=== PATIENT | female | born 1950 | race Caucasian/White ===

== ENCOUNTER 2016-11-20 06:47 | Day surgery (SDC) | payer MEDICARE ==
[~2016-11-20] VITALS: Ht 160 cm; Wt 60.3 kg
[2016-11-20] VITALS (8 sets, daily range): BP systolic 96–121; BP diastolic 57–76; PULSE 59–69; RESP 13–26; O2SAT 94–98
[~2016-11-20 06:47] MED LIST: ESTR0.5T; IBUP200C PO; Lactated Ringer's 1,000 ML IV ONE; MEDR2.5T7 PO; MELO-259 PO; ONDA-54 PO; TAMS0.4C98 PO; TRAM50TA2 PO
[2016-11-20] MEDS ORDERED: Dexamethasone 4 mg/mL Inj ONE (06:48)
[2016-11-20] MEDS ORDERED: fentaNYL-PF 50 mCg/mL 2 mL Inj ONE (06:48)
[2016-11-20] MEDS ORDERED: EPHEDrine/NS 5 mg/mL 5 mL Syringe ONE (06:48)
[2016-11-20] MEDS ORDERED: Ondansetron 2 mg/mL 2 mL Inj ONE (06:48)
[2016-11-20] MEDS ORDERED: Propofol 10,000 mCg/mL 20 mL Inj ONE (06:48)
[2016-11-20] MEDS ORDERED: CeFAZolin 2 Gm/50 mL D5W Duplex Bag IV ONE (06:58)
[2016-11-20] MEDS ORDERED: CeFAZolin Inj 2 GM in IV Premix 1 EACH IV ONE (08:00)
[2016-11-20] MEDS ORDERED: Lactated Ringer's 1,000 ML IV ONE (08:10)
--- NOTE | 2016-11-20 08:41 | PCM.HPANE ---
Patient Data Surgeon Admitting Provider: Attending Provider:Rosie Riley MD Primary Care Physician:Dalia Swain V. (Vivien) Other Provider:Norma Travis Anesthesia Reason for Visit Right Ureteral Stone Ht/WT & BMI Height (Feet): 5 Height (Inches): 3 Weight (Kilograms): 60.3 Body Mass Index 23.00 Allergies Coded Allergies: No Known Allergies (Unverified , 11/16/16) Past Anesthesia History Anesthesia History: Denies:: Anesthesia Reactions Diabetes History Hx Diabetes?: No Medications Reported Medications Tramadol 50 Mg [id number] Mg PO Q4H PRN For Pain Ref 0 11/16/16 Tamsulosin (Flomax)0.4 Mg Capsule0.4 Mg PO DAILY Ref 0 11/16/16 Ondansetron 8 Mg Tablet8 Mg PO Q12H PRN For Nausea 11/16/16 Meloxicam 7.5 Mg Tablet7.5 Mg PO DAILY 30 Days Ref 0 11/16/16 Medroxyprogesterone 2.5 Mg Tablet5 Mg PO DAILY 11/16/16 Ibuprofen 200 Mg [id number] Mg PO QID PRN For Pain Ref 0 11/16/16 Estradiol 0.5 Mg Tablet1 Tab-Cap DAILY days 1-21 11/16/16 History History of ENT Problems?: No HEENT History: Denies:: Abnormal Airway Cataracts Difficult Intubation Dysphagia Glaucoma Hearing Problem Sinus Problem TMJ Denture Type: None Teeth Condition: Broken Teeth (upper front) Hx of Heart Problems?: No Cardiovascular History: Denies:: AICD Abdominal Aortic Aneurism Atrial Fibrillation Cardiac Surgery Chest Pain Congestive Heart Failure Coronary Artery Disease Edema Heart Murmur Hypertension Irregular Heartbeat Pacemaker Peripheral Vascular Rheumatic Fever Thrombophlebitis Valvular Heart Disease Hx of Respiratory Problem?: No Respiratory History: Denies:: Oxygen Administration Use of C-PAP Machine Hx Neurologic Problems?: Yes Neurological History: Positive for:: Dementia Hx of GI Problems?: No Hx of Problems?: Yes Genitourinary History: Positive for:: Kidney Stones (right ureteral stone current admission problem) Hx Musculoskeletal Problems?: Yes Musculoskeletal History: Positive for:: Fibromyalgia Hx Surgeries?: Yes Hx Any Other Health Problems?: Yes Other History: Denies:: Cancer Hx Diabetes: No Stop/Bang P-Blood Pressure: treated: No B- Body Mass Index > 35 kg/m2: No A- Age over 50: Yes N- Neck Large Circumference: No G- Gender Male: No Risk Assessment Category Category 1A: Patient has history of documented sleep apnea, and HAS NOT received any narcotic, sedative or anesthesia administration during this stay. Category 1B: Patient has history of documented sleep apnea, and HAS received any narcotic , sedative or anesthesia administration during this stay Category 2: Patient has SUSPECTED Obstructive Sleep Apnea, and HAS received any narcotic , sedative or anesthesia administration during this stay. Category 3: Patient has SUSPECTED Obstructive Sleep Apnea and HAS NOT received narcotic, sedative or anesthesia administration during this stay. Category 4: Outpatient in Procedural Areas with known sleep apnea or who screen positive for High Risk via the STOP/BANG questionnaire. Exam Exam General Appearance: Alert, Cooperative, No Acute Distress HEENT/AIRWAY: MP 2 Lungs: Clear to Auscultation Heart: Exam Unremarkable Plan Impression Patient chart reviewed, patient interviewed and anesthestic plan with risks, benefits, and alternatives discussed, and informed consent obtained. ASA Physical Status: ASA3 Severe Disease Anesthetic Plan: GA Bene/Risks/Altern/Consents: Yes HP Complete Prior to Induction: Yes Gigi Hall MD Nov 20, 2016 07:47
[2016-11-20] MEDS ORDERED: EPHEDrine Sulfate 50 mg/mL Inj IVPUSH PRN (08:45)
[2016-11-20] MEDS ORDERED: MetoCLOpramide 5 mg/mL 2 mL Inj IVPUSH PRN (08:45)
[2016-11-20] MEDS ORDERED: Ondansetron 2 mg/mL 2 mL Inj IVPUSH PRN (08:45)
[2016-11-20] MEDS ORDERED: Phenylephrine 10,000 mCg/mL Inj IVPUSH PRN (08:45)
[2016-11-20] MEDS ORDERED: Lactated Ringer's 1,000 ML IV SCH (08:45)
[2016-11-20] MEDS ORDERED: fentaNYL-PF 50 mCg/mL 2 mL Inj IVPUSH PRN (08:45)
[2016-11-20] MEDS ORDERED: Dexamethasone 4 mg/mL Inj IVPUSH PRN (08:45)
[2016-11-20] MEDS ORDERED: Lactated Ringer's 500 ML IV PRN (08:45)
[2016-11-20] MEDS ORDERED: Iopamidol-300 50 mL Inj IV ONE (08:46)
[2016-11-20] MEDS ORDERED: HYDROcodone-APAP 5-325 mg Tablet PO PRN (09:25)
--- NOTE | 2016-11-20 09:38 | PCM.ANEP1 ---
Post Anesthesia PACU Phase 1 Assessment Vital Signs Vital Signs Date Time Temp Pulse Resp B/P Pulse Ox O2 Delivery O2 Flow Rate FiO2 11/20/16 09:36 69 26 114/62 94 Room Air 11/20/16 09:30 66 21 119/76 94 Room Air 11/20/16 09:25 36.4 68 16 121/69 97 Room Air Anesthetic Administered: GA Level of Alertness: Awake, talking FITZGERALD's with Equal Strength: Yes Pain: No Nausea or Vomiting: No CV Function & Hydration Stable: Yes Airway Device: Oxygen Delivery: Room Air Lungs: Clear to Auscultation Dermatome Level: Full Sensation PACU Phase 2 Assessment Complications: No Patient Instructions Provided: N/A Gigi Hall MD Nov 20, 2016 09:38
--- NOTE | 2016-11-20 21:07 | OP ---
[address] [address] OPERATIVE REPORT PATIENT: OLGA KRAFT : 1950 MR#: [id number] ADMIT: 11/20/2016 JOB ID: [id number] DATE OF SURGERY: 11/20/2016 PREOPERATIVE DIAGNOSIS(ES): Right urolithiasis. POSTOPERATIVE DIAGNOSIS(ES): Right urolithiasis. PROCEDURE PERFORMED: 1. Cystoscopy with right retrograde pyelogram. 2. Right ureteroscopy. 3. Right ureteral stent placement. SURGEON: Rosie Riley MD. ASSISTANT CHIEF NURSING OFFICER: None. FINDINGS: No distal ureteral stone. ANESTHESIA: General. ESTIMATED BLOOD LOSS: None. DRAINS: A 6 x 22 right double-J ureteral stent. SPECIMENS: None. COMPLICATIONS: None. CONDITION: Stable. INDICATION FOR PROCEDURE: The patient is a 66-year-old significantly demented woman. She had neglected to stop ibuprofen and meloxicam. It was discussed with her family member proceeding with a ureteroscopy to treat just the distal stone only today and place a stent. She has a larger stone almost 2 cm in the right kidney that would need to be addressed on another day having had a suitable interval of time off of blood thinning medications. DESCRIPTION OF PROCEDURE: After informed consent was obtained, the patient was taken to the operating room. A time-out was performed identifying correct patient, surgical site, and procedure. General anesthesia was smoothly induced. She was given intravenous antibiotics just prior to the start of the procedure. She was placed in the lithotomy position and all pressure points were identified and appropriately padded. Genitals were then prepped and draped in a sterile fashion. A 22-Pashto rigid cystoscope was applied to the patient's urethra and advanced into the bladder. The bladder was drained. The right ureteral orifice was seen in orthotopic position. It was cannulated with a 5-Pashto open-ended Pollack catheter. Retrograde pyelogram was performed. It appeared normal. Two Sensor tip wires were then placed in succession into the renal pelvis as seen under fluoroscopy. Semi-rigid ureteroscopy then commenced. The patient is fairly petite in stature. Semi-rigid ureteroscope could be navigated to the ureteropelvic junction. The ureter appeared mildly dilated. There was no evidence of stone. It appeared from the ureteroscopy that she had passed the ureteral stone. The ureteroscope was then brought down under direct vision. The remaining Sensor tip wire was then backloaded into the cystoscope and a 6 x 22 double-J ureteral stent was loaded over it and guided into the renal pelvis as seen under fluoroscopy. The wire was then removed leaving a nice coil in the patient's bladder as seen under direct vision. The bladder was then drained. The patient was then reversed from general anesthesia and taken to PACU in good and stable condition. EMERALD
== END 2016-11-20 23:59 | disposition home or self-care (01) ==
LOC: SAS 06:47
PROVIDERS: ATTEND Urology
DX: N20.2 Calculus of kidney with calculus of ureter (principal); F41.8 Other specified anxiety disorders; K58.9 Irritable bowel syndrome, unspecified; M47.896 Other spondylosis, lumbar region; M79.7 Fibromyalgia; F03.90 Unspecified dementia, unspecified severity, without behavioral disturbance, psychotic disturbance, mood disturbance, and anxiety; Z79.82 Long term (current) use of aspirin; Z79.890 Hormone replacement therapy
CPT/HCPCS: 52332; 74420; C2617; J0690; J1100; J2405; J3010; J7120; Q9967

== ENCOUNTER 2016-12-04 13:11 | Inpatient (IN) | payer MEDICARE ==
[~2016-12-04] VITALS: Ht 154.9 cm; Wt 50.6 kg
[2016-12-04 13:11] VITALS: BP 130/70; PULSE 77; RESP 20; O2SAT 98
[~2016-12-04 13:11] MED LIST changes: -Lactated Ringer's 1,000 ML IV ONE
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
[2016-12-04 14:08] LABS: BASOPHILS % (AUTO) 0.1 % (0-3); EOSINOPHILS % (AUTO) 0 % (0-5); MONOCYTES % (AUTO) 5.6 % (4-12); Mean Corpuscular Volume 95.3 fL (81-100); NEUTROPHILS % (AUTO) 87.2 % (40-74); Platelet Count 211 bil/L (150-400)
[2016-12-04 16:31] LABS: APPEARANCE,URINE TURBID (CLEAR,HAZY); COLOR,URINE DARK YELLOW (YELLOW)
[2016-12-04 16:32] LABS: OCCULT BLOOD,URINE LARGE (NEGATIVE)
[2016-12-04] MEDS ORDERED: 0.9% Sodium Chloride 1,000 ML IV SCH (16:45)
[2016-12-04 17:15] VITALS: BP 140/79; PULSE 72; O2SAT 99
[2016-12-04 17:32] LABS: YEAST,URINE MANY (NONE SEEN)
[2016-12-04] MEDS ORDERED: TRAM50TA2 PO (18:03)
[2016-12-04] MEDS ORDERED: DOXY25TA46 PO (18:03)
[2016-12-04] MEDS ORDERED: ONDA4TAB6 PO (18:03)
[2016-12-04] MEDS ORDERED: ESTR0.5T PO (18:03)
[2016-12-04] MEDS ORDERED: NAM10 PO (18:03)
[2016-12-04] MEDS ORDERED: Alum-Mag Hydrox-Simeth 30 mL Suspension PO PRN ×2 (18:15→18:45)
[2016-12-04] MEDS ORDERED: Ondansetron 2 mg/mL 2 mL Inj IVPUSH PRN ×2 (18:15→18:45)
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
[2016-12-04 18:42] VITALS: BP 153/102; PULSE 74; RESP 18; O2SAT 98
[2016-12-04] MEDS ORDERED: Polyethylene Glycol (PEG) 17 Gm Powder PO PRN (18:45)
[2016-12-04] MEDS ORDERED: Haloperidol 5 mg/mL Inj IVPUSH ONE (18:45)
[2016-12-04] MEDS ORDERED: Haloperidol 5 mg/mL Inj IVPUSH PRN (19:00)
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
--- NOTE | 2016-12-04 21:55 | DRSVH ---
PROCEDURE: US RENAL SONOGRAM INDICATIONS: 66 year-old female with kidney stones and right ureteral stent placement. TECHNIQUE: Real-time scanning was performed of the kidneys and bladder, with image documentation. COMPARISON: [facility], CR, XR RETROGRADE UROGRAPHY, 11/20/2016, 9:04. Outside Film, CT, CT ABD PELVIS W CON, 11/12/2016, 13:13. FINDINGS: Kidneys: Kidneys are normal in size. Right kidney measures 11.6 cm long; left kidney measures 10.6 cm long. Right renal cortical thickness is 1.3 cm; left renal cortical thickness is 1.2 cm. Renal c ortical echotexture is normal. No hydronephrosis. 1.7 cm shadowing nonobstructing right renal stone i s present. No suspicious solid mass lesions. Bladder: Near empty at the time of scan, and therefore not well evaluated. Miscellaneous: No free pelvic fluid. IMPRESSION: Interval resolution of right hydronephrosis status post ureteral stent placement. 1.7 cm nonobstructing right renal stone. Dictated by: Tyron Awan M.D. on 12/04/2016 at 21:48 Approved by: Tyron Awan M.D. on 12/04/2016 at 21:54
[2016-12-04] MEDS: cefTRIAXone Inj 2,000 MG in Dextrose 5% Minibag Plus 50 ML IV SCH (23:30)
[2016-12-05] MEDS ORDERED: Haloperidol 5 mg/mL Inj IVPUSH PRN ×2 (00:16→20:16)
[2016-12-05] MEDS: Heparin 5,000 Unit/mL Inj SUBQ SCH ×3 (00:35→17:06)
--- NOTE | 2016-12-05 01:03 | NUR ---
Agitation Pt had an episode of agitation, and would like to get her IV line off. IV 5mg haldol administered. Pt now resting comfortably. 1:1 sitter provided for safety. Addendum: 12/05/16 at 0202 by MISHA ADAME RN Pt now asleep. Still on 1:1 sitter for safety Addendum: 12/05/16 at 0547 by MISHA ADAME RN Sore throat. Pt reports of having difficulty swallowing, states "it hurts when i swallow". Will pass on to the next shift of Speach Evaluation.
[2016-12-05] MEDS ORDERED: 0.9% Sodium Chloride 1,000 ML IV ONE (01:27)
[2016-12-05 05:45] VITALS: BP 133/75; PULSE 56; RESP 16; O2SAT 97
[2016-12-05 07:18] LABS: Mean Corpuscular Volume 96.5 fL (81-100)
[2016-12-05 07:19] LABS: BASOPHILS % (AUTO) 0.1 % (0-3); EOSINOPHILS % (AUTO) 0.1 % (0-5); MONOCYTES % (AUTO) 5.2 % (4-12); Mean Corpuscular Hemoglobin 32.4 pg (27.0-35.0); NEUTROPHILS % (AUTO) 80.6 % (40-74); Platelet Count 181 bil/L (150-400)
[2016-12-05 08:04] LABS: Bilirubin, Direct 0.4 mg/dL (0.0-0.3)
[2016-12-05] MEDS: D5 0.45% NaCl + KCl 20 mEq/L 1,000 ML IV SCH ×2 (10:43→22:28)
--- NOTE | 2016-12-05 11:49 | NUR ---
Case Management: [facility] delivered and charted. Signed original placed in chart. Copy left at bedside. Rosaura Syed RN
--- NOTE | 2016-12-05 16:36 | DRSVH ---
PROCEDURE: MRI STROKE PROTOCOL ([id number]) Pre- and post-contrast brain MRI, non-contrast brain MR angiogram, pre- and postcontrast neck MR ivet ogram INDICATIONS: psychosis dementia TECHNIQUE: Brain: Noncontrast axial T1 spin echo, axial T2 fast spin echo, sagittal and axial FLAIR, coronal T2 fast spin echo, axial gradient echo, axial diffusion and ADC through the brain. After the administr ation of contrast, axial 3D VIBE of the cranial vasculature and brain. Brain MRA: Non-contrast 3-D time of flight MR angiogram, with multiple vigxlkw-gysbtzczw-fjjxqrwcbk (MIP) reformats performed. Neck MRA: Axial and sagittal TruFISP through the neck. Coronal dynamic MR angiogram during administ ration of contrast in the arterial and venous phases, with 3-dimenstional ytnuumi-uhipyqyya-xxkvgidnp n (MIP) reformats constructed from subtraction images. COMPARISON: None. FINDINGS: Image quality: Excellent. BRAIN: CSF spaces: There is ex vacuo dilatation of the lateral ventricles, greatest in degree involving the temporal horns. Basal cisterns are patent. No extra-axial fluid collections. Brain: No intracranial bleeds or mass effects. Mild degree of patchy high FLAIR signal intensity wit hin the periventricular and subcortical white matter. There is moderate diffuse cerebral volume loss, greatest in degree involving the frontal and anterior temporal lobes. Jasmine-white matter interface is normal. Diffusion weighted images show no acute ischemic insults. Brainstem appears normal. Brenda l intravascular flow voids are present. No abnormal intracranial enhancement. Skull and face: Calvarial marrow signal is normal. Orbits appear normal. Sinuses: Sinuses and mastoids are clear. BRAIN MR ANGIOGRAM: Anterior circulation: Intracranial internal carotid arteries are normal in size and enhancement. Th e flow within the paired anterior cerebral arteries is normal and symmetric. The flow within the mid dle cerebral arteries is normal and symmetric. The anterior communicating artery is seen. No stenos es, occlusions, or aneurysms. Posterior circulation: The visualized portions of the vertebral arteries demonstrate normal caliber, and join to form a normal appearing basilar artery. The flow within the posterior cerebral arteries is normal and symmetric. No stenoses, occlusions, or aneurysms. NECK MR ANGIOGRAM: Carotids: Great vessels demonstrate a conventional anatomy as they arise from the aortic arch. The origins of the common carotid arteries appear patent. The calibers and courses of both common caroti d arteries are normal. The bifurcation regions appear normal bilaterally. The internal carotid tanner henrik demonstrate normal course and caliber. Posterior circulation: The origins of the vertebral arteries appear patent. More superior portions of both vertebral arteries demonstrate normal course and caliber, and join to form a normal appearing basilar artery. Miscellaneous: Subclavian arteries appear patent. Pre-contrast images through the neck show no soft tissue abnormalities. IMPRESSION: BRAIN MRI: 1. No acute process. No recent infarct. 2. Small vessel ischemic disease. 3. Cerebral volume loss, greatest in degree within the frontal and temporal lobes bilaterally. BRAIN MR ANGIOGRAM: Negative cervical MR angiography. NECK MR ANGIOGRAM: 1. No internal coronary stenosis bilaterally. 2. Patent bilateral vertebral arteries. The estimate of stenosis included in the report of the imaging study was calculated using the NASCET method Dictated by: Jing Kate M.D. on 12/05/2016 at 16:29 Transcribed by: RAULITO on 12/05/2016 at 16:34 Approved by: Jing Kate M.D. on 12/05/2016 at 16:40
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
[2016-12-05 17:21] VITALS: BP 160/74; PULSE 57; RESP 16; O2SAT 97
[2016-12-05 21:16] VITALS: BP 158/77; PULSE 56; RESP 16; O2SAT 98
[2016-12-05] MEDS: cefTRIAXone Inj 2,000 MG in Dextrose 5% Minibag Plus 50 ML IV SCH (22:35)
--- NOTE | 2016-12-05 23:57 | NUR ---
Activity Pt remained in bed for the shift, extremely [facility] will answer some yes/no questions, alert and oriented to self. Pt remained calm and pleasant during assessment and took medications crushed with pudding. No noted suicide actions, daughter in room, sitter in room. Will continue to monitor.
[2016-12-06] MEDS: Heparin 5,000 Unit/mL Inj SUBQ SCH ×3 (00:09→17:37)
[2016-12-06 03:10] LABS: Vitamin B12 1196 pg/mL (211-946)
[2016-12-06 04:13] LABS: Hepatitis A Antibody IgM Negative (Negative); Hepatitis B Core Antibody IgM Negative (Negative)
[2016-12-06 05:31] VITALS: BP 138/76; PULSE 50; RESP 16; O2SAT 97
[2016-12-06] MEDS: D5 0.45% NaCl + KCl 20 mEq/L 1,000 ML IV SCH ×2 (08:20→17:36)
--- NOTE | 2016-12-06 08:35 | NUR ---
BHUPENDRA received a call from [facility] Olga Falcon [phone], SW provided her with update and she will come see pt in the hospital. STEWART Contreras
--- NOTE | 2016-12-06 11:18 | NUR ---
Social Work-multidisciplinary rounds: Per MD, pt will likely be in the hospital for several more days. to order Psychiatry consult. BHUPENDRA to complete initial assessment today. STEWART Contreras
[2016-12-06 13:03] VITALS: BP 132/76; PULSE 63; RESP 16; O2SAT 97
[2016-12-06 13:18] LABS: BASOPHILS % (AUTO) 0.1 % (0-3); EOSINOPHILS % (AUTO) 1.4 % (0-5); MONOCYTES % (AUTO) 5.9 % (4-12); Mean Corpuscular Hemoglobin 32.6 pg (27.0-35.0); Mean Corpuscular Volume 96.9 fL (81-100); Platelet Count 170 bil/L (150-400)
--- NOTE | 2016-12-06 14:27 | NUR ---
APS - faxed H&P to Olga Falcon. She will be visiting pt tomorrow 12/07. Advised SUPERINTENDENT OF GENERATION>
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
--- NOTE | 2016-12-06 20:01 | PCM.PNMED ---
Subjective Date of Service Dec 06, 2016 Subjective Patient is nonverbal, not answer any of my questions. She also is able to do crossword puzzles to the best of my knowledge looks to be appropriate. Exam Vital Signs Vital Sign - Last Date Time Temp Pulse Resp B/P Pulse Ox O2 Delivery O2 Flow Rate FiO2 12/06/16 13:03 36.3 63 16 132/76 97 Room Air Intake and Output 12/05/16 12/05/16 12/06/16 Cumulative From/Thru 15:00 23:00 07:00 12/04/16 13:11 - 12/06/16 05:31 Intake Total 1134 ml 200 ml 3718 ml Output Total 400 ml Balance 1134 ml 200 ml 3318 ml Intake Oral 168 ml 200 ml 468 ml IV Total 966 ml 3250 ml Output Urine Total 400 ml # Voids 2 2 5 # Bowel Movements 1 Exam Constitutional: Middle-aged female in no acute distress Chest: Clear to auscultation Cor: Regular rate and rhythm S1-S2 Abdomen: Soft nontender bowel sounds present Extremities: No pedal edema Psych: Patient is expressionless will not look up from her crossword puzzle book will not cooperate with certain commands Neuro: She is alert difficult to assess orientation, motor strength is intact bilaterally Lab and Diagnostics Laboratory Tests 72 Hours Test 12/04/16 14:00 12/04/16 14:19 12/04/16 15:58 12/05/16 06:00 White Blood Count 11.9th/mm3 (3.8-10.1) 8.8th/mm3 (3.8-10.1) Red Blood Count 4.43mil/mm3 (3.90-5.20) 3.95mil/mm3 (3.90-5.20) Hemoglobin 14.6g/dL (12.0-15.6) 12.8g/dL (12.0-15.6) Hematocrit 42.2% (35.0-46.0) 38.1% (35.0-46.0) Mean Corpuscular Volume 95.3fL (81-100) 96.5fL (81-100) Mean Corpuscular Hemoglobin 33.0pg (27.0-35.0) 32.4pg (27.0-35.0) Mean Corpuscular Hemoglobin Concent 34.6% (32.0-37.0) 33.6% (32.0-37.0) Red Cell Distribution Width 12.5% (12.3-15.4) 12.4% (12.3-15.4) Platelet Count 211bil/L (150-400) 181bil/L (150-400) Neutrophils (%) (Auto) 87.2% (40-74) 80.6% (40-74) Lymphocytes (%) (Auto) 6.8% (14-46) 13.8% (14-46) Monocytes (%) (Auto) 5.6% (4-12) 5.2% (4-12) Eosinophils (%) (Auto) 0% (0-5) 0.1% (0-5) Basophils (%) (Auto) 0.1% (0-3) 0.1% (0-3) Sodium Level 142mEq/L (134-144) 147mEq/L (134-144) Potassium Level 3.3mEq/L (3.5-5.2) 3.3mEq/L (3.5-5.2) Chloride Level 96mEq/L (97-108) 107mEq/L (97-108) Carbon Dioxide Level 24mmol/L (18-29) 23mmol/L (18-29) Blood Urea Nitrogen 38mg/dL (8-27) 35mg/dL (8-27) Creatinine 1.54mg/dL (0.57-1.00) 1.37mg/dL (0.57-1.00) Estimat Glomerular Filtration Rate 48mL/min (>59) 55mL/min (>59) Glucose Level 104mg/dL (60-99) 105mg/dL (60-99) Calcium Level 10.8mg/dL (8.5-10.1) 9.3mg/dL (8.5-10.1) Total Bilirubin 1.5mg/dL (0.0-1.2) 0.9mg/dL (0.0-1.2) Aspartate Amino Transf (AST/SGOT) 50U/L (0-50) 30U/L (0-50) Alanine Aminotransferase (ALT/SGPT) 218U/L (0-32) 146U/L (0-32) Alkaline Phosphatase 95U/L (25-165) 73U/L (25-165) Total Protein 7.3g/dL (6.4-8.4) 5.7g/dL (6.4-8.4) Albumin 4.2g/dL (3.4-5.0) 3.5g/dL (3.4-5.0) Thyroid Stimulating Hormone (TSH) 0.773uIU/mL (0.450-4.500) 1.690uIU/mL (0.450-4.500) Alcohols < 10mg/dL (0-10) Hold Urine Received (Received) Urine Color Dark yellow (YELLOW) Urine Appearance Turbid (CLEAR,HAZY) Urine pH 6.0 (5.0-8.0) Urine Specific [place] 1.025 (1.003-1.035) Urine Protein mg/dL (NEG,TRACE) Urine Glucose (UA) Negativemg/dL (NEGATIVE) Urine Ketones mg/dL (NEGATIVE) Urine Occult Blood Large (NEGATIVE) Urine Nitrite Positive (NEGATIVE) Urine Bilirubin Negative (NEGATIVE) Urine Urobilinogen mg/dL (NORMAL) Urine Leukocyte Esterase Trace (NEGATIVE) Urine RBC >50/hpf (0-2) Urine WBC 0-5/hpf (0-5) Urine Epithelial Cells Few/hpf (NONE-MOD) Urine Crystals None seen (NONE SEEN) Urine Bacteria Few/hpf (NONE-FEW) Urine Hyaline Casts None/lpf (NONE) Urine Granular Casts None seen (NONE SEEN) Urine Waxy Casts None seen (NONE SEEN) Urine Red Blood Cell Casts None seen (NONE SEEN) Urine White Blood Cell Casts None seen (NONE SEEN) Urine Mucus Present (None Seen) Urine Trichomonas None seen (NONE SEEN) Urine Yeast Many (NONE SEEN) Urinalysis Comment Color interference Urine Culture Reflexed Indicated Direct Bilirubin 0.4mg/dL (0.0-0.3) Procalcitonin 0.26ng/mL (0.00-0.08) Free Thyroxine 1.03ng/dL (0.82-1.77) Test 12/05/16 10:45 12/06/16 13:10 Vitamin B12 Level 1196pg/mL (211-946) Rapid Plasma Reagin Non reactive (Non Reactive) Hepatitis A IgM Antibody Negative (Negative) Hepatitis B Surface Antigen Negative (Negative) Hepatitis B Core IgM Antibody Negative (Negative) Hepatitis C Antibody <0.1s/co ratio (0.0-0.9) Hepatitis C Comment Comment (.) White Blood Count 6.9th/mm3 (3.8-10.1) Red Blood Count 3.87mil/mm3 (3.90-5.20) Hemoglobin 12.6g/dL (12.0-15.6) Hematocrit 37.5% (35.0-46.0) Mean Corpuscular Volume 96.9fL (81-100) Mean Corpuscular Hemoglobin 32.6pg (27.0-35.0) Mean Corpuscular Hemoglobin Concent 33.6% (32.0-37.0) Red Cell Distribution Width 12.2% (12.3-15.4) Platelet Count 170bil/L (150-400) Neutrophils (%) (Auto) 67.0% (40-74) Lymphocytes (%) (Auto) 25.3% (14-46) Monocytes (%) (Auto) 5.9% (4-12) Eosinophils (%) (Auto) 1.4% (0-5) Basophils (%) (Auto) 0.1% (0-3) Sodium Level 139mEq/L (134-144) Potassium Level 3.8mEq/L (3.5-5.2) Chloride Level 104mEq/L (97-108) Carbon Dioxide Level 24mmol/L (18-29) Blood Urea Nitrogen 16mg/dL (8-27) Creatinine 0.83mg/dL (0.57-1.00) Estimat Glomerular Filtration Rate 98mL/min (>59) Glucose Level 134mg/dL (60-99) Calcium Level 9.1mg/dL (8.5-10.1) Total Bilirubin 0.6mg/dL (0.0-1.2) Aspartate Amino Transf (AST/SGOT) 21U/L (0-50) Alanine Aminotransferase (ALT/SGPT) 96U/L (0-32) Alkaline Phosphatase 63U/L (25-165) Total Creatine Kinase 31U/L (21-215) Total Protein 5.3g/dL (6.4-8.4) Albumin 3.2g/dL (3.4-5.0) Result Diagram: 12/06/16 1310 12/06/16 1310 Assessment & Plan 66-year-old female with severe early onset dementia with attempted suicide attempt today was found to have YESENIA and possible UTI acute, active, Irregular behaviors, agitation, likely due to advance dementia with possible psychosis features. presumably due to Alzheimer's dementia, but could be Lewi- body dementia, dxed dementia already 7yrs ago per brother. no previous dx of psychiatric dz -will exclude any reversible etiologies, organic disease, get vitB12, TSH, RPR, UCX -awaits MRI brain MRA neck and brain -if all workups negative, pt likely needs psychiatry consult prior to placement -haldol seemed working well, continue haldol 5mg q4h prn -Continue amantadine YESENIA, POA, likely prerenal due to decreased Po intake, Patient received 2 L normal saline in the ED, started on 100cc/hr NS, -stop IVF today, improving with IVF, will encourage liberal food intake -Avoid all NSAIDs, including meloxicam, and other nephrotoxins -daily CMP Hx of nephrolithiasis, recent stent placement, POA, Abd US on 12/04 showed Interval resolution of right hydronephrosis status post ureteral stent placement. 1.7 cm nonobstructing right renal stone probable UTI, POA, positive for leukocyte esterase, nitrites, few bacteria; pending culture -empirically start Rocephin today, monitor response, awaits final culture, consider to stop if suspicion remains low Elevated ALT, calcium, and bilirubin; present on admission; ongoing, LFT shows mild hepatic dysfunction with mild elevations of bilirubin and large elevation of ALT; question this due to medication -ALT trending down, awaits viral hep panel, chronic, stable, resolved Reported dysphagia, POA, initially concerning given dementia, however, pt appeared euvolemic,relatively well nourished, passed swallowing test, continue general diet, Disposition: pending, appreciate SW input DNR/DNI VTE Prophylaxis: Sub-Q Heparin (Unfractionated) Resuscitation Status: DNR/DNI:Do Not Resuscitate/Intubate Time spent 30 minutes Marylu See MD Dec 06, 2016 20:01
[2016-12-06 20:35] VITALS: BP 130/70; PULSE 60; RESP 20; O2SAT 98
[2016-12-06] MEDS: cefTRIAXone Inj 2,000 MG in Dextrose 5% Minibag Plus 50 ML IV SCH (23:37)
[2016-12-07] MEDS: Heparin 5,000 Unit/mL Inj SUBQ SCH ×3 (00:30→16:30)
--- NOTE | 2016-12-07 03:05 | NUR ---
activity Pt restless and uncooperative this evening, asked to be left alone. Pulled out IV, IV was patent, no bleeding or injury. Will monitor progress.
--- NOTE | 2016-12-07 05:25 | NUR ---
IV New IV started on Pt, uncooperative, glove over arm to help keep IV in place. Sitter with pt, will continue monitor.
--- NOTE | 2016-12-07 08:12 | NUR ---
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 PRN 5mg IV haldol given by off going coin machine servicer repairer RN at shift change with little observable effect. 0800 patient pulls out IV and wants "to be left alone". Multiple attempts to calm and redirect patient partially effective. Currently resting in bed with sitter and daughter at bedside for safety. Bed low and locked, call light in reach, bed alarm on, care and frequent rounding in place. Addendum: 12/07/16 at 0942 by JOSE ANTONIO BREEN RN 09 patient continues to refuse food, water, PO medications. States "I told you I don't want anything!" Patient able to be calmed by RN. Sitter at bedside for safety, bed low and locked, call light in reach, care and frequent rounding ongoing.
[2016-12-07] MEDS: D5 0.45% NaCl + KCl 20 mEq/L 1,000 ML IV SCH ×3 (08:20→22:15)
[2016-12-07] MEDS ORDERED: Haloperidol 5 mg/mL Inj IM PRN (12:16)
[2016-12-07 16:56] VITALS: BP 133/65; PULSE 61; RESP 18; O2SAT 95
--- NOTE | 2016-12-07 18:29 | PCM.PNMED ---
Subjective Date of Service Dec 07, 2016 Subjective Patient does not respond to commands but is alert. She had a night of being quite agitated and required IV Haldol with some benefit. Exam Vital Signs Vital Sign - Last Date Time Temp Pulse Resp B/P Pulse Ox O2 Delivery O2 Flow Rate FiO2 12/07/16 16:56 36.9 61 18 133/65 95 Room Air Intake and Output 12/06/16 12/06/16 12/07/16 Cumulative From/Thru 15:00 23:00 07:00 12/04/16 13:11 - 12/07/16 06:28 Intake Total 200 ml 320 ml 4238 ml Output Total 400 ml Balance 200 ml 320 ml 3838 ml Intake Oral 200 ml 320 ml 988 ml IV Total 3250 ml Output Urine Total 400 ml # Voids 6 6 17 # Bowel Movements 3 3 7 Exam Constitutional: Elderly female who is somewhat irritated and not answer questions Head: Normocephalic atraumatic Chest: Clear to auscultation Cor: Regular rate and rhythm S1-S2 Abdomen: Soft nontender bowel sounds present Extremities: No pedal edema neuro she is alert difficult to assess orientation moves all extremities equally Lab and Diagnostics Laboratory Tests 72 Hours Test 12/05/16 06:00 12/05/16 10:45 12/06/16 13:10 White Blood Count 8.8th/mm3 (3.8-10.1) 6.9th/mm3 (3.8-10.1) Red Blood Count 3.95mil/mm3 (3.90-5.20) 3.87mil/mm3 (3.90-5.20) Hemoglobin 12.8g/dL (12.0-15.6) 12.6g/dL (12.0-15.6) Hematocrit 38.1% (35.0-46.0) 37.5% (35.0-46.0) Mean Corpuscular Volume 96.5fL (81-100) 96.9fL (81-100) Mean Corpuscular Hemoglobin 32.4pg (27.0-35.0) 32.6pg (27.0-35.0) Mean Corpuscular Hemoglobin Concent 33.6% (32.0-37.0) 33.6% (32.0-37.0) Red Cell Distribution Width 12.4% (12.3-15.4) 12.2% (12.3-15.4) Platelet Count 181bil/L (150-400) 170bil/L (150-400) Neutrophils (%) (Auto) 80.6% (40-74) 67.0% (40-74) Lymphocytes (%) (Auto) 13.8% (14-46) 25.3% (14-46) Monocytes (%) (Auto) 5.2% (4-12) 5.9% (4-12) Eosinophils (%) (Auto) 0.1% (0-5) 1.4% (0-5) Basophils (%) (Auto) 0.1% (0-3) 0.1% (0-3) Sodium Level 147mEq/L (134-144) 139mEq/L (134-144) Potassium Level 3.3mEq/L (3.5-5.2) 3.8mEq/L (3.5-5.2) Chloride Level 107mEq/L (97-108) 104mEq/L (97-108) Carbon Dioxide Level 23mmol/L (18-29) 24mmol/L (18-29) Blood Urea Nitrogen 35mg/dL (8-27) 16mg/dL (8-27) Creatinine 1.37mg/dL (0.57-1.00) 0.83mg/dL (0.57-1.00) Estimat Glomerular Filtration Rate 55mL/min (>59) 98mL/min (>59) Glucose Level 105mg/dL (60-99) 134mg/dL (60-99) Calcium Level 9.3mg/dL (8.5-10.1) 9.1mg/dL (8.5-10.1) Total Bilirubin 0.9mg/dL (0.0-1.2) 0.6mg/dL (0.0-1.2) Direct Bilirubin 0.4mg/dL (0.0-0.3) Aspartate Amino Transf (AST/SGOT) 30U/L (0-50) 21U/L (0-50) Alanine Aminotransferase (ALT/SGPT) 146U/L (0-32) 96U/L (0-32) Alkaline Phosphatase 73U/L (25-165) 63U/L (25-165) Total Protein 5.7g/dL (6.4-8.4) 5.3g/dL (6.4-8.4) Albumin 3.5g/dL (3.4-5.0) 3.2g/dL (3.4-5.0) Procalcitonin 0.26ng/mL (0.00-0.08) Thyroid Stimulating Hormone (TSH) 1.690uIU/mL (0.450-4.500) Free Thyroxine 1.03ng/dL (0.82-1.77) Vitamin B12 Level 1196pg/mL (211-946) Rapid Plasma Reagin Non reactive (Non Reactive) Hepatitis A IgM Antibody Negative (Negative) Hepatitis B Surface Antigen Negative (Negative) Hepatitis B Core IgM Antibody Negative (Negative) Hepatitis C Antibody <0.1s/co ratio (0.0-0.9) Hepatitis C Comment Comment (.) Total Creatine Kinase 31U/L (21-215) Result Diagram: 12/06/16 1310 12/06/16 1310 X-Rays, CTs and MRIs Date of Service: 12/05/16 1013 PROCEDURE: MRI STROKE PROTOCOL ([id number]) Pre- and post-contrast brain MRI, non-contrast brain MR angiogram, pre- and postcontrast neck MR angiogram INDICATIONS: psychosis dementia TECHNIQUE: Brain: Noncontrast axial T1 spin echo, axial T2 fast spin echo, sagittal and axial FLAIR, coronal T2 fast spin echo, axial gradient echo, axial diffusion and ADC through the brain. After the administration of contrast, axial 3D VIBE of the cranial vasculature and brain. Brain MRA: Non-contrast 3-D time of flight MR angiogram, with multiple maximum- intensity-projection (MIP) reformats performed. Neck MRA: Axial and sagittal TruFISP through the neck. Coronal dynamic MR angiogram during administration of contrast in the arterial and venous phases, with 3-dimenstional vwuswpl-lwyzvstge-terbsitmqf (MIP) reformats constructed from subtraction images. COMPARISON: None. FINDINGS: Image quality: Excellent. BRAIN: CSF spaces: There is ex vacuo dilatation of the lateral ventricles, greatest in degree involving the temporal horns. Basal cisterns are patent. No extra- axial fluid collections. Brain: No intracranial bleeds or mass effects. Mild degree of patchy high FLAIR signal intensity within the periventricular and subcortical white matter. There is moderate diffuse cerebral volume loss, greatest in degree involving the frontal and anterior temporal lobes. Jasmine-white matter interface is normal. Diffusion weighted images show no acute ischemic insults. Brainstem appears normal. Normal intravascular flow voids are present. No abnormal intracranial enhancement. Skull and face: Calvarial marrow signal is normal. Orbits appear normal. Sinuses: Sinuses and mastoids are clear. BRAIN MR ANGIOGRAM: Anterior circulation: Intracranial internal carotid arteries are normal in size and enhancement. The flow within the paired anterior cerebral arteries is normal and symmetric. The flow within the middle cerebral arteries is normal and symmetric. The anterior communicating artery is seen. No stenoses, occlusions, or aneurysms. Posterior circulation: The visualized portions of the vertebral arteries demonstrate normal caliber, and join to form a normal appearing basilar artery. The flow within the posterior cerebral arteries is normal and symmetric. No stenoses, occlusions, or aneurysms. NECK MR ANGIOGRAM: Carotids: Great vessels demonstrate a conventional anatomy as they arise from the aortic arch. The origins of the common carotid arteries appear patent. The calibers and courses of both common carotid arteries are normal. The bifurcation regions appear normal bilaterally. The internal carotid arteries demonstrate normal course and caliber. Posterior circulation: The origins of the vertebral arteries appear patent. More superior portions of both vertebral arteries demonstrate normal course and caliber, and join to form a normal appearing basilar artery. Miscellaneous: Subclavian arteries appear patent. Pre-contrast images through the neck show no soft tissue abnormalities. IMPRESSION: BRAIN MRI: 1. No acute process. No recent infarct. 2. Small vessel ischemic disease. 3. Cerebral volume loss, greatest in degree within the frontal and temporal lobes bilaterally. BRAIN MR ANGIOGRAM: Negative cervical MR angiography. NECK MR ANGIOGRAM: 1. No internal coronary stenosis bilaterally. 2. Patent bilateral vertebral arteries. The estimate of stenosis included in the report of the imaging study was calculated using the NASCET method Dictated by: Jing Kate M.D. on 12/05/2016 at 16:29 Transcribed by: RAULITO on 12/05/2016 at 16:34 Approved by: Jing Kate M.D. on 12/05/2016 at 16:40 Assessment & Plan 66-year-old female with severe early onset dementia with attempted suicide attempt today was found to have YESENIA and possible UTI acute, active, Irregular behaviors, agitation, likely due to advance dementia with possible psychosis features. presumably due to Alzheimer's dementia, but could be Lewi- body dementia, dxed dementia already 7yrs ago per brother. no previous dx of psychiatric dz -will exclude any reversible etiologies, organic disease, get vitB12, TSH, RPR, UCX -awaits MRI brain MRA neck and brain -if all workups negative, pt likely needs psychiatry consult prior to placement -haldol seemed working well, continue haldol 5mg q4h prn -Continue amantadine -I contacted psychiatry yesterday and missed phone call back late in the day and contacted psychiatry again today and am still awaiting consultation YESENIA, POA, likely prerenal due to decreased Po intake, Patient received 2 L normal saline in the ED, started on 100cc/hr NS, -stop IVF today, improving with IVF, will encourage liberal food intake -Avoid all NSAIDs, including meloxicam, and other nephrotoxins -daily CMP Hx of nephrolithiasis, recent stent placement, POA, Abd US on 12/04 showed Interval resolution of right hydronephrosis status post ureteral stent placement. 1.7 cm nonobstructing right renal stone probable UTI, POA, positive for leukocyte esterase, nitrites, few bacteria; pending culture -empirically start Rocephin today, monitor response, awaits final culture, consider to stop if suspicion remains low Elevated ALT, calcium, and bilirubin; present on admission; ongoing, LFT shows mild hepatic dysfunction with mild elevations of bilirubin and large elevation of ALT; question this due to medication -ALT trending down, awaits viral hep panel, chronic, stable, resolved Reported dysphagia, POA, initially concerning given dementia, however, pt appeared euvolemic,relatively well nourished, passed swallowing test, continue general diet, Disposition: pending, appreciate SW input DNR/DNI VTE Prophylaxis: Sub-Q Heparin (Unfractionated) Resuscitation Status: DNR/DNI:Do Not Resuscitate/Intubate Time spent 30 minutes Marylu See MD Dec 07, 2016 18:29
--- NOTE | 2016-12-07 18:54 | NUR ---
No IV Patient has removed several IVs; peripheral IVs appear to cause her irritation and anxiety. Primary MD (Dr See) states it is fine for patient to go without IV for now.
[2016-12-07 22:31] VITALS: BP 112/71; PULSE 64; RESP 18; O2SAT 96
[2016-12-07] MEDS: cefTRIAXone Inj 2,000 MG in Dextrose 5% Minibag Plus 50 ML IV SCH (23:00)
[2016-12-08] MEDS: Heparin 5,000 Unit/mL Inj SUBQ SCH ×5 (02:49→23:56)
[2016-12-08 05:16] VITALS: BP 132/71; PULSE 58; RESP 18; O2SAT 95
[2016-12-08] MEDS: D5 0.45% NaCl + KCl 20 mEq/L 1,000 ML IV SCH ×2 (08:15→15:26)
[2016-12-08 14:46] VITALS: BP 121/71; PULSE 67; RESP 18; O2SAT 96
--- NOTE | 2016-12-08 16:26 | PCM.PNMED ---
Subjective Date of Service Dec 08, 2016 Subjective pt was agitated and combative pulled out iv overnight, pt was not coherent, answered questions but didn't give right answers, oriented to herself calm on the bed, sitter at the bed side Exam Vital Signs Vital Sign - Last Date Time Temp Pulse Resp B/P Pulse Ox O2 Delivery O2 Flow Rate FiO2 12/08/16 05:16 36.7 58 18 132/71 95 Room Air Intake and Output 12/07/16 12/07/16 12/08/16 Cumulative From/Thru 15:00 23:00 07:00 12/04/16 13:11 - 12/07/16 18:35 Intake Total 300 ml 4538 ml Output Total 400 ml Balance 300 ml 4138 ml Intake Oral 300 ml 1288 ml IV Total 3250 ml Output Urine Total 400 ml # Voids 9 26 # Bowel Movements 2 9 Exam cachectic, awake, calm, NAD, comfortably laying down on the bed no JVD, MMM, no LAD RRR, nl s1, s2 no mrg CTAB, no w,c S,ND,NT,normoactive BS+ warm, no edema, pulses 2/2 IVs and Medications Medications Reviewed: Medications were reviewed in detail Lab and Diagnostics Result Diagram: 12/06/16 1310 12/06/16 1310 X-Rays, CTs and MRIs Date of Service: 12/05/16 1013 PROCEDURE: MRI STROKE PROTOCOL ([id number]) Pre- and post-contrast brain MRI, non-contrast brain MR angiogram, pre- and postcontrast neck MR angiogram INDICATIONS: psychosis dementia TECHNIQUE: Brain: Noncontrast axial T1 spin echo, axial T2 fast spin echo, sagittal and axial FLAIR, coronal T2 fast spin echo, axial gradient echo, axial diffusion and ADC through the brain. After the administration of contrast, axial 3D VIBE of the cranial vasculature and brain. Brain MRA: Non-contrast 3-D time of flight MR angiogram, with multiple maximum- intensity-projection (MIP) reformats performed. Neck MRA: Axial and sagittal TruFISP through the neck. Coronal dynamic MR angiogram during administration of contrast in the arterial and venous phases, with 3-dimenstional mxqrlvs-jxeakutku-jbgutfflcb (MIP) reformats constructed from subtraction images. COMPARISON: None. FINDINGS: Image quality: Excellent. BRAIN: CSF spaces: There is ex vacuo dilatation of the lateral ventricles, greatest in degree involving the temporal horns. Basal cisterns are patent. No extra- axial fluid collections. Brain: No intracranial bleeds or mass effects. Mild degree of patchy high FLAIR signal intensity within the periventricular and subcortical white matter. There is moderate diffuse cerebral volume loss, greatest in degree involving the frontal and anterior temporal lobes. Jasmine-white matter interface is normal. Diffusion weighted images show no acute ischemic insults. Brainstem appears normal. Normal intravascular flow voids are present. No abnormal intracranial enhancement. Skull and face: Calvarial marrow signal is normal. Orbits appear normal. Sinuses: Sinuses and mastoids are clear. BRAIN MR ANGIOGRAM: Anterior circulation: Intracranial internal carotid arteries are normal in size and enhancement. The flow within the paired anterior cerebral arteries is normal and symmetric. The flow within the middle cerebral arteries is normal and symmetric. The anterior communicating artery is seen. No stenoses, occlusions, or aneurysms. Posterior circulation: The visualized portions of the vertebral arteries demonstrate normal caliber, and join to form a normal appearing basilar artery. The flow within the posterior cerebral arteries is normal and symmetric. No stenoses, occlusions, or aneurysms. NECK MR ANGIOGRAM: Carotids: Great vessels demonstrate a conventional anatomy as they arise from the aortic arch. The origins of the common carotid arteries appear patent. The calibers and courses of both common carotid arteries are normal. The bifurcation regions appear normal bilaterally. The internal carotid arteries demonstrate normal course and caliber. Posterior circulation: The origins of the vertebral arteries appear patent. More superior portions of both vertebral arteries demonstrate normal course and caliber, and join to form a normal appearing basilar artery. Miscellaneous: Subclavian arteries appear patent. Pre-contrast images through the neck show no soft tissue abnormalities. IMPRESSION: BRAIN MRI: 1. No acute process. No recent infarct. 2. Small vessel ischemic disease. 3. Cerebral volume loss, greatest in degree within the frontal and temporal lobes bilaterally. BRAIN MR ANGIOGRAM: Negative cervical MR angiography. NECK MR ANGIOGRAM: 1. No internal coronary stenosis bilaterally. 2. Patent bilateral vertebral arteries. The estimate of stenosis included in the report of the imaging study was calculated using the NASCET method Dictated by: Jing Kate M.D. on 12/05/2016 at 16:29 Transcribed by: RAULITO on 12/05/2016 at 16:34 Approved by: Jing Kate M.D. on 12/05/2016 at 16:40 Assessment & Plan 66-year-old female with severe early onset dementia with attempted suicide attempt today was found to have YESENIA and possible UTI acute, active, Irregular behaviors, agitation, likely due to advanced dementia with possible psychosis features or underlying psychiatric dz, dementia was presumably due to Alzheimer's dementia, pt was diagnosed dxed dementia already 7yrs ago per brother. no previous dx of psychiatric dz. Medical w/u including MRA, MRI of brain, vitB12, TSH, RPR, UCX, all negative. -haldol seemed working well, continue haldol 5mg q4h prn -Continue amantadine -awaits consult, consulted and was reached by SW service Elevated ALT, calcium, and bilirubin; present on admission; ongoing, LFT shows mild hepatic dysfunction with mild elevations of bilirubin and large elevation of ALT; question this due to medication. -ALT trending down, monitor for now chronic, stable, resolved Reported dysphagia, POA, initially concerning given dementia, however, pt appeared euvolemic,relatively well nourished, passed swallowing test, continue general diet, YESENIA, POA, likely prerenal due to decreased Po intake, Patient received 2 L normal saline in the ED, started on 100cc/hr NS, resolved with IVF> Hx of nephrolithiasis, recent stent placement, POA, Abd US on 12/04 showed Interval resolution of right hydronephrosis status post ureteral stent placement. 1.7 cm nonobstructing right renal stone, stable Probable UTI, POA, positive for leukocyte esterase, nitrites, few bacteria. pt was empirically start Rocephin but final UCX negative. stopped abx today Disposition: pending, appreciate SW input DNR/DNI VTE Prophylaxis: Sub-Q Heparin (Unfractionated) VTE Mechanical Devices: Venous Foot Pump Resuscitation Status: DNR/DNI:Do Not Resuscitate/Intubate Time spent 35min Mariana Dunn MD Dec 08, 2016 12:33
--- NOTE | 2016-12-08 16:48 | NUR ---
NUTRITION ASSESSMENT: ASSESS: 66YO F admit with Altered mental status, ? Delirium with alzheimers dementia, psychiatry consulted. Pt. diet remains stimulation with pt refusing or taking in bites of po diet. Minimal nutrition x 4 days. PMHX: Alzheimer's Dementia, DIET: Stimulation (+supplements). PO bites. ST notes indicate pt dysphagia: WFL; recommend Stim/Puree. LABS: Alb 3.2, Glu 134 MEDS: Reviewed GI: 2 BM 12/08 WEIGHT:69.3kg BMI: 28.9 EST.NEEDS: 9220-3722 kcal (25-30kcal/kg) 70-80g pro (1.0-1.2g/kg pro) NUTRITION DIAGNOSIS: (1) Inadequate oral intake related to AMS as evidenced by po intake of bites on stimulation diet x 4 days. INTERVENTION: (1) Currently unable to obtain pt preferences, pt is oriented to self only. Continue with supplements as ordered, recommend diet advancement per ST vs. potential for nutrition support if unable to increase po intake/advance diet next 2-3 days, depending on pt overall POC. MONITOR/EVALUATE: PO intake, diet advance per ST, lab values, POC. F/U per high risk.
--- NOTE | 2016-12-08 17:30 | NUR ---
agitation pt became agitated to the point of the daughter feeling like the pt was going to hit her. Haldol given and pt reminded that she is here because we are keeping her safe until the doctor determines that she can go. Family is at bedside and appear to be one of the causes of the pt's agitation.
[2016-12-08] MEDS: RISPERIDONE 1 MG/ML PO SCH (20:12)
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
[2016-12-08 23:57] VITALS: BP 122/77; PULSE 73; RESP 20; O2SAT 96
[2016-12-09] MEDS: D5 0.45% NaCl + KCl 20 mEq/L 1,000 ML IV SCH ×2 (04:15→12:32)
[2016-12-09 08:38] VITALS: BP 146/76; PULSE 70; RESP 18; O2SAT 98
[2016-12-09] MEDS: Heparin 5,000 Unit/mL Inj SUBQ SCH ×2 (08:54→16:18)
[2016-12-09] MEDS: RISPERIDONE 1 MG/ML PO SCH ×2 (08:55→19:10)
--- NOTE | 2016-12-09 13:35 | PCM.PNMED ---
Subjective Date of Service Dec 09, 2016 Subjective pt remained calm on 1:1 at the bedside denied complaints, not following commands, new medications started per psychiatry service Exam Vital Signs Vital Sign - Last Date Time Temp Pulse Resp B/P Pulse Ox O2 Delivery O2 Flow Rate FiO2 12/08/16 23:57 37.1 73 20 122/77 96 Room Air Intake and Output 12/08/16 12/08/16 12/09/16 Cumulative From/Thru 15:00 23:00 07:00 12/04/16 13:11 - 12/09/16 06:21 Intake Total 260 ml 460 ml 200 ml 5458 ml Output Total 400 ml Balance 260 ml 460 ml 200 ml 5058 ml Intake Oral 260 ml 460 ml 200 ml 2208 ml IV Total 3250 ml Output Urine Total 400 ml # Voids 5 12 7 50 # Bowel Movements 2 3 2 16 Exam cachectic, awake, calm, NAD, comfortably laying down on the bed no JVD, MMM, no LAD RRR, nl s1, s2 no mrg CTAB, no w,c S,ND,NT,normoactive BS+ warm, no edema, pulses 2/2 IVs and Medications Medications Reviewed: Medications were reviewed in detail Lab and Diagnostics Result Diagram: 12/06/16 1310 12/06/16 1310 X-Rays, CTs and MRIs Date of Service: 12/05/16 1013 PROCEDURE: MRI STROKE PROTOCOL ([id number]) Pre- and post-contrast brain MRI, non-contrast brain MR angiogram, pre- and postcontrast neck MR angiogram INDICATIONS: psychosis dementia TECHNIQUE: Brain: Noncontrast axial T1 spin echo, axial T2 fast spin echo, sagittal and axial FLAIR, coronal T2 fast spin echo, axial gradient echo, axial diffusion and ADC through the brain. After the administration of contrast, axial 3D VIBE of the cranial vasculature and brain. Brain MRA: Non-contrast 3-D time of flight MR angiogram, with multiple maximum- intensity-projection (MIP) reformats performed. Neck MRA: Axial and sagittal TruFISP through the neck. Coronal dynamic MR angiogram during administration of contrast in the arterial and venous phases, with 3-dimenstional gmknfco-yevstlnbk-kbtfyneyqv (MIP) reformats constructed from subtraction images. COMPARISON: None. FINDINGS: Image quality: Excellent. BRAIN: CSF spaces: There is ex vacuo dilatation of the lateral ventricles, greatest in degree involving the temporal horns. Basal cisterns are patent. No extra- axial fluid collections. Brain: No intracranial bleeds or mass effects. Mild degree of patchy high FLAIR signal intensity within the periventricular and subcortical white matter. There is moderate diffuse cerebral volume loss, greatest in degree involving the frontal and anterior temporal lobes. Jasmine-white matter interface is normal. Diffusion weighted images show no acute ischemic insults. Brainstem appears normal. Normal intravascular flow voids are present. No abnormal intracranial enhancement. Skull and face: Calvarial marrow signal is normal. Orbits appear normal. Sinuses: Sinuses and mastoids are clear. BRAIN MR ANGIOGRAM: Anterior circulation: Intracranial internal carotid arteries are normal in size and enhancement. The flow within the paired anterior cerebral arteries is normal and symmetric. The flow within the middle cerebral arteries is normal and symmetric. The anterior communicating artery is seen. No stenoses, occlusions, or aneurysms. Posterior circulation: The visualized portions of the vertebral arteries demonstrate normal caliber, and join to form a normal appearing basilar artery. The flow within the posterior cerebral arteries is normal and symmetric. No stenoses, occlusions, or aneurysms. NECK MR ANGIOGRAM: Carotids: Great vessels demonstrate a conventional anatomy as they arise from the aortic arch. The origins of the common carotid arteries appear patent. The calibers and courses of both common carotid arteries are normal. The bifurcation regions appear normal bilaterally. The internal carotid arteries demonstrate normal course and caliber. Posterior circulation: The origins of the vertebral arteries appear patent. More superior portions of both vertebral arteries demonstrate normal course and caliber, and join to form a normal appearing basilar artery. Miscellaneous: Subclavian arteries appear patent. Pre-contrast images through the neck show no soft tissue abnormalities. IMPRESSION: BRAIN MRI: 1. No acute process. No recent infarct. 2. Small vessel ischemic disease. 3. Cerebral volume loss, greatest in degree within the frontal and temporal lobes bilaterally. BRAIN MR ANGIOGRAM: Negative cervical MR angiography. NECK MR ANGIOGRAM: 1. No internal coronary stenosis bilaterally. 2. Patent bilateral vertebral arteries. The estimate of stenosis included in the report of the imaging study was calculated using the NASCET method Dictated by: Jing Kate M.D. on 12/05/2016 at 16:29 Transcribed by: RAULITO on 12/05/2016 at 16:34 Approved by: Jing Kate M.D. on 12/05/2016 at 16:40 Assessment & Plan 66-year-old female with severe early onset dementia with attempted suicide attempt today was found to have YESENIA and possible UTI acute, active, Irregular behaviors, agitation, likely due to advanced dementia with possible psychosis features or underlying psychiatric dz, dementia was presumably due to Alzheimer's dementia, pt was diagnosed dxed dementia already 7yrs ago per brother. no previous dx of psychiatric dz. Medical w/u including MRA, MRI of brain, vitB12, TSH, RPR, UCX, all negative. -Continue amantadine -as per recommendation below 2. Risperidone 0.25mg po bid and 0.25mg po q6hr prn agitiation 3. Continue memantine 5mg po bid for 1 week then 5mg daily and 10mg nightly for 1 weeks then 10mg po bid. 4. Consider adding SSRI e.g. escitalopram 5mg po daily for depression 5. Consider prazosin for possible PTSD 6. Patient would benefit from hearing aid to improve environmental cues 7. Patient would benefit from picture board to identify items as has difficulty with naming object. Elevated ALT, calcium, and bilirubin; present on admission; ongoing, LFT shows mild hepatic dysfunction with mild elevations of bilirubin and large elevation of ALT; question this due to medication. -clinically stable, ALT trending down, monitor for now chronic, stable, resolved Reported dysphagia, POA, initially concerning given dementia, however, pt appeared euvolemic,relatively well nourished, passed swallowing test, continue general diet, YESENIA, POA, likely prerenal due to decreased Po intake, Patient received 2 L normal saline in the ED, started on 100cc/hr NS, resolved with IVF> Hx of nephrolithiasis, recent stent placement, POA, Abd US on 12/04 showed Interval resolution of right hydronephrosis status post ureteral stent placement. 1.7 cm nonobstructing right renal stone, stable Probable UTI, POA, positive for leukocyte esterase, nitrites, few bacteria. pt was empirically start Rocephin but final UCX negative. stopped abx today Disposition: pending, appreciate SW input DNR/DNI VTE Prophylaxis: Sub-Q Heparin (Unfractionated) VTE Mechanical Devices: Venous Foot Pump Resuscitation Status: DNR/DNI:Do Not Resuscitate/Intubate Time spent 35min Mariana Dunn MD Dec 09, 2016 07:40
[2016-12-09 16:27] VITALS: BP 128/78; PULSE 74; RESP 18; O2SAT 97
--- NOTE | 2016-12-09 17:50 | NUR ---
Daily update Patient is alert to self. Patient not able to hold a conversation for more than 2 minutes. Patient did ambulate in hallways with sitter and is difficult to redirect back to room. Patient responds better to direct communication "This is your room. Lets go in your room and wait for your daughter". Patient has frequency with voiding per sitter. Sitter in room for safety.
[2016-12-09 21:07] VITALS: BP 122/82; PULSE 68; RESP 18; O2SAT 95
[2016-12-10] MEDS: D5 0.45% NaCl + KCl 20 mEq/L 1,000 ML IV SCH ×2 (00:15→08:30)
[2016-12-10] MEDS: Heparin 5,000 Unit/mL Inj SUBQ SCH ×3 (00:30→16:30)
[2016-12-10 08:14] VITALS: BP 115/77; PULSE 72; RESP 18; O2SAT 95
[2016-12-10] MEDS: RISPERIDONE 1 MG/ML PO SCH ×2 (08:30→20:52)
--- NOTE | 2016-12-10 10:55 | PCM.PNMED ---
Subjective Date of Service Dec 10, 2016 Subjective pt remained calm, on sitter at the bedside updated daughter Exam Vital Signs Vital Sign - Last Date Time Temp Pulse Resp B/P Pulse Ox O2 Delivery O2 Flow Rate FiO2 12/10/16 08:14 36.8 72 18 115/77 95 Room Air Intake and Output 12/09/16 12/09/16 12/10/16 Cumulative From/Thru 15:00 23:00 07:00 12/04/16 13:11 - 12/10/16 05:47 Intake Total 762 ml 0 ml 6220 ml Output Total 400 ml Balance 762 ml 0 ml 5820 ml Intake Oral 762 ml 0 ml 2970 ml IV Total 3250 ml Output Urine Total 400 ml # Voids 11 4 65 # Bowel Movements 0 16 Exam cachectic, awake, calm, NAD, comfortably laying down on the bed no JVD, MMM, no LAD RRR, nl s1, s2 no mrg CTAB, no w,c S,ND,NT,normoactive BS+ warm, no edema, pulses 2/2 IVs and Medications Medications Reviewed: Medications were reviewed in detail Lab and Diagnostics Result Diagram: 12/06/16 1310 12/06/16 1310 X-Rays, CTs and MRIs Date of Service: 12/05/16 1013 PROCEDURE: MRI STROKE PROTOCOL ([id number]) Pre- and post-contrast brain MRI, non-contrast brain MR angiogram, pre- and postcontrast neck MR angiogram INDICATIONS: psychosis dementia TECHNIQUE: Brain: Noncontrast axial T1 spin echo, axial T2 fast spin echo, sagittal and axial FLAIR, coronal T2 fast spin echo, axial gradient echo, axial diffusion and ADC through the brain. After the administration of contrast, axial 3D VIBE of the cranial vasculature and brain. Brain MRA: Non-contrast 3-D time of flight MR angiogram, with multiple maximum- intensity-projection (MIP) reformats performed. Neck MRA: Axial and sagittal TruFISP through the neck. Coronal dynamic MR angiogram during administration of contrast in the arterial and venous phases, with 3-dimenstional vdedvvt-tpjiqrdrx-utripjxsbx (MIP) reformats constructed from subtraction images. COMPARISON: None. FINDINGS: Image quality: Excellent. BRAIN: CSF spaces: There is ex vacuo dilatation of the lateral ventricles, greatest in degree involving the temporal horns. Basal cisterns are patent. No extra- axial fluid collections. Brain: No intracranial bleeds or mass effects. Mild degree of patchy high FLAIR signal intensity within the periventricular and subcortical white matter. There is moderate diffuse cerebral volume loss, greatest in degree involving the frontal and anterior temporal lobes. Jasmine-white matter interface is normal. Diffusion weighted images show no acute ischemic insults. Brainstem appears normal. Normal intravascular flow voids are present. No abnormal intracranial enhancement. Skull and face: Calvarial marrow signal is normal. Orbits appear normal. Sinuses: Sinuses and mastoids are clear. BRAIN MR ANGIOGRAM: Anterior circulation: Intracranial internal carotid arteries are normal in size and enhancement. The flow within the paired anterior cerebral arteries is normal and symmetric. The flow within the middle cerebral arteries is normal and symmetric. The anterior communicating artery is seen. No stenoses, occlusions, or aneurysms. Posterior circulation: The visualized portions of the vertebral arteries demonstrate normal caliber, and join to form a normal appearing basilar artery. The flow within the posterior cerebral arteries is normal and symmetric. No stenoses, occlusions, or aneurysms. NECK MR ANGIOGRAM: Carotids: Great vessels demonstrate a conventional anatomy as they arise from the aortic arch. The origins of the common carotid arteries appear patent. The calibers and courses of both common carotid arteries are normal. The bifurcation regions appear normal bilaterally. The internal carotid arteries demonstrate normal course and caliber. Posterior circulation: The origins of the vertebral arteries appear patent. More superior portions of both vertebral arteries demonstrate normal course and caliber, and join to form a normal appearing basilar artery. Miscellaneous: Subclavian arteries appear patent. Pre-contrast images through the neck show no soft tissue abnormalities. IMPRESSION: BRAIN MRI: 1. No acute process. No recent infarct. 2. Small vessel ischemic disease. 3. Cerebral volume loss, greatest in degree within the frontal and temporal lobes bilaterally. BRAIN MR ANGIOGRAM: Negative cervical MR angiography. NECK MR ANGIOGRAM: 1. No internal coronary stenosis bilaterally. 2. Patent bilateral vertebral arteries. The estimate of stenosis included in the report of the imaging study was calculated using the NASCET method Dictated by: Jing Kate M.D. on 12/05/2016 at 16:29 Transcribed by: RAULITO on 12/05/2016 at 16:34 Approved by: Jing Kate M.D. on 12/05/2016 at 16:40 Assessment & Plan 66-year-old female with severe early onset dementia with attempted suicide attempt today was found to have YESENIA and possible UTI acute, active, Irregular behaviors, agitation, likely due to advanced dementia with possible psychosis features or underlying psychiatric dz, dementia was presumably due to Alzheimer's dementia, pt was diagnosed dxed dementia already 7yrs ago per brother. no previous dx of psychiatric dz. Medical w/u including MRA, MRI of brain, vitB12, TSH, RPR, UCX, all negative. New regimen started on 12/09. -Continue amantadine -as per recommendation below 2. Risperidone 0.25mg po bid and 0.25mg po q6hr prn agitiation 3. Continue memantine 5mg po bid for 1 week then 5mg daily and 10mg nightly for 1 weeks then 10mg po bid. 4. Consider adding SSRI e.g. escitalopram 5mg po daily for depression 5. Consider prazosin for possible PTSD 6. Patient would benefit from hearing aid to improve environmental cues 7. Patient would benefit from picture board to identify items as has difficulty with naming object. Elevated ALT, calcium, and bilirubin; present on admission; ongoing, LFT shows mild hepatic dysfunction with mild elevations of bilirubin and large elevation of ALT; question this due to medication. -clinically stable, ALT trending down, monitor for now chronic, stable, resolved Reported dysphagia, POA, initially concerning given dementia, however, pt appeared euvolemic,relatively well nourished, passed swallowing test, continue general diet, YESENIA, POA, likely prerenal due to decreased Po intake, Patient received 2 L normal saline in the ED, started on 100cc/hr NS, resolved with IVF> Hx of nephrolithiasis, recent stent placement, POA, Abd US on 12/04 showed Interval resolution of right hydronephrosis status post ureteral stent placement. 1.7 cm nonobstructing right renal stone, stable Probable UTI, POA, positive for leukocyte esterase, nitrites, few bacteria. pt was empirically start Rocephin but final UCX negative. stopped abx today Disposition: pending, appreciate SW input DNR/DNI VTE Prophylaxis: Sub-Q Heparin (Unfractionated) VTE Mechanical Devices: Venous Foot Pump Resuscitation Status: DNR/DNI:Do Not Resuscitate/Intubate Time spent 35min Mariana Dunn MD Dec 10, 2016 10:55
--- NOTE | 2016-12-10 15:07 | NUR ---
Daily update Patient alert to self. Patient remains confused. Patient daughter was in room for the morning and brother came in to visit this morning as well. Patient tried to talk brother into taking her. Patient did walk around the unit hallway X2 this morning. Patient remains hard to redirect and continues to try to leave. Patient has been taking all medications crushed in pudding. Will continue to monitor.
--- NOTE | 2016-12-10 16:33 | NUR ---
Social Work-continued d/c planning: Data:EMR Reviewd. Pt is on day 6 of hospitalization for delerium per H&P. SW attempted to reach daughter today to further discuss discharge planning, no answer. Psychiatry recommending Memory care. SW will continue to follow. Assessment:pt to benefit from memory care. Plan:SW to follow up with daughter again tomorrow to further discuss discharge planning. SW will continue to follow. STEWART Contreras
[2016-12-10 17:04] VITALS: BP 147/85; PULSE 71; RESP 18; O2SAT 96
[2016-12-10 21:30] VITALS: BP 139/84; PULSE 88; RESP 20; O2SAT 96
[2016-12-11] MEDS: Heparin 5,000 Unit/mL Inj SUBQ SCH (00:13)
[2016-12-11 03:10] VITALS: BP 156/91; PULSE 103; RESP 24; O2SAT 96
--- NOTE | 2016-12-11 04:28 | NUR ---
activity Pt alert and oriented to self, uncooperative with cares, sitter outside of room. Pt up x3 for bathroom, SBA, pt steady on feet. Pt had nausea and vomiting x3. Oral disintegrating Zofran give with some success. Pt resists eating or taking oral medications. Pt BS at 129 at 0310. Will continue to monitor.
--- NOTE | 2016-12-11 05:46 | NUR ---
vomiting Pt vomited x 3 this shift with no fluid intake. No noted blood in vomit, green, clear viscous fluid, pt spit out 4mg Zofran ODL. Send Cook page with info to night hospitalist. Will continue to monitor.
[2016-12-11] MEDS: RISPERIDONE 1 MG/ML PO SCH ×2 (08:41→20:02)
[2016-12-11] MEDS: Polyethylene Glycol (PEG) 17 Gm Powder PO SCH ×2 (08:42→20:30)
[2016-12-11] MEDS: 0.9% Sodium Chloride 1,000 ML IV SCH ×2 (08:42→15:50)
--- NOTE | 2016-12-11 09:01 | PCM.PNMED ---
Subjective Date of Service Dec 11, 2016 Subjective pt had multiple n/v episodes, required zofran, pt was able to express any complaints, grimaced on palpating abdomen, reported BM 1yesterday awaits KUB to rule out ileus Exam Vital Signs Vital Sign - Last Date Time Temp Pulse Resp B/P Pulse Ox O2 Delivery O2 Flow Rate FiO2 12/11/16 03:10 36.9 103 24 156/91 96 Room Air Intake and Output 12/10/16 12/10/16 12/11/16 Cumulative From/Thru 15:00 23:00 07:00 12/04/16 13:11 - 12/11/16 06:35 Intake Total 386 ml 0 ml 6606 ml Output Total 400 ml Balance 386 ml 0 ml 6206 ml Intake Oral 386 ml 0 ml 3356 ml IV Total 3250 ml Output Urine Total 400 ml # Voids 9 3 77 # Bowel Movements 1 17 Exam cachectic, awake, calm, NAD, comfortably laying down on the bed no JVD, MMM, no LAD RRR, nl s1, s2 no mrg CTAB, no w,c S,ND,mildly tender, hypoactive BS+ warm, no edema, pulses 2/2 IVs and Medications Medications Reviewed: Medications were reviewed in detail Lab and Diagnostics Result Diagram: 12/06/16 1310 12/06/16 1310 X-Rays, CTs and MRIs Date of Service: 12/05/16 1013 PROCEDURE: MRI STROKE PROTOCOL ([id number]) Pre- and post-contrast brain MRI, non-contrast brain MR angiogram, pre- and postcontrast neck MR angiogram INDICATIONS: psychosis dementia TECHNIQUE: Brain: Noncontrast axial T1 spin echo, axial T2 fast spin echo, sagittal and axial FLAIR, coronal T2 fast spin echo, axial gradient echo, axial diffusion and ADC through the brain. After the administration of contrast, axial 3D VIBE of the cranial vasculature and brain. Brain MRA: Non-contrast 3-D time of flight MR angiogram, with multiple maximum- intensity-projection (MIP) reformats performed. Neck MRA: Axial and sagittal TruFISP through the neck. Coronal dynamic MR angiogram during administration of contrast in the arterial and venous phases, with 3-dimenstional lbykrwt-mhsqjfhop-kajlfojiua (MIP) reformats constructed from subtraction images. COMPARISON: None. FINDINGS: Image quality: Excellent. BRAIN: CSF spaces: There is ex vacuo dilatation of the lateral ventricles, greatest in degree involving the temporal horns. Basal cisterns are patent. No extra- axial fluid collections. Brain: No intracranial bleeds or mass effects. Mild degree of patchy high FLAIR signal intensity within the periventricular and subcortical white matter. There is moderate diffuse cerebral volume loss, greatest in degree involving the frontal and anterior temporal lobes. Jasmine-white matter interface is normal. Diffusion weighted images show no acute ischemic insults. Brainstem appears normal. Normal intravascular flow voids are present. No abnormal intracranial enhancement. Skull and face: Calvarial marrow signal is normal. Orbits appear normal. Sinuses: Sinuses and mastoids are clear. BRAIN MR ANGIOGRAM: Anterior circulation: Intracranial internal carotid arteries are normal in size and enhancement. The flow within the paired anterior cerebral arteries is normal and symmetric. The flow within the middle cerebral arteries is normal and symmetric. The anterior communicating artery is seen. No stenoses, occlusions, or aneurysms. Posterior circulation: The visualized portions of the vertebral arteries demonstrate normal caliber, and join to form a normal appearing basilar artery. The flow within the posterior cerebral arteries is normal and symmetric. No stenoses, occlusions, or aneurysms. NECK MR ANGIOGRAM: Carotids: Great vessels demonstrate a conventional anatomy as they arise from the aortic arch. The origins of the common carotid arteries appear patent. The calibers and courses of both common carotid arteries are normal. The bifurcation regions appear normal bilaterally. The internal carotid arteries demonstrate normal course and caliber. Posterior circulation: The origins of the vertebral arteries appear patent. More superior portions of both vertebral arteries demonstrate normal course and caliber, and join to form a normal appearing basilar artery. Miscellaneous: Subclavian arteries appear patent. Pre-contrast images through the neck show no soft tissue abnormalities. IMPRESSION: BRAIN MRI: 1. No acute process. No recent infarct. 2. Small vessel ischemic disease. 3. Cerebral volume loss, greatest in degree within the frontal and temporal lobes bilaterally. BRAIN MR ANGIOGRAM: Negative cervical MR angiography. NECK MR ANGIOGRAM: 1. No internal coronary stenosis bilaterally. 2. Patent bilateral vertebral arteries. The estimate of stenosis included in the report of the imaging study was calculated using the NASCET method Dictated by: Jing Kate M.D. on 12/05/2016 at 16:29 Transcribed by: RAULITO on 12/05/2016 at 16:34 Approved by: Jing Kate M.D. on 12/05/2016 at 16:40 Assessment & Plan 66-year-old female with severe early onset dementia with attempted suicide attempt today was found to have YESENIA and possible UTI acute, active, Irregular behaviors, agitation, likely due to advanced dementia with possible psychosis features or underlying psychiatric dz, dementia was presumably due to Alzheimer's dementia, pt was diagnosed dxed dementia already 7yrs ago per brother. no previous dx of psychiatric dz. Medical w/u including MRA, MRI of brain, vitB12, TSH, RPR, UCX, all negative. New regimen started on 12/09. -Continue amantadine -as per recommendation below 2. Risperidone 0.25mg po bid and 0.25mg po q6hr prn agitiation 3. Continue memantine 5mg po bid for 1 week then 5mg daily and 10mg nightly for 1 weeks then 10mg po bid. 4. Consider adding SSRI e.g. escitalopram 5mg po daily for depression 5. Consider prazosin for possible PTSD 6. Patient would benefit from hearing aid to improve environmental cues 7. Patient would benefit from picture board to identify items as has difficulty with naming object. Elevated ALT, calcium, and bilirubin; present on admission; ongoing, LFT shows mild hepatic dysfunction with mild elevations of bilirubin and large elevation of ALT; question this due to medication. -clinically stable, ALT trending down, monitor for now Episode of n/v, developed 12/10-, likely related to ileus or medication induced , -waits KUB -start bowel regimen, chronic, stable, resolved Reported dysphagia, POA, initially concerning given dementia, however, pt appeared euvolemic,relatively well nourished, passed swallowing test, continue general diet, YESENIA, POA, likely prerenal due to decreased Po intake, Patient received 2 L normal saline in the ED, started on 100cc/hr NS, resolved with IVF> Hx of nephrolithiasis, recent stent placement, POA, Abd US on 12/04 showed Interval resolution of right hydronephrosis status post ureteral stent placement. 1.7 cm nonobstructing right renal stone, stable Probable UTI, POA, positive for leukocyte esterase, nitrites, few bacteria. pt was empirically start Rocephin but final UCX negative. stopped abx today Disposition: pending, appreciate SW input DNR/DNI VTE Prophylaxis: Sub-Q Heparin (Unfractionated) VTE Mechanical Devices: Venous Foot Pump Resuscitation Status: DNR/DNI:Do Not Resuscitate/Intubate Time spent 35min Mariana Dunn MD Dec 11, 2016 09:01
[2016-12-11 09:32] LABS: BASOPHILS % (AUTO) 0.1 % (0-3); EOSINOPHILS % (AUTO) 0 % (0-5); MONOCYTES % (AUTO) 6.6 % (4-12); Mean Corpuscular Hemoglobin 32.6 pg (27.0-35.0); Mean Corpuscular Volume 94.8 fL (81-100); NEUTROPHILS % (AUTO) 82.7 % (40-74); Platelet Count 194 bil/L (150-400)
--- NOTE | 2016-12-11 09:44 | DRSVH ---
PROCEDURE: X-RAY ABDOMEN, ONE VIEW ([id number]) INDICATIONS: n/v r/o ileus obstruction TECHNIQUE: One view of the abdomen acquired. COMPARISON: Outside Film, CT, CT ABD PELVIS W CON, 11/12/2016, 13:13. [facility], US, US RENAL, 12/04/2016, 20:41. Outside Film, CR, XR ABD ACUTE SERIES 3VW, 10/05/2016, 12:44. FINDINGS: Surgical changes and devices: There is a right ureteral stent demonstrated at the proximal coil proje cting over the right renal pelvis and the distal coil projecting over the urinary bladder. Bowel: Bowel gas pattern is normal. Soft tissues: There is a calcification lateral to the stent measuring up to 8 mm compatible with an interpolar renal stone. There is also a calcification projecting over the voxel Melo stent consis tent with another stone. No radiopaque left renal stones identified. Bones: No suspicious bony lesions. IMPRESSION: 1. No evidence of bowel obstruction or ileus. 2. Right ureteral stent with 2 right renal stones demonstrated. Dictated by: Percy Jones M.D. on 12/11/2016 at 9:37 Approved by: Percy Jones M.D. on 12/11/2016 at 9:41
[2016-12-11 10:05] LABS: Magnesium 1.9 mg/dL (1.6-2.6); Phosphorus 3.1 mg/dL (2.5-4.9)
--- NOTE | 2016-12-11 10:26 | NUR ---
ADIEL signed with daughter. STEWART Contreras
--- NOTE | 2016-12-11 11:39 | NUR ---
Social Work-continued d/c planning: Data& assessment:EMR reviewed. P tis on day 7 of hospitalization for delirium per H&P. Pt is not medically stable for discharge. Psychiatry recommending memory care placement. BHUPENDRA spoke with pt's daughter Heather. Heather states that she would like to be pt's DPOA. SW explained that due to the fact that pt has dementia she is not able to sign this over to family and they cannot complete DPOA paperwork. SW explained that daughter would be surrogate decision maker by default due to decision making hierarchy. Daughter wants something legal. SW explained that daughter could seek guardianship and would need to work with an energy attorney to do this, daughter agreeable. SW explained recommendation of memory care. Daughter is agreeable and would like pt to go to [facility]. Daughter confirms that pt only makes about $1200 a month and she is not sure about savings. BHUPENDRA placed a call to brother Kush who confirms he is pt's payee, but does not have financial power of energy attorney. Brother states he receives pt's social security monthly and cashes the check and then provides this to pt. Brother states she gets about $1200 a month and he does not believe that she has any savings. BHUPENDRA placed a call to Yolanda at [facility]. Yolanda states that she is unsure cost for the month, but would have Paula call SW back tomorrow. Yolanda states that respite stay cost $150.00 a day plus cost of care and they require at least 7 days. Pt will likely need Medicaid application completed. Plan:BHUPENDRA to continue to work on placement for pt. Unclear cost of care at [facility], Paula to call SW back tomorrow. Pt will likely need Medicaid application completed. SW will continue to follow. STEWART Contreras
--- NOTE | 2016-12-11 12:25 | NUR ---
Morning medications Patient was administered morning medications along with SL Zofran. Patient took medication into mouth and then spit them out. Patient has been vomiting green bile emesis this morning. IV was placed by IV therapy and IV fluids started. Will administer IV Zofran if needed.
[2016-12-11 13:21] VITALS: BP 157/83; PULSE 99; RESP 22; O2SAT 95
[2016-12-11] MEDS: RISPERIDONE 1 MG/ML PO PRN (14:45)
[2016-12-11 15:09] LABS: APPEARANCE,URINE CLOUDY (CLEAR,HAZY); COLOR,URINE DARK YELLOW (YELLOW); OCCULT BLOOD,URINE LARGE (NEGATIVE); PH,URINE 6.5 (5.0-8.0); UROBILINOGEN,URINE NORMAL (NORMAL)
[2016-12-11 15:10] LABS: YEAST,URINE MODERATE (NONE SEEN)
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
--- NOTE | 2016-12-11 16:25 | NUR ---
NUTRITION ASSESSMENT: ASSESS: 66 YO Female admitted with Altered mental status, possible Delirium with alzheimers dementia, psychiatry consulted. Pt. diet remains stimulation with pt refusing or taking in bites of po diet. Minimal nutrition x 7 days, MD aware. Per RN, pt with some nausea and vomiting, possible ileus, but RN also reports that pt is making herself vomit sometimes. PMHX: Alzheimer's Dementia DIET: Stimulation (+supplements). PO refusal - bites x 7 days. LABS: Reviewed. glu 126, Ca 10.4, Alb 4.2. MEDS: Reviewed GI: BM x 1 (12/10) WEIGHT: 69.3 kg BMI: 28.9 (No new wt currently available) EST.NEEDS: 3751-7194 kcal (25-30 kcal/kg BW) 70-80 g pro (1.0-1.2 g/kg pro BW) NUTRITION DIAGNOSIS: (1) Inadequate oral intake related to AMS as evidenced by po intake of bites on stimulation diet x 7 days-PERSISTS. (2) Chewing / swallowing difficulties related to mentation as evidenced by current need for stimulation diet only. INTERVENTION: (1) Currently unable to obtain pt preferences, pt is oriented to self only. Continue with supplements as ordered. (2) Recommend diet advancement per ST vs. nutrition support depending on pt overall POC. MONITOR/EVALUATE: PO intake, diet advance per ST, lab values, POC. F/U per high nutritional risk guidelines.
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
[2016-12-12] MEDS: 0.9% Sodium Chloride 1,000 ML IV SCH ×3 (01:50→21:50)
[2016-12-12 05:24] VITALS: BP 145/91; PULSE 86; RESP 18; O2SAT 95
--- NOTE | 2016-12-12 05:54 | NUR ---
Behavior Pt continued to be agitated and combative intermittently during the night. Pulled IV out. Refusing new access. Pt did take most HS PO medications with ice cream. Sitter at the bedside. Call light within reach. Care continues.
[2016-12-12 07:35] LABS: BASOPHILS % (AUTO) 0.2 % (0-3); EOSINOPHILS % (AUTO) 0.4 % (0-5); MONOCYTES % (AUTO) 10.2 % (4-12); Mean Corpuscular Hemoglobin 32.2 pg (27.0-35.0); NEUTROPHILS % (AUTO) 73.9 % (40-74); Platelet Count 201 bil/L (150-400)
[2016-12-12 08:06] LABS: Magnesium 1.9 mg/dL (1.6-2.6)
[2016-12-12] MEDS: Polyethylene Glycol (PEG) 17 Gm Powder PO SCH ×2 (08:30→20:30)
[2016-12-12] MEDS: RISPERIDONE 1 MG/ML PO SCH ×2 (09:13→21:18)
--- NOTE | 2016-12-12 10:27 | PCM.PNMED ---
Subjective Date of Service Dec 12, 2016 Subjective pt required restraints since yesterday MS seemed unchanged, AAOx1, denied any complaints pt doesn't want to eat, noted increased creatinine on labs today UCX showed mixed doron Exam Vital Signs Vital Sign - Last Date Time Temp Pulse Resp B/P Pulse Ox O2 Delivery O2 Flow Rate FiO2 12/12/16 05:24 36.8 86 18 145/91 95 Room Air Intake and Output 12/11/16 12/11/16 12/12/16 Cumulative From/Thru 15:00 23:00 07:00 12/04/16 13:11 - 12/12/16 06:07 Intake Total 1059 ml 100 ml 7765 ml Output Total 200 ml 600 ml Balance 859 ml 100 ml 7165 ml Intake Oral 100 ml 100 ml 3556 ml IV Total 959 ml 4209 ml Output Urine Total 200 ml 600 ml # Voids 4 3 84 # Bowel Movements 0 17 Exam cachectic, awake, calm, NAD, comfortably laying down on the bed no JVD, MMM, no LAD RRR, nl s1, s2 no mrg CTAB, no w,c S,ND,mildly tender, hypoactive BS+ warm, no edema, pulses 2/2 IVs and Medications Medications Reviewed: Medications were reviewed in detail Lab and Diagnostics Result Diagram: 12/12/1671412/12/16714 X-Rays, CTs and MRIs Date of Service: 12/05/16 1013 PROCEDURE: MRI STROKE PROTOCOL ([id number]) Pre- and post-contrast brain MRI, non-contrast brain MR angiogram, pre- and postcontrast neck MR angiogram INDICATIONS: psychosis dementia TECHNIQUE: Brain: Noncontrast axial T1 spin echo, axial T2 fast spin echo, sagittal and axial FLAIR, coronal T2 fast spin echo, axial gradient echo, axial diffusion and ADC through the brain. After the administration of contrast, axial 3D VIBE of the cranial vasculature and brain. Brain MRA: Non-contrast 3-D time of flight MR angiogram, with multiple maximum- intensity-projection (MIP) reformats performed. Neck MRA: Axial and sagittal TruFISP through the neck. Coronal dynamic MR angiogram during administration of contrast in the arterial and venous phases, with 3-dimenstional xhqsouh-jujnlmdrv-dryekawzoa (MIP) reformats constructed from subtraction images. COMPARISON: None. FINDINGS: Image quality: Excellent. BRAIN: CSF spaces: There is ex vacuo dilatation of the lateral ventricles, greatest in degree involving the temporal horns. Basal cisterns are patent. No extra- axial fluid collections. Brain: No intracranial bleeds or mass effects. Mild degree of patchy high FLAIR signal intensity within the periventricular and subcortical white matter. There is moderate diffuse cerebral volume loss, greatest in degree involving the frontal and anterior temporal lobes. Jasmine-white matter interface is normal. Diffusion weighted images show no acute ischemic insults. Brainstem appears normal. Normal intravascular flow voids are present. No abnormal intracranial enhancement. Skull and face: Calvarial marrow signal is normal. Orbits appear normal. Sinuses: Sinuses and mastoids are clear. BRAIN MR ANGIOGRAM: Anterior circulation: Intracranial internal carotid arteries are normal in size and enhancement. The flow within the paired anterior cerebral arteries is normal and symmetric. The flow within the middle cerebral arteries is normal and symmetric. The anterior communicating artery is seen. No stenoses, occlusions, or aneurysms. Posterior circulation: The visualized portions of the vertebral arteries demonstrate normal caliber, and join to form a normal appearing basilar artery. The flow within the posterior cerebral arteries is normal and symmetric. No stenoses, occlusions, or aneurysms. NECK MR ANGIOGRAM: Carotids: Great vessels demonstrate a conventional anatomy as they arise from the aortic arch. The origins of the common carotid arteries appear patent. The calibers and courses of both common carotid arteries are normal. The bifurcation regions appear normal bilaterally. The internal carotid arteries demonstrate normal course and caliber. Posterior circulation: The origins of the vertebral arteries appear patent. More superior portions of both vertebral arteries demonstrate normal course and caliber, and join to form a normal appearing basilar artery. Miscellaneous: Subclavian arteries appear patent. Pre-contrast images through the neck show no soft tissue abnormalities. IMPRESSION: BRAIN MRI: 1. No acute process. No recent infarct. 2. Small vessel ischemic disease. 3. Cerebral volume loss, greatest in degree within the frontal and temporal lobes bilaterally. BRAIN MR ANGIOGRAM: Negative cervical MR angiography. NECK MR ANGIOGRAM: 1. No internal coronary stenosis bilaterally. 2. Patent bilateral vertebral arteries. The estimate of stenosis included in the report of the imaging study was calculated using the NASCET method Dictated by: Jing Kate M.D. on 12/05/2016 at 16:29 Transcribed by: RAULITO on 12/05/2016 at 16:34 Approved by: Jing Kate M.D. on 12/05/2016 at 16:40 Assessment & Plan 66-year-old female with severe early onset dementia with attempted suicide attempt today was found to have YESENIA and possible UTI acute, active, Irregular behaviors, agitation, likely due to advanced dementia with possible psychosis features or underlying psychiatric dz, dementia was presumably due to Alzheimer's dementia, pt was diagnosed dxed dementia already 7yrs ago per brother. no previous dx of psychiatric dz. Medical w/u including MRA, MRI of brain, vitB12, TSH, RPR, UCX, all negative. New regimen started on 12/09. -as per / recommendation below 2. Risperidone 0.25mg po bid and 0.25mg po q6hr prn agitiation ->increase to 0.5m bid 3. Continue memantine 5mg po bid for 1 week then 5mg daily and 10mg nightly for 1 weeks then 10mg po bid. 4. Consider adding SSRI e.g. escitalopram 5mg po daily for depression -> increase to 10mg dialy 5. Consider prazosin for possible PTSD 6. Patient would benefit from hearing aid to improve environmental cues 7. Patient would benefit from picture board to identify items as has difficulty with naming object. Elevated ALT, calcium, and bilirubin; present on admission; ongoing, LFT shows mild hepatic dysfunction with mild elevations of bilirubin and large elevation of ALT; question this due to medication. -clinically stable, ALT trending down, monitor for now Episode of n/v, developed 12/10-, likely medication induced, resolved, KUB showed moderate stools, no SOB. continue bowel regimen, YESENIA, POA, likely prerenal due to decreased Po intake, Patient received 2 L normal saline in the ED, started on 100cc/hr NS, worsening chronic, stable, resolved Reported dysphagia, POA, initially concerning given dementia, however, pt appeared euvolemic,relatively well nourished, passed swallowing test, continue general diet, Hx of nephrolithiasis, recent stent placement, POA, Abd US on 12/04 showed Interval resolution of right hydronephrosis status post ureteral stent placement. 1.7 cm nonobstructing right renal stone, pt was scheduled for elective Rt renal Laser lithotripsy 8/1, informed that pt is in the hospital. rescheduled for 12/20. Probable UTI, POA, positive for leukocyte esterase, nitrites, few bacteria. pt was empirically start Rocephin but final UCX negative. Repeat UCX also contaminated, stopped abx 12/11. Disposition: pending, appreciate SW input diet: pt can tolerate diet but not eating, DNR/DNI VTE Prophylaxis: Sub-Q Heparin (Unfractionated) VTE Mechanical Devices: Venous Foot Pump Resuscitation Status: DNR/DNI:Do Not Resuscitate/Intubate Time spent 35min Mariana Dunn MD Dec 12, 2016 10:27
[2016-12-12 13:46] VITALS: BP 148/76; PULSE 89; RESP 18; O2SAT 97
--- NOTE | 2016-12-12 19:34 | NUR ---
Behavior Pt has been cooperative with care most of the day, however, when removed from [facility] bed to void, pt gets agitated and wants to leave and not return to [facility] bed it takes 2-3 personnel to return pt to bed.
[2016-12-13 06:10] VITALS: BP 156/90; PULSE 86; RESP 20; O2SAT 95
--- NOTE | 2016-12-13 06:20 | NUR ---
behavior Pt refused her pills except for liquid risperidol. Pt didn't sleep at all this shift. walked to the BR q2hrs to void. drank 250mL of water. Pt wanting to leave when out of the [facility] bed; unable to reorient. took 2-3 people to get her back to [facility] bed.
[2016-12-13] MEDS: 0.9% Sodium Chloride 1,000 ML IV SCH ×2 (09:30→17:21)
[2016-12-13] MEDS: Polyethylene Glycol (PEG) 17 Gm Powder PO SCH ×2 (10:22→20:30)
[2016-12-13] MEDS: RISPERIDONE 1 MG/ML PO PRN (10:22)
[2016-12-13] MEDS: RISPERIDONE 1 MG/ML PO SCH ×2 (10:24→20:56)
--- NOTE | 2016-12-13 11:20 | NUR ---
Sitter DC'd Patient continues to be safe in [facility]. No attempts of self harm while in [facility]. Sitter dc'd at this time.
--- NOTE | 2016-12-13 12:54 | NUR ---
Dtr visit Pt's dtr visited this morning. Pt req to use BR, after voiding, pt grabbed dtr's purse and a cigarette which she then put in her mouth and asked for a home visits nurse. Pt refusing to go back to [facility] bed, attempting to leave, pushing staff while dtr taking pictures and 'selfies' with pt. Pt back in [facility] bed with 3 person assist, cigarette given back to dtr. Pt currently laying in [facility] bed quietly, appears comfortable.
[2016-12-13 15:41] VITALS: BP 130/86; PULSE 87; RESP 22; O2SAT 98
--- NOTE | 2016-12-13 15:51 | NUR ---
Social Work-continued d/c planning: Data:EMR Reviewed. Pt is on day 9 of hospitalization for delirium per H&P. SW placed a call to [facility] because SW did not receive a call back from them yesterday. Paula at [facility] states that monthly cost of their facilty would be $3995.00 plus cost of care. They do have respite also which is about $150 a day plus cost of care. SW placed a call to daughter Heather and left message with above information. Pt will likely need to get on Medicaid and SW to work on placement. SW will continue to follow. Assessment:Pt who will need placement. Plan:SW to continue to follow and assist with discharge planning. Pt will likely need to get on Medicaid and SW to work on placement. SW will continue to follow. STEWART Contreras Addendum: 12/18/16 at 0819 by MORRIS VEGA BHUPENDRA had spoke with Coral at [facility] and informed they are no longer doing supplemental insurance applications for pt for Medicaid. SW to discuss with writing manager and follow up with [facility]. STEWART Contreras
--- NOTE | 2016-12-13 17:23 | PCM.PNMED ---
Subjective Date of Service Dec 13, 2016 Subjective Patient is a bit more cooperative than my previous visits initially with her. Exam Vital Signs Vital Sign - Last Date Time Temp Pulse Resp B/P Pulse Ox O2 Delivery O2 Flow Rate FiO2 12/13/16 15:41 36.7 87 22 130/86 98 Room Air Intake and Output 12/12/16 12/12/16 12/13/16 Cumulative From/Thru 15:00 23:00 07:00 12/04/16 13:11 - 12/13/16 06:22 Intake Total 325 ml 250 ml 8340 ml Output Total 600 ml Balance 325 ml 250 ml 7740 ml Intake Oral 325 ml 250 ml 4131 ml IV Total 4209 ml Output Urine Total 600 ml # Voids 4 6 94 # Bowel Movements 0 0 17 Exam Constitutional: Middle-aged female who appears older than his stated age head: Cephalic atraumatic Chest: Clear to auscultation Cor: Regular rate and rhythm S1-S2 without murmur Abdomen: Soft nontender bowel sounds present Extremities: No pedal edema Psych: Affect is a little bit more interactive than when I saw her approximately a week ago Neuro: Alert difficult to assess orientation, moves all extremities equally Lab and Diagnostics Laboratory Tests 72 Hours Test 12/11/16 09:25 12/11/16 14:20 12/12/16 07:15 12/13/16 07:40 White Blood Count 12.3th/mm3 (3.8-10.1) 11.3th/mm3 (3.8-10.1) Red Blood Count 4.42mil/mm3 (3.90-5.20) 3.94mil/mm3 (3.90-5.20) Hemoglobin 14.4g/dL (12.0-15.6) 12.7g/dL (12.0-15.6) Hematocrit 41.9% (35.0-46.0) 38.2% (35.0-46.0) Mean Corpuscular Volume 94.8fL (81-100) 97.0fL (81-100) Mean Corpuscular Hemoglobin 32.6pg (27.0-35.0) 32.2pg (27.0-35.0) Mean Corpuscular Hemoglobin Concent 34.4% (32.0-37.0) 33.2% (32.0-37.0) Red Cell Distribution Width 12.8% (12.3-15.4) 12.8% (12.3-15.4) Platelet Count 194bil/L (150-400) 201bil/L (150-400) Neutrophils (%) (Auto) 82.7% (40-74) 73.9% (40-74) Lymphocytes (%) (Auto) 10.3% (14-46) 15.0% (14-46) Monocytes (%) (Auto) 6.6% (4-12) 10.2% (4-12) Eosinophils (%) (Auto) 0% (0-5) 0.4% (0-5) Basophils (%) (Auto) 0.1% (0-3) 0.2% (0-3) Sodium Level 143mEq/L (134-144) 144mEq/L (134-144) 142mEq/L (134-144) Potassium Level 3.9mEq/L (3.5-5.2) 3.8mEq/L (3.5-5.2) 3.8mEq/L (3.5-5.2) Chloride Level 99mEq/L (97-108) 104mEq/L (97-108) 103mEq/L (97-108) Carbon Dioxide Level 28mmol/L (18-29) 26mmol/L (18-29) 26mmol/L (18-29) Blood Urea Nitrogen 19mg/dL (8-27) 24mg/dL (8-27) 25mg/dL (8-27) Creatinine 0.99mg/dL (0.57-1.00) 1.12mg/dL (0.57-1.00) 0.99mg/dL (0.57-1.00) Estimat Glomerular Filtration Rate 80mL/min (>59) 70mL/min (>59) 80mL/min (>59) Glucose Level 126mg/dL (60-99) 115mg/dL (60-99) 97mg/dL (60-99) Calcium Level 10.4mg/dL (8.5-10.1) 10.1mg/dL (8.5-10.1) 9.8mg/dL (8.5-10.1) Phosphorus Level 3.1mg/dL (2.5-4.9) Magnesium Level 1.9mg/dL (1.6-2.6) 1.9mg/dL (1.6-2.6) Total Bilirubin 0.6mg/dL (0.0-1.2) 0.7mg/dL (0.0-1.2) 0.8mg/dL (0.0-1.2) Aspartate Amino Transf (AST/SGOT) 40U/L (0-50) 34U/L (0-50) 36U/L (0-50) Alanine Aminotransferase (ALT/SGPT) 104U/L (0-32) 92U/L (0-32) 83U/L (0-32) Alkaline Phosphatase 81U/L (25-165) 73U/L (25-165) 70U/L (25-165) Total Protein 6.9g/dL (6.4-8.4) 6.2g/dL (6.4-8.4) 6.0g/dL (6.4-8.4) Albumin 4.2g/dL (3.4-5.0) 4.0g/dL (3.4-5.0) 3.8g/dL (3.4-5.0) Urine Color Dark yellow (YELLOW) Urine Appearance Cloudy (CLEAR,HAZY) Urine pH 6.5 (5.0-8.0) Urine Specific [place] 1.020 (1.003-1.035) Urine Protein 100mg/dL (NEG,TRACE) Urine Glucose (UA) Negativemg/dL (NEGATIVE) Urine Ketones Negativemg/dL (NEGATIVE) Urine Occult Blood Large (NEGATIVE) Urine Nitrite Negative (NEGATIVE) Urine Bilirubin Negative (NEGATIVE) Urine Urobilinogen Normalmg/dL (NORMAL) Urine Leukocyte Esterase Trace (NEGATIVE) Urine RBC >50/hpf (0-2) Urine WBC 0-5/hpf (0-5) Urine Epithelial Cells Moderate/hpf (NONE-MOD) Urine Crystals None seen (NONE SEEN) Urine Bacteria Few/hpf (NONE-FEW) Urine Hyaline Casts None/lpf (NONE) Urine Granular Casts None seen (NONE SEEN) Urine Waxy Casts None seen (NONE SEEN) Urine Red Blood Cell Casts None seen (NONE SEEN) Urine White Blood Cell Casts None seen (NONE SEEN) Urine Mucus None seen (None Seen) Urine Trichomonas None seen (NONE SEEN) Urine Yeast Moderate (NONE SEEN) Urinalysis Comment None Urine Culture Reflexed Indicated Result Diagram: 12/12/16 0715 12/13/16 0740 X-Rays, CTs and MRIs Date of Service: 12/05/16 1013 PROCEDURE: MRI STROKE PROTOCOL ([id number]) Pre- and post-contrast brain MRI, non-contrast brain MR angiogram, pre- and postcontrast neck MR angiogram INDICATIONS: psychosis dementia TECHNIQUE: Brain: Noncontrast axial T1 spin echo, axial T2 fast spin echo, sagittal and axial FLAIR, coronal T2 fast spin echo, axial gradient echo, axial diffusion and ADC through the brain. After the administration of contrast, axial 3D VIBE of the cranial vasculature and brain. Brain MRA: Non-contrast 3-D time of flight MR angiogram, with multiple maximum- intensity-projection (MIP) reformats performed. Neck MRA: Axial and sagittal TruFISP through the neck. Coronal dynamic MR angiogram during administration of contrast in the arterial and venous phases, with 3-dimenstional nflzmsh-vnpaztepe-bjzlsombzt (MIP) reformats constructed from subtraction images. COMPARISON: None. FINDINGS: Image quality: Excellent. BRAIN: CSF spaces: There is ex vacuo dilatation of the lateral ventricles, greatest in degree involving the temporal horns. Basal cisterns are patent. No extra- axial fluid collections. Brain: No intracranial bleeds or mass effects. Mild degree of patchy high FLAIR signal intensity within the periventricular and subcortical white matter. There is moderate diffuse cerebral volume loss, greatest in degree involving the frontal and anterior temporal lobes. Jasmine-white matter interface is normal. Diffusion weighted images show no acute ischemic insults. Brainstem appears normal. Normal intravascular flow voids are present. No abnormal intracranial enhancement. Skull and face: Calvarial marrow signal is normal. Orbits appear normal. Sinuses: Sinuses and mastoids are clear. BRAIN MR ANGIOGRAM: Anterior circulation: Intracranial internal carotid arteries are normal in size and enhancement. The flow within the paired anterior cerebral arteries is normal and symmetric. The flow within the middle cerebral arteries is normal and symmetric. The anterior communicating artery is seen. No stenoses, occlusions, or aneurysms. Posterior circulation: The visualized portions of the vertebral arteries demonstrate normal caliber, and join to form a normal appearing basilar artery. The flow within the posterior cerebral arteries is normal and symmetric. No stenoses, occlusions, or aneurysms. NECK MR ANGIOGRAM: Carotids: Great vessels demonstrate a conventional anatomy as they arise from the aortic arch. The origins of the common carotid arteries appear patent. The calibers and courses of both common carotid arteries are normal. The bifurcation regions appear normal bilaterally. The internal carotid arteries demonstrate normal course and caliber. Posterior circulation: The origins of the vertebral arteries appear patent. More superior portions of both vertebral arteries demonstrate normal course and caliber, and join to form a normal appearing basilar artery. Miscellaneous: Subclavian arteries appear patent. Pre-contrast images through the neck show no soft tissue abnormalities. IMPRESSION: BRAIN MRI: 1. No acute process. No recent infarct. 2. Small vessel ischemic disease. 3. Cerebral volume loss, greatest in degree within the frontal and temporal lobes bilaterally. BRAIN MR ANGIOGRAM: Negative cervical MR angiography. NECK MR ANGIOGRAM: 1. No internal coronary stenosis bilaterally. 2. Patent bilateral vertebral arteries. The estimate of stenosis included in the report of the imaging study was calculated using the NASCET method Dictated by: Jing Kate M.D. on 12/05/2016 at 16:29 Transcribed by: RAULITO on 12/05/2016 at 16:34 Approved by: Jing Kate M.D. on 12/05/2016 at 16:40 Assessment & Plan 66-year-old female with severe early onset dementia with attempted suicide attempt today was found to have YESENIA and possible UTI acute, active, Irregular behaviors, agitation, likely due to advanced dementia with possible psychosis features or underlying psychiatric dz, dementia was presumably due to Alzheimer's dementia, pt was diagnosed dxed dementia already 7yrs ago per brother. no previous dx of psychiatric dz. Medical w/u including MRA, MRI of brain, vitB12, TSH, RPR, UCX, all negative. New regimen started on 12/09. -as per / recommendation below 2. Risperidone 0.25mg po bid and 0.25mg po q6hr prn agitiation ->increase to 0.5m bid 3. Continue memantine 5mg po bid for 1 week then 5mg daily and 10mg nightly for 1 weeks then 10mg po bid. 4. Consider adding SSRI e.g. escitalopram 5mg po daily for depression -> increase to 10mg dialy 5. Consider prazosin for possible PTSD 6. Patient would benefit from hearing aid to improve environmental cues 7. Patient would benefit from picture board to identify items as has difficulty with naming object. Elevated ALT, calcium, and bilirubin; present on admission; ongoing, LFT shows mild hepatic dysfunction with mild elevations of bilirubin and large elevation of ALT; question this due to medication. -clinically stable, ALT trending down, monitor for now Episode of n/v, developed , likely medication induced, resolved, KUB showed moderate stools, no SOB. continue bowel regimen, Poor appetite -We will go ahead and add low-dose Remeron 7.5 mg by mouth at at bedtime and see if this does not help with her appetite and may also help with possible depression as noted per psychiatry YESENIA, POA, likely prerenal due to decreased Po intake, Patient received 2 L normal saline in the ED, started on 100cc/hr NS, worsening chronic, stable, resolved Reported dysphagia, POA, initially concerning given dementia, however, pt appeared euvolemic,relatively well nourished, passed swallowing test, continue general diet, Hx of nephrolithiasis, recent stent placement, POA, Abd US on 12/04 showed Interval resolution of right hydronephrosis status post ureteral stent placement. 1.7 cm nonobstructing right renal stone, pt was scheduled for elective Rt renal Laser lithotripsy 12/12, informed that pt is in the hospital. rescheduled for 12/20. Probable UTI, POA, positive for leukocyte esterase, nitrites, few bacteria. pt was empirically start Rocephin but final UCX negative. Repeat UCX also contaminated, stopped abx 12/11. Disposition: pending, appreciate SW input diet: pt can tolerate diet but not eating, DNR/DNI VTE Prophylaxis: Sub-Q Heparin (Unfractionated) VTE Mechanical Devices: Venous Foot Pump Resuscitation Status: DNR/DNI:Do Not Resuscitate/Intubate Time spent 30 minutes Marylu See MD Dec 13, 2016 17:23
--- NOTE | 2016-12-13 18:38 | NUR ---
Behavior Pt has made no attempts to self harm this shift. She remains in [facility] bed. Staff providing care, pt did attempt to leave room x2 this shift when toileting, pushing/shoving staff. Pt redirected back to [facility] bed. No complaints or indicators of pain/discomfort this shift thus far. Bed in lowest, locked position, call light in reach, [facility] enclosure remains closed.
[2016-12-13 21:05] VITALS: BP 126/87; PULSE 102; RESP 20; O2SAT 95
[2016-12-14] MEDS: 0.9% Sodium Chloride 1,000 ML IV SCH ×3 (03:50→23:50)
[2016-12-14 05:09] VITALS: BP 155/79; PULSE 69; RESP 18; O2SAT 95
--- NOTE | 2016-12-14 05:59 | NUR ---
Behavior Pt calm and cooperative with care this shift. Pt did become agitated when placed back into [facility] bed but was redirected. Pt took HS meds crushed in chocolate pudding. Q2 hour restraints assessments and documentation.
[2016-12-14] MEDS: RISPERIDONE 1 MG/ML PO SCH ×2 (08:15→21:11)
[2016-12-14] MEDS: Polyethylene Glycol (PEG) 17 Gm Powder PO SCH ×2 (08:25→20:30)
--- NOTE | 2016-12-14 11:46 | NUR ---
faxed updated clinicals to Olga Falcon at [facility],
[2016-12-14 12:50] VITALS: BP 133/84; PULSE 98; RESP 20; O2SAT 97
--- NOTE | 2016-12-14 13:54 | PCM.PNMED ---
Subjective Date of Service Dec 14, 2016 Subjective Patient with no new issues. Is cooperative. Exam Vital Signs Vital Sign - Last Date Time Temp Pulse Resp B/P Pulse Ox O2 Delivery O2 Flow Rate FiO2 12/14/16 12:50 36.6 98 20 133/84 97 Room Air Intake and Output 12/13/16 12/13/16 12/14/16 Cumulative From/Thru 15:00 23:00 07:00 12/04/16 13:11 - 12/14/16 06:35 Intake Total 150 ml 0 ml 8490 ml Output Total 0 ml 600 ml Balance 150 ml 0 ml 7890 ml Intake Oral 150 ml 0 ml 4281 ml IV Total 4209 ml Output Urine Total 0 ml 600 ml # Voids 2 96 # Bowel Movements 0 17 Exam Constitutional: Middle-aged female in no acute distress Head: Normocephalic and traumatic Chest: Clear to auscultation Cor: Regular rate and rhythm S1-S2 Abdomen: Soft nontender bowel sounds present Extremities: No pedal edema Neuro she is alert she is oriented to person only, motor strength is intact bilaterally Lab and Diagnostics Laboratory Tests 72 Hours Test 12/11/16 14:20 12/12/16 07:15 12/13/16 07:40 Urine Color Dark yellow (YELLOW) Urine Appearance Cloudy (CLEAR,HAZY) Urine pH 6.5 (5.0-8.0) Urine Specific [place] 1.020 (1.003-1.035) Urine Protein 100mg/dL (NEG,TRACE) Urine Glucose (UA) Negativemg/dL (NEGATIVE) Urine Ketones Negativemg/dL (NEGATIVE) Urine Occult Blood Large (NEGATIVE) Urine Nitrite Negative (NEGATIVE) Urine Bilirubin Negative (NEGATIVE) Urine Urobilinogen Normalmg/dL (NORMAL) Urine Leukocyte Esterase Trace (NEGATIVE) Urine RBC >50/hpf (0-2) Urine WBC 0-5/hpf (0-5) Urine Epithelial Cells Moderate/hpf (NONE-MOD) Urine Crystals None seen (NONE SEEN) Urine Bacteria Few/hpf (NONE-FEW) Urine Hyaline Casts None/lpf (NONE) Urine Granular Casts None seen (NONE SEEN) Urine Waxy Casts None seen (NONE SEEN) Urine Red Blood Cell Casts None seen (NONE SEEN) Urine White Blood Cell Casts None seen (NONE SEEN) Urine Mucus None seen (None Seen) Urine Trichomonas None seen (NONE SEEN) Urine Yeast Moderate (NONE SEEN) Urinalysis Comment None Urine Culture Reflexed Indicated White Blood Count 11.3th/mm3 (3.8-10.1) Red Blood Count 3.94mil/mm3 (3.90-5.20) Hemoglobin 12.7g/dL (12.0-15.6) Hematocrit 38.2% (35.0-46.0) Mean Corpuscular Volume 97.0fL (81-100) Mean Corpuscular Hemoglobin 32.2pg (27.0-35.0) Mean Corpuscular Hemoglobin Concent 33.2% (32.0-37.0) Red Cell Distribution Width 12.8% (12.3-15.4) Platelet Count 201bil/L (150-400) Neutrophils (%) (Auto) 73.9% (40-74) Lymphocytes (%) (Auto) 15.0% (14-46) Monocytes (%) (Auto) 10.2% (4-12) Eosinophils (%) (Auto) 0.4% (0-5) Basophils (%) (Auto) 0.2% (0-3) Sodium Level 144mEq/L (134-144) 142mEq/L (134-144) Potassium Level 3.8mEq/L (3.5-5.2) 3.8mEq/L (3.5-5.2) Chloride Level 104mEq/L (97-108) 103mEq/L (97-108) Carbon Dioxide Level 26mmol/L (18-29) 26mmol/L (18-29) Blood Urea Nitrogen 24mg/dL (8-27) 25mg/dL (8-27) Creatinine 1.12mg/dL (0.57-1.00) 0.99mg/dL (0.57-1.00) Estimat Glomerular Filtration Rate 70mL/min (>59) 80mL/min (>59) Glucose Level 115mg/dL (60-99) 97mg/dL (60-99) Calcium Level 10.1mg/dL (8.5-10.1) 9.8mg/dL (8.5-10.1) Magnesium Level 1.9mg/dL (1.6-2.6) Total Bilirubin 0.7mg/dL (0.0-1.2) 0.8mg/dL (0.0-1.2) Aspartate Amino Transf (AST/SGOT) 34U/L (0-50) 36U/L (0-50) Alanine Aminotransferase (ALT/SGPT) 92U/L (0-32) 83U/L (0-32) Alkaline Phosphatase 73U/L (25-165) 70U/L (25-165) Total Protein 6.2g/dL (6.4-8.4) 6.0g/dL (6.4-8.4) Albumin 4.0g/dL (3.4-5.0) 3.8g/dL (3.4-5.0) Result Diagram: 12/12/16 0715 12/13/16 0740 X-Rays, CTs and MRIs Date of Service: 12/05/16 1013 PROCEDURE: MRI STROKE PROTOCOL ([id number]) Pre- and post-contrast brain MRI, non-contrast brain MR angiogram, pre- and postcontrast neck MR angiogram INDICATIONS: psychosis dementia TECHNIQUE: Brain: Noncontrast axial T1 spin echo, axial T2 fast spin echo, sagittal and axial FLAIR, coronal T2 fast spin echo, axial gradient echo, axial diffusion and ADC through the brain. After the administration of contrast, axial 3D VIBE of the cranial vasculature and brain. Brain MRA: Non-contrast 3-D time of flight MR angiogram, with multiple maximum- intensity-projection (MIP) reformats performed. Neck MRA: Axial and sagittal TruFISP through the neck. Coronal dynamic MR angiogram during administration of contrast in the arterial and venous phases, with 3-dimenstional ybgvtir-bcvttybup-mwijjiivos (MIP) reformats constructed from subtraction images. COMPARISON: None. FINDINGS: Image quality: Excellent. BRAIN: CSF spaces: There is ex vacuo dilatation of the lateral ventricles, greatest in degree involving the temporal horns. Basal cisterns are patent. No extra- axial fluid collections. Brain: No intracranial bleeds or mass effects. Mild degree of patchy high FLAIR signal intensity within the periventricular and subcortical white matter. There is moderate diffuse cerebral volume loss, greatest in degree involving the frontal and anterior temporal lobes. Jasmine-white matter interface is normal. Diffusion weighted images show no acute ischemic insults. Brainstem appears normal. Normal intravascular flow voids are present. No abnormal intracranial enhancement. Skull and face: Calvarial marrow signal is normal. Orbits appear normal. Sinuses: Sinuses and mastoids are clear. BRAIN MR ANGIOGRAM: Anterior circulation: Intracranial internal carotid arteries are normal in size and enhancement. The flow within the paired anterior cerebral arteries is normal and symmetric. The flow within the middle cerebral arteries is normal and symmetric. The anterior communicating artery is seen. No stenoses, occlusions, or aneurysms. Posterior circulation: The visualized portions of the vertebral arteries demonstrate normal caliber, and join to form a normal appearing basilar artery. The flow within the posterior cerebral arteries is normal and symmetric. No stenoses, occlusions, or aneurysms. NECK MR ANGIOGRAM: Carotids: Great vessels demonstrate a conventional anatomy as they arise from the aortic arch. The origins of the common carotid arteries appear patent. The calibers and courses of both common carotid arteries are normal. The bifurcation regions appear normal bilaterally. The internal carotid arteries demonstrate normal course and caliber. Posterior circulation: The origins of the vertebral arteries appear patent. More superior portions of both vertebral arteries demonstrate normal course and caliber, and join to form a normal appearing basilar artery. Miscellaneous: Subclavian arteries appear patent. Pre-contrast images through the neck show no soft tissue abnormalities. IMPRESSION: BRAIN MRI: 1. No acute process. No recent infarct. 2. Small vessel ischemic disease. 3. Cerebral volume loss, greatest in degree within the frontal and temporal lobes bilaterally. BRAIN MR ANGIOGRAM: Negative cervical MR angiography. NECK MR ANGIOGRAM: 1. No internal coronary stenosis bilaterally. 2. Patent bilateral vertebral arteries. The estimate of stenosis included in the report of the imaging study was calculated using the NASCET method Dictated by: Jing Kate M.D. on 12/05/2016 at 16:29 Transcribed by: RAULITO on 12/05/2016 at 16:34 Approved by: Jing Kate M.D. on 12/05/2016 at 16:40 Assessment & Plan 66-year-old female with severe early onset dementia with attempted suicide attempt today was found to have YESENIA and possible UTI acute, active, Irregular behaviors, agitation, likely due to advanced dementia with possible psychosis features or underlying psychiatric dz, dementia was presumably due to Alzheimer's dementia, pt was diagnosed dxed dementia already 7yrs ago per brother. no previous dx of psychiatric dz. Medical w/u including MRA, MRI of brain, vitB12, TSH, RPR, UCX, all negative. New regimen started on 12/09. -as per / recommendation below 2. Risperidone 0.25mg po bid and 0.25mg po q6hr prn agitiation ->increase to 0.5m bid 3. Continue memantine 5mg po bid for 1 week then 5mg daily and 10mg nightly for 1 weeks then 10mg po bid. 4. Consider adding SSRI e.g. escitalopram 5mg po daily for depression -> increase to 10mg dialy 5. Consider prazosin for possible PTSD 6. Patient would benefit from hearing aid to improve environmental cues 7. Patient would benefit from picture board to identify items as has difficulty with naming object. Elevated ALT, calcium, and bilirubin; present on admission; ongoing, LFT shows mild hepatic dysfunction with mild elevations of bilirubin and large elevation of ALT; question this due to medication. -clinically stable, ALT trending down, monitor for now Episode of n/v, developed , likely medication induced, resolved, KUB showed moderate stools, no SOB. continue bowel regimen, Poor appetite -We will go ahead and add low-dose Remeron 7.5 mg by mouth at at bedtime and see if this does not help with her appetite and may also help with possible depression as noted per psychiatry YESENIA, POA, likely prerenal due to decreased Po intake, Patient received 2 L normal saline in the ED, started on 100cc/hr NS, worsening chronic, stable, resolved Reported dysphagia, POA, initially concerning given dementia, however, pt appeared euvolemic,relatively well nourished, passed swallowing test, continue general diet, Hx of nephrolithiasis, recent stent placement, POA, Abd US on 12/04 showed Interval resolution of right hydronephrosis status post ureteral stent placement. 1.7 cm nonobstructing right renal stone, pt was scheduled for elective Rt renal Laser lithotripsy 12/12, informed that pt is in the hospital. rescheduled for 12/20. Probable UTI, POA, positive for leukocyte esterase, nitrites, few bacteria. pt was empirically start Rocephin but final UCX negative. Repeat UCX also contaminated, stopped abx 7/31. Disposition: pending, appreciate SW input diet: pt can tolerate diet but not eating, DNR/DNI VTE Prophylaxis: Sub-Q Heparin (Unfractionated) VTE Mechanical Devices: Venous Foot Pump Resuscitation Status: DNR/DNI:Do Not Resuscitate/Intubate Time spent 30 minutes Marylu See MD Dec 14, 2016 13:54
--- NOTE | 2016-12-14 15:42 | NUR ---
NUTRITION FOLLOW-UP: ASSESS: 66 YO Female admitted with Altered mental status, possible Delirium with alzheimers dementia, psychiatry consulted. Pt diet was advanced to soft yesterday. MD states pt can tolerate diet, but pt continues to refuse to eat most meals. Remeron was added to help stimulate appetite. Pt with minimal nutrition x 10 days. PMHX: Alzheimer's Dementia DIET: Soft. Refusing most meals. LABS: Reviewed. ALT 83. MEDS: Reviewed. Remeron. GI: BM x 1 (12/10) WEIGHT: 69.3 kg BMI: 28.9 (No new wt currently available) EST.NEEDS: 3022-0458 kcal (25-30 kcal/kg BW) 70-80 g pro (1.0-1.2 g/kg pro BW) NUTRITION DIAGNOSIS: (1) Inadequate oral intake related to AMS as evidenced by po intake of bites x 10 days-PERSISTS. INTERVENTION: (1) Currently unable to obtain pt preferences as pt is oriented to self only. Will send ensure on all trays to encourage increased po intake. MONITOR/EVALUATE: PO intake, labs, nutritional status. Follow per high nutritional risk guidelines.
[2016-12-14 22:08] VITALS: BP 144/80; PULSE 82; RESP 16; O2SAT 95
--- NOTE | 2016-12-15 06:22 | NUR ---
Mentation Pt is alert and oriented to self only. Pt calm and cooperative with care this shift, up with 1-2 person assist to bathroom, directs back to SOMA bed easily, no agitation. Pt took HS meds crushed in pudding, sleeping in bed throughout shift. Frequent rounding, Q2 hour restraint documentation.
[2016-12-15 06:59] VITALS: BP 158/79; PULSE 98; RESP 16; O2SAT 95
[2016-12-15] MEDS: Polyethylene Glycol (PEG) 17 Gm Powder PO SCH ×2 (08:30→19:30)
[2016-12-15] MEDS: RISPERIDONE 1 MG/ML PO SCH ×3 (08:30→21:59)
[2016-12-15] MEDS: 0.9% Sodium Chloride 1,000 ML IV SCH ×2 (09:50→19:30)
--- NOTE | 2016-12-15 10:49 | PCM.PNMED ---
Subjective Date of Service Dec 15, 2016 Subjective Daughter is at bedside currently. Patient has been complaining of mild frontal headache today to the daughter. Otherwise no change in status or no new complaints. Exam Vital Signs Vital Sign - Last Date Time Temp Pulse Resp B/P Pulse Ox O2 Delivery O2 Flow Rate FiO2 12/15/16 06:59 35.9 98 16 158/79 95 Room Air Intake and Output 12/14/16 12/14/16 12/15/16 Cumulative From/Thru 15:00 23:00 07:00 12/04/16 13:11 - 12/14/16 18:23 Intake Total 300 ml 8790 ml Output Total 600 ml Balance 300 ml 8190 ml Intake Oral 300 ml 4581 ml IV Total 4209 ml Output Urine Total 600 ml # Voids 3 99 # Bowel Movements 2 19 Exam Constitutional: Elderly female in no apparent acute distress but is essentially nonfocal today. Head: Normocephalic atraumatic Chest: Clear to auscultation Cor: Regular rate and rhythm S1-S2 Abdomen: Soft nontender pulses present Extremities: No pedal edema Lab and Diagnostics Laboratory Tests 72 Hours Test 12/13/16 07:40 Sodium Level 142mEq/L (134-144) Potassium Level 3.8mEq/L (3.5-5.2) Chloride Level 103mEq/L (97-108) Carbon Dioxide Level 26mmol/L (18-29) Blood Urea Nitrogen 25mg/dL (8-27) Creatinine 0.99mg/dL (0.57-1.00) Estimat Glomerular Filtration Rate 80mL/min (>59) Glucose Level 97mg/dL (60-99) Calcium Level 9.8mg/dL (8.5-10.1) Total Bilirubin 0.8mg/dL (0.0-1.2) Aspartate Amino Transf (AST/SGOT) 36U/L (0-50) Alanine Aminotransferase (ALT/SGPT) 83U/L (0-32) Alkaline Phosphatase 70U/L (25-165) Total Protein 6.0g/dL (6.4-8.4) Albumin 3.8g/dL (3.4-5.0) Result Diagram: 12/12/16 0715 12/13/16 0740 X-Rays, CTs and MRIs Date of Service: 12/05/16 1013 PROCEDURE: MRI STROKE PROTOCOL ([id number]) Pre- and post-contrast brain MRI, non-contrast brain MR angiogram, pre- and postcontrast neck MR angiogram INDICATIONS: psychosis dementia TECHNIQUE: Brain: Noncontrast axial T1 spin echo, axial T2 fast spin echo, sagittal and axial FLAIR, coronal T2 fast spin echo, axial gradient echo, axial diffusion and ADC through the brain. After the administration of contrast, axial 3D VIBE of the cranial vasculature and brain. Brain MRA: Non-contrast 3-D time of flight MR angiogram, with multiple maximum- intensity-projection (MIP) reformats performed. Neck MRA: Axial and sagittal TruFISP through the neck. Coronal dynamic MR angiogram during administration of contrast in the arterial and venous phases, with 3-dimenstional aibyvla-pxpujowhs-gbeshyzvgl (MIP) reformats constructed from subtraction images. COMPARISON: None. FINDINGS: Image quality: Excellent. BRAIN: CSF spaces: There is ex vacuo dilatation of the lateral ventricles, greatest in degree involving the temporal horns. Basal cisterns are patent. No extra- axial fluid collections. Brain: No intracranial bleeds or mass effects. Mild degree of patchy high FLAIR signal intensity within the periventricular and subcortical white matter. There is moderate diffuse cerebral volume loss, greatest in degree involving the frontal and anterior temporal lobes. Jasmine-white matter interface is normal. Diffusion weighted images show no acute ischemic insults. Brainstem appears normal. Normal intravascular flow voids are present. No abnormal intracranial enhancement. Skull and face: Calvarial marrow signal is normal. Orbits appear normal. Sinuses: Sinuses and mastoids are clear. BRAIN MR ANGIOGRAM: Anterior circulation: Intracranial internal carotid arteries are normal in size and enhancement. The flow within the paired anterior cerebral arteries is normal and symmetric. The flow within the middle cerebral arteries is normal and symmetric. The anterior communicating artery is seen. No stenoses, occlusions, or aneurysms. Posterior circulation: The visualized portions of the vertebral arteries demonstrate normal caliber, and join to form a normal appearing basilar artery. The flow within the posterior cerebral arteries is normal and symmetric. No stenoses, occlusions, or aneurysms. NECK MR ANGIOGRAM: Carotids: Great vessels demonstrate a conventional anatomy as they arise from the aortic arch. The origins of the common carotid arteries appear patent. The calibers and courses of both common carotid arteries are normal. The bifurcation regions appear normal bilaterally. The internal carotid arteries demonstrate normal course and caliber. Posterior circulation: The origins of the vertebral arteries appear patent. More superior portions of both vertebral arteries demonstrate normal course and caliber, and join to form a normal appearing basilar artery. Miscellaneous: Subclavian arteries appear patent. Pre-contrast images through the neck show no soft tissue abnormalities. IMPRESSION: BRAIN MRI: 1. No acute process. No recent infarct. 2. Small vessel ischemic disease. 3. Cerebral volume loss, greatest in degree within the frontal and temporal lobes bilaterally. BRAIN MR ANGIOGRAM: Negative cervical MR angiography. NECK MR ANGIOGRAM: 1. No internal coronary stenosis bilaterally. 2. Patent bilateral vertebral arteries. The estimate of stenosis included in the report of the imaging study was calculated using the NASCET method Dictated by: Jing Kate M.D. on 12/05/2016 at 16:29 Transcribed by: RAULITO on 12/05/2016 at 16:34 Approved by: Jing Kate M.D. on 12/05/2016 at 16:40 Assessment & Plan 66-year-old female with severe early onset dementia with attempted suicide attempt today was found to have YESENIA and possible UTI acute, active, Irregular behaviors, agitation, likely due to advanced dementia with possible psychosis features or underlying psychiatric dz, dementia was presumably due to Alzheimer's dementia, pt was diagnosed dxed dementia already 7yrs ago per brother. no previous dx of psychiatric dz. Medical w/u including MRA, MRI of brain, vitB12, TSH, RPR, UCX, all negative. New regimen started on 12/09. -as per / recommendation below 2. Risperidone 0.25mg po bid and 0.25mg po q6hr prn agitiation ->increase to 0.5m bid 3. Continue memantine 5mg po bid for 1 week then 5mg daily and 10mg nightly for 1 weeks then 10mg po bid. 4. Consider adding SSRI e.g. escitalopram 5mg po daily for depression -> increase to 10mg dialy 5. Consider prazosin for possible PTSD>Started prazosin 1 mg qhs today 6. Patient would benefit from hearing aid to improve environmental cues 7. Patient would benefit from picture board to identify items as has difficulty with naming object. Elevated ALT, calcium, and bilirubin; present on admission; ongoing, LFT shows mild hepatic dysfunction with mild elevations of bilirubin and large elevation of ALT; question this due to medication. -clinically stable, ALT trending down, monitor for now Episode of n/v, developed , likely medication induced, resolved, KUB showed moderate stools, no SOB. continue bowel regimen, Poor appetite -I stopped remeron today as has not seemed to help appetite and has less affect this AM YESENIA, POA, likely prerenal due to decreased Po intake, Patient received 2 L normal saline in the ED, started on 100cc/hr NS, worsening chronic, stable, resolved Reported dysphagia, POA, initially concerning given dementia, however, pt appeared euvolemic,relatively well nourished, passed swallowing test, continue general diet, Hx of nephrolithiasis, recent stent placement, POA, Abd US on 12/04 showed Interval resolution of right hydronephrosis status post ureteral stent placement. 1.7 cm nonobstructing right renal stone, pt was scheduled for elective Rt renal Laser lithotripsy 12/12, informed that pt is in the hospital. rescheduled for 12/20. Probable UTI, POA, positive for leukocyte esterase, nitrites, few bacteria. pt was empirically start Rocephin but final UCX negative. Repeat UCX also contaminated, stopped abx 12/11. Disposition: pending, appreciate SW input diet: pt can tolerate diet but not eating, DNR/DNI VTE Prophylaxis: Sub-Q Heparin (Unfractionated) VTE Mechanical Devices: Venous Foot Pump Resuscitation Status: DNR/DNI:Do Not Resuscitate/Intubate Time spent 30 minutes Marylu See MD Dec 15, 2016 10:48
[2016-12-15 14:00] VITALS: BP 132/81; PULSE 77; RESP 18; O2SAT 96
--- NOTE | 2016-12-15 14:57 | NUR ---
NUTRITION FOLLOW-UP: ASSESS: 66 YO Female admitted with Altered mental status, agitation-likely advanced dementia with possible underlying psychiatric dz. Pt diet was advanced to soft, continues to be minimal, discussed with RN/MD at A.M. case management meeting, RN reporting pt doing well with Ensure supplement order. Will continue to encourage supplements, offering variety. Pt is A&O to self only. PMHX: Alzheimer's Dementia DIET: Soft. PO bites, now taking Ensure LABS: Reviewed. MEDS: Reviewed. Remeron--discontinued per MD as not helping with appetite GI: BM x 2 (12/14) WEIGHT: 69.3 kg BMI: 28.9 (No new wt currently available---since admit) EST.NEEDS: 5214-4137 kcal (25-30 kcal/kg BW) 70-80 g pro (1.0-1.2 g/kg pro BW) NUTRITION DIAGNOSIS: (1) Inadequate oral intake related to AMS as evidenced by po intake of bites x 10 days-MILDLY IMPROVED INTERVENTION: (1) Continue Ensure supplements + variety of supplements on meals trays. (2) In Event po intake does not continue to improve next 2-4 days recommend consideration of nutrition support pending pt overall POC/goals. (3) Requested RN obtain new weight. MONITOR/EVALUATE: PO intake, labs, nutritional status. Follow per high nutritional risk guidelines.
--- NOTE | 2016-12-15 16:55 | NUR ---
Activity Sleepy this AM when daughter was visiting. Provider assessed at that time. Up to the BR with SBA for toileting needs. Using TV controls independently.
[2016-12-15 18:34] VITALS: BP 130/72; PULSE 72; RESP 18; O2SAT 97
[2016-12-15 22:15] VITALS: BP 127/82; PULSE 101; RESP 18; O2SAT 99
--- NOTE | 2016-12-16 05:45 | NUR ---
Mentation Pt is alert and oriented to self, calm and cooperative with care this shift. Pt up to bathroom with 1 person assist, steady gait observed. Pt in SOMA bed, Q2 hour documentation.
[2016-12-16] MEDS: 0.9% Sodium Chloride 1,000 ML IV SCH (05:50)
[2016-12-16 06:59] VITALS: BP 134/86; PULSE 87; RESP 18; O2SAT 96
[2016-12-16] MEDS: Polyethylene Glycol (PEG) 17 Gm Powder PO SCH ×2 (08:30→19:56)
[2016-12-16] MEDS: RISPERIDONE 1 MG/ML PO SCH ×2 (10:04→20:05)
[2016-12-16 14:09] VITALS: BP 120/85; PULSE 100; RESP 18; O2SAT 96
--- NOTE | 2016-12-16 15:41 | PCM.PNMED ---
Subjective Date of Service Dec 16, 2016 Subjective Patient has no complaints today is resting in her Soma bed. Exam Vital Signs Vital Sign - Last Date Time Temp Pulse Resp B/P Pulse Ox O2 Delivery O2 Flow Rate FiO2 12/16/16 14:09 36.7 100 18 120/85 96 Room Air Intake and Output 12/15/16 12/15/16 12/16/16 Cumulative From/Thru 15:00 23:00 07:00 12/04/16 13:11 - 12/15/16 19:32 Intake Total 0 ml 8790 ml Output Total 600 ml Balance 0 ml 8190 ml Intake Oral 0 ml 4581 ml IV Total 4209 ml Output Urine Total 600 ml # Voids 1 2 102 # Bowel Movements 0 19 Exam Constitutional: Elderly female in no acute distress Head: Normocephalic manic Chest: Clear to auscultation Cor: Regular rate and rhythm S1-S2 Abdomen: Soft nontender bouts of present Extremities: No pedal edema Neuro: Alert, motor strength is intact bilaterally Lab and Diagnostics Result Diagram: 12/12/16 0715 12/13/16 0740 X-Rays, CTs and MRIs Date of Service: 12/05/16 1013 PROCEDURE: MRI STROKE PROTOCOL ([id number]) Pre- and post-contrast brain MRI, non-contrast brain MR angiogram, pre- and postcontrast neck MR angiogram INDICATIONS: psychosis dementia TECHNIQUE: Brain: Noncontrast axial T1 spin echo, axial T2 fast spin echo, sagittal and axial FLAIR, coronal T2 fast spin echo, axial gradient echo, axial diffusion and ADC through the brain. After the administration of contrast, axial 3D VIBE of the cranial vasculature and brain. Brain MRA: Non-contrast 3-D time of flight MR angiogram, with multiple maximum- intensity-projection (MIP) reformats performed. Neck MRA: Axial and sagittal TruFISP through the neck. Coronal dynamic MR angiogram during administration of contrast in the arterial and venous phases, with 3-dimenstional foqezth-oytkbhkkj-ihysjexnqi (MIP) reformats constructed from subtraction images. COMPARISON: None. FINDINGS: Image quality: Excellent. BRAIN: CSF spaces: There is ex vacuo dilatation of the lateral ventricles, greatest in degree involving the temporal horns. Basal cisterns are patent. No extra- axial fluid collections. Brain: No intracranial bleeds or mass effects. Mild degree of patchy high FLAIR signal intensity within the periventricular and subcortical white matter. There is moderate diffuse cerebral volume loss, greatest in degree involving the frontal and anterior temporal lobes. Jasmine-white matter interface is normal. Diffusion weighted images show no acute ischemic insults. Brainstem appears normal. Normal intravascular flow voids are present. No abnormal intracranial enhancement. Skull and face: Calvarial marrow signal is normal. Orbits appear normal. Sinuses: Sinuses and mastoids are clear. BRAIN MR ANGIOGRAM: Anterior circulation: Intracranial internal carotid arteries are normal in size and enhancement. The flow within the paired anterior cerebral arteries is normal and symmetric. The flow within the middle cerebral arteries is normal and symmetric. The anterior communicating artery is seen. No stenoses, occlusions, or aneurysms. Posterior circulation: The visualized portions of the vertebral arteries demonstrate normal caliber, and join to form a normal appearing basilar artery. The flow within the posterior cerebral arteries is normal and symmetric. No stenoses, occlusions, or aneurysms. NECK MR ANGIOGRAM: Carotids: Great vessels demonstrate a conventional anatomy as they arise from the aortic arch. The origins of the common carotid arteries appear patent. The calibers and courses of both common carotid arteries are normal. The bifurcation regions appear normal bilaterally. The internal carotid arteries demonstrate normal course and caliber. Posterior circulation: The origins of the vertebral arteries appear patent. More superior portions of both vertebral arteries demonstrate normal course and caliber, and join to form a normal appearing basilar artery. Miscellaneous: Subclavian arteries appear patent. Pre-contrast images through the neck show no soft tissue abnormalities. IMPRESSION: BRAIN MRI: 1. No acute process. No recent infarct. 2. Small vessel ischemic disease. 3. Cerebral volume loss, greatest in degree within the frontal and temporal lobes bilaterally. BRAIN MR ANGIOGRAM: Negative cervical MR angiography. NECK MR ANGIOGRAM: 1. No internal coronary stenosis bilaterally. 2. Patent bilateral vertebral arteries. The estimate of stenosis included in the report of the imaging study was calculated using the NASCET method Dictated by: Jing Kate M.D. on 12/05/2016 at 16:29 Transcribed by: RAULITO on 12/05/2016 at 16:34 Approved by: Jing Kate M.D. on 12/05/2016 at 16:40 Assessment & Plan 66-year-old female with severe early onset dementia with attempted suicide attempt today was found to have YESENIA and possible UTI acute, active, Irregular behaviors, agitation, likely due to advanced dementia with possible psychosis features or underlying psychiatric dz, dementia was presumably due to Alzheimer's dementia, pt was diagnosed dxed dementia already 7yrs ago per brother. no previous dx of psychiatric dz. Medical w/u including MRA, MRI of brain, vitB12, TSH, RPR, UCX, all negative. New regimen started on 12/09. -as per / recommendation below 2. Risperidone 0.25mg po bid and 0.25mg po q6hr prn agitiation ->increase to 0.5m bid 3. Continue memantine 5mg po bid for 1 week then 5mg daily and 10mg nightly for 1 weeks then 10mg po bid. 4. Consider adding SSRI e.g. escitalopram 5mg po daily for depression -> increase to 10mg dialy 5. Consider prazosin for possible PTSD>Started prazosin 1 mg qhs today 6. Patient would benefit from hearing aid to improve environmental cues 7. Patient would benefit from picture board to identify items as has difficulty with naming object. Elevated ALT, calcium, and bilirubin; present on admission; ongoing, LFT shows mild hepatic dysfunction with mild elevations of bilirubin and large elevation of ALT; question this due to medication. -clinically stable, ALT trending down, monitor for now -Check labs on December 17 including CBC platelet differential and CMP Episode of n/v, developed 12/10-, likely medication induced, resolved, KUB showed moderate stools, no SOB. continue bowel regimen, Poor appetite -I stopped remeron today as has not seemed to help appetite and has less affect this AM YESENIA, POA, likely prerenal due to decreased Po intake, Patient received 2 L normal saline in the ED, started on 100cc/hr NS, worsening chronic, stable, resolved Reported dysphagia, POA, initially concerning given dementia, however, pt appeared euvolemic,relatively well nourished, passed swallowing test, continue general diet, Hx of nephrolithiasis, recent stent placement, POA, Abd US on 12/04 showed Interval resolution of right hydronephrosis status post ureteral stent placement. 1.7 cm nonobstructing right renal stone, pt was scheduled for elective Rt renal Laser lithotripsy 12/12, informed that pt is in the hospital. rescheduled for 12/20. Probable UTI, POA, positive for leukocyte esterase, nitrites, few bacteria. pt was empirically start Rocephin but final UCX negative. Repeat UCX also contaminated, stopped abx 12/11. Disposition: pending, appreciate SW input diet: pt can tolerate diet but not eating, DNR/DNI VTE Prophylaxis: Sub-Q Heparin (Unfractionated) VTE Mechanical Devices: Venous Foot Pump Resuscitation Status: DNR/DNI:Do Not Resuscitate/Intubate Time spent 20 minutes Marylu See MD Dec 16, 2016 15:41
[2016-12-16 20:02] VITALS: BP 139/90; PULSE 98; RESP 16; O2SAT 95
--- NOTE | 2016-12-17 00:48 | NUR ---
Discontinued Restraints at 19:00 the Bed Enclosure has been discontinued, it was reported to this RN that the patient has been cooperative with care during the day, without any episodes of agitation or unsafe behavior. pt is alert to self only. pt has answered most questions appropriately, has been able to make needs known. pt has been easily redirected when needed. hourly rounding in effect, pt is in a room next to the nurses station. call light has been placed within reach.
[2016-12-17 04:22] VITALS: BP 128/85; PULSE 119; RESP 16; O2SAT 97
--- NOTE | 2016-12-17 04:39 | NUR ---
Accepted and Refused Pain meds pt verbalized having pain this AM, RN offered PRN medication, pt verbally accepted. med crushed per orders, placed in chocolate pudding, pt took half a bite, swallowed it and verbalized how "it taste bad, I don't want it". RN encouraged the pt to finish the bite and drink the ensure or water at he bedside, she declined. RN offered to mix the med with a different flavor pudding or applesauce, pt declined. This RN made multiple attempts to encourage the patient to finish the bite of medication mixture, pt declined firmly. this RN documented pt response in eMar. remainder of the med mixture was tossed in the trash after multiple verbal declinations.
--- NOTE | 2016-12-17 05:49 | NUR ---
Behavior pt has been cooperative with care during the night. pt is alert to self. pt has slept for most of the night, did wake around 04:30, pt amb in the hallway at that time and set off the Hugs alarms due to walking too close to the [facility] doors. pt easily redirected back to her room. pt is resting in bed at this time. call light placed within reach, hourly rounding in effect.
[2016-12-17 06:54] LABS: MONOCYTES % (AUTO) 8.2 % (4-12); Mean Corpuscular Hemoglobin 32.4 pg (27.0-35.0); Mean Corpuscular Volume 98.2 fL (81-100); NEUTROPHILS % (AUTO) 69.8 % (40-74); Platelet Count 198 bil/L (150-400)
[2016-12-17 06:55] LABS: BASOPHILS % (AUTO) 0.2 % (0-3); EOSINOPHILS % (AUTO) 1.8 % (0-5)
[2016-12-17] MEDS: RISPERIDONE 1 MG/ML PO SCH ×2 (10:07→21:21)
[2016-12-17] MEDS: Polyethylene Glycol (PEG) 17 Gm Powder PO SCH ×2 (10:07→20:30)
--- NOTE | 2016-12-17 11:53 | NUR ---
Social Work- Continued D/C Planning Data: EMR reviewed. Pt discussed in multidisciplinary rounds. Pt is on day 13 of hospitalization for delerium, dehydration. Pt will require placement at memory care. Pt would benefit from [employer] as a supplement to assist in placement. T/C, left message [phone] and email to [facility] regarding screening patient for DSHS supplement. Hopeful [facility] will follow up with pt and family on Sunday. T/C and left message for patient's daughter regarding [facility], DSHS, monthly cost of [employer], and ADIEL. SW awaiting return call. SW will continue to follow. Assessment: Pt who requires memory care placement. 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 Contacted pt's daughter regarding update and ADIEL. SW awaiting return call from pt's daughter. SW will continue to follow. STEWART Schmitz
--- NOTE | 2016-12-17 12:05 | NUR ---
ADIEL Attempt Pt is not appropriate to sign ADIEL as she is oriented to self only. T/C to pt's daughter Heather Gordon [phone] regarding ADIEL, left message requesting return call. STEWART Schmitz
[2016-12-17 12:58] VITALS: BP 127/75; PULSE 82; RESP 16; O2SAT 99
--- NOTE | 2016-12-17 14:02 | PCM.PNMED ---
Subjective Date of Service Dec 17, 2016 Subjective Patient resting in bed and is actually little bit more interactive today and smiling. Exam Vital Signs Vital Sign - Last Date Time Temp Pulse Resp B/P Pulse Ox O2 Delivery O2 Flow Rate FiO2 12/17/16 12:58 36.6 82 16 127/75 99 Room Air Intake and Output 12/16/16 12/16/16 12/17/16 Cumulative From/Thru 15:00 23:00 07:00 12/04/16 13:11 - 12/17/16 04:07 Intake Total 0 ml 941 ml 9731 ml Output Total 600 ml Balance 0 ml 941 ml 9131 ml Intake Oral 0 ml 941 ml 5522 ml IV Total 4209 ml Output Urine Total 600 ml # Voids 3 4 109 # Bowel Movements 0 1 20 Exam Constitutional: Middle-aged female in no acute distress Head: Normocephalic atraumatic Chest: Clear to auscultation Cor: Regular rate and rhythm S1-S2 Abdomen: Soft nontender bowel sounds present Extremities: No pedal edema Psych: Patient is more interactive today and has more of an affect and smiled Lab and Diagnostics Result Diagram: 12/17/16 0630 12/17/16 0630 X-Rays, CTs and MRIs Date of Service: 12/05/16 1013 PROCEDURE: MRI STROKE PROTOCOL ([id number]) Pre- and post-contrast brain MRI, non-contrast brain MR angiogram, pre- and postcontrast neck MR angiogram INDICATIONS: psychosis dementia TECHNIQUE: Brain: Noncontrast axial T1 spin echo, axial T2 fast spin echo, sagittal and axial FLAIR, coronal T2 fast spin echo, axial gradient echo, axial diffusion and ADC through the brain. After the administration of contrast, axial 3D VIBE of the cranial vasculature and brain. Brain MRA: Non-contrast 3-D time of flight MR angiogram, with multiple maximum- intensity-projection (MIP) reformats performed. Neck MRA: Axial and sagittal TruFISP through the neck. Coronal dynamic MR angiogram during administration of contrast in the arterial and venous phases, with 3-dimenstional jmuahlw-hlfoubmaa-ynbpozbwok (MIP) reformats constructed from subtraction images. COMPARISON: None. FINDINGS: Image quality: Excellent. BRAIN: CSF spaces: There is ex vacuo dilatation of the lateral ventricles, greatest in degree involving the temporal horns. Basal cisterns are patent. No extra- axial fluid collections. Brain: No intracranial bleeds or mass effects. Mild degree of patchy high FLAIR signal intensity within the periventricular and subcortical white matter. There is moderate diffuse cerebral volume loss, greatest in degree involving the frontal and anterior temporal lobes. Jasmine-white matter interface is normal. Diffusion weighted images show no acute ischemic insults. Brainstem appears normal. Normal intravascular flow voids are present. No abnormal intracranial enhancement. Skull and face: Calvarial marrow signal is normal. Orbits appear normal. Sinuses: Sinuses and mastoids are clear. BRAIN MR ANGIOGRAM: Anterior circulation: Intracranial internal carotid arteries are normal in size and enhancement. The flow within the paired anterior cerebral arteries is normal and symmetric. The flow within the middle cerebral arteries is normal and symmetric. The anterior communicating artery is seen. No stenoses, occlusions, or aneurysms. Posterior circulation: The visualized portions of the vertebral arteries demonstrate normal caliber, and join to form a normal appearing basilar artery. The flow within the posterior cerebral arteries is normal and symmetric. No stenoses, occlusions, or aneurysms. NECK MR ANGIOGRAM: Carotids: Great vessels demonstrate a conventional anatomy as they arise from the aortic arch. The origins of the common carotid arteries appear patent. The calibers and courses of both common carotid arteries are normal. The bifurcation regions appear normal bilaterally. The internal carotid arteries demonstrate normal course and caliber. Posterior circulation: The origins of the vertebral arteries appear patent. More superior portions of both vertebral arteries demonstrate normal course and caliber, and join to form a normal appearing basilar artery. Miscellaneous: Subclavian arteries appear patent. Pre-contrast images through the neck show no soft tissue abnormalities. IMPRESSION: BRAIN MRI: 1. No acute process. No recent infarct. 2. Small vessel ischemic disease. 3. Cerebral volume loss, greatest in degree within the frontal and temporal lobes bilaterally. BRAIN MR ANGIOGRAM: Negative cervical MR angiography. NECK MR ANGIOGRAM: 1. No internal coronary stenosis bilaterally. 2. Patent bilateral vertebral arteries. The estimate of stenosis included in the report of the imaging study was calculated using the NASCET method Dictated by: Jing Kate M.D. on 12/05/2016 at 16:29 Transcribed by: RAULITO on 12/05/2016 at 16:34 Approved by: Jing Kate M.D. on 12/05/2016 at 16:40 Assessment & Plan 66-year-old female with severe early onset dementia with attempted suicide attempt today was found to have YESENIA and possible UTI acute, active, Irregular behaviors, agitation, likely due to advanced dementia with possible psychosis features or underlying psychiatric dz, dementia was presumably due to Alzheimer's dementia, pt was diagnosed dxed dementia already 7yrs ago per brother. no previous dx of psychiatric dz. Medical w/u including MRA, MRI of brain, vitB12, TSH, RPR, UCX, all negative. New regimen started on 12/09. -as per / recommendation below 2. Risperidone 0.25mg po bid and 0.25mg po q6hr prn agitiation ->increase to 0.5m bid 3. Continue memantine 5mg po bid for 1 week then 5mg daily and 10mg nightly for 1 weeks then 10mg po bid. 4. Consider adding SSRI e.g. escitalopram 5mg po daily for depression -> increase to 10mg dialy 5. Consider prazosin for possible PTSD>Started prazosin 1 mg qhs today 6. Patient would benefit from hearing aid to improve environmental cues 7. Patient would benefit from picture board to identify items as has difficulty with naming object. Elevated ALT, calcium, and bilirubin; present on admission; ongoing, LFT shows mild hepatic dysfunction with mild elevations of bilirubin and large elevation of ALT; question this due to medication. -clinically stable, ALT trending down, monitor for now -Check labs on December 17 including CBC platelet differential and CMP which are fairly stable Episode of n/v, developed 12/10-, likely medication induced, resolved, KUB showed moderate stools, no SOB. continue bowel regimen, Poor appetite -I stopped remeron today as has not seemed to help appetite and has less affect this AM YESENIA, POA, likely prerenal due to decreased Po intake, Patient received 2 L normal saline in the ED, started on 100cc/hr NS, worsening chronic, stable, resolved Reported dysphagia, POA, initially concerning given dementia, however, pt appeared euvolemic,relatively well nourished, passed swallowing test, continue general diet, Hx of nephrolithiasis, recent stent placement, POA, Abd US on 12/04 showed Interval resolution of right hydronephrosis status post ureteral stent placement. 1.7 cm nonobstructing right renal stone, pt was scheduled for elective Rt renal Laser lithotripsy 12/12, informed that pt is in the hospital. rescheduled for 12/20. Probable UTI, POA, positive for leukocyte esterase, nitrites, few bacteria. pt was empirically start Rocephin but final UCX negative. Repeat UCX also contaminated, stopped abx 12/11. Disposition: pending, appreciate SW input diet: pt can tolerate diet but not eating, DNR/DNI VTE Prophylaxis: Sub-Q Heparin (Unfractionated) VTE Mechanical Devices: Venous Foot Pump Resuscitation Status: DNR/DNI:Do Not Resuscitate/Intubate Time spent 20 minutes Marylu See MD Dec 17, 2016 14:02
--- NOTE | 2016-12-17 14:33 | NUR ---
BEHAVIOR / Partial medication dose Patient's behavior appropriate through the morning, able to make needs known and able to be redirected when she begins to get confused or agitated. Soma bed is unzipped and open. Patient did ambulate into [place] and set off HUGS alarm but returned to room without issue when asked. Patient refuses a few bites of her morning medications (about 1/4). Multiple attempts by RN to get patient to finish all of medications was unsuccessful. Meds had been crushed and mixed with chocolate pudding. Patient states "I don't want that stuff it tastes horrible!" Bed is low and locked, HUGS tag in place, care and frequent rounding ongoing.
[2016-12-17 21:23] VITALS: BP 132/88; PULSE 94; RESP 18; O2SAT 96
--- NOTE | 2016-12-18 02:43 | NUR ---
behavior Pt changed to her street clothes and wanted to leave and meet her boyfriend who's downstairs waiting for her. Pt was reoriented and able to settle in room/bed. Pt tore her HUGS tag and refused her meds except for liquid Risperdal. Pt tried multiple times to leave the unit again but unable to be redirected at that time. [facility] bed was restarted at 22:10 12/17/16 and rec'd an order from Dr. King. Pt was kicking and yelling when redirected to [facility] bed. Pt has been sleeping w/o s/s of pain or discomfort.
[2016-12-18] MEDS: Polyethylene Glycol (PEG) 17 Gm Powder PO SCH ×2 (08:30→20:30)
[2016-12-18] MEDS: RISPERIDONE 1 MG/ML PO SCH ×2 (09:26→21:23)
--- NOTE | 2016-12-18 11:24 | PCM.PNMED ---
Subjective Date of Service Dec 18, 2016 Subjective Patient resting comfortably in bed. Earlier this morning she was ambulating the halls with nursing. Exam Vital Signs Vital Sign - Last Date Time Temp Pulse Resp B/P Pulse Ox O2 Delivery O2 Flow Rate FiO2 12/17/16 21:23 36.7 94 18 132/88 96 Room Air Intake and Output 12/17/16 12/17/16 12/18/16 Cumulative From/Thru 15:00 23:00 07:00 12/04/16 13:11 - 12/18/16 06:05 Intake Total 400 ml 736 ml 400 ml 38059 ml Output Total 600 ml Balance 400 ml 736 ml 400 ml 86789 ml Intake Oral 400 ml 736 ml 400 ml 7058 ml IV Total 4209 ml Output Urine Total 600 ml # Voids 2 5 1 117 # Bowel Movements 0 0 0 20 Exam Constitutional: Middle-aged female in no acute distress Head: Normocephalic atraumatic Chest: Clear to auscultation Cor: Regular rate and rhythm S1-S2 Extremities: No pedal edema Psych: Does have some periods of being or anxious episodically IVs and Medications Medications Reviewed: Medications were reviewed in detail Lab and Diagnostics Laboratory Tests 72 Hours Test 12/17/16 06:30 White Blood Count 8.8th/mm3 (3.8-10.1) Red Blood Count 3.92mil/mm3 (3.90-5.20) Hemoglobin 12.7g/dL (12.0-15.6) Hematocrit 38.5% (35.0-46.0) Mean Corpuscular Volume 98.2fL (81-100) Mean Corpuscular Hemoglobin 32.4pg (27.0-35.0) Mean Corpuscular Hemoglobin Concent 33.0% (32.0-37.0) Red Cell Distribution Width 12.7% (12.3-15.4) Platelet Count 198bil/L (150-400) Neutrophils (%) (Auto) 69.8% (40-74) Lymphocytes (%) (Auto) 19.9% (14-46) Monocytes (%) (Auto) 8.2% (4-12) Eosinophils (%) (Auto) 1.8% (0-5) Basophils (%) (Auto) 0.2% (0-3) Sodium Level 146mEq/L (134-144) Potassium Level 5.0mEq/L (3.5-5.2) Chloride Level 104mEq/L (97-108) Carbon Dioxide Level 29mmol/L (18-29) Blood Urea Nitrogen 33mg/dL (8-27) Creatinine 0.96mg/dL (0.57-1.00) Estimat Glomerular Filtration Rate 83mL/min (>59) Glucose Level 120mg/dL (60-99) Calcium Level 10.5mg/dL (8.5-10.1) Total Bilirubin 0.5mg/dL (0.0-1.2) Aspartate Amino Transf (AST/SGOT) 22U/L (0-50) Alanine Aminotransferase (ALT/SGPT) 58U/L (0-32) Alkaline Phosphatase 79U/L (25-165) Total Protein 6.1g/dL (6.4-8.4) Albumin 3.9g/dL (3.4-5.0) Result Diagram: 12/17/1630 12/17/16 0630 X-Rays, CTs and MRIs Date of Service: 12/05/16 1013 PROCEDURE: MRI STROKE PROTOCOL ([id number]) Pre- and post-contrast brain MRI, non-contrast brain MR angiogram, pre- and postcontrast neck MR angiogram INDICATIONS: psychosis dementia TECHNIQUE: Brain: Noncontrast axial T1 spin echo, axial T2 fast spin echo, sagittal and axial FLAIR, coronal T2 fast spin echo, axial gradient echo, axial diffusion and ADC through the brain. After the administration of contrast, axial 3D VIBE of the cranial vasculature and brain. Brain MRA: Non-contrast 3-D time of flight MR angiogram, with multiple maximum- intensity-projection (MIP) reformats performed. Neck MRA: Axial and sagittal TruFISP through the neck. Coronal dynamic MR angiogram during administration of contrast in the arterial and venous phases, with 3-dimenstional ygtqsjf-lxlbrtkkd-begbpoudge (MIP) reformats constructed from subtraction images. COMPARISON: None. FINDINGS: Image quality: Excellent. BRAIN: CSF spaces: There is ex vacuo dilatation of the lateral ventricles, greatest in degree involving the temporal horns. Basal cisterns are patent. No extra- axial fluid collections. Brain: No intracranial bleeds or mass effects. Mild degree of patchy high FLAIR signal intensity within the periventricular and subcortical white matter. There is moderate diffuse cerebral volume loss, greatest in degree involving the frontal and anterior temporal lobes. Jasmine-white matter interface is normal. Diffusion weighted images show no acute ischemic insults. Brainstem appears normal. Normal intravascular flow voids are present. No abnormal intracranial enhancement. Skull and face: Calvarial marrow signal is normal. Orbits appear normal. Sinuses: Sinuses and mastoids are clear. BRAIN MR ANGIOGRAM: Anterior circulation: Intracranial internal carotid arteries are normal in size and enhancement. The flow within the paired anterior cerebral arteries is normal and symmetric. The flow within the middle cerebral arteries is normal and symmetric. The anterior communicating artery is seen. No stenoses, occlusions, or aneurysms. Posterior circulation: The visualized portions of the vertebral arteries demonstrate normal caliber, and join to form a normal appearing basilar artery. The flow within the posterior cerebral arteries is normal and symmetric. No stenoses, occlusions, or aneurysms. NECK MR ANGIOGRAM: Carotids: Great vessels demonstrate a conventional anatomy as they arise from the aortic arch. The origins of the common carotid arteries appear patent. The calibers and courses of both common carotid arteries are normal. The bifurcation regions appear normal bilaterally. The internal carotid arteries demonstrate normal course and caliber. Posterior circulation: The origins of the vertebral arteries appear patent. More superior portions of both vertebral arteries demonstrate normal course and caliber, and join to form a normal appearing basilar artery. Miscellaneous: Subclavian arteries appear patent. Pre-contrast images through the neck show no soft tissue abnormalities. IMPRESSION: BRAIN MRI: 1. No acute process. No recent infarct. 2. Small vessel ischemic disease. 3. Cerebral volume loss, greatest in degree within the frontal and temporal lobes bilaterally. BRAIN MR ANGIOGRAM: Negative cervical MR angiography. NECK MR ANGIOGRAM: 1. No internal coronary stenosis bilaterally. 2. Patent bilateral vertebral arteries. The estimate of stenosis included in the report of the imaging study was calculated using the NASCET method Dictated by: Jing Kate M.D. on 12/05/2016 at 16:29 Transcribed by: RAULITO on 12/05/2016 at 16:34 Approved by: Jing Kate M.D. on 12/05/2016 at 16:40 Assessment & Plan 66-year-old female with severe early onset dementia with attempted suicide attempt today was found to have YESENIA and possible UTI acute, active, Irregular behaviors, agitation, likely due to advanced dementia with possible psychosis features or underlying psychiatric dz, dementia was presumably due to Alzheimer's dementia, pt was diagnosed dxed dementia already 7yrs ago per brother. no previous dx of psychiatric dz. Medical w/u including MRA, MRI of brain, vitB12, TSH, RPR, UCX, all negative. New regimen started on 12/09. -as per / recommendation below 2. Risperidone 0.25mg po bid and 0.25mg po q6hr prn agitiation ->increase to 0.5m bid 3. Continue memantine 5mg po bid for 1 week then 5mg daily and 10mg nightly for 1 weeks then 10mg po bid. 4. Consider adding SSRI e.g. escitalopram 5mg po daily for depression -> increase to 10mg dialy 5. Consider prazosin for possible PTSD>Started prazosin 1 mg qhs today 6. Patient would benefit from hearing aid to improve environmental cues 7. Patient would benefit from picture board to identify items as has difficulty with naming object. Elevated ALT, calcium, and bilirubin; present on admission; ongoing, LFT shows mild hepatic dysfunction with mild elevations of bilirubin and large elevation of ALT; question this due to medication. -clinically stable, ALT trending down, monitor for now -Check labs on December 17 including CBC platelet differential and CMP which are fairly stable Episode of n/v, developed 12/10-, likely medication induced, resolved, KUB showed moderate stools, no SOB. continue bowel regimen, Poor appetite -I stopped remeron today as has not seemed to help appetite and has less affect this AM YESENIA, POA, likely prerenal due to decreased Po intake, Patient received 2 L normal saline in the ED, started on 100cc/hr NS, worsening chronic, stable, resolved Reported dysphagia, POA, initially concerning given dementia, however, pt appeared euvolemic,relatively well nourished, passed swallowing test, continue general diet, Hx of nephrolithiasis, recent stent placement, POA, Abd US on 12/04 showed Interval resolution of right hydronephrosis status post ureteral stent placement. 1.7 cm nonobstructing right renal stone, pt was scheduled for elective Rt renal Laser lithotripsy 12/12, informed that pt is in the hospital. rescheduled for 12/20. Probable UTI, POA, positive for leukocyte esterase, nitrites, few bacteria. pt was empirically start Rocephin but final UCX negative. Repeat UCX also contaminated, stopped abx 12/11. Disposition: pending, appreciate SW input diet: pt can tolerate diet but not eating, DNR/DNI VTE Prophylaxis: Sub-Q Heparin (Unfractionated) VTE Mechanical Devices: Venous Foot Pump Resuscitation Status: DNR/DNI:Do Not Resuscitate/Intubate Time spent 20 minutes Marylu See MD Dec 18, 2016 11:24
--- NOTE | 2016-12-18 12:45 | NUR ---
spiritual care: nurse request from Sunday (received this morning) caring visit. pt spoke of pain in her hand and expressed some relief through applying warm washcloth. Pt directed attention to her tray and spoke in detailed sentences about it and that she didn't want to eat any more from it. Caring visits to continue as needed. Addendum: 12/18/16 at 1444 by ELOY HUBBARD CM pt also received brief visit from caring policy writer salesIsabel rios
[2016-12-18 13:14] VITALS: BP 114/70; PULSE 95; RESP 16; O2SAT 98
--- NOTE | 2016-12-18 16:59 | NUR ---
NUTRITION FOLLOW-UP: ASSESS: 66 YO Female admitted with Altered mental status, agitation-likely advanced dementia with possible underlying psychiatric disease. Pt diet was advanced to soft but po intake continues to be minimal. MD aware, but RN has reported that pt was doing well with ensure supplements previous. PMHX: Alzheimer's Dementia DIET: Soft. Ensure all trays. Magic cup at Breakfast, pudding at dinner. PO refusal to bites, now taking Ensure per RN LABS: Reviewed. Na 146, Glu 120, Ca 10.5, Alb 3.9. MEDS: Reviewed. GI: BM x 1 (12/16) WEIGHT: 54.1 kg. Admit wt: 54.1 kg (standing) EST.NEEDS: 8453-3167 kcal (25-30 kcal/kg BW) 55-65 g pro (1.0-1.2 g/kg pro BW) NUTRITION DIAGNOSIS: (1) Inadequate oral intake related to AMS as evidenced by po intake of bites x 14 days-PERSISTS. INTERVENTION: (1) Continue Ensure supplements + variety of supplements on meals trays. (2) Recommend considering nutrition support pending pt overall POC/goals as pt has been with minimal nutrition now x 14 days. MONITOR/EVALUATE: PO intake, labs, nutritional status. Follow per high nutritional risk guidelines.
--- NOTE | 2016-12-18 17:21 | NUR ---
Behavior / Soma bed SOMA be discontinued at 0800 as patient appears calm and largely cooperative. Patient later refuses all PO medications this morning except liquid Risperidone. Multiple attempts to convince patient to take PO meds were unsuccessful. Patient had several episodes of wandering out to front doors stating "I'm leaving, I want to go outside!" Patient successfully removed HUGS tag but primary RN was able to convince patient to wear tag. Patient responds to redirection though often after several attempts. Bed low and locked, call light in reach, frequent rounding by RN and DIAL MARKER in place. HUGS tag in place for safety.
[2016-12-18 21:05] VITALS: BP 124/81; PULSE 86; RESP 18; O2SAT 97
--- NOTE | 2016-12-19 06:05 | NUR ---
behavior Pt ambulating independently to the BR in the beginning of shift. Pt decided to change to her street clothes thinking that she's leaving at 9. This RN reoriented pt that it was still nighttime. Pt took her jacket off and sat in the bed. Pt got dressed again after 1/2hr and walked out of the room. This RN walked with pt in the [place] and try to distract her. Pt tried to enter other patients' rooms and got agitated when this RN wouldn't let her go into another pt's room. pt started yelling and cursing. 2 male RNs helped guide this pt back to her room. Pt was kicking and cursing at the staff on her way back to her room. Soma bed was restarted at 19:55. Pt took her liquid risperdal but refused any other pills/PO. Dr. King was notified. Orders put in. Pt slept most of the night. hourly rounding done. Q2hr ADL checks done.
[2016-12-19] MEDS: Polyethylene Glycol (PEG) 17 Gm Powder PO SCH ×2 (08:28→20:30)
[2016-12-19] MEDS: RISPERIDONE 1 MG/ML PO SCH ×2 (08:28→19:00)
[2016-12-19 08:43] VITALS: BP 114/77; PULSE 87; RESP 18; O2SAT 97
--- NOTE | 2016-12-19 10:38 | NUR ---
Pain Patient ambulated in hallway with nurse and stated she needed to get home to get pain medicine. Nurse asked patient if she was in pain and patient responded, "oh yes". When asked where she hurt she stated, "all over my body". Nurse ambulated patient back to room and explained to patient nurse would get pain medication for her. Patient was thankful and sat on couch. Nurse administered Tramadol 50mg tab and mixed with chocolate pudding. Patient took medication and thanked nurse.
--- NOTE | 2016-12-19 13:09 | PCM.PNMED ---
Subjective Date of Service Dec 19, 2016 Subjective Patient is lying down on the couch interim. She is slightly interactive and cooperative. Exam Vital Signs Vital Sign - Last Date Time Temp Pulse Resp B/P Pulse Ox O2 Delivery O2 Flow Rate FiO2 12/19/16 08:43 36.5 87 18 114/77 97 Room Air Intake and Output 12/18/16 12/18/16 12/19/16 Cumulative From/Thru 15:00 23:00 07:00 12/04/16 13:11 - 12/19/16 05:45 Intake Total 736 ml 200 ml 70974 ml Output Total 600 ml Balance 736 ml 200 ml 37155 ml Intake Oral 736 ml 200 ml 7994 ml IV Total 4209 ml Output Urine Total 600 ml # Voids 3 2 122 # Bowel Movements 0 0 20 Exam Constitutional: Middle-aged female in no acute distress Head: Normocephalic atraumatic Chest: Clear to auscultation Cor: Regular rate and rhythm S1-S2 Abdomen: Soft nontender bowel sounds present Extremities: No pedal edema Psych: Blunted affect Neuro: Alert difficult to assess orientation as does not respond to questions, motor strength is intact bilaterally Lab and Diagnostics Result Diagram: 12/17/1662912/17/16 0630 X-Rays, CTs and MRIs Date of Service: 12/05/16 1013 PROCEDURE: MRI STROKE PROTOCOL ([id number]) Pre- and post-contrast brain MRI, non-contrast brain MR angiogram, pre- and postcontrast neck MR angiogram INDICATIONS: psychosis dementia TECHNIQUE: Brain: Noncontrast axial T1 spin echo, axial T2 fast spin echo, sagittal and axial FLAIR, coronal T2 fast spin echo, axial gradient echo, axial diffusion and ADC through the brain. After the administration of contrast, axial 3D VIBE of the cranial vasculature and brain. Brain MRA: Non-contrast 3-D time of flight MR angiogram, with multiple maximum- intensity-projection (MIP) reformats performed. Neck MRA: Axial and sagittal TruFISP through the neck. Coronal dynamic MR angiogram during administration of contrast in the arterial and venous phases, with 3-dimenstional zvsvujx-hwhechhkh-lazuubbsru (MIP) reformats constructed from subtraction images. COMPARISON: None. FINDINGS: Image quality: Excellent. BRAIN: CSF spaces: There is ex vacuo dilatation of the lateral ventricles, greatest in degree involving the temporal horns. Basal cisterns are patent. No extra- axial fluid collections. Brain: No intracranial bleeds or mass effects. Mild degree of patchy high FLAIR signal intensity within the periventricular and subcortical white matter. There is moderate diffuse cerebral volume loss, greatest in degree involving the frontal and anterior temporal lobes. Jasmine-white matter interface is normal. Diffusion weighted images show no acute ischemic insults. Brainstem appears normal. Normal intravascular flow voids are present. No abnormal intracranial enhancement. Skull and face: Calvarial marrow signal is normal. Orbits appear normal. Sinuses: Sinuses and mastoids are clear. BRAIN MR ANGIOGRAM: Anterior circulation: Intracranial internal carotid arteries are normal in size and enhancement. The flow within the paired anterior cerebral arteries is normal and symmetric. The flow within the middle cerebral arteries is normal and symmetric. The anterior communicating artery is seen. No stenoses, occlusions, or aneurysms. Posterior circulation: The visualized portions of the vertebral arteries demonstrate normal caliber, and join to form a normal appearing basilar artery. The flow within the posterior cerebral arteries is normal and symmetric. No stenoses, occlusions, or aneurysms. NECK MR ANGIOGRAM: Carotids: Great vessels demonstrate a conventional anatomy as they arise from the aortic arch. The origins of the common carotid arteries appear patent. The calibers and courses of both common carotid arteries are normal. The bifurcation regions appear normal bilaterally. The internal carotid arteries demonstrate normal course and caliber. Posterior circulation: The origins of the vertebral arteries appear patent. More superior portions of both vertebral arteries demonstrate normal course and caliber, and join to form a normal appearing basilar artery. Miscellaneous: Subclavian arteries appear patent. Pre-contrast images through the neck show no soft tissue abnormalities. IMPRESSION: BRAIN MRI: 1. No acute process. No recent infarct. 2. Small vessel ischemic disease. 3. Cerebral volume loss, greatest in degree within the frontal and temporal lobes bilaterally. BRAIN MR ANGIOGRAM: Negative cervical MR angiography. NECK MR ANGIOGRAM: 1. No internal coronary stenosis bilaterally. 2. Patent bilateral vertebral arteries. The estimate of stenosis included in the report of the imaging study was calculated using the NASCET method Dictated by: Jing Kate M.D. on 12/05/2016 at 16:29 Transcribed by: RAULITO on 12/05/2016 at 16:34 Approved by: Jing Kate M.D. on 12/05/2016 at 16:40 Assessment & Plan 66-year-old female with severe early onset dementia with attempted suicide attempt today was found to have YESENIA and possible UTI acute, active, Irregular behaviors, agitation, likely due to advanced dementia with possible psychosis features or underlying psychiatric dz, dementia was presumably due to Alzheimer's dementia, pt was diagnosed dxed dementia already 7yrs ago per brother. no previous dx of psychiatric dz. Medical w/u including MRA, MRI of brain, vitB12, TSH, RPR, UCX, all negative. New regimen started on 12/09. -as per / recommendation below 2. Risperidone 0.25mg po bid and 0.25mg po q6hr prn agitiation ->increase to 0.5m bid 3. Continue memantine 5mg po bid for 1 week then 5mg daily and 10mg nightly for 1 weeks then 10mg po bid. 4. Consider adding SSRI e.g. escitalopram 5mg po daily for depression -> increase to 10mg dialy 5. Consider prazosin for possible PTSD>Started prazosin 1 mg qhs today 6. Patient would benefit from hearing aid to improve environmental cues 7. Patient would benefit from picture board to identify items as has difficulty with naming object. Elevated ALT, calcium, and bilirubin; present on admission; ongoing, LFT shows mild hepatic dysfunction with mild elevations of bilirubin and large elevation of ALT; question this due to medication. -clinically stable, ALT trending down, monitor for now -Check labs on December 17 including CBC platelet differential and CMP which are fairly stable Episode of n/v, developed 12/10-, likely medication induced, resolved, KUB showed moderate stools, no SOB. continue bowel regimen, Poor appetite -slightly improved and likes to drink ensure supplements -Did a trial 2 days of Remeron which did not seem to help her appetite and made her more lethargic. -YESENIA, POA, likely prerenal due to decreased Po intake, Patient received 2 L normal saline in the ED, started on 100cc/hr NS, worsening chronic, stable, resolved Reported dysphagia, POA, initially concerning given dementia, however, pt appeared euvolemic,relatively well nourished, passed swallowing test, continue general diet, Hx of nephrolithiasis, recent stent placement, POA, Abd US on 7/24 showed Interval resolution of right hydronephrosis status post ureteral stent placement. 1.7 cm nonobstructing right renal stone, pt was scheduled for elective Rt renal Laser lithotripsy 12/12, informed that pt is in the hospital. rescheduled for 12/20. Probable UTI, POA, positive for leukocyte esterase, nitrites, few bacteria. pt was empirically start Rocephin but final UCX negative. Repeat UCX also contaminated, stopped abx 12/11. Disposition: pending, appreciate SW input diet: pt can tolerate diet but not eating, DNR/DNI VTE Prophylaxis: Sub-Q Heparin (Unfractionated) VTE Mechanical Devices: Venous Foot Pump Resuscitation Status: DNR/DNI:Do Not Resuscitate/Intubate Time spent 20 minutes Marylu See MD Dec 19, 2016 13:09
--- NOTE | 2016-12-19 14:56 | NUR ---
ADIEL Attempt Pt has baseline dementia. SW attempted to reach daughter Heather Gordon [phone] regarding ADIEL, left message requesting return call. STEWART Contreras
--- NOTE | 2016-12-19 15:21 | NUR ---
[facility] FOLLOW UP: Called and spoke with Carol Chilel and she has been working with administration to get new contract in place for [facility]. Admin at [facility] received referral and is following up with family today to get the medicaid application completed and submitted so SENIOR ASIC DESIGN ENGINEER can work on placement for patient. Updated SENIOR ASIC DESIGN ENGINEER
--- NOTE | 2016-12-19 16:00 | NUR ---
Wondering Patient up in room independently. Patient did have a hugs tag #[id number] this morning. Patient ambulated too close to main entrance of [facility] and set off alarm. Patient redirected to her room. Patient later started ambulating in hallway and ambulated too close to back double doors on [facility], setting off alarm. Patient was ambulated back to her room. Patient did try to look into several rooms on her way back towards her room. Patient shortly after pulled off hugs tag. Patient has been out in hallway another time ambulating in hallway. Will continue to monitor patient wondering.
[2016-12-19 17:33] VITALS: BP 97/61; PULSE 83; RESP 18; O2SAT 96
[2016-12-19] MEDS: RISPERIDONE 1 MG/ML PO PRN (19:01)
[2016-12-20 04:48] VITALS: BP 104/82; PULSE 89; RESP 18; O2SAT 96
--- NOTE | 2016-12-20 06:12 | NUR ---
Uneventful Night: Pt had an uneventful night, no c/o pain, chest pain or SOB. Pt slept most of the night, remains confused, pleasant and cooperative with care.
[2016-12-20] MEDS: RISPERIDONE 1 MG/ML PO SCH ×2 (08:30→22:54)
[2016-12-20] MEDS: Polyethylene Glycol (PEG) 17 Gm Powder PO SCH ×2 (08:30→22:55)
--- NOTE | 2016-12-20 09:56 | NUR ---
spiritual care: follow up caring electronic equipment trades worker Candido: brief visit.
--- NOTE | 2016-12-20 12:02 | NUR ---
Faxed updated clinicals to [facility] worker for this patient [phone](PHONE). Faxed clinicals to [phone] Updated SAFETY AND HEALTH MANAGER
[2016-12-20 13:00] VITALS: BP 96/56; PULSE 73; RESP 18; O2SAT 95
[2016-12-20 19:33] VITALS: BP 109/60; PULSE 72; RESP 18; O2SAT 96
--- NOTE | 2016-12-20 21:28 | PCM.PNMED ---
Subjective Date of Service Dec 20, 2016 Subjective 66 yo pt with severe early onset alzhiemers, here on hosp day # 11 after attempting suicide. She needs placement. She is currently being followed by Psychiatry. Patient was seen walking the hallways. The time of this visit however she refused to sit up for a physical exam. Tells me that she is very hard of hearing, but is willing to answer questions. Still does not appear to be eating well No new complaints. Exam Vital Signs Vital Sign - Last Date Time Temp Pulse Resp B/P Pulse Ox O2 Delivery O2 Flow Rate FiO2 12/20/16 04:48 39.2 89 18 104/82 96 Room Air Intake and Output 12/19/16 12/19/16 12/20/16 Cumulative From/Thru 15:00 23:00 07:00 12/04/16 13:11 - 12/19/16 17:31 Intake Total 872 ml 98073 ml Output Total 600 ml Balance 872 ml 56252 ml Intake Oral 872 ml 8866 ml IV Total 4209 ml Output Urine Total 600 ml # Voids 3 125 # Bowel Movements 0 20 Exam Constitutional: Middle-aged female in no acute distress Head: Normocephalic atraumatic Chest: Clear to auscultation Cor: Regular rate and rhythm S1-S2 Abdomen: Soft nontender bowel sounds present Extremities: No pedal edema Psych: Blunted affect Neuro: Alert difficult to assess orientation as does not respond to questions, keeps saying "I cannot hear U" IVs and Medications Medications Reviewed: Medications were reviewed in detail Lab and Diagnostics Result Diagram: 12/17/1662912/17/16 0630 X-Rays, CTs and MRIs Date of Service: 12/05/16 1013 PROCEDURE: MRI STROKE PROTOCOL ([id number]) Pre- and post-contrast brain MRI, non-contrast brain MR angiogram, pre- and postcontrast neck MR angiogram INDICATIONS: psychosis dementia TECHNIQUE: Brain: Noncontrast axial T1 spin echo, axial T2 fast spin echo, sagittal and axial FLAIR, coronal T2 fast spin echo, axial gradient echo, axial diffusion and ADC through the brain. After the administration of contrast, axial 3D VIBE of the cranial vasculature and brain. Brain MRA: Non-contrast 3-D time of flight MR angiogram, with multiple maximum- intensity-projection (MIP) reformats performed. Neck MRA: Axial and sagittal TruFISP through the neck. Coronal dynamic MR angiogram during administration of contrast in the arterial and venous phases, with 3-dimenstional daiztqw-qdwuvecnd-hnhhubqoph (MIP) reformats constructed from subtraction images. COMPARISON: None. FINDINGS: Image quality: Excellent. BRAIN: CSF spaces: There is ex vacuo dilatation of the lateral ventricles, greatest in degree involving the temporal horns. Basal cisterns are patent. No extra- axial fluid collections. Brain: No intracranial bleeds or mass effects. Mild degree of patchy high FLAIR signal intensity within the periventricular and subcortical white matter. There is moderate diffuse cerebral volume loss, greatest in degree involving the frontal and anterior temporal lobes. Jasmine-white matter interface is normal. Diffusion weighted images show no acute ischemic insults. Brainstem appears normal. Normal intravascular flow voids are present. No abnormal intracranial enhancement. Skull and face: Calvarial marrow signal is normal. Orbits appear normal. Sinuses: Sinuses and mastoids are clear. BRAIN MR ANGIOGRAM: Anterior circulation: Intracranial internal carotid arteries are normal in size and enhancement. The flow within the paired anterior cerebral arteries is normal and symmetric. The flow within the middle cerebral arteries is normal and symmetric. The anterior communicating artery is seen. No stenoses, occlusions, or aneurysms. Posterior circulation: The visualized portions of the vertebral arteries demonstrate normal caliber, and join to form a normal appearing basilar artery. The flow within the posterior cerebral arteries is normal and symmetric. No stenoses, occlusions, or aneurysms. NECK MR ANGIOGRAM: Carotids: Great vessels demonstrate a conventional anatomy as they arise from the aortic arch. The origins of the common carotid arteries appear patent. The calibers and courses of both common carotid arteries are normal. The bifurcation regions appear normal bilaterally. The internal carotid arteries demonstrate normal course and caliber. Posterior circulation: The origins of the vertebral arteries appear patent. More superior portions of both vertebral arteries demonstrate normal course and caliber, and join to form a normal appearing basilar artery. Miscellaneous: Subclavian arteries appear patent. Pre-contrast images through the neck show no soft tissue abnormalities. IMPRESSION: BRAIN MRI: 1. No acute process. No recent infarct. 2. Small vessel ischemic disease. 3. Cerebral volume loss, greatest in degree within the frontal and temporal lobes bilaterally. BRAIN MR ANGIOGRAM: Negative cervical MR angiography. NECK MR ANGIOGRAM: 1. No internal coronary stenosis bilaterally. 2. Patent bilateral vertebral arteries. The estimate of stenosis included in the report of the imaging study was calculated using the NASCET method Dictated by: Jing Kate M.D. on 12/05/2016 at 16:29 Transcribed by: RAULITO on 12/05/2016 at 16:34 Approved by: Jing Kate M.D. on 12/05/2016 at 16:40 Assessment & Plan 66-year-old female with severe early onset dementia with attempted suicide attempt today was found to have YESENIA and possible UTI acute, active, Irregular behaviors, agitation, likely due to advanced dementia with possible psychosis features or underlying psychiatric dz, dementia was presumably due to Alzheimer's dementia, pt was diagnosed dxed dementia already 7yrs ago per brother. no previous dx of psychiatric dz. Medical w/u including MRA, MRI of brain, vitB12, TSH, RPR, UCX, all negative. New regimen started on 12/09. -as per / recommendation below 2. Risperidone 0.25mg po bid and 0.25mg po q6hr prn agitiation ->increase to 0.5m bid 3. Continue memantine 5mg po bid for 1 week then 5mg daily and 10mg nightly for 1 weeks then 10mg po bid. 4. Consider adding SSRI e.g. escitalopram 5mg po daily for depression -> increase to 10mg dialy 5. Consider prazosin for possible PTSD>Started prazosin 1 mg qhs today 6. Patient would benefit from hearing aid to improve environmental cues 7. Patient would benefit from picture board to identify items as has difficulty with naming object. Elevated ALT, calcium, and bilirubin; present on admission; ongoing, LFT shows mild hepatic dysfunction with mild elevations of bilirubin and large elevation of ALT; question this due to medication. -clinically stable, ALT trending down, monitor for now -labs on December 17 including CBC platelet differential and CMP which are fairly stable Episode of n/v, developed , likely medication induced, resolved, KUB showed moderate stools, no SOB. continue bowel regimen, Poor appetite active -slightly improved and likes to drink ensure supplements -Did a trial 2 days of Remeron which did not seem to help her appetite and made her more lethargic. YESENIA, POA, likely prerenal due to decreased Po intake, Patient received 2 L normal saline in the ED, started on 100cc/hr NS, resolved chronic, stable, resolved Reported dysphagia, POA, initially concerning given dementia, however, pt appeared euvolemic,relatively well nourished, passed swallowing test, continue general diet, Hx of nephrolithiasis, recent stent placement, POA, Abd US on 12/04 showed Interval resolution of right hydronephrosis status post ureteral stent placement. 1.7 cm nonobstructing right renal stone, pt was scheduled for elective Rt renal Laser lithotripsy 12/12, informed that pt is in the hospital. f/u with urology Probable UTI, POA, positive for leukocyte esterase, nitrites, few bacteria. pt was empirically start Rocephin but final UCX negative. Repeat UCX also contaminated, stopped abx 12/11. Disposition: pending, appreciate SW input. Patient is medically cleared waiting for placement. No changes to her management are made on 12/20 diet: pt can tolerate diet but not eating, DNR/DNI VTE Prophylaxis: Sub-Q Heparin (Unfractionated) VTE Mechanical Devices: Venous Foot Pump Resuscitation Status: DNR/DNI:Do Not Resuscitate/Intubate Time spent 25 min Charito Schulz DO Dec 20, 2016 06:02
--- NOTE | 2016-12-21 05:37 | NUR ---
NOC/Mentation Pt still confused but is cooperative with care. Vitals WNL. No complains of chest pain, sob, n/v or abd discomfort.
[2016-12-21 05:59] VITALS: BP 104/68; PULSE 65; RESP 18; O2SAT 96
[2016-12-21] MEDS: Polyethylene Glycol (PEG) 17 Gm Powder PO SCH ×2 (08:30→20:45)
[2016-12-21] MEDS: RISPERIDONE 1 MG/ML PO SCH ×2 (09:35→20:45)
--- NOTE | 2016-12-21 10:17 | NUR ---
[facility] Follow up: Spoke with [facility] this morning and they did contact the patient's brother and financial payee. She is now over income per [facility] and would need to be put in for spend down. Patient's brother was also looking into the exact balances for her accounts. Patient's brother is planning to get back to [facility] today on those balances. Her monthly income is $2268.00. I asked [facility] to put her referral in for spend down so we can start that now. Updated GYNECOLOGY TEACHER
--- NOTE | 2016-12-21 10:57 | NUR ---
NUTRITION FOLLOW-UP: ASSESS: 66 YO Female admitted with altered mental status, agitation related to advanced dementia with possible underlying psychiatric disease, status post suicide attempt. Diet advanced to soft; however, PO intake continues to be minimal. MD aware, but RN has reported that pt was doing well with ensure supplements previously. Remeron was trialed; however, it had no effect on her PO intake, and it increased her lethargy. Psychiatry following. Pt. is cleared medically; however, placement is an issue. Code status: DNR / DNI. PMHX: Alzheimer's Dementia, dysphagia, nephrolithiasis with recent stent placement. DIET: Soft. Ensure all trays. Magic cup at Breakfast, pudding at dinner. PO refusal to bites, now taking Ensure per RN. LABS: Reviewed. Glu 103. MEDS: Reviewed. GI: BM x 1 (12/16). Bowel regimen initiated. WEIGHT: 54.2 kg, BMI 22.0 kg/m2. Admit wt: 54.1 kg (standing) EST.NEEDS: 2166-1889 kcal (25-30 kcal/kg BW) 55-65 g pro (1.0-1.2 g/kg pro BW) NUTRITION DIAGNOSIS: (1) Inadequate oral intake related to AMS as evidenced by po intake of bites x 17 days - PERSISTS. INTERVENTION: (1) Continue Ensure supplements + variety of supplements on meals trays. (2) Recommend considering nutrition support pending pt overall POC/goals as pt has been with minimal nutrition now x 17 days. MONITOR/EVALUATE: PO intake, labs, nutritional status. Follow per high nutritional risk guidelines.
--- NOTE | 2016-12-21 12:58 | NUR ---
Social Work-continued d/c planning: Data:EMR reviewed. Pt is on day 17 of hospitalization for delirium per H&P. SW was informed by UR specialist that [facility] spoke with family and pt is over income for Medicaid. Family provided different information to [facility] than was provided to SW regarding financial status of pt. Per [facility], pt makes about $2268.00 a month. [facility] to screen pt for Medicaid spenddown. At this time, all memory care facilities are more expensive than pt's monthly income. SW will likely need to explore [facility]. MD order received for [facility] placement. SW attempted to reach daughter Heather [phone] to discuss this option, no answer, voicemail left. SW will continue to follow. Assessment:Pt who would benefit from placement. Plan:SW has left message for daughter, awaiting a return call. SW will likely need to explore private pay [facility] because pt does not make enough money for memory care monthly. SW will continue to follow. STEWART Contreras Addendum: 12/21/16 at 1725 by MORRIS VEGA BHUPENDRA requested that UR specialist start calling [facility] today for private pay. STEWART Contreras
--- NOTE | 2016-12-21 12:58 | NUR ---
ADIEL Attempt Pt has baseline dementia. SW attempted to reach daughter Heather Gordon [phone] regarding ADIEL, left message requesting return call. STEWART Contreras
[2016-12-21 13:07] VITALS: BP 108/64; PULSE 76; RESP 18; O2SAT 97
--- NOTE | 2016-12-21 16:07 | NUR ---
uneventful shift Pt slept most of shift and stayed in room. Pt was cooperative with care but refused to eat. Denied any pain of discomfort. No escape attempts.
[2016-12-21 20:50] VITALS: BP 127/69; PULSE 73; RESP 20; O2SAT 96
--- NOTE | 2016-12-21 23:12 | PCM.PNMED ---
Subjective Date of Service Dec 21, 2016 Subjective Patient is more appreciable, more conversant. She is drinking liquids nor she does not like to eat solids. No new concerns Exam Vital Signs Vital Sign - Last Date Time Temp Pulse Resp B/P Pulse Ox O2 Delivery O2 Flow Rate FiO2 12/21/16 13:07 36.3 76 18 108/64 97 Room Air Intake and Output 12/20/16 12/20/16 12/21/16 Cumulative From/Thru 15:00 23:00 07:00 12/04/16 13:11 - 12/21/16 06:37 Intake Total 436 ml 300 ml 45573 ml Output Total 600 ml Balance 436 ml 300 ml 60500 ml Intake Oral 436 ml 300 ml 9622 ml IV Total 4209 ml Output Urine Total 600 ml # Voids 3 2 132 # Bowel Movements 0 20 Exam Constitutional: Middle-aged female in no acute distress pleasant, Head: Normocephalic atraumatic Chest: Clear to auscultation Cor: Regular rate and rhythm S1-S2 Abdomen: Soft nontender bowel sounds present Extremities: No pedal edema Psych: Blunted affect IVs and Medications Medications Reviewed: Medications were reviewed in detail Lab and Diagnostics Result Diagram: 12/17/16 0630 12/20/16 0625 X-Rays, CTs and MRIs Date of Service: 12/05/16 1013 PROCEDURE: MRI STROKE PROTOCOL ([id number]) Pre- and post-contrast brain MRI, non-contrast brain MR angiogram, pre- and postcontrast neck MR angiogram INDICATIONS: psychosis dementia TECHNIQUE: Brain: Noncontrast axial T1 spin echo, axial T2 fast spin echo, sagittal and axial FLAIR, coronal T2 fast spin echo, axial gradient echo, axial diffusion and ADC through the brain. After the administration of contrast, axial 3D VIBE of the cranial vasculature and brain. Brain MRA: Non-contrast 3-D time of flight MR angiogram, with multiple maximum- intensity-projection (MIP) reformats performed. Neck MRA: Axial and sagittal TruFISP through the neck. Coronal dynamic MR angiogram during administration of contrast in the arterial and venous phases, with 3-dimenstional zqkxsoe-tmlyuhzow-vgpbmlbelc (MIP) reformats constructed from subtraction images. COMPARISON: None. FINDINGS: Image quality: Excellent. BRAIN: CSF spaces: There is ex vacuo dilatation of the lateral ventricles, greatest in degree involving the temporal horns. Basal cisterns are patent. No extra- axial fluid collections. Brain: No intracranial bleeds or mass effects. Mild degree of patchy high FLAIR signal intensity within the periventricular and subcortical white matter. There is moderate diffuse cerebral volume loss, greatest in degree involving the frontal and anterior temporal lobes. Jasmine-white matter interface is normal. Diffusion weighted images show no acute ischemic insults. Brainstem appears normal. Normal intravascular flow voids are present. No abnormal intracranial enhancement. Skull and face: Calvarial marrow signal is normal. Orbits appear normal. Sinuses: Sinuses and mastoids are clear. BRAIN MR ANGIOGRAM: Anterior circulation: Intracranial internal carotid arteries are normal in size and enhancement. The flow within the paired anterior cerebral arteries is normal and symmetric. The flow within the middle cerebral arteries is normal and symmetric. The anterior communicating artery is seen. No stenoses, occlusions, or aneurysms. Posterior circulation: The visualized portions of the vertebral arteries demonstrate normal caliber, and join to form a normal appearing basilar artery. The flow within the posterior cerebral arteries is normal and symmetric. No stenoses, occlusions, or aneurysms. NECK MR ANGIOGRAM: Carotids: Great vessels demonstrate a conventional anatomy as they arise from the aortic arch. The origins of the common carotid arteries appear patent. The calibers and courses of both common carotid arteries are normal. The bifurcation regions appear normal bilaterally. The internal carotid arteries demonstrate normal course and caliber. Posterior circulation: The origins of the vertebral arteries appear patent. More superior portions of both vertebral arteries demonstrate normal course and caliber, and join to form a normal appearing basilar artery. Miscellaneous: Subclavian arteries appear patent. Pre-contrast images through the neck show no soft tissue abnormalities. IMPRESSION: BRAIN MRI: 1. No acute process. No recent infarct. 2. Small vessel ischemic disease. 3. Cerebral volume loss, greatest in degree within the frontal and temporal lobes bilaterally. BRAIN MR ANGIOGRAM: Negative cervical MR angiography. NECK MR ANGIOGRAM: 1. No internal coronary stenosis bilaterally. 2. Patent bilateral vertebral arteries. The estimate of stenosis included in the report of the imaging study was calculated using the NASCET method Dictated by: Jing Kate M.D. on 12/05/2016 at 16:29 Transcribed by: RAULITO on 12/05/2016 at 16:34 Approved by: Jing Kate M.D. on 12/05/2016 at 16:40 Assessment & Plan 66-year-old female with severe early onset dementia with attempted suicide attempt today was found to have YESENIA and possible UTI acute, active, Irregular behaviors, agitation, likely due to advanced dementia with possible psychosis features or underlying psychiatric dz, dementia was presumably due to Alzheimer's dementia, pt was diagnosed dxed dementia already 7yrs ago per brother. no previous dx of psychiatric dz. Medical w/u including MRA, MRI of brain, vitB12, TSH, RPR, UCX, all negative. New regimen started on 12/09. -as per / recommendation below 2. Risperidone 0.25mg po bid and 0.25mg po q6hr prn agitiation ->increase to 0.5m bid 3. Continue memantine 5mg po bid for 1 week then 5mg daily and 10mg nightly for 1 weeks then 10mg po bid. 4. Consider adding SSRI e.g. escitalopram 5mg po daily for depression -> increase to 10mg dialy 5. Consider prazosin for possible PTSD>Started prazosin 1 mg qhs today 6. Patient would benefit from hearing aid to improve environmental cues 7. Patient would benefit from picture board to identify items as has difficulty with naming object. Elevated ALT, calcium, and bilirubin; present on admission; ongoing, LFT shows mild hepatic dysfunction with mild elevations of bilirubin and large elevation of ALT; question this due to medication. -clinically stable, ALT trending down, monitor for now -labs are fairly stable Episode of n/v, developed 12/10-, likely medication induced, resolved, KUB showed moderate stools, no SOB. continue bowel regimen, Poor appetite active -slightly improved and likes to drink ensure supplements -Did a trial 2 days of Remeron which did not seem to help her appetite and made her more lethargic. YESENIA, POA, likely prerenal due to decreased Po intake, Patient received 2 L normal saline in the ED, started on 100cc/hr NS, resolved chronic, stable, resolved Reported dysphagia, POA, initially concerning given dementia, however, pt appeared euvolemic,relatively well nourished, passed swallowing test, continue general diet, Hx of nephrolithiasis, recent stent placement, POA, Abd US on 12/04 showed Interval resolution of right hydronephrosis status post ureteral stent placement. 1.7 cm nonobstructing right renal stone, pt was scheduled for elective Rt renal Laser lithotripsy 12/12, informed that pt is in the hospital. f/u with urology Probable UTI, POA, positive for leukocyte esterase, nitrites, few bacteria. pt was empirically start Rocephin but final UCX negative. Repeat UCX also contaminated, stopped abx 12/11. Disposition: pending, appreciate SW input. Patient is medically cleared waiting for placement. No changes to her management are made on 12/20. diet: pt can tolerate diet but not eating, DNR/DNI VTE Prophylaxis: Sub-Q Heparin (Unfractionated) VTE Mechanical Devices: Venous Foot Pump Resuscitation Status: DNR/DNI:Do Not Resuscitate/Intubate Time spent 25 minutes Charito Schulz DO Dec 21, 2016 13:31
[2016-12-22 04:28] VITALS: BP 118/76; PULSE 79; RESP 20; O2SAT 96
[2016-12-22] MEDS: Polyethylene Glycol (PEG) 17 Gm Powder PO SCH ×2 (10:21→20:30)
[2016-12-22] MEDS: RISPERIDONE 1 MG/ML PO SCH ×2 (10:21→19:46)
[2016-12-22 12:42] VITALS: BP 122/81; PULSE 77; RESP 18; O2SAT 99
[2016-12-22 17:00] VITALS: BP 129/64; PULSE 85; RESP 19; O2SAT 94
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
[2016-12-22 20:33] VITALS: BP 104/59; PULSE 78; RESP 18; O2SAT 95
--- NOTE | 2016-12-22 20:55 | NUR ---
MEDICATIONS Pt. easily took her risperdal solution at HS. Pt. would only take small bites of her medications that were crushed in pudding. She refused the last 1/4 of a bite. Attempted to have another nurse give her it, but refused and turned over in bed. Pt. cooperative with assessment and appears to be calmly watching television after the medications.
--- NOTE | 2016-12-22 22:39 | PCM.PNMED ---
Subjective Date of Service Dec 22, 2016 Subjective Patient is pleasant, cooperative she is still drinking mainly liquids for by mouth intake no other concerns. Exam Vital Signs Vital Sign - Last Date Time Temp Pulse Resp B/P Pulse Ox O2 Delivery O2 Flow Rate FiO2 12/22/16 20:33 36.8 78 18 104/59 95 Room Air Intake and Output 12/21/16 12/21/16 12/22/16 Cumulative From/Thru 15:00 23:00 07:00 12/04/16 13:11 - 12/21/16 23:44 Intake Total 472 ml 60422 ml Output Total 600 ml Balance 472 ml 19659 ml Intake Oral 472 ml 98129 ml IV Total 4209 ml Output Urine Total 600 ml # Voids 3 135 # Bowel Movements 0 20 Exam Constitutional: Middle-aged female in no acute distress pleasant, Head: Normocephalic atraumatic Chest: Clear to auscultation Cor: Regular rate and rhythm S1-S2 Abdomen: Soft nontender bowel sounds present Extremities: No pedal edema Psych: Blunted affect Lab and Diagnostics Result Diagram: 12/17/16 0630 12/22/16 1030 X-Rays, CTs and MRIs Date of Service: 12/05/16 1013 PROCEDURE: MRI STROKE PROTOCOL ([id number]) Pre- and post-contrast brain MRI, non-contrast brain MR angiogram, pre- and postcontrast neck MR angiogram INDICATIONS: psychosis dementia TECHNIQUE: Brain: Noncontrast axial T1 spin echo, axial T2 fast spin echo, sagittal and axial FLAIR, coronal T2 fast spin echo, axial gradient echo, axial diffusion and ADC through the brain. After the administration of contrast, axial 3D VIBE of the cranial vasculature and brain. Brain MRA: Non-contrast 3-D time of flight MR angiogram, with multiple maximum- intensity-projection (MIP) reformats performed. Neck MRA: Axial and sagittal TruFISP through the neck. Coronal dynamic MR angiogram during administration of contrast in the arterial and venous phases, with 3-dimenstional oomiboc-dzifmvnpd-vmxxrkkseg (MIP) reformats constructed from subtraction images. COMPARISON: None. FINDINGS: Image quality: Excellent. BRAIN: CSF spaces: There is ex vacuo dilatation of the lateral ventricles, greatest in degree involving the temporal horns. Basal cisterns are patent. No extra- axial fluid collections. Brain: No intracranial bleeds or mass effects. Mild degree of patchy high FLAIR signal intensity within the periventricular and subcortical white matter. There is moderate diffuse cerebral volume loss, greatest in degree involving the frontal and anterior temporal lobes. Jasmine-white matter interface is normal. Diffusion weighted images show no acute ischemic insults. Brainstem appears normal. Normal intravascular flow voids are present. No abnormal intracranial enhancement. Skull and face: Calvarial marrow signal is normal. Orbits appear normal. Sinuses: Sinuses and mastoids are clear. BRAIN MR ANGIOGRAM: Anterior circulation: Intracranial internal carotid arteries are normal in size and enhancement. The flow within the paired anterior cerebral arteries is normal and symmetric. The flow within the middle cerebral arteries is normal and symmetric. The anterior communicating artery is seen. No stenoses, occlusions, or aneurysms. Posterior circulation: The visualized portions of the vertebral arteries demonstrate normal caliber, and join to form a normal appearing basilar artery. The flow within the posterior cerebral arteries is normal and symmetric. No stenoses, occlusions, or aneurysms. NECK MR ANGIOGRAM: Carotids: Great vessels demonstrate a conventional anatomy as they arise from the aortic arch. The origins of the common carotid arteries appear patent. The calibers and courses of both common carotid arteries are normal. The bifurcation regions appear normal bilaterally. The internal carotid arteries demonstrate normal course and caliber. Posterior circulation: The origins of the vertebral arteries appear patent. More superior portions of both vertebral arteries demonstrate normal course and caliber, and join to form a normal appearing basilar artery. Miscellaneous: Subclavian arteries appear patent. Pre-contrast images through the neck show no soft tissue abnormalities. IMPRESSION: BRAIN MRI: 1. No acute process. No recent infarct. 2. Small vessel ischemic disease. 3. Cerebral volume loss, greatest in degree within the frontal and temporal lobes bilaterally. BRAIN MR ANGIOGRAM: Negative cervical MR angiography. NECK MR ANGIOGRAM: 1. No internal coronary stenosis bilaterally. 2. Patent bilateral vertebral arteries. The estimate of stenosis included in the report of the imaging study was calculated using the NASCET method Dictated by: Jing Kate M.D. on 12/05/2016 at 16:29 Transcribed by: RAULITO on 12/05/2016 at 16:34 Approved by: Jing Kate M.D. on 12/05/2016 at 16:40 Assessment & Plan 66-year-old female with severe early onset dementia with attempted suicide attempt today was found to have YESENIA and possible UTI acute, active, Irregular behaviors, agitation, likely due to advanced dementia with possible psychosis features or underlying psychiatric dz, dementia was presumably due to Alzheimer's dementia, pt was diagnosed dxed dementia already 7yrs ago per brother. no previous dx of psychiatric dz. Medical w/u including MRA, MRI of brain, vitB12, TSH, RPR, UCX, all negative. New regimen started on 12/09. -as per / recommendation below 2. Risperidone 0.25mg po bid and 0.25mg po q6hr prn agitiation ->increase to 0.5m bid 3. Continue memantine 5mg po bid for 1 week then 5mg daily and 10mg nightly for 1 weeks then 10mg po bid. 4. Consider adding SSRI e.g. escitalopram 5mg po daily for depression -> increase to 10mg dialy 5. Consider prazosin for possible PTSD>Started prazosin 1 mg qhs today 6. Patient would benefit from hearing aid to improve environmental cues 7. Patient would benefit from picture board to identify items as has difficulty with naming object. Elevated ALT, calcium, and bilirubin; present on admission; ongoing, LFT shows mild hepatic dysfunction with mild elevations of bilirubin and large elevation of ALT; question this due to medication. -clinically stable, ALT trending down, monitor for now -labs are fairly stable Episode of n/v, developed 12/10-, likely medication induced, resolved, KUB showed moderate stools, no SOB. continue bowel regimen, Poor appetite active -slightly improved and likes to drink ensure supplements -Did a trial 2 days of Remeron which did not seem to help her appetite and made her more lethargic. YESENIA, POA, likely prerenal due to decreased Po intake, Patient received 2 L normal saline in the ED, started on 100cc/hr NS, resolved chronic, stable, resolved Reported dysphagia, POA, initially concerning given dementia, however, pt appeared euvolemic,relatively well nourished, passed swallowing test, continue general diet, Hx of nephrolithiasis, recent stent placement, POA, Abd US on 12/04 showed Interval resolution of right hydronephrosis status post ureteral stent placement. 1.7 cm nonobstructing right renal stone, pt was scheduled for elective Rt renal Laser lithotripsy 12/12, informed that pt is in the hospital. f/u with urology Probable UTI, POA, positive for leukocyte esterase, nitrites, few bacteria. pt was empirically start Rocephin but final UCX negative. Repeat UCX also contaminated, stopped abx 12/11. Chronic hypokalemia stable: Ordered lab work today, she has not had a problem with potassium during this admission. We will discontinue her by mouth potassium Disposition: pending, appreciate SW input. Patient is medically cleared waiting for placement. diet: pt can tolerate diet but not eating, DNR/DNI VTE Prophylaxis: Sub-Q Heparin (Unfractionated) VTE Mechanical Devices: Venous Foot Pump Resuscitation Status: DNR/DNI:Do Not Resuscitate/Intubate Time spent 25 minutes Charito Schulz DO Dec 22, 2016 22:39
[2016-12-23 04:39] VITALS: BP 101/58; PULSE 69; RESP 18; O2SAT 97
--- NOTE | 2016-12-23 05:55 | NUR ---
SLEEP/ACTIVITY Pt. sleeping from about 2200 until 0230. Pt. then awake, ambulating in bedroom and bathroom. Ambulated in [place], but was easily redirected back to bedroom and was cooperative. Pt. drinking some boost during NOC shift. Not much of an appetite. [place] bed remained unzipped. Pt. resting again at around 0500. Nursing care ongoing.
[2016-12-23] MEDS: Polyethylene Glycol (PEG) 17 Gm Powder PO SCH ×2 (08:30→20:30)
--- NOTE | 2016-12-23 09:00 | NUR ---
Behavior/medication Pt continues to try and leave the unit, states "I need to get out and go to my brothers place". This RN advised pt that she would need to stay on the unit at this time. Pt expressed frustration at not being able to leave, was re-directed to room 3030 to take medications. Pills were placed in apple sauce, pt refused to take PO pills due to taste. Able to get pt to take scheduled does of liquid risperidone. 1:1 sitter with pt, able to re-direct pt to ambulate in the hallway and return to room. Pt does need close supervision as she will wander into other pts rooms looking for the way out. Frequent rounding in place, will continue to monitor. Addendum: 12/23/16 at 1825 by DAVEY CHRISTIE RN Pt has continued to try and leave the unit through out the shift. Has gone into patients rooms trying to leave through any doors that she is able to visualize. Pt continues to be challenging to re-direct however will eventually return to her room or continued ambulation in the hallway. 1:1 sitter has been moved to another pt room. Frequent rounding in place.
[2016-12-23] MEDS: RISPERIDONE 1 MG/ML PO SCH ×2 (09:13→20:50)
[2016-12-23 16:14] VITALS: BP 121/79; PULSE 91; RESP 18; O2SAT 95
[2016-12-23 20:53] VITALS: BP 129/77; PULSE 90; RESP 18; O2SAT 97
--- NOTE | 2016-12-23 23:06 | PCM.PNMED ---
Subjective Date of Service Dec 23, 2016 Subjective No change to patient's status. She says she wants to go home. She is seen dressed to leave walking around with her sitter. PAtient was agitated in the AM per staff and needed risperidone Exam Vital Signs Vital Sign - Last Date Time Temp Pulse Resp B/P Pulse Ox O2 Delivery O2 Flow Rate FiO2 12/23/16 04:39 36.8 69 18 101/58 97 Room Air Intake and Output 12/22/16 12/22/16 12/23/16 Cumulative From/Thru 15:00 23:00 07:00 12/04/16 13:11 - 12/23/16 06:16 Intake Total 50 ml 337 ml 118 ml 60524 ml Output Total 600 ml Balance 50 ml 337 ml 118 ml 53941 ml Intake Oral 50 ml 337 ml 118 ml 09096 ml IV Total 4209 ml Output Urine Total 600 ml # Voids 2 3 1 141 # Bowel Movements 20 Exam Constitutional: Middle-aged female in no acute distress pleasant, Head: Normocephalic atraumatic Chest: Clear to auscultation Cor: Regular rate and rhythm S1-S2 Abdomen: Soft nontender bowel sounds present Extremities: No pedal edema Psych: Blunted affect Lab and Diagnostics Result Diagram: 12/17/16 0630 12/22/16 1030 X-Rays, CTs and MRIs Date of Service: 12/05/16 1013 PROCEDURE: MRI STROKE PROTOCOL ([id number]) Pre- and post-contrast brain MRI, non-contrast brain MR angiogram, pre- and postcontrast neck MR angiogram INDICATIONS: psychosis dementia TECHNIQUE: Brain: Noncontrast axial T1 spin echo, axial T2 fast spin echo, sagittal and axial FLAIR, coronal T2 fast spin echo, axial gradient echo, axial diffusion and ADC through the brain. After the administration of contrast, axial 3D VIBE of the cranial vasculature and brain. Brain MRA: Non-contrast 3-D time of flight MR angiogram, with multiple maximum- intensity-projection (MIP) reformats performed. Neck MRA: Axial and sagittal TruFISP through the neck. Coronal dynamic MR angiogram during administration of contrast in the arterial and venous phases, with 3-dimenstional engznne-cuyfovoeo-btwcspqffi (MIP) reformats constructed from subtraction images. COMPARISON: None. FINDINGS: Image quality: Excellent. BRAIN: CSF spaces: There is ex vacuo dilatation of the lateral ventricles, greatest in degree involving the temporal horns. Basal cisterns are patent. No extra- axial fluid collections. Brain: No intracranial bleeds or mass effects. Mild degree of patchy high FLAIR signal intensity within the periventricular and subcortical white matter. There is moderate diffuse cerebral volume loss, greatest in degree involving the frontal and anterior temporal lobes. Jasmine-white matter interface is normal. Diffusion weighted images show no acute ischemic insults. Brainstem appears normal. Normal intravascular flow voids are present. No abnormal intracranial enhancement. Skull and face: Calvarial marrow signal is normal. Orbits appear normal. Sinuses: Sinuses and mastoids are clear. BRAIN MR ANGIOGRAM: Anterior circulation: Intracranial internal carotid arteries are normal in size and enhancement. The flow within the paired anterior cerebral arteries is normal and symmetric. The flow within the middle cerebral arteries is normal and symmetric. The anterior communicating artery is seen. No stenoses, occlusions, or aneurysms. Posterior circulation: The visualized portions of the vertebral arteries demonstrate normal caliber, and join to form a normal appearing basilar artery. The flow within the posterior cerebral arteries is normal and symmetric. No stenoses, occlusions, or aneurysms. NECK MR ANGIOGRAM: Carotids: Great vessels demonstrate a conventional anatomy as they arise from the aortic arch. The origins of the common carotid arteries appear patent. The calibers and courses of both common carotid arteries are normal. The bifurcation regions appear normal bilaterally. The internal carotid arteries demonstrate normal course and caliber. Posterior circulation: The origins of the vertebral arteries appear patent. More superior portions of both vertebral arteries demonstrate normal course and caliber, and join to form a normal appearing basilar artery. Miscellaneous: Subclavian arteries appear patent. Pre-contrast images through the neck show no soft tissue abnormalities. IMPRESSION: BRAIN MRI: 1. No acute process. No recent infarct. 2. Small vessel ischemic disease. 3. Cerebral volume loss, greatest in degree within the frontal and temporal lobes bilaterally. BRAIN MR ANGIOGRAM: Negative cervical MR angiography. NECK MR ANGIOGRAM: 1. No internal coronary stenosis bilaterally. 2. Patent bilateral vertebral arteries. The estimate of stenosis included in the report of the imaging study was calculated using the NASCET method Dictated by: Jing Kate M.D. on 12/05/2016 at 16:29 Transcribed by: RAULITO on 12/05/2016 at 16:34 Approved by: Jing Kate M.D. on 12/05/2016 at 16:40 Assessment & Plan 66-year-old female with severe early onset dementia with attempted suicide attempt today was found to have YESENIA and possible UTI acute, active, Irregular behaviors, agitation, likely due to advanced dementia with possible psychosis features or underlying psychiatric dz, dementia was presumably due to Alzheimer's dementia, pt was diagnosed dxed dementia already 7yrs ago per brother. no previous dx of psychiatric dz. Medical w/u including MRA, MRI of brain, vitB12, TSH, RPR, UCX, all negative. New regimen started on 12/09. -as per / recommendation below 2. Risperidone 0.25mg po bid and 0.25mg po q6hr prn agitiation ->increase to 0.5m bid 3. Continue memantine 5mg po bid for 1 week then 5mg daily and 10mg nightly for 1 weeks then 10mg po bid. 4. Consider adding SSRI e.g. escitalopram 5mg po daily for depression -> increase to 10mg dialy 5. Consider prazosin for possible PTSD>Started prazosin 1 mg qhs today 6. Patient would benefit from hearing aid to improve environmental cues 7. Patient would benefit from picture board to identify items as has difficulty with naming object. Elevated ALT, calcium, and bilirubin; present on admission; ongoing, LFT shows mild hepatic dysfunction with mild elevations of bilirubin and large elevation of ALT; question this due to medication. -clinically stable, ALT trending down, monitor for now -labs are fairly stable Episode of n/v, developed 12/10-, likely medication induced, resolved, KUB showed moderate stools, no SOB. continue bowel regimen, Poor appetite active -slightly improved and likes to drink ensure supplements -Did a trial 2 days of Remeron which did not seem to help her appetite and made her more lethargic. YESENIA, POA, likely prerenal due to decreased Po intake, Patient received 2 L normal saline in the ED, started on 100cc/hr NS, resolved chronic, stable, resolved Reported dysphagia, POA, initially concerning given dementia, however, pt appeared euvolemic,relatively well nourished, passed swallowing test, continue general diet, Hx of nephrolithiasis, recent stent placement, POA, Abd US on 12/04 showed Interval resolution of right hydronephrosis status post ureteral stent placement. 1.7 cm nonobstructing right renal stone, pt was scheduled for elective Rt renal Laser lithotripsy 12/12, informed that pt is in the hospital. f/u with urology Probable UTI, POA, positive for leukocyte esterase, nitrites, few bacteria. pt was empirically start Rocephin but final UCX negative. Repeat UCX also contaminated, stopped abx 12/11. Chronic hypokalemia stable: Ordered lab work today, she has not had a problem with potassium during this admission. We will discontinue her by mouth potassium Disposition: pending, appreciate SW input. Patient is medically cleared waiting for placement. No medical management changes are made on 12/23 diet: pt can tolerate diet but not eating, DNR/DNI VTE Prophylaxis: Sub-Q Heparin (Unfractionated) VTE Mechanical Devices: Venous Foot Pump Resuscitation Status: DNR/DNI:Do Not Resuscitate/Intubate Time spent 25 min Charito Schulz DO Dec 23, 2016 16:10
[2016-12-24 04:54] VITALS: BP 98/63; PULSE 72; RESP 18; O2SAT 95
[2016-12-24] MEDS: RISPERIDONE 1 MG/ML PO SCH ×2 (08:16→21:21)
[2016-12-24] MEDS: Polyethylene Glycol (PEG) 17 Gm Powder PO SCH ×2 (08:30→20:30)
[2016-12-24] MEDS: RISPERIDONE 1 MG/ML PO PRN (15:27)
--- NOTE | 2016-12-24 15:47 | NUR ---
Agitation Pt up to bathrrom to void, reports back does not feel right. Pt unable to elaborate what is not right about her back. PO Tylenol offered and accepted by pt, reluctant to return to the [facility] bed. PO intake offered, small sips of water and 2 bites of orange sherbert consumed. Pt refused to return to [facility] bed, requested to leave the room to leave. PRN Risperidal given. Additional staff gathered and pt returned to [facility]. Call light in reach, frequent rounding in place.
[2016-12-24 17:04] VITALS: BP 105/62; PULSE 84; RESP 18; O2SAT 96
--- NOTE | 2016-12-24 17:17 | PCM.PNMED ---
Subjective Date of Service Dec 24, 2016 Subjective c/o sacral pain. still not eating well. Exam Vital Signs Vital Sign - Last Date Time Temp Pulse Resp B/P Pulse Ox O2 Delivery O2 Flow Rate FiO2 12/24/16 17:04 36.7 84 18 105/62 96 Room Air Intake and Output 12/23/16 12/23/16 12/24/16 Cumulative From/Thru 15:00 23:00 07:00 12/04/16 13:11 - 12/24/16 06:31 Intake Total 872 ml 100 ml 31649 ml Output Total 600 ml Balance 872 ml 100 ml 02244 ml Intake Oral 872 ml 100 ml 22314 ml IV Total 4209 ml Output Urine Total 600 ml # Voids 5 2 148 # Bowel Movements 1 21 Exam Constitutional: Middle-aged female in no acute distress pleasant, Head: Normocephalic atraumatic Chest: Clear to auscultation Cor: Regular rate and rhythm S1-S2 Abdomen: Soft nontender bowel sounds present Extremities: No pedal edema Psych: Blunted affect IVs and Medications Medications Reviewed: Medications were reviewed in detail Lab and Diagnostics Result Diagram: 12/22/16 1030 X-Rays, CTs and MRIs Date of Service: 12/05/16 1013 PROCEDURE: MRI STROKE PROTOCOL ([id number]) Pre- and post-contrast brain MRI, non-contrast brain MR angiogram, pre- and postcontrast neck MR angiogram INDICATIONS: psychosis dementia TECHNIQUE: Brain: Noncontrast axial T1 spin echo, axial T2 fast spin echo, sagittal and axial FLAIR, coronal T2 fast spin echo, axial gradient echo, axial diffusion and ADC through the brain. After the administration of contrast, axial 3D VIBE of the cranial vasculature and brain. Brain MRA: Non-contrast 3-D time of flight MR angiogram, with multiple maximum- intensity-projection (MIP) reformats performed. Neck MRA: Axial and sagittal TruFISP through the neck. Coronal dynamic MR angiogram during administration of contrast in the arterial and venous phases, with 3-dimenstional asnjfxm-yfxfgtpaf-nwfoazjigd (MIP) reformats constructed from subtraction images. COMPARISON: None. FINDINGS: Image quality: Excellent. BRAIN: CSF spaces: There is ex vacuo dilatation of the lateral ventricles, greatest in degree involving the temporal horns. Basal cisterns are patent. No extra- axial fluid collections. Brain: No intracranial bleeds or mass effects. Mild degree of patchy high FLAIR signal intensity within the periventricular and subcortical white matter. There is moderate diffuse cerebral volume loss, greatest in degree involving the frontal and anterior temporal lobes. Jasmine-white matter interface is normal. Diffusion weighted images show no acute ischemic insults. Brainstem appears normal. Normal intravascular flow voids are present. No abnormal intracranial enhancement. Skull and face: Calvarial marrow signal is normal. Orbits appear normal. Sinuses: Sinuses and mastoids are clear. BRAIN MR ANGIOGRAM: Anterior circulation: Intracranial internal carotid arteries are normal in size and enhancement. The flow within the paired anterior cerebral arteries is normal and symmetric. The flow within the middle cerebral arteries is normal and symmetric. The anterior communicating artery is seen. No stenoses, occlusions, or aneurysms. Posterior circulation: The visualized portions of the vertebral arteries demonstrate normal caliber, and join to form a normal appearing basilar artery. The flow within the posterior cerebral arteries is normal and symmetric. No stenoses, occlusions, or aneurysms. NECK MR ANGIOGRAM: Carotids: Great vessels demonstrate a conventional anatomy as they arise from the aortic arch. The origins of the common carotid arteries appear patent. The calibers and courses of both common carotid arteries are normal. The bifurcation regions appear normal bilaterally. The internal carotid arteries demonstrate normal course and caliber. Posterior circulation: The origins of the vertebral arteries appear patent. More superior portions of both vertebral arteries demonstrate normal course and caliber, and join to form a normal appearing basilar artery. Miscellaneous: Subclavian arteries appear patent. Pre-contrast images through the neck show no soft tissue abnormalities. IMPRESSION: BRAIN MRI: 1. No acute process. No recent infarct. 2. Small vessel ischemic disease. 3. Cerebral volume loss, greatest in degree within the frontal and temporal lobes bilaterally. BRAIN MR ANGIOGRAM: Negative cervical MR angiography. NECK MR ANGIOGRAM: 1. No internal coronary stenosis bilaterally. 2. Patent bilateral vertebral arteries. The estimate of stenosis included in the report of the imaging study was calculated using the NASCET method Dictated by: Jing Kate M.D. on 12/05/2016 at 16:29 Transcribed by: RAULITO on 12/05/2016 at 16:34 Approved by: Jing Kate M.D. on 12/05/2016 at 16:40 Assessment & Plan 66-year-old female with severe early onset dementia with attempted suicide attempt today was found to have YESENIA and possible UTI acute, active, Back pain, active -- Patient complains of pain in the lumbar sacral area -- Increased tramadol to every 4 hrs 50 mg when necessary Irregular behaviors, agitation, likely due to advanced dementia with possible psychosis features or underlying psychiatric dz, dementia was presumably due to Alzheimer's dementia, pt was diagnosed dxed dementia already 7yrs ago per brother. no previous dx of psychiatric dz. Medical w/u including MRA, MRI of brain, vitB12, TSH, RPR, UCX, all negative. New regimen started on 12/09. -as per / recommendation below 2. Risperidone 0.25mg po bid and 0.25mg po q6hr prn agitation ->increase to 0.5m bid 3. Continue memantine 5mg po bid for 1 week then 5mg daily and 10mg nightly for 1 weeks then 10mg po bid. 4. Consider adding SSRI e.g. escitalopram 5mg po daily for depression -> increase to 10mg dialy 5. Consider prazosin for possible PTSD>Started prazosin 1 mg qhs today 6. Patient would benefit from hearing aid to improve environmental cues 7. Patient would benefit from picture board to identify items as has difficulty with naming object. Elevated ALT, calcium, and bilirubin; present on admission; ongoing, LFT shows mild hepatic dysfunction with mild elevations of bilirubin and large elevation of ALT; question this due to medication. -clinically stable, ALT trending down, monitor for now -labs are fairly stable Episode of n/v, developed 12/10-, likely medication induced, resolved, KUB showed moderate stools, no SOB. continue bowel regimen, Poor appetite active -slightly improved and likes to drink ensure supplements -Did a trial 2 days of Remeron which did not seem to help her appetite and made her more lethargic. -- Remeron is discontinued -- We will contact palliative care in psych for further suggestions YESENIA, POA, likely prerenal due to decreased Po intake, Patient received 2 L normal saline in the ED, started on 100cc/hr NS, resolved chronic, stable, resolved Reported dysphagia, POA, initially concerning given dementia, however, pt appeared euvolemic,relatively well nourished, passed swallowing test, continue general diet, Hx of nephrolithiasis, recent stent placement, POA, Abd US on 12/04 showed Interval resolution of right hydronephrosis status post ureteral stent placement. 1.7 cm nonobstructing right renal stone, pt was scheduled for elective Rt renal Laser lithotripsy 12/12, informed that pt is in the hospital. f/u with urology Probable UTI, POA, positive for leukocyte esterase, nitrites, few bacteria. pt was empirically start Rocephin but final UCX negative. Repeat UCX also contaminated, stopped abx 12/11. Chronic hypokalemia stable: Ordered lab work today, she has not had a problem with potassium during this admission. We will discontinue her by mouth potassium Post menopausal symptoms chronic presumed colon discontinued Estrace this a.m. Disposition: pending, appreciate SW input. Patient is medically cleared waiting for placement. diet: pt can tolerate diet but not eating, DNR/DNI Pain Evaluation: Pain not Controlled VTE Prophylaxis: Sub-Q Heparin (Unfractionated) VTE Mechanical Devices: Venous Foot Pump Resuscitation Status: DNR/DNI:Do Not Resuscitate/Intubate Time spent 25 minutes Charito Schulz DO Dec 24, 2016 17:17
--- NOTE | 2016-12-24 19:21 | NUR ---
PO intake Pt has consumed 1 full Ensure for the shift, has taken small bites of ice cream with meds. Pt will take some sips of water when coaxed however over all her oral of food has been very poor. Call light in place, will continue to monitor.
[2016-12-24 20:43] VITALS: BP 131/82; PULSE 74; RESP 18; O2SAT 98
--- NOTE | 2016-12-25 03:44 | NUR ---
Shift report Pt cooperative with care, up to BR with SBA, took meds in ice cream but only accepted 2 bites then declined the rest. Encouraged to drink fluids, accepted sips of orange juice but stated thats enough. Pt reported her back hurt, PRN tramadol given with + effects. No adverse behaviors this shift. Pt in some bed with call light in reach. Care continues
[2016-12-25 04:52] VITALS: BP 102/62; PULSE 79; RESP 18; O2SAT 96
[2016-12-25 06:08] LABS: Magnesium 2.2 mg/dL (1.6-2.6); Phosphorus 3.5 mg/dL (2.5-4.9)
[2016-12-25] MEDS: RISPERIDONE 1 MG/ML PO SCH ×2 (08:10→21:20)
[2016-12-25] MEDS: Polyethylene Glycol (PEG) 17 Gm Powder PO SCH ×2 (08:10→21:20)
--- NOTE | 2016-12-25 14:03 | NUR ---
Social Work-continued d/c planning: Data:EMR reviewed. Pt is on day 21 of hospitalization for delirium per H&P. Pt is medically stable pending placement. UR specialist to start calling to work on private pay [facility]. BHUPENDRA placed a call to norman Romero [phone], no answer message left requesting a return call to discuss discharge planning. SW will continue to follow. Assessment:pt who will need placement. Plan:Pt will need private pay [facility] placement. Pt does not make enough money for memory care. BHUPENDRA left message with norman Romero, awaiting a return call. SW will continue to follow. STEWART Contreras
--- NOTE | 2016-12-25 14:05 | NUR ---
ADIEL Attempt Pt has baseline dementia. SW attempted to reach daughter Heather Gordon [phone] regarding ADIEL, left message requesting return call. STEWART Contreras
[2016-12-25 14:42] VITALS: BP 117/70; PULSE 83; RESP 16; O2SAT 97
--- NOTE | 2016-12-25 15:42 | NUR ---
ADULT FAMILY HOME SEARCH CONT: Called [facility] in [place] and they have no beds available. [facility] irish and did assessment and took packet from [facility] [phone] Adult Longterm in [place]: wSati Diop will be the main contact for next 2 weeks [phone] Main home # [phone]. She would need family to come and visit the home and put a $ 500 deposit to keep room. Tracy is the finance intern she will be able to get text while overseas [phone] Fax [phone] [facility] : Sary [phone] Sent fax and she does have room open [phone] FAX A [facility] Faxed clinicals to [phone], they have private room available Faiza is the finance intern [phone] Updated [facility]
--- NOTE | 2016-12-25 16:12 | NUR ---
NUTRITION FOLLOW-UP: ASSESS: 66 YO Female admitted with altered mental status, agitation related to advanced dementia with possible underlying psychiatric disease, status post suicide attempt. Diet advanced to soft; However, PO intake continues to be minimal but pt is drinking some of the ensure supplements. Remeron was trialed; however, it had no effect on her PO intake, and it increased her lethargy. Risperidone increased. Psychiatry following. Pt. is cleared medically; however, placement is an issue. Code status: DNR / DNI. PMHX: Alzheimer's Dementia, dysphagia, nephrolithiasis with recent stent placement. DIET: Soft. Ensure all trays. Magic cup at Breakfast, pudding at dinner. PO refusal to bites, taking some Ensure per RN. LABS: Reviewed. Na 145. MEDS: Reviewed. GI: BM x 1 (12/23). Bowel regimen initiated. WEIGHT: 54.2 kg, BMI 22.0 kg/m2. Admit wt: 54.1 kg (standing) EST.NEEDS: 1274-3559 kcal (25-30 kcal/kg BW) 55-65 g pro (1.0-1.2 g/kg pro BW) NUTRITION DIAGNOSIS: (1) Inadequate oral intake related to AMS as evidenced by po intake of bites x 21 days - PERSISTS. INTERVENTION: (1) Continue Ensure supplements + variety of supplements on meals trays. (2) Recommend considering nutrition support pending pt overall POC/goals as pt has been with minimal nutrition now x 21 days. MONITOR/EVALUATE: PO intake, labs, nutritional status. Follow per high nutritional risk guidelines.
--- NOTE | 2016-12-25 18:31 | NUR ---
PO intake Oral intake has improved slightly, pt consumed Ensure x 1, 400 mls of apple juice and bites of ice cream and food. pt seems to do better when encouraged 1:1.
[2016-12-25 20:21] VITALS: BP 118/77; PULSE 82; RESP 18; O2SAT 96
--- NOTE | 2016-12-25 21:37 | PCM.PNMED ---
Subjective Date of Service Dec 25, 2016 Subjective Patient is seen and examined. She is her usual self, she appears to have poor dentition. Unclear if this is the reason why she does not eat. No new concerns Exam Vital Signs Vital Sign - Last Date Time Temp Pulse Resp B/P Pulse Ox O2 Delivery O2 Flow Rate FiO2 12/25/16 04:52 36.7 79 18 102/62 96 Room Air Intake and Output 12/24/16 12/24/16 12/25/16 Cumulative From/Thru 15:00 23:00 07:00 12/04/16 13:11 - 12/25/16 06:19 Intake Total 300 ml 0 ml 32843 ml Output Total 600 ml Balance 300 ml 0 ml 70058 ml Intake Oral 300 ml 0 ml 95676 ml IV Total 4209 ml Output Urine Total 600 ml # Voids 4 1 153 # Bowel Movements 21 Lab and Diagnostics Result Diagram: 12/25/16 0505 12/25/16 0505 X-Rays, CTs and MRIs Date of Service: 12/05/16 1013 PROCEDURE: MRI STROKE PROTOCOL ([id number]) Pre- and post-contrast brain MRI, non-contrast brain MR angiogram, pre- and postcontrast neck MR angiogram INDICATIONS: psychosis dementia TECHNIQUE: Brain: Noncontrast axial T1 spin echo, axial T2 fast spin echo, sagittal and axial FLAIR, coronal T2 fast spin echo, axial gradient echo, axial diffusion and ADC through the brain. After the administration of contrast, axial 3D VIBE of the cranial vasculature and brain. Brain MRA: Non-contrast 3-D time of flight MR angiogram, with multiple maximum- intensity-projection (MIP) reformats performed. Neck MRA: Axial and sagittal TruFISP through the neck. Coronal dynamic MR angiogram during administration of contrast in the arterial and venous phases, with 3-dimenstional cbdeghy-vbjsufple-veshkqkfsh (MIP) reformats constructed from subtraction images. COMPARISON: None. FINDINGS: Image quality: Excellent. BRAIN: CSF spaces: There is ex vacuo dilatation of the lateral ventricles, greatest in degree involving the temporal horns. Basal cisterns are patent. No extra- axial fluid collections. Brain: No intracranial bleeds or mass effects. Mild degree of patchy high FLAIR signal intensity within the periventricular and subcortical white matter. There is moderate diffuse cerebral volume loss, greatest in degree involving the frontal and anterior temporal lobes. Jasmine-white matter interface is normal. Diffusion weighted images show no acute ischemic insults. Brainstem appears normal. Normal intravascular flow voids are present. No abnormal intracranial enhancement. Skull and face: Calvarial marrow signal is normal. Orbits appear normal. Sinuses: Sinuses and mastoids are clear. BRAIN MR ANGIOGRAM: Anterior circulation: Intracranial internal carotid arteries are normal in size and enhancement. The flow within the paired anterior cerebral arteries is normal and symmetric. The flow within the middle cerebral arteries is normal and symmetric. The anterior communicating artery is seen. No stenoses, occlusions, or aneurysms. Posterior circulation: The visualized portions of the vertebral arteries demonstrate normal caliber, and join to form a normal appearing basilar artery. The flow within the posterior cerebral arteries is normal and symmetric. No stenoses, occlusions, or aneurysms. NECK MR ANGIOGRAM: Carotids: Great vessels demonstrate a conventional anatomy as they arise from the aortic arch. The origins of the common carotid arteries appear patent. The calibers and courses of both common carotid arteries are normal. The bifurcation regions appear normal bilaterally. The internal carotid arteries demonstrate normal course and caliber. Posterior circulation: The origins of the vertebral arteries appear patent. More superior portions of both vertebral arteries demonstrate normal course and caliber, and join to form a normal appearing basilar artery. Miscellaneous: Subclavian arteries appear patent. Pre-contrast images through the neck show no soft tissue abnormalities. IMPRESSION: BRAIN MRI: 1. No acute process. No recent infarct. 2. Small vessel ischemic disease. 3. Cerebral volume loss, greatest in degree within the frontal and temporal lobes bilaterally. BRAIN MR ANGIOGRAM: Negative cervical MR angiography. NECK MR ANGIOGRAM: 1. No internal coronary stenosis bilaterally. 2. Patent bilateral vertebral arteries. The estimate of stenosis included in the report of the imaging study was calculated using the NASCET method Dictated by: Jing Kate M.D. on 12/05/2016 at 16:29 Transcribed by: RAULITO on 12/05/2016 at 16:34 Approved by: Jing Kate M.D. on 12/05/2016 at 16:40 Assessment & Plan 66-year-old female with severe early onset dementia with attempted suicide attempt today was found to have YESENIA and possible UTI acute, active, Back pain, active -- Patient complains of pain in the lumbar sacral area -- Increased tramadol to every 4 hrs 50 mg when necessary Irregular behaviors, agitation, likely due to advanced dementia with possible psychosis features or underlying psychiatric dz, dementia was presumably due to Alzheimer's dementia, pt was diagnosed dxed dementia already 7yrs ago per brother. no previous dx of psychiatric dz. Medical w/u including MRA, MRI of brain, vitB12, TSH, RPR, UCX, all negative. New regimen started on 12/09. -as per / recommendation below 2. Risperidone 0.25mg po bid and 0.25mg po q6hr prn agitation ->increase to 0.5m bid 3. Continue memantine 5mg po bid for 1 week then 5mg daily and 10mg nightly for 1 weeks then 10mg po bid. 4. Consider adding SSRI e.g. escitalopram 5mg po daily for depression -> increase to 10mg dialy 5. Consider prazosin for possible PTSD>Started prazosin 1 mg qhs today 6. Patient would benefit from hearing aid to improve environmental cues 7. Patient would benefit from picture board to identify items as has difficulty with naming object. Elevated ALT, calcium, and bilirubin; present on admission; ongoing, LFT shows mild hepatic dysfunction with mild elevations of bilirubin and large elevation of ALT; question this due to medication. -clinically stable, ALT trending down, monitor for now -12/25 that if it is stable Episode of n/v, developed 12/10-, likely medication induced, resolved, KUB showed moderate stools, no SOB. continue bowel regimen, Poor appetite active -slightly improved and likes to drink ensure supplements -Did a trial 2 days of Remeron which did not seem to help her appetite and made her more lethargic. -- Remeron is discontinued -- We will contact palliative care / psych for further suggestions -- Consider Megace versus updated promoting antipsychotics. I was unable to make the contact with psych, we will try again in the a.m. -- The suture shows drobinol may promote appetite YESENIA, POA, likely prerenal due to decreased Po intake, Patient received 2 L normal saline in the ED, started on 100cc/hr NS, resolved chronic, stable, resolved Reported dysphagia, POA, initially concerning given dementia, however, pt appeared euvolemic,relatively well nourished, passed swallowing test, continue general diet, Hx of nephrolithiasis, recent stent placement, POA, Abd US on 12/04 showed Interval resolution of right hydronephrosis status post ureteral stent placement. 1.7 cm nonobstructing right renal stone, pt was scheduled for elective Rt renal Laser lithotripsy 12/12, informed that pt is in the hospital. f/u with urology Probable UTI, POA, positive for leukocyte esterase, nitrites, few bacteria. pt was empirically start Rocephin but final UCX negative. Repeat UCX also contaminated, stopped abx 12/11. Chronic hypokalemia stable: Ordered lab work today, she has not had a problem with potassium during this admission. We will discontinue her by mouth potassium Post menopausal symptoms chronic presumed colon discontinued Estrace this a.m. Disposition: pending, appreciate SW input. Patient is medically cleared waiting for placement. diet: pt can tolerate diet but not eating, DNR/DNI VTE Prophylaxis: Sub-Q Heparin (Unfractionated) VTE Mechanical Devices: Venous Foot Pump Resuscitation Status: DNR/DNI:Do Not Resuscitate/Intubate Time spent 25 minutes Charito Schulz DO Dec 25, 2016 16:54
[2016-12-26 05:21] VITALS: BP 133/81; PULSE 98; RESP 18; O2SAT 95
--- NOTE | 2016-12-26 07:11 | NUR ---
Behavior/Activity Upon this RN entering the room, pt reports needing to "get in there and go pee", this RN is able to ambulate pt to BR, and back without incident. Pt rearranges belongings and bedding before crawling back into the enclosed bed. Pt continues to be a risk for elopement or wandering into other pt rooms. Pt is more tremulous since meeting this RN last week. DELONTEI pg to , mental retardation nurse aware.
[2016-12-26 08:33] LABS: Mean Corpuscular Hemoglobin 32.5 pg (27.0-35.0); Mean Corpuscular Volume 99.2 fL (81-100)
[2016-12-26] MEDS: RISPERIDONE 1 MG/ML PO SCH ×2 (08:49→20:48)
[2016-12-26] MEDS: Polyethylene Glycol (PEG) 17 Gm Powder PO SCH ×2 (08:50→20:30)
[2016-12-26 08:54] LABS: Magnesium 2.1 mg/dL (1.6-2.6); Phosphorus 2.9 mg/dL (2.5-4.9)
--- NOTE | 2016-12-26 08:56 | NUR ---
ambulating pt is up with the ASSEMBLER FAUCETS ambulating the hallways. This RN and the ASSEMBLER FAUCETS will try to have the patient out of the Soma bed as much as possible. pt is still trying to enter other pt's rooms but is able to be redirected by the ASSEMBLER FAUCETS
[2016-12-26 13:16] VITALS: BP 124/68; PULSE 77; RESP 20; O2SAT 96
--- NOTE | 2016-12-26 14:42 | NUR ---
out of Soma pt requests that she be allowed out of the [facility] bed. pt is acting appropriately and wished to be out to use the bathroom and watch TV. At the moment this RN has time to be 1:1 and [facility] is sending a caring alteration manager up to sit with the patient. Addendum: 12/26/16 at 1453 by JOSE ANTONIO GEORGE RN pt finished in the bathroom and got herself a drink, then put herself back into the [facility] bed-GENESIS zipped up.
--- NOTE | 2016-12-26 15:08 | NUR ---
ADIEL signed verbally with daughter. STEWART Contreras
--- NOTE | 2016-12-26 15:36 | NUR ---
Social Work-continued d/c planning: Data:EMR reviewed. Pt is on day 22 of hospitalization for delirium per H&P. Pt is medically stable pending placement. SW was able to get in touch with the daughter. SW provided update and explained that [facility] was being looked at. SW explained that SW could not guarantee that pt would stay in [facility]. SW explained that SW would be looking in [facility]. Daughter agreeable. Daughter also states they have family in the [place]/ [place] area so this could be looked as well. SW explained to daughter that once placement was found, pt would need to discharge because pt has no medical reason to be in the hospital. Daughter agreeable. Daughter wonders about 24/7 care at home, but explains they are gone all the time. SW explained that unless there was someone that would be able to provide this, pt would not have enough money to make this happen. Daughter explains no family or friends can do this. SW asked UR specialist to follow up with [facility]'s called yesterday and determine cost. SW will continue to follow. Assessment:pt who will need placement. Plan:SW to continue to work on placement for pt, private pay AF. Daughter updated and agreeable. SW will continue to follow. STEWART Contreras
--- NOTE | 2016-12-26 15:43 | NUR ---
Called [facility] in [place] and left message regarding daily rate and the cost for a month. Updated PAINTER AND PAPERHANGER APPRENTICE
--- NOTE | 2016-12-26 16:17 | NUR ---
patient copy preparer pt has a copy preparer provided through the hospital [employer]. Soma bed is not zipped up at the moment but pt is resting in bed. pt's behavior has been and is currently appropriate.
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
[2016-12-26 21:00] VITALS: BP 131/90; PULSE 102; RESP 20; O2SAT 95
--- NOTE | 2016-12-26 23:37 | NUR ---
Transition of care This RN resumed care of pt at 2300. Pt in patricia bed and asleep. RN stationed in front of pts room. Will continue to monitor.
--- NOTE | 2016-12-26 23:57 | NUR ---
Nursing, PM [id number] Patient alert, oriented to self and place, does not know the date/situation. Family states she is [facility], but she responded to normal level of voice. Denies pain/discomfort. Independant/SBA with mobility, uses bathroom independantly. History of exit seeking during this hospital stay; after daughter and granddaughter left, patient did not attempt to exit seek. Soma bed in room, did not zip it up at HS as she went to bed w/o incident. Continues to have no IV access. D/c plan: waiting for placement. Report to LOREE Hodgson.
--- NOTE | 2016-12-27 00:43 | PCM.PNMED ---
Subjective Date of Service Dec 26, 2016 Subjective Patient has visitors in the room, her daughter and granddaughter visiting. Patient appears very quiet, says that patient never brushes her teeth and really has let it go. Daughter is also very at that while patient's lithotripsy procedure has been postponed, it is not an emergent procedure. They have no other questions. Staff reported tremors this a.m. lab work is ordered with no abnormalities found. I have not seen the tremor and I visited with her during rounding Exam Vital Signs Vital Sign - Last Date Time Temp Pulse Resp B/P Pulse Ox O2 Delivery O2 Flow Rate FiO2 12/26/16 05:21 36.9 98 18 133/81 95 Room Air Intake and Output 12/25/16 12/25/16 12/26/16 Cumulative From/Thru 15:00 23:00 07:00 12/04/16 13:11 - 12/26/16 05:54 Intake Total 650 ml 0 ml 94246 ml Output Total 600 ml Balance 650 ml 0 ml 64581 ml Intake Oral 650 ml 0 ml 69455 ml IV Total 4209 ml Output Urine Total 600 ml # Voids 3 2 158 # Bowel Movements 0 21 Exam Physical Exam: Constitutional: Middle-aged female in no acute distress Head: Normocephalic atraumatic, poor dentition Chest: Clear to auscultation Cor: Regular rate and rhythm S1-S2 Abdomen: Soft nontender Extremities: No pedal edema Psych: Blunted affect Lab and Diagnostics Result Diagram: 12/26/16 0815 12/26/16 0815 X-Rays, CTs and MRIs Date of Service: 12/05/16 1013 PROCEDURE: MRI STROKE PROTOCOL ([id number]) Pre- and post-contrast brain MRI, non-contrast brain MR angiogram, pre- and postcontrast neck MR angiogram INDICATIONS: psychosis dementia TECHNIQUE: Brain: Noncontrast axial T1 spin echo, axial T2 fast spin echo, sagittal and axial FLAIR, coronal T2 fast spin echo, axial gradient echo, axial diffusion and ADC through the brain. After the administration of contrast, axial 3D VIBE of the cranial vasculature and brain. Brain MRA: Non-contrast 3-D time of flight MR angiogram, with multiple maximum- intensity-projection (MIP) reformats performed. Neck MRA: Axial and sagittal TruFISP through the neck. Coronal dynamic MR angiogram during administration of contrast in the arterial and venous phases, with 3-dimenstional acmivqx-djnxmqujs-gqdrnxuusz (MIP) reformats constructed from subtraction images. COMPARISON: None. FINDINGS: Image quality: Excellent. BRAIN: CSF spaces: There is ex vacuo dilatation of the lateral ventricles, greatest in degree involving the temporal horns. Basal cisterns are patent. No extra- axial fluid collections. Brain: No intracranial bleeds or mass effects. Mild degree of patchy high FLAIR signal intensity within the periventricular and subcortical white matter. There is moderate diffuse cerebral volume loss, greatest in degree involving the frontal and anterior temporal lobes. Jasmine-white matter interface is normal. Diffusion weighted images show no acute ischemic insults. Brainstem appears normal. Normal intravascular flow voids are present. No abnormal intracranial enhancement. Skull and face: Calvarial marrow signal is normal. Orbits appear normal. Sinuses: Sinuses and mastoids are clear. BRAIN MR ANGIOGRAM: Anterior circulation: Intracranial internal carotid arteries are normal in size and enhancement. The flow within the paired anterior cerebral arteries is normal and symmetric. The flow within the middle cerebral arteries is normal and symmetric. The anterior communicating artery is seen. No stenoses, occlusions, or aneurysms. Posterior circulation: The visualized portions of the vertebral arteries demonstrate normal caliber, and join to form a normal appearing basilar artery. The flow within the posterior cerebral arteries is normal and symmetric. No stenoses, occlusions, or aneurysms. NECK MR ANGIOGRAM: Carotids: Great vessels demonstrate a conventional anatomy as they arise from the aortic arch. The origins of the common carotid arteries appear patent. The calibers and courses of both common carotid arteries are normal. The bifurcation regions appear normal bilaterally. The internal carotid arteries demonstrate normal course and caliber. Posterior circulation: The origins of the vertebral arteries appear patent. More superior portions of both vertebral arteries demonstrate normal course and caliber, and join to form a normal appearing basilar artery. Miscellaneous: Subclavian arteries appear patent. Pre-contrast images through the neck show no soft tissue abnormalities. IMPRESSION: BRAIN MRI: 1. No acute process. No recent infarct. 2. Small vessel ischemic disease. 3. Cerebral volume loss, greatest in degree within the frontal and temporal lobes bilaterally. BRAIN MR ANGIOGRAM: Negative cervical MR angiography. NECK MR ANGIOGRAM: 1. No internal coronary stenosis bilaterally. 2. Patent bilateral vertebral arteries. The estimate of stenosis included in the report of the imaging study was calculated using the NASCET method Dictated by: Jing Kate M.D. on 12/05/2016 at 16:29 Transcribed by: RAULITO on 12/05/2016 at 16:34 Approved by: Jing Kate M.D. on 12/05/2016 at 16:40 Assessment & Plan 66-year-old female with severe early onset dementia with attempted suicide attempt today was found to have YESENIA and possible UTI acute, active, Back pain, active -- Patient complains of pain in the lumbar sacral area -- Increased tramadol to every 4 hrs 50 mg when necessary Irregular behaviors, agitation, likely due to advanced dementia with possible psychosis features or underlying psychiatric dz, dementia was presumably due to Alzheimer's dementia, pt was diagnosed dxed dementia already 7yrs ago per brother. no previous dx of psychiatric dz. Medical w/u including MRA, MRI of brain, vitB12, TSH, RPR, UCX, all negative. New regimen started on 12/09. -as per / recommendation below 2. Risperidone 0.25mg po bid and 0.25mg po q6hr prn agitation ->increase to 0.5m bid 3. Continue memantine 5mg po bid for 1 week then 5mg daily and 10mg nightly for 1 weeks then 10mg po bid. 4. Consider adding SSRI e.g. escitalopram 5mg po daily for depression -> increase to 10mg dialy 5. Consider prazosin for possible PTSD>Started prazosin 1 mg qhs today 6. Patient would benefit from hearing aid to improve environmental cues 7. Patient would benefit from picture board to identify items as has difficulty with naming object. Elevated ALT, calcium, and bilirubin; present on admission; ongoing, LFT shows mild hepatic dysfunction with mild elevations of bilirubin and large elevation of ALT; question this due to medication. -clinically stable, ALT trending down, monitor for now -12/25 it is stable Episode of n/v, developed 12/10-, likely medication induced, resolved, KUB showed moderate stools, no SOB. continue bowel regimen, Poor appetite active - slightly improved and likes to drink ensure supplements, Labs showed slight increase in liver function tests AST and ALT on 12/26. Hepatitis panel is completely negative. She has no abd tenderness. Consider RUQ US if there is concern - Per Dr. Garcia: "Did a trial 2 days of Remeron which did not seem to help her appetite and made her more lethargic. Remeron is discontinued" -- Consider Megace versus appetite promoting antipsychotics. Unable to make the contact with psych, try again in the a.m. -- studies show drobinol may promote appetite, discuss with palliative care/ psych. YESENIA, POA, likely prerenal due to decreased Po intake, Patient received 2 L normal saline in the ED, started on 100cc/hr NS, resolved chronic, stable, resolved Reported dysphagia, POA, initially concerning given dementia, however, pt appeared euvolemic,relatively well nourished, passed swallowing test, continue general diet, Hx of nephrolithiasis, recent stent placement, POA, Abd US on 12/04 showed Interval resolution of right hydronephrosis status post ureteral stent placement. 1.7 cm nonobstructing right renal stone, pt was scheduled for elective Rt renal Laser lithotripsy 12/12, informed that pt is in the hospital. f/u with urology Probable UTI, POA, positive for leukocyte esterase, nitrites, few bacteria. pt was empirically start Rocephin but final UCX negative. Repeat UCX also contaminated, stopped abx 12/11. Chronic hypokalemia stable: Ordered lab work today, she has not had a problem with potassium during this admission. We will discontinue her by mouth potassium Post menopausal symptoms chronic presumed -- discontinued Estrace. Disposition: pending, appreciate SW input. Patient is medically cleared waiting for placement. diet: pt can tolerate diet but not eating, could be because of poor dentition, prefers to drink liquids DNR/DNI VTE Prophylaxis: Sub-Q Heparin (Unfractionated) VTE Mechanical Devices: Venous Foot Pump Resuscitation Status: DNR/DNI:Do Not Resuscitate/Intubate Time spent 25 min Charito Schulz DO Dec 26, 2016 09:01
[2016-12-27 05:28] VITALS: BP 128/80; PULSE 78; RESP 18; O2SAT 97
[2016-12-27] MEDS: Polyethylene Glycol (PEG) 17 Gm Powder PO SCH ×2 (09:05→20:32)
[2016-12-27] MEDS: RISPERIDONE 1 MG/ML PO SCH ×2 (09:05→20:35)
--- NOTE | 2016-12-27 11:10 | PCM.PNMED ---
Subjective Date of Service Dec 27, 2016 Subjective No new events. Pt requiring Soma bed overnight due to agitation and getting out of bed frequently. Exam Vital Signs Vital Sign - Last Date Time Temp Pulse Resp B/P Pulse Ox O2 Delivery O2 Flow Rate FiO2 12/27/16 05:28 36.7 78 18 128/80 97 Room Air Intake and Output 12/26/16 12/26/16 12/27/16 Cumulative From/Thru 15:00 23:00 07:00 12/04/16 13:11 - 12/27/16 06:14 Intake Total 450 ml 473 ml 07370 ml Output Total 600 ml Balance 450 ml 473 ml 53139 ml Intake Oral 450 ml 473 ml 44227 ml IV Total 4209 ml Output Urine Total 600 ml # Voids 5 2 165 # Bowel Movements 1 22 Exam Constitutional: Middle-aged female in no acute distress Head: Normocephalic atraumatic, poor dentition Chest: Clear to auscultation Cor: Regular rate and rhythm S1-S2 Abdomen: Soft nontender Extremities: No pedal edema Psych: Blunted affect IVs and Medications Medications Reviewed: Medications were reviewed in detail Lab and Diagnostics Result Diagram: 12/26/1615 12/26/16 0815 X-Rays, CTs and MRIs Date of Service: 12/05/16 1013 PROCEDURE: MRI STROKE PROTOCOL ([id number]) Pre- and post-contrast brain MRI, non-contrast brain MR angiogram, pre- and postcontrast neck MR angiogram INDICATIONS: psychosis dementia TECHNIQUE: Brain: Noncontrast axial T1 spin echo, axial T2 fast spin echo, sagittal and axial FLAIR, coronal T2 fast spin echo, axial gradient echo, axial diffusion and ADC through the brain. After the administration of contrast, axial 3D VIBE of the cranial vasculature and brain. Brain MRA: Non-contrast 3-D time of flight MR angiogram, with multiple maximum- intensity-projection (MIP) reformats performed. Neck MRA: Axial and sagittal TruFISP through the neck. Coronal dynamic MR angiogram during administration of contrast in the arterial and venous phases, with 3-dimenstional rmeezce-nflwqynxv-mqrzsqinga (MIP) reformats constructed from subtraction images. COMPARISON: None. FINDINGS: Image quality: Excellent. BRAIN: CSF spaces: There is ex vacuo dilatation of the lateral ventricles, greatest in degree involving the temporal horns. Basal cisterns are patent. No extra- axial fluid collections. Brain: No intracranial bleeds or mass effects. Mild degree of patchy high FLAIR signal intensity within the periventricular and subcortical white matter. There is moderate diffuse cerebral volume loss, greatest in degree involving the frontal and anterior temporal lobes. Jasmine-white matter interface is normal. Diffusion weighted images show no acute ischemic insults. Brainstem appears normal. Normal intravascular flow voids are present. No abnormal intracranial enhancement. Skull and face: Calvarial marrow signal is normal. Orbits appear normal. Sinuses: Sinuses and mastoids are clear. BRAIN MR ANGIOGRAM: Anterior circulation: Intracranial internal carotid arteries are normal in size and enhancement. The flow within the paired anterior cerebral arteries is normal and symmetric. The flow within the middle cerebral arteries is normal and symmetric. The anterior communicating artery is seen. No stenoses, occlusions, or aneurysms. Posterior circulation: The visualized portions of the vertebral arteries demonstrate normal caliber, and join to form a normal appearing basilar artery. The flow within the posterior cerebral arteries is normal and symmetric. No stenoses, occlusions, or aneurysms. NECK MR ANGIOGRAM: Carotids: Great vessels demonstrate a conventional anatomy as they arise from the aortic arch. The origins of the common carotid arteries appear patent. The calibers and courses of both common carotid arteries are normal. The bifurcation regions appear normal bilaterally. The internal carotid arteries demonstrate normal course and caliber. Posterior circulation: The origins of the vertebral arteries appear patent. More superior portions of both vertebral arteries demonstrate normal course and caliber, and join to form a normal appearing basilar artery. Miscellaneous: Subclavian arteries appear patent. Pre-contrast images through the neck show no soft tissue abnormalities. IMPRESSION: BRAIN MRI: 1. No acute process. No recent infarct. 2. Small vessel ischemic disease. 3. Cerebral volume loss, greatest in degree within the frontal and temporal lobes bilaterally. BRAIN MR ANGIOGRAM: Negative cervical MR angiography. NECK MR ANGIOGRAM: 1. No internal coronary stenosis bilaterally. 2. Patent bilateral vertebral arteries. The estimate of stenosis included in the report of the imaging study was calculated using the NASCET method Dictated by: Jing Kate M.D. on 12/05/2016 at 16:29 Transcribed by: RAULITO on 12/05/2016 at 16:34 Approved by: Jing Kate M.D. on 12/05/2016 at 16:40 Assessment & Plan 66-year-old female with severe early onset dementia with attempted suicide attempt was found to have YESENIA, possible UTI, and AMS. Major neurocognitive disorder, NOS, poa, active. Irregular behaviors, agitation, likely due to advanced dementia with possible psychosis features or underlying psychiatric dz, dementia was presumably due to Alzheimer's dementia, pt was diagnosed dxed dementia already 7yrs ago per brother. no previous dx of psychiatric dz. Medical w/u including MRA, MRI of brain, vitB12, TSH, RPR, UCX, all negative. New regimen started on 12/09. -as per / recommendation below Risperidone 0.25mg po bid and 0.25mg po q6hr prn agitation ->increase to 0.5m bid Continue memantine 5mg po bid for 1 week then 5mg daily and 10mg nightly for 1 weeks then 10mg po bid. Consider adding SSRI e.g. escitalopram 5mg po daily for depression ->increase to 10mg daily Consider prazosin for possible PTSD>Started prazosin 1 mg qhs Patient would benefit from hearing aid to improve environmental cues Patient would benefit from picture board to identify items as has difficulty with naming object. Back pain, active -- Patient complains of pain in the lumbar sacral area -- Increased tramadol to every 4 hrs 50 mg when necessary Elevated ALT, calcium, and bilirubin; present on admission; ongoing, LFT shows mild hepatic dysfunction with mild elevations of bilirubin and large elevation of ALT; question this due to medication. -clinically stable, ALT trending down, monitor for now -12/25 it is stable Episode of n/v, acute, poa, active- developed 12/10-, likely medication induced, resolved, KUB showed moderate stools, no SOB. continue bowel regimen, Poor appetite active - slightly improved and likes to drink ensure supplements, Labs showed slight increase in liver function tests AST and ALT on 12/26. Hepatitis panel is completely negative. She has no abd tenderness. Consider RUQ US if there is concern - Per Dr. Garcia: "Did a trial 2 days of Remeron which did not seem to help her appetite and made her more lethargic. Remeron is discontinued" -- Consider Megace versus appetite promoting antipsychotics. Unable to make the contact with psych, try again in the a.m. -- studies show drobinol may promote appetite, discuss with palliative care/ psych. YESENIA, POA, resolved. likely prerenal due to decreased Po intake, Patient received 2 L normal saline in the ED, started on 100cc/hr NS, resolved chronic, stable, resolved Reported dysphagia, POA, initially concerning given dementia, however, pt appeared euvolemic,relatively well nourished, passed swallowing test, continue general diet, Hx of nephrolithiasis, recent stent placement, POA, Abd US on 12/04 showed Interval resolution of right hydronephrosis status post ureteral stent placement. 1.7 cm nonobstructing right renal stone, pt was scheduled for elective Rt renal Laser lithotripsy 12/12, informed that pt is in the hospital. f/u with urology Probable UTI, POA, positive for leukocyte esterase, nitrites, few bacteria. pt was empirically start Rocephin but final UCX negative. Repeat UCX also contaminated, stopped abx 12/11. Chronic hypokalemia stable: Ordered lab work today, she has not had a problem with potassium during this admission. We will discontinue her by mouth potassium Post menopausal symptoms chronic -- discontinued Estrace. diet: pt can tolerate diet but not eating, could be because of poor dentition, prefers to drink liquids Disposition: pending placement, appreciate SW input. Patient is medically cleared waiting for placement. VTE Prophylaxis: Sub-Q Heparin (Unfractionated) VTE Mechanical Devices: Venous Foot Pump Resuscitation Status: DNR/DNI:Do Not Resuscitate/Intubate Timothy Bee MD Dec 27, 2016 11:10
[2016-12-27 12:20] VITALS: BP 122/74; PULSE 74; RESP 18; O2SAT 97
--- NOTE | 2016-12-27 17:18 | DRSVH ---
PROCEDURE: US ABDOMEN INDICATIONS: elevated LFT, nausea hx TECHNIQUE: Real-time scanning was performed of the abdominal and retroperitoneal organs, with image documentatio n. COMPARISON: [facility], US, US RENAL, 12/04/2016, 20:41. FINDINGS: Liver length: 15.51 cm Gallbladder Wall Thickness: 1.40 mm CBD: 4.20 mm Spleen length: 7.19 cm Right kidney length: 9.90 cm Left kidney length: 10.12 cm Aorta(Proximal): 2.04 cm Aorta(Mid): 1.60 cm Aorta(Distal): 1.67 cm RCIA: 8.70 mm LCIA: 9.80 mm Liver: Liver is normal in size and homogeneous in echotexture. Gallbladder: Color sludge. Normal gallbladder wall thickness. No pericholecystic fluid. Negative sono graphic Nuñez's sign. Biliary ducts: Intrahepatic bile ducts are non-dilated. Extrahepatic bile duct caliber is normal wh ere seen. Normal is 6-7 mm or less in diameter, or 10 mm or less post-cholecystectomy. Pancreas: Visualized portions of the pancreas are sonographically normal. Spleen: Spleen is normal in size and homogeneous in echotexture. Kidneys: Kidneys are normal in size and echotexture. No hydronephrosis. Nonobstructing 14 mm right renal calculus. Mild right renal cortical thinning. No solid masses. Aorta: Visualized aorta is normal in caliber at less than 3 cm. Iliacs: Proximal common iliac arteries are normal in caliber at less than 2.5 cm. IVC: Intrahepatic inferior vena cava is patent. Miscellaneous: No free abdominal fluid. IMPRESSION: 1. Gallbladder sludge. No sonographic evidence of acute cholecystitis. If there is clinical concern f or acute cholecystitis recommend a HIDA scan. 2. Nonobstructing right renal calculus. Dictated by: Jourdan Motta M.D. on 12/27/2016 at 17:14 Approved by: Jourdan Motta M.D. on 12/27/2016 at 17:17
--- NOTE | 2016-12-27 17:50 | NUR ---
Social Work-continued d/c planning: Data:EMR reviewed. Pt is on day 23 of hospitalization for delirium per H&P. Pt is medically stable for discharge pending placement. SW requested that UR specialist follow up on [facility] that had been called, to determine if they have space, reviewed the referral, and to find out about pricing. Pt has $2200 a month to spend on placement. SW had conversation with daughter yesterday and she is agreeable to plan. SW will continue to follow. Assessment:pt who would benefit from Placement. Plan:SW to continue to work on [facility] placement. SW requested that UR specialist follow up on [facility] that had been called, to determine if they have space, reviewed the referral, and to find out about pricing.SW will continue to follow. STEWART Contreras
[2016-12-27 20:49] VITALS: BP 117/75; PULSE 78; RESP 18; O2SAT 95
--- NOTE | 2016-12-28 05:02 | NUR ---
Sleep/agitation PT slept well until 0430hrs when she got up to the BR then refused to go back into the [facility] bed, she wanted to leave the hospital. PT assisted back into the [facility] with the zipper closed.
[2016-12-28 05:20] VITALS: BP 125/65; PULSE 77; RESP 18; O2SAT 96
[2016-12-28] MEDS: Polyethylene Glycol (PEG) 17 Gm Powder PO SCH (08:30)
[2016-12-28] MEDS: RISPERIDONE 1 MG/ML PO SCH ×2 (08:41→21:05)
--- NOTE | 2016-12-28 08:55 | NUR ---
[facility] HOME SEARCH FOLLOW UP : Called and spoke with Skyla the grief counselor of [facility] in [place] and she is unable to take patient due to the wander risk and [place]. She did let me know when it comes to private pay rates they vary depending on the care and things needed to provide appropriate care for patient. Updated STONE CUTTER Addendum: 12/28/16 at 1558 by JAVIER MANDUJANO CM Called and spoke with [facility] and her costs are starting at $4000 per month she will not be able to accept patient Called and spoke with [facility] in [place] and they had a local resident move into the open room. Updated STONE CUTTER
--- NOTE | 2016-12-28 13:07 | NUR ---
NUTRITION FOLLOW-UP: ASSESS: 66 YO Female admitted with altered mental status, agitation related to advanced dementia with possible underlying psychiatric disease, status post suicide attempt. PO intake appears to be improving with pt now starting to eat 20-25% of meals. Remeron was trialed; however, it had no effect on her PO intake, and it increased her lethargy. Risperidone increased earlier this week which MD is hoping will help increase appetite as well. Pt. is cleared medically; however, placement is an issue. PMHX: Alzheimer's Dementia, dysphagia, nephrolithiasis with recent stent placement. DIET: Soft. Ensure all trays. Magic cup at Breakfast, pudding at dinner. PO refusal-25%, taking some Ensure per RN. LABS: Reviewed. 12/26: Glu 111, AST 57, ALT 92, Alb 4.1 MEDS: Reviewed. GI: BM x 1 (12/26). WEIGHT: 12/19/16: 54.2 kg, BMI 22.0 kg/m2. Admit wt: 54.1 kg (standing) EST.NEEDS: 8468-0754 kcal (25-30 kcal/kg BW) 55-65 g pro (1.0-1.2 g/kg pro BW) NUTRITION DIAGNOSIS: (1) Inadequate oral intake related to AMS as evidenced by po intake 0-25% x 24 days - PERSISTS. INTERVENTION: (1) Continue Ensure supplements + variety of supplements on meals trays. (2) Recommend considering nutrition support pending pt overall POC/goals as pt has been with minimal nutrition now x 24 days. MONITOR/EVALUATE: PO intake, labs, nutritional status. Follow per high nutritional risk guidelines.
--- NOTE | 2016-12-28 14:32 | PCM.PNMED ---
Subjective Date of Service Dec 28, 2016 Subjective Still requiring Soma bed overnight, tried to leave hospital overnight. Exam Vital Signs Vital Sign - Last Date Time Temp Pulse Resp B/P Pulse Ox O2 Delivery O2 Flow Rate FiO2 12/28/16 05:20 36.8 77 18 125/65 96 Room Air Intake and Output 12/27/16 12/27/16 12/28/16 Cumulative From/Thru 15:00 23:00 07:00 12/04/16 13:11 - 12/28/16 06:37 Intake Total 236 ml 0 ml 87676 ml Output Total 600 ml Balance 236 ml 0 ml 38155 ml Intake Oral 236 ml 0 ml 95634 ml IV Total 4209 ml Output Urine Total 600 ml # Voids 4 3 172 # Bowel Movements 0 2 24 Exam Constitutional: Middle-aged female in no acute distress Head: Normocephalic atraumatic, poor dentition Chest: Clear to auscultation Cor: Regular rate and rhythm S1-S2 Abdomen: Soft nontender Extremities: No pedal edema Psych: Blunted affect IVs and Medications Medications Reviewed: Medications were reviewed in detail Lab and Diagnostics Result Diagram: 12/26/1615 12/26/16 0815 X-Rays, CTs and MRIs Date of Service: 12/05/16 1013 PROCEDURE: MRI STROKE PROTOCOL ([id number]) Pre- and post-contrast brain MRI, non-contrast brain MR angiogram, pre- and postcontrast neck MR angiogram INDICATIONS: psychosis dementia TECHNIQUE: Brain: Noncontrast axial T1 spin echo, axial T2 fast spin echo, sagittal and axial FLAIR, coronal T2 fast spin echo, axial gradient echo, axial diffusion and ADC through the brain. After the administration of contrast, axial 3D VIBE of the cranial vasculature and brain. Brain MRA: Non-contrast 3-D time of flight MR angiogram, with multiple maximum- intensity-projection (MIP) reformats performed. Neck MRA: Axial and sagittal TruFISP through the neck. Coronal dynamic MR angiogram during administration of contrast in the arterial and venous phases, with 3-dimenstional jgiekew-ncwivbqcx-qdwfvspliw (MIP) reformats constructed from subtraction images. COMPARISON: None. FINDINGS: Image quality: Excellent. BRAIN: CSF spaces: There is ex vacuo dilatation of the lateral ventricles, greatest in degree involving the temporal horns. Basal cisterns are patent. No extra- axial fluid collections. Brain: No intracranial bleeds or mass effects. Mild degree of patchy high FLAIR signal intensity within the periventricular and subcortical white matter. There is moderate diffuse cerebral volume loss, greatest in degree involving the frontal and anterior temporal lobes. Jasmine-white matter interface is normal. Diffusion weighted images show no acute ischemic insults. Brainstem appears normal. Normal intravascular flow voids are present. No abnormal intracranial enhancement. Skull and face: Calvarial marrow signal is normal. Orbits appear normal. Sinuses: Sinuses and mastoids are clear. BRAIN MR ANGIOGRAM: Anterior circulation: Intracranial internal carotid arteries are normal in size and enhancement. The flow within the paired anterior cerebral arteries is normal and symmetric. The flow within the middle cerebral arteries is normal and symmetric. The anterior communicating artery is seen. No stenoses, occlusions, or aneurysms. Posterior circulation: The visualized portions of the vertebral arteries demonstrate normal caliber, and join to form a normal appearing basilar artery. The flow within the posterior cerebral arteries is normal and symmetric. No stenoses, occlusions, or aneurysms. NECK MR ANGIOGRAM: Carotids: Great vessels demonstrate a conventional anatomy as they arise from the aortic arch. The origins of the common carotid arteries appear patent. The calibers and courses of both common carotid arteries are normal. The bifurcation regions appear normal bilaterally. The internal carotid arteries demonstrate normal course and caliber. Posterior circulation: The origins of the vertebral arteries appear patent. More superior portions of both vertebral arteries demonstrate normal course and caliber, and join to form a normal appearing basilar artery. Miscellaneous: Subclavian arteries appear patent. Pre-contrast images through the neck show no soft tissue abnormalities. IMPRESSION: BRAIN MRI: 1. No acute process. No recent infarct. 2. Small vessel ischemic disease. 3. Cerebral volume loss, greatest in degree within the frontal and temporal lobes bilaterally. BRAIN MR ANGIOGRAM: Negative cervical MR angiography. NECK MR ANGIOGRAM: 1. No internal coronary stenosis bilaterally. 2. Patent bilateral vertebral arteries. The estimate of stenosis included in the report of the imaging study was calculated using the NASCET method Dictated by: Jing aKte M.D. on 12/05/2016 at 16:29 Transcribed by: RAULITO on 12/05/2016 at 16:34 Approved by: Jing Kate M.D. on 12/05/2016 at 16:40 Assessment & Plan 66-year-old female with severe early onset dementia with attempted suicide attempt was found to have YESENIA, possible UTI, and AMS. Major neurocognitive disorder, NOS, poa, active. Irregular behaviors, agitation, likely due to advanced dementia with possible psychosis features or underlying psychiatric dz, dementia was presumably due to Alzheimer's dementia, pt was diagnosed dxed dementia already 7yrs ago per brother. no previous dx of psychiatric dz. Medical w/u including MRA, MRI of brain, vitB12, TSH, RPR, UCX, all negative. New regimen started on 12/09. -as per / recommendation below Risperidone 0.25mg po bid and 0.25mg po q6hr prn agitation ->increase to 0.5m bid Continue memantine 5mg po bid for 1 week then 5mg daily and 10mg nightly for 1 weeks then 10mg po bid. Consider adding SSRI e.g. escitalopram 5mg po daily for depression ->increase to 10mg daily Consider prazosin for possible PTSD>Started prazosin 1 mg qhs Patient would benefit from hearing aid to improve environmental cues Patient would benefit from picture board to identify items as has difficulty with naming object. Back pain, active -- Patient complains of pain in the lumbar sacral area -- Increased tramadol to every 4 hrs 50 mg when necessary Elevated ALT, calcium, and bilirubin; present on admission; ongoing, LFT shows mild hepatic dysfunction with mild elevations of bilirubin and large elevation of ALT; question this due to medication. -clinically stable, ALT trending down Episode of n/v, acute, poa, resolved- ikely medication induced, resolved, KUB showed moderate stools, no SOB. continue bowel regimen, Poor appetite active - slightly improved and likes to drink ensure supplements, Labs showed slight increase in liver function tests AST and ALT on 12/26. Hepatitis panel is completely negative. She has no abd tenderness. Consider RUQ US if there is concern - Per Dr. Garcia: "Did a trial 2 days of Remeron which did not seem to help her appetite and made her more lethargic. Remeron is discontinued" -- Consider Megace versus appetite promoting antipsychotics. m. - studies show drobinol may promote appetite, discuss with palliative care/ psych. - Follow up with Psych. YESENIA, POA, resolved. likely prerenal due to decreased Po intake, Patient received 2 L normal saline in the ED, started on 100cc/hr NS, resolved chronic, stable, resolved Reported dysphagia, POA, initially concerning given dementia, however, pt appeared euvolemic,relatively well nourished, passed swallowing test, continue general diet, Hx of nephrolithiasis, recent stent placement, POA, Abd US on 12/04 showed Interval resolution of right hydronephrosis status post ureteral stent placement. 1.7 cm nonobstructing right renal stone, pt was scheduled for elective Rt renal Laser lithotripsy 12/12, informed that pt is in the hospital. f/u with urology Probable UTI, POA, positive for leukocyte esterase, nitrites, few bacteria. pt was empirically start Rocephin but final UCX negative. Repeat UCX also contaminated, stopped abx 12/11. Chronic hypokalemia stable: We will discontinue her by mouth potassium Post menopausal symptoms chronic -- discontinued Estrace. diet: pt can tolerate diet but not eating, could be because of poor dentition, prefers to drink liquids Disposition: pending placement. Patient is medically cleared waiting for placement. VTE Prophylaxis: Sub-Q Heparin (Unfractionated) VTE Mechanical Devices: Venous Foot Pump Resuscitation Status: DNR/DNI:Do Not Resuscitate/Intubate Timothy Bee MD Dec 28, 2016 14:31
[2016-12-28 15:50] VITALS: BP 135/78; PULSE 82; RESP 20; O2SAT 96
--- NOTE | 2016-12-28 18:07 | NUR ---
Activity/behavior Pt up to use BR Q2 hours or more frequently if pt requests, amb to BR and tolerating activity well. Once done in the BR, pt has been insisting on sitting on couch in room vs returning to SOMA bed. Pt stating, "No, it's time for me to go now, I've been here long enough." Pt req encouragement and assistance to return to SOMA bed each time, which was then secured.
[2016-12-28 19:56] VITALS: BP 132/71; PULSE 87; RESP 20; O2SAT 97
[2016-12-29 06:14] VITALS: BP 126/68; PULSE 84; RESP 18; O2SAT 96
--- NOTE | 2016-12-29 07:25 | NUR ---
Behavior Pt in SOMA bed this shift, Q2 hour checks and documentation. Pt calm and cooperative with care, took HS meds crushed in pudding. Pt up to bathroom with SBA, no agitation noted this shift.
[2016-12-29] MEDS: RISPERIDONE 1 MG/ML PO SCH ×2 (07:40→20:30)
--- NOTE | 2016-12-29 11:26 | PCM.PNMED ---
Subjective Date of Service Dec 29, 2016 Subjective No agitation overnight, in S[facility] bed. Exam Vital Signs Vital Sign - Last Date Time Temp Pulse Resp B/P Pulse Ox O2 Delivery O2 Flow Rate FiO2 12/29/16 06:14 36.4 84 18 126/68 96 Room Air Intake and Output 12/28/16 12/28/16 12/29/16 Cumulative From/Thru 15:00 23:00 07:00 12/04/16 13:11 - 12/29/16 06:16 Intake Total 472 ml 380 ml 98505 ml Output Total 600 ml Balance 472 ml 380 ml 72548 ml Intake Oral 472 ml 380 ml 42877 ml IV Total 4209 ml Output Urine Total 600 ml # Voids 6 4 182 # Bowel Movements 2 2 28 Exam Constitutional: Middle-aged female in no acute distress Head: Normocephalic atraumatic, poor dentition Chest: Clear to auscultation Cor: Regular rate and rhythm S1-S2 Abdomen: Soft nontender Extremities: No pedal edema Psych: Blunted affect IVs and Medications Medications Reviewed: Medications were reviewed in detail Lab and Diagnostics Result Diagram: 12/26/16 0815 12/29/16 0632 X-Rays, CTs and MRIs Date of Service: 12/05/16 1013 PROCEDURE: MRI STROKE PROTOCOL ([id number]) Pre- and post-contrast brain MRI, non-contrast brain MR angiogram, pre- and postcontrast neck MR angiogram INDICATIONS: psychosis dementia TECHNIQUE: Brain: Noncontrast axial T1 spin echo, axial T2 fast spin echo, sagittal and axial FLAIR, coronal T2 fast spin echo, axial gradient echo, axial diffusion and ADC through the brain. After the administration of contrast, axial 3D VIBE of the cranial vasculature and brain. Brain MRA: Non-contrast 3-D time of flight MR angiogram, with multiple maximum- intensity-projection (MIP) reformats performed. Neck MRA: Axial and sagittal TruFISP through the neck. Coronal dynamic MR angiogram during administration of contrast in the arterial and venous phases, with 3-dimenstional kucaglr-lgdiiomte-jagbavazfm (MIP) reformats constructed from subtraction images. COMPARISON: None. FINDINGS: Image quality: Excellent. BRAIN: CSF spaces: There is ex vacuo dilatation of the lateral ventricles, greatest in degree involving the temporal horns. Basal cisterns are patent. No extra- axial fluid collections. Brain: No intracranial bleeds or mass effects. Mild degree of patchy high FLAIR signal intensity within the periventricular and subcortical white matter. There is moderate diffuse cerebral volume loss, greatest in degree involving the frontal and anterior temporal lobes. Jasmine-white matter interface is normal. Diffusion weighted images show no acute ischemic insults. Brainstem appears normal. Normal intravascular flow voids are present. No abnormal intracranial enhancement. Skull and face: Calvarial marrow signal is normal. Orbits appear normal. Sinuses: Sinuses and mastoids are clear. BRAIN MR ANGIOGRAM: Anterior circulation: Intracranial internal carotid arteries are normal in size and enhancement. The flow within the paired anterior cerebral arteries is normal and symmetric. The flow within the middle cerebral arteries is normal and symmetric. The anterior communicating artery is seen. No stenoses, occlusions, or aneurysms. Posterior circulation: The visualized portions of the vertebral arteries demonstrate normal caliber, and join to form a normal appearing basilar artery. The flow within the posterior cerebral arteries is normal and symmetric. No stenoses, occlusions, or aneurysms. NECK MR ANGIOGRAM: Carotids: Great vessels demonstrate a conventional anatomy as they arise from the aortic arch. The origins of the common carotid arteries appear patent. The calibers and courses of both common carotid arteries are normal. The bifurcation regions appear normal bilaterally. The internal carotid arteries demonstrate normal course and caliber. Posterior circulation: The origins of the vertebral arteries appear patent. More superior portions of both vertebral arteries demonstrate normal course and caliber, and join to form a normal appearing basilar artery. Miscellaneous: Subclavian arteries appear patent. Pre-contrast images through the neck show no soft tissue abnormalities. IMPRESSION: BRAIN MRI: 1. No acute process. No recent infarct. 2. Small vessel ischemic disease. 3. Cerebral volume loss, greatest in degree within the frontal and temporal lobes bilaterally. BRAIN MR ANGIOGRAM: Negative cervical MR angiography. NECK MR ANGIOGRAM: 1. No internal coronary stenosis bilaterally. 2. Patent bilateral vertebral arteries. The estimate of stenosis included in the report of the imaging study was calculated using the NASCET method Dictated by: Jing Kate M.D. on 12/05/2016 at 16:29 Transcribed by: RAULITO on 12/05/2016 at 16:34 Approved by: Jing Kate M.D. on 12/05/2016 at 16:40 Assessment & Plan 66-year-old female with severe early onset dementia with attempted suicide attempt was found to have YESENIA, UTI, and AMS. Major neurocognitive disorder, NOS, poa, active. Irregular behaviors, agitation, likely due to advanced dementia with possible psychosis features or underlying psychiatric dz, dementia was presumably due to Alzheimer's dementia, pt was diagnosed dxed dementia already 7yrs ago per brother. no previous dx of psychiatric dz. Medical w/u including MRA, MRI of brain, vitB12, TSH, RPR, UCX, all negative. New regimen started on 12/09. -as per / recommendation below Risperidone 0.25mg po bid and 0.25mg po q6hr prn agitation ->increase to 0.5m bid Continue memantine 5mg po bid for 1 week then 5mg daily and 10mg nightly for 1 weeks then 10mg po bid. Consider adding SSRI e.g. escitalopram 5mg po daily for depression ->increase to 10mg daily Consider prazosin for possible PTSD>Started prazosin 1 mg qhs Patient would benefit from hearing aid to improve environmental cues Patient would benefit from picture board to identify items as has difficulty with naming object. Back pain, active -- Patient complains of pain in the lumbar sacral area -- Increased tramadol to every 4 hrs 50 mg when necessary Elevated ALT, calcium, and bilirubin; present on admission; ongoing, LFT shows mild hepatic dysfunction with mild elevations of bilirubin and large elevation of ALT; question if this is due to medication. She has no abd tenderness. Consider RUQ US if there is concern. Hepatitis panel is negative. -clinically stable, AST/ALP wnl, ALT trending down Episode of n/v, acute, poa, resolved- ikely medication induced, resolved, KUB showed moderate stools, no SOB. continue bowel regimen, Poor appetite, active - Slightly improved and likes to drink ensure supplements, Labs showed slight increase in liver function tests AST and ALT on 12/26. - Trial of Remeron which did not seem to help her appetite and made her more lethargic. Remeron is discontinued" - Consider Megace versus appetite promoting antipsychotics. YESENIA, POA, resolved. was likely prerenal due to decreased Po intake, Patient received 2 L normal saline in the ED, started on 100cc/hr NS which are no d/cd. chronic, stable, resolved Reported dysphagia, POA, initially concerning given dementia, however, pt appeared euvolemic,relatively well nourished, passed swallowing test, continue general diet, Hx of nephrolithiasis, recent stent placement, POA, Abd US on 12/04 showed Interval resolution of right hydronephrosis status post ureteral stent placement. 1.7 cm nonobstructing right renal stone. - pt was scheduled for elective Rt renal Laser lithotripsy 12/12, informed that pt is in the hospital. f/u with urology after discharge. UTI, POA, resolved. positive for leukocyte esterase, nitrites, few bacteria. pt was empirically start Rocephin but final UCX negative. Repeat UCX also contaminated, stopped abx 12/11. Chronic hypokalemia stable: We will discontinue her by mouth potassium Post menopausal symptoms chronic -- discontinued Estrace. Disposition: pending placement. Patient is medically cleared waiting for placement. VTE Prophylaxis: Sub-Q Heparin (Unfractionated) VTE Mechanical Devices: Venous Foot Pump Resuscitation Status: DNR/DNI:Do Not Resuscitate/Intubate Timothy Bee MD Dec 29, 2016 11:26
--- NOTE | 2016-12-29 13:43 | NUR ---
Assumed care Assumed care of pt at 1230 from Liudmila Lanza RN. Pt awake, alert to self. Denies any pain and in no obvious distress. Currently visiting with dtr.
--- NOTE | 2016-12-29 15:43 | NUR ---
POST HOSPITAL FOLLOW UP: Spoke with CONTRACT ASSOCIATE Clinical Research Nurse and patient may be in need of a guardian, we have started the search for an [facility]. Patient may still not have enough funds to be in an [facility] PVT PAY. CONTRACT ASSOCIATE Clinical Research Nurse is following up with administration on this process and how to better assist patient in discharge planning. Updated CONTRACT ASSOCIATE
--- NOTE | 2016-12-29 18:13 | NUR ---
Behavior Pt has been calm, cooperative this shift. No attempts to leave, no aggressive behavior noted. Dtr in to visit. Call light in reach.
[2016-12-29 18:16] VITALS: BP 120/72; PULSE 85; RESP 18; O2SAT 100
[2016-12-29 20:25] VITALS: BP 124/78; PULSE 77; RESP 20; O2SAT 94
[2016-12-30 04:30] VITALS: BP 126/70; PULSE 78; RESP 20; O2SAT 95
--- NOTE | 2016-12-30 06:13 | NUR ---
Behavior Pt calm and cooperative with care this shift. Pt did try to leave her room when out of [facility] bed for bathroom use, pt stating she had to "go somewhere.", but could not say where to. Calmly motioned pt back to bed. Frequent rounding.
[2016-12-30] MEDS: RISPERIDONE 1 MG/ML PO SCH ×2 (08:10→22:18)
[2016-12-30] MEDS: MEGESTROL 40 MG/ML PO SCH (15:10)
--- NOTE | 2016-12-30 15:11 | PCM.PNMED ---
Subjective Date of Service Dec 30, 2016 Subjective Pt has decreased appetite. Still in [facility] bed due to wandering. Exam Vital Signs Vital Sign - Last Date Time Temp Pulse Resp B/P Pulse Ox O2 Delivery O2 Flow Rate FiO2 12/30/16 04:30 36.2 78 20 126/70 95 Room Air Intake and Output 12/29/16 12/29/16 12/30/16 Cumulative From/Thru 15:00 23:00 07:00 12/04/16 13:11 - 12/30/16 05:00 Intake Total 386 ml 51791 ml Output Total 600 ml Balance 386 ml 94524 ml Intake Oral 386 ml 30200 ml IV Total 4209 ml Output Urine Total 600 ml # Voids 2 184 # Bowel Movements 0 28 Exam Constitutional: Middle-aged female in no acute distress, agitated, impulsive. AOX1. Appears cachectic. Head: Normocephalic atraumatic, poor dentition Chest: Clear to auscultation CVS: Regular rate and rhythm S1-S2 Abdomen: Soft nontender Extremities: No pedal edema Psych: Blunted affect IVs and Medications Medications Reviewed: Medications were reviewed in detail Lab and Diagnostics Result Diagram: 12/26/16 0815 12/29/16 0632 X-Rays, CTs and MRIs Date of Service: 12/05/16 1013 PROCEDURE: MRI STROKE PROTOCOL ([id number]) Pre- and post-contrast brain MRI, non-contrast brain MR angiogram, pre- and postcontrast neck MR angiogram INDICATIONS: psychosis dementia TECHNIQUE: Brain: Noncontrast axial T1 spin echo, axial T2 fast spin echo, sagittal and axial FLAIR, coronal T2 fast spin echo, axial gradient echo, axial diffusion and ADC through the brain. After the administration of contrast, axial 3D VIBE of the cranial vasculature and brain. Brain MRA: Non-contrast 3-D time of flight MR angiogram, with multiple maximum- intensity-projection (MIP) reformats performed. Neck MRA: Axial and sagittal TruFISP through the neck. Coronal dynamic MR angiogram during administration of contrast in the arterial and venous phases, with 3-dimenstional pyvallk-lokhtgsht-yteltztcpd (MIP) reformats constructed from subtraction images. COMPARISON: None. FINDINGS: Image quality: Excellent. BRAIN: CSF spaces: There is ex vacuo dilatation of the lateral ventricles, greatest in degree involving the temporal horns. Basal cisterns are patent. No extra- axial fluid collections. Brain: No intracranial bleeds or mass effects. Mild degree of patchy high FLAIR signal intensity within the periventricular and subcortical white matter. There is moderate diffuse cerebral volume loss, greatest in degree involving the frontal and anterior temporal lobes. Jasmine-white matter interface is normal. Diffusion weighted images show no acute ischemic insults. Brainstem appears normal. Normal intravascular flow voids are present. No abnormal intracranial enhancement. Skull and face: Calvarial marrow signal is normal. Orbits appear normal. Sinuses: Sinuses and mastoids are clear. BRAIN MR ANGIOGRAM: Anterior circulation: Intracranial internal carotid arteries are normal in size and enhancement. The flow within the paired anterior cerebral arteries is normal and symmetric. The flow within the middle cerebral arteries is normal and symmetric. The anterior communicating artery is seen. No stenoses, occlusions, or aneurysms. Posterior circulation: The visualized portions of the vertebral arteries demonstrate normal caliber, and join to form a normal appearing basilar artery. The flow within the posterior cerebral arteries is normal and symmetric. No stenoses, occlusions, or aneurysms. NECK MR ANGIOGRAM: Carotids: Great vessels demonstrate a conventional anatomy as they arise from the aortic arch. The origins of the common carotid arteries appear patent. The calibers and courses of both common carotid arteries are normal. The bifurcation regions appear normal bilaterally. The internal carotid arteries demonstrate normal course and caliber. Posterior circulation: The origins of the vertebral arteries appear patent. More superior portions of both vertebral arteries demonstrate normal course and caliber, and join to form a normal appearing basilar artery. Miscellaneous: Subclavian arteries appear patent. Pre-contrast images through the neck show no soft tissue abnormalities. IMPRESSION: BRAIN MRI: 1. No acute process. No recent infarct. 2. Small vessel ischemic disease. 3. Cerebral volume loss, greatest in degree within the frontal and temporal lobes bilaterally. BRAIN MR ANGIOGRAM: Negative cervical MR angiography. NECK MR ANGIOGRAM: 1. No internal coronary stenosis bilaterally. 2. Patent bilateral vertebral arteries. The estimate of stenosis included in the report of the imaging study was calculated using the NASCET method Dictated by: Jing Kate M.D. on 12/05/2016 at 16:29 Transcribed by: RAULITO on 12/05/2016 at 16:34 Approved by: Jing Kate M.D. on 12/05/2016 at 16:40 Assessment & Plan 66-year-old female with severe early onset dementia with attempted suicide attempt was found to have YESENIA, UTI, and AMS. Currently pending placement. Major neurocognitive disorder, NOS, poa, active. Irregular behaviors, agitation, likely due to advanced dementia with possible psychosis features or underlying psychiatric dz, dementia was presumably due to Alzheimer's dementia, pt was diagnosed dxed dementia already 7yrs ago per brother. no previous dx of psychiatric dz. Medical w/u including MRA, MRI of brain, vitB12, TSH, RPR, UCX, all negative. New regimen started on 12/09. -as per / recommendation below Risperidone 0.25mg po bid and 0.25mg po q6hr prn agitation ->increase to 0.5m bid Continue memantine 5mg po bid for 1 week then 5mg daily and 10mg nightly for 1 weeks then 10mg po bid. Consider adding SSRI e.g. escitalopram 5mg po daily for depression ->increase to 10mg daily Consider prazosin for possible PTSD>Started prazosin 1 mg qhs Patient would benefit from hearing aid to improve environmental cues Patient would benefit from picture board to identify items as has difficulty with naming object. Malnutrition- poa, active - Slightly improved and likes to drink ensure supplements, Labs showed slight increase in liver function tests AST and ALT on 12/26. - Trial of Remeron which did not seem to help her appetite and made her more lethargic. Remeron is discontinued" - 12/30- Per discussion with [employer] Inspector, will add high calorie nutritional supplements. - Added Megace on 12/30, 400mg qd initially. Increase if tolerated and effective. Back pain, active -- Patient complains of pain in the lumbar sacral area -- Increased tramadol to every 4 hrs 50 mg when necessary Elevated ALT, calcium, and bilirubin; present on admission; ongoing, LFT shows mild hepatic dysfunction with mild elevations of bilirubin and large elevation of ALT; question if this is due to medication. She has no abd tenderness. Consider RUQ US if there is concern. Hepatitis panel is negative. -clinically stable, AST/ALP wnl, ALT trending down YESENIA, POA, resolved. was likely prerenal due to decreased Po intake, Patient received 2 L normal saline in the ED, started on 100cc/hr NS which are no d/cd. Hx of nephrolithiasis, recent stent placement, POA, Abd US on 12/04 showed Interval resolution of right hydronephrosis status post ureteral stent placement. 1.7 cm nonobstructing right renal stone. - pt was scheduled for elective Rt renal Laser lithotripsy 12/12, informed that pt is in the hospital. f/u with urology after discharge. UTI, POA, resolved. positive for leukocyte esterase, nitrites, few bacteria. pt was empirically start Rocephin but final UCX negative. Repeat UCX also contaminated, stopped abx 12/11. Post menopausal symptoms chronic -- discontinued Estrace. Disposition: pending placement. Patient is medically cleared waiting for placement. Pain Evaluation: Adequate Pain Control VTE Prophylaxis: Sub-Q Enoxaparin VTE Mechanical Devices: Venous Foot Pump Resuscitation Status: DNR/DNI:Do Not Resuscitate/Intubate Timothy Bee MD Dec 30, 2016 15:11
[2016-12-30 15:32] VITALS: BP 98/56; PULSE 85; RESP 20; O2SAT 98
--- NOTE | 2016-12-30 15:51 | NUR ---
Behavior/nutrition Pt alert to self. Has required front main doors to be shut as she will likely walk out. No tele and no restraints. They were removed this morning as she has been resting on couch most of the day. Does require frequent re-orientating when she does get flustered and wants to leave the hospital. Corrie would like her ensure intake monitored. Info relayed to [employer] so they can communicate to RN during tray picks ups.
--- NOTE | 2016-12-30 16:06 | NUR ---
NUTRITION FOLLOW-UP: ASSESS: 66 YO Female admitted with altered mental status, agitation related to advanced dementia with possible underlying psychiatric disease, status post suicide attempt. Her PO intake has decreased to refusal of trays; fortunately she is drinking Ensure. Remeron was trialed; however, it had no effect on her PO intake, and it increased her lethargy. Per discussion with Dr. Bee today, trial of Megace 400 mg qd initiated this afternoon, and he is requesting nursing monitor supplement intake. PMHX: Alzheimer's Dementia, dysphagia, nephrolithiasis with recent stent placement. DIET: Soft. Ensure all trays. Magic cup at Breakfast, pudding at dinner. PO minimal with exception of Ensure. LABS: Reviewed. Labs not ordered today. MEDS: Reviewed. Megace, Risperdal. GI: BM x 2 (12/29). WEIGHT: 54.8 kg, BMI 22.0 kg/m2. Admit wt: 54.1 kg (standing) EST.NEEDS: 1823-4409 kcal (25-30 kcal/kg BW) 55-65 g pro (1.0-1.2 g/kg pro BW) NUTRITION DIAGNOSIS: (1) Inadequate oral intake related to AMS as evidenced by PO intake 0-25% x 26 days - PERSISTS. INTERVENTION: (1) Continue Ensure supplements + variety of high kcal / protein supplements on meals trays. (2) Reinforce monitoring of supplement intake by nursing. MONITOR/EVALUATE: PO intake, labs, nutritional status. Follow per high nutritional risk guidelines.
[2016-12-30 21:00] VITALS: BP 102/68; PULSE 74; RESP 20; O2SAT 97
[2016-12-31 05:08] VITALS: BP 104/67; PULSE 74; RESP 18; O2SAT 96
--- NOTE | 2016-12-31 06:25 | NUR ---
Behavior Pt in [facility] bed this shift, remains calm and cooperative with care, took HS meds crushed in pudding. Q2 hour restraint assessments.
[2016-12-31] MEDS: RISPERIDONE 1 MG/ML PO SCH ×2 (08:48→22:05)
[2016-12-31] MEDS: MEGESTROL 40 MG/ML PO SCH (08:48)
--- NOTE | 2016-12-31 12:10 | PCM.PNMED ---
Subjective Date of Service Dec 31, 2016 Subjective No overnight events. Soma bed in evening required. Less wandering in daytime. Exam Vital Signs Vital Sign - Last Date Time Temp Pulse Resp B/P Pulse Ox O2 Delivery O2 Flow Rate FiO2 12/31/16 05:08 36.6 74 18 104/67 96 Room Air Intake and Output 12/30/16 12/30/16 12/31/16 Cumulative From/Thru 15:00 23:00 07:00 12/04/16 13:11 - 12/31/16 06:10 Intake Total 694 ml 300 ml 26139 ml Output Total 600 ml Balance 694 ml 300 ml 83060 ml Intake Oral 694 ml 300 ml 66936 ml IV Total 4209 ml Output Urine Total 600 ml # Voids 3 3 190 # Bowel Movements 28 Exam Constitutional: Middle-aged female in no acute distress, agitated, impulsive. AOX1. Appears cachectic. Head: Normocephalic atraumatic, poor dentition Chest: Clear to auscultation CVS: Regular rate and rhythm S1-S2 Abdomen: Soft nontender Extremities: No pedal edema Psych: Blunted affect IVs and Medications Medications Reviewed: Medications were reviewed in detail Lab and Diagnostics Result Diagram: 12/26/16 0815 12/29/16 0632 X-Rays, CTs and MRIs Date of Service: 12/05/16 1013 PROCEDURE: MRI STROKE PROTOCOL ([id number]) Pre- and post-contrast brain MRI, non-contrast brain MR angiogram, pre- and postcontrast neck MR angiogram INDICATIONS: psychosis dementia TECHNIQUE: Brain: Noncontrast axial T1 spin echo, axial T2 fast spin echo, sagittal and axial FLAIR, coronal T2 fast spin echo, axial gradient echo, axial diffusion and ADC through the brain. After the administration of contrast, axial 3D VIBE of the cranial vasculature and brain. Brain MRA: Non-contrast 3-D time of flight MR angiogram, with multiple maximum- intensity-projection (MIP) reformats performed. Neck MRA: Axial and sagittal TruFISP through the neck. Coronal dynamic MR angiogram during administration of contrast in the arterial and venous phases, with 3-dimenstional ytyzkpd-ifvkjmcgd-liwpzdtqcm (MIP) reformats constructed from subtraction images. COMPARISON: None. FINDINGS: Image quality: Excellent. BRAIN: CSF spaces: There is ex vacuo dilatation of the lateral ventricles, greatest in degree involving the temporal horns. Basal cisterns are patent. No extra- axial fluid collections. Brain: No intracranial bleeds or mass effects. Mild degree of patchy high FLAIR signal intensity within the periventricular and subcortical white matter. There is moderate diffuse cerebral volume loss, greatest in degree involving the frontal and anterior temporal lobes. Jasmine-white matter interface is normal. Diffusion weighted images show no acute ischemic insults. Brainstem appears normal. Normal intravascular flow voids are present. No abnormal intracranial enhancement. Skull and face: Calvarial marrow signal is normal. Orbits appear normal. Sinuses: Sinuses and mastoids are clear. BRAIN MR ANGIOGRAM: Anterior circulation: Intracranial internal carotid arteries are normal in size and enhancement. The flow within the paired anterior cerebral arteries is normal and symmetric. The flow within the middle cerebral arteries is normal and symmetric. The anterior communicating artery is seen. No stenoses, occlusions, or aneurysms. Posterior circulation: The visualized portions of the vertebral arteries demonstrate normal caliber, and join to form a normal appearing basilar artery. The flow within the posterior cerebral arteries is normal and symmetric. No stenoses, occlusions, or aneurysms. NECK MR ANGIOGRAM: Carotids: Great vessels demonstrate a conventional anatomy as they arise from the aortic arch. The origins of the common carotid arteries appear patent. The calibers and courses of both common carotid arteries are normal. The bifurcation regions appear normal bilaterally. The internal carotid arteries demonstrate normal course and caliber. Posterior circulation: The origins of the vertebral arteries appear patent. More superior portions of both vertebral arteries demonstrate normal course and caliber, and join to form a normal appearing basilar artery. Miscellaneous: Subclavian arteries appear patent. Pre-contrast images through the neck show no soft tissue abnormalities. IMPRESSION: BRAIN MRI: 1. No acute process. No recent infarct. 2. Small vessel ischemic disease. 3. Cerebral volume loss, greatest in degree within the frontal and temporal lobes bilaterally. BRAIN MR ANGIOGRAM: Negative cervical MR angiography. NECK MR ANGIOGRAM: 1. No internal coronary stenosis bilaterally. 2. Patent bilateral vertebral arteries. The estimate of stenosis included in the report of the imaging study was calculated using the NASCET method Dictated by: Jing Kate M.D. on 12/05/2016 at 16:29 Transcribed by: RAULITO on 12/05/2016 at 16:34 Approved by: Jing Kate M.D. on 12/05/2016 at 16:40 Assessment & Plan 66-year-old female with severe early onset dementia with attempted suicide attempt was found to have YESENIA, UTI, and AMS. Currently pending placement. Major neurocognitive disorder, NOS, poa, active. Irregular behaviors, agitation, likely due to advanced dementia with possible psychosis features or underlying psychiatric dz, dementia was presumably due to Alzheimer's dementia, pt was diagnosed dxed dementia already 7yrs ago per brother. no previous dx of psychiatric dz. Medical w/u including MRA, MRI of brain, vitB12, TSH, RPR, UCX, all negative. New regimen started on 12/09. -as per / recommendation below Risperidone 0.25mg po bid and 0.25mg po q6hr prn agitation ->increase to 0.5m bid Continue memantine 5mg po bid for 1 week then 5mg daily and 10mg nightly for 1 weeks then 10mg po bid. Consider adding SSRI e.g. escitalopram 5mg po daily for depression ->increase to 10mg daily Consider prazosin for possible PTSD>Started prazosin 1 mg qhs Patient would benefit from hearing aid to improve environmental cues Patient would benefit from picture board to identify items as has difficulty with naming object. Malnutrition- poa, active - Slightly improved and likes to drink ensure supplements, Labs showed slight increase in liver function tests AST and ALT on 12/26. - Trial of Remeron which did not seem to help her appetite and made her more lethargic. Remeron is discontinued" - 12/30- Per discussion with Guide Alpine, will add high calorie nutritional supplements. - Added Megace on 12/30, 400mg qd initially. Increase if tolerated and effective. No change in appetite seen so far. Back pain, active -- Patient complains of pain in the lumbar sacral area -- Increased tramadol to every 4 hrs 50 mg when necessary Elevated ALT, calcium, and bilirubin; present on admission; ongoing, LFT shows mild hepatic dysfunction with mild elevations of bilirubin and large elevation of ALT; question if this is due to medication. She has no abd tenderness. Consider RUQ US if there is concern. Hepatitis panel is negative. -clinically stable, AST/ALP wnl, ALT trending down YESENIA, POA, resolved. was likely prerenal due to decreased Po intake, Patient received 2 L normal saline in the ED, started on 100cc/hr NS which are no d/cd. Hx of nephrolithiasis, recent stent placement, POA, Abd US on 12/04 showed Interval resolution of right hydronephrosis status post ureteral stent placement. 1.7 cm nonobstructing right renal stone. - pt was scheduled for elective Rt renal Laser lithotripsy 12/12, informed that pt is in the hospital. f/u with urology after discharge. UTI, POA, resolved. positive for leukocyte esterase, nitrites, few bacteria. pt was empirically start Rocephin but final UCX negative. Repeat UCX also contaminated, stopped abx 12/11. Post menopausal symptoms chronic -- discontinued Estrace. Disposition: pending placement. Patient is medically cleared waiting for placement. VTE Prophylaxis: Sub-Q Enoxaparin VTE Mechanical Devices: Venous Foot Pump Resuscitation Status: DNR/DNI:Do Not Resuscitate/Intubate Timothy Bee MD Dec 31, 2016 12:10
--- NOTE | 2016-12-31 16:41 | NUR ---
Nutrition Pt drank 204 mls total from 2 bottles of Ensure.
--- NOTE | 2016-12-31 18:08 | NUR ---
Behavior Pt was taken out of soma bed at round 1000 this morning, pt has been appropriate most of the day. Pt did walk out of room and walked the hallway with this RN. Pt was asking for the way out, pt was redirected back to room without incident. Pt is currently resting in soma bed with sides up, able to make needs known. Intentional rounding.
[2016-12-31 22:21] VITALS: BP 95/59; PULSE 77; RESP 18; O2SAT 94
[2017-01-01 04:29] VITALS: BP 126/72; PULSE 77; RESP 18; O2SAT 96
--- NOTE | 2017-01-01 07:17 | NUR ---
Nutrition, Activity: Pt drank 120 mls of ensure last night, took medication in a bite of pudding. Up to the bathroom about 3 times, otherwise slept in the bed. SOMA bed in room but unzipped entire shift.
[2017-01-01] MEDS: RISPERIDONE 1 MG/ML PO SCH ×2 (08:44→19:58)
[2017-01-01 09:15] VITALS: BP 93/63; PULSE 91; RESP 20; O2SAT 99
--- NOTE | 2017-01-01 13:39 | NUR ---
Social Work-continued d/c planning: Data& assessment:EMR Reviewed. Pt is on day 28 of hospitalization for delerium per H&P. Pt is medically stable pending placement. SW spoke with PRINTING SPECIALIST classified advertising supervisor today regarding pt. Pulp House Supervisor informed SW that last week pt's brother informed SW that he does not have access to pt's bank account so he would not be able to take money out to pay for AF. PRINTING SPECIALIST classified advertising supervisor to speak with admin regarding guardianship process and see if this is appropriate or other options for pt. SW will continue to follow. Plan:SW team to continue to pursue placement when appropriate. SW will continue to follow. STEWART Contreras
[2017-01-01 13:47] VITALS: BP 117/67; PULSE 79; RESP 18; O2SAT 96
--- NOTE | 2017-01-01 16:10 | PCM.PNMED ---
Subjective Date of Service Jan 01, 2017 Subjective Pt is wandering less today. Has been out of soma bed since yesterday. Still poor appetite. Exam Vital Signs Vital Sign - Last Date Time Temp Pulse Resp B/P Pulse Ox O2 Delivery O2 Flow Rate FiO2 01/01/17 13:47 37.0 79 18 117/67 96 Room Air Intake and Output 12/31/16 12/31/16 01/01/17 Cumulative From/Thru 15:00 23:00 07:00 12/04/16 13:11 - 01/01/17 04:31 Intake Total 500 ml 10903 ml Output Total 600 ml Balance 500 ml 36698 ml Intake Oral 500 ml 47062 ml IV Total 4209 ml Output Urine Total 600 ml # Voids 3 193 # Bowel Movements 28 Exam Constitutional: Middle-aged female in no acute distress, agitated, impulsive. AOX1. Appears cachectic. Head: Normocephalic atraumatic, poor dentition Chest: Clear to auscultation CVS: Regular rate and rhythm S1-S2 Abdomen: Soft nontender Extremities: No pedal edema Psych: Blunted affect IVs and Medications Medications Reviewed: Medications were reviewed in detail Lab and Diagnostics Result Diagram: 12/26/16 0815 12/29/16 0632 X-Rays, CTs and MRIs Date of Service: 12/05/16 1013 PROCEDURE: MRI STROKE PROTOCOL ([id number]) Pre- and post-contrast brain MRI, non-contrast brain MR angiogram, pre- and postcontrast neck MR angiogram INDICATIONS: psychosis dementia TECHNIQUE: Brain: Noncontrast axial T1 spin echo, axial T2 fast spin echo, sagittal and axial FLAIR, coronal T2 fast spin echo, axial gradient echo, axial diffusion and ADC through the brain. After the administration of contrast, axial 3D VIBE of the cranial vasculature and brain. Brain MRA: Non-contrast 3-D time of flight MR angiogram, with multiple maximum- intensity-projection (MIP) reformats performed. Neck MRA: Axial and sagittal TruFISP through the neck. Coronal dynamic MR angiogram during administration of contrast in the arterial and venous phases, with 3-dimenstional lvtbkxs-yfcjlzqgs-kycutoapsd (MIP) reformats constructed from subtraction images. COMPARISON: None. FINDINGS: Image quality: Excellent. BRAIN: CSF spaces: There is ex vacuo dilatation of the lateral ventricles, greatest in degree involving the temporal horns. Basal cisterns are patent. No extra- axial fluid collections. Brain: No intracranial bleeds or mass effects. Mild degree of patchy high FLAIR signal intensity within the periventricular and subcortical white matter. There is moderate diffuse cerebral volume loss, greatest in degree involving the frontal and anterior temporal lobes. Jasmine-white matter interface is normal. Diffusion weighted images show no acute ischemic insults. Brainstem appears normal. Normal intravascular flow voids are present. No abnormal intracranial enhancement. Skull and face: Calvarial marrow signal is normal. Orbits appear normal. Sinuses: Sinuses and mastoids are clear. BRAIN MR ANGIOGRAM: Anterior circulation: Intracranial internal carotid arteries are normal in size and enhancement. The flow within the paired anterior cerebral arteries is normal and symmetric. The flow within the middle cerebral arteries is normal and symmetric. The anterior communicating artery is seen. No stenoses, occlusions, or aneurysms. Posterior circulation: The visualized portions of the vertebral arteries demonstrate normal caliber, and join to form a normal appearing basilar artery. The flow within the posterior cerebral arteries is normal and symmetric. No stenoses, occlusions, or aneurysms. NECK MR ANGIOGRAM: Carotids: Great vessels demonstrate a conventional anatomy as they arise from the aortic arch. The origins of the common carotid arteries appear patent. The calibers and courses of both common carotid arteries are normal. The bifurcation regions appear normal bilaterally. The internal carotid arteries demonstrate normal course and caliber. Posterior circulation: The origins of the vertebral arteries appear patent. More superior portions of both vertebral arteries demonstrate normal course and caliber, and join to form a normal appearing basilar artery. Miscellaneous: Subclavian arteries appear patent. Pre-contrast images through the neck show no soft tissue abnormalities. IMPRESSION: BRAIN MRI: 1. No acute process. No recent infarct. 2. Small vessel ischemic disease. 3. Cerebral volume loss, greatest in degree within the frontal and temporal lobes bilaterally. BRAIN MR ANGIOGRAM: Negative cervical MR angiography. NECK MR ANGIOGRAM: 1. No internal coronary stenosis bilaterally. 2. Patent bilateral vertebral arteries. The estimate of stenosis included in the report of the imaging study was calculated using the NASCET method Dictated by: Jing Kate M.D. on 12/05/2016 at 16:29 Transcribed by: RAULITO on 12/05/2016 at 16:34 Approved by: Jing Kate M.D. on 12/05/2016 at 16:40 Assessment & Plan 66-year-old female with severe early onset dementia with attempted suicide attempt was found to have YESENIA, UTI, and AMS. Currently pending placement. Major neurocognitive disorder, NOS, poa, active. Irregular behaviors, agitation, likely due to advanced dementia with possible psychosis features or underlying psychiatric dz, dementia was presumably due to Alzheimer's dementia, pt was diagnosed dxed dementia already 7yrs ago per brother. no previous dx of psychiatric dz. Medical w/u including MRA, MRI of brain, vitB12, TSH, RPR, UCX, all negative. New regimen started on 12/09. -as per / recommendation below Risperidone 0.25mg po bid and 0.25mg po q6hr prn agitation ->increase to 0.5m bid Continue memantine 5mg po bid for 1 week then 5mg daily and 10mg nightly for 1 weeks then 10mg po bid. Consider adding SSRI e.g. escitalopram 5mg po daily for depression ->increase to 10mg daily Consider prazosin for possible PTSD>Started prazosin 1 mg qhs Patient would benefit from hearing aid to improve environmental cues Patient would benefit from picture board to identify items as has difficulty with naming object. Malnutrition- poa, active - Slightly improved and likes to drink ensure supplements, Labs showed slight increase in liver function tests AST and ALT on 12/26. - Trial of Remeron which did not seem to help her appetite and made her more lethargic. Remeron is discontinued" - 12/30- Per discussion with Ceiling Installer, will add high calorie nutritional supplements. - Tried Megace on 12/30 without improvement. - 01/01- Added Dronabinol 2.5mg BID w/ meals. Back pain, active -- Patient complains of pain in the lumbar sacral area -- Increased tramadol to every 4 hrs 50 mg when necessary Elevated ALT, calcium, and bilirubin; present on admission; ongoing, LFT shows mild hepatic dysfunction with mild elevations of bilirubin and large elevation of ALT; question if this is due to medication. She has no abd tenderness. Consider RUQ US if there is concern. Hepatitis panel is negative. -clinically stable, AST/ALP wnl, ALT trending down YESENIA, POA, resolved. was likely prerenal due to decreased Po intake, Patient received 2 L normal saline in the ED, started on 100cc/hr NS which are no d/cd. Hx of nephrolithiasis, recent stent placement, POA, Abd US on 12/04 showed Interval resolution of right hydronephrosis status post ureteral stent placement. 1.7 cm nonobstructing right renal stone. - pt was scheduled for elective Rt renal Laser lithotripsy 12/12, informed that pt is in the hospital. f/u with urology after discharge. UTI, POA, resolved. positive for leukocyte esterase, nitrites, few bacteria. pt was empirically start Rocephin but final UCX negative. Repeat UCX also contaminated, stopped abx 12/11. Post menopausal symptoms chronic -- discontinued Estrace. Disposition: pending placement. Patient is medically cleared waiting for placement. VTE Prophylaxis: Sub-Q Enoxaparin VTE Mechanical Devices: Venous Foot Pump Resuscitation Status: DNR/DNI:Do Not Resuscitate/Intubate Timothy Bee MD Jan 01, 2017 16:10
[2017-01-01 17:34] VITALS: BP 121/72; PULSE 115; RESP 20; O2SAT 97
[2017-01-01 19:59] VITALS: BP 132/77; PULSE 84; RESP 20; O2SAT 98
--- NOTE | 2017-01-02 05:42 | NUR ---
Emesis around 05:20 pt had unmeasured amount of emesis. pt vomited onto the floor, brown color observed. pt did receive HS meds in chocolate pudding. pt declined to take any other PO fluids/food during the night when encouraged by RN. pt did take a sip of water when offered, and did take one observed sip of her ensure. pt did accept PRN Zofran PO, no further emesis at this time. Addendum: 01/02/17 at 0630 by JESSICA THOMPSON RN pt had approx 30mL of brown/clear emesis at this time. pt accepted ice chips, but spit it out after trying one.
[2017-01-02] MEDS: RISPERIDONE 1 MG/ML PO SCH ×3 (08:30→21:01)
[2017-01-02] MEDS ORDERED: MEGESTROL 40 MG/ML PO SCH (08:30)
--- NOTE | 2017-01-02 09:30 | NUR ---
Nausea/emesis Pt c/o nausea and had brown watery emesis X2. Pt stated that she just doesn't feel well. VS WNL except pulse was 108. notified. 4mg PO Zofran administered. wanted Marinol discontinued and morning dose administration withheld. pt was reassessed and stated that she still did not feel well but nausea was gone Addendum: 01/02/17 at 1403 by YARITZA BAGLEY RN Pt continued to have emesis X4. notified. Bowel tones active. Abd xray ordered. EKG ordered to check QT interval before administering 8mg Zofran. QT and QTC WNL two 4mg PO Zofran administered. Held all morning medications Addendum: 01/02/17 at 1739 by YARITZA BAGLEY RN Pt continued to dry heave but refused anymore anti-emetics.
[2017-01-02] MEDS ORDERED: Alum-Mag Hydrox-Simeth 30 mL Suspension PO PRN (10:15)
[2017-01-02] MEDS ORDERED: Ondansetron 2 mg/mL 2 mL Inj IVPUSH PRN (10:15)
[2017-01-02] MEDS ORDERED: Polyethylene Glycol (PEG) 17 Gm Powder PO PRN (10:15)
[2017-01-02 10:19] VITALS: BP 129/75; PULSE 108; RESP 18; O2SAT 96
[2017-01-02 14:37] LABS: BASOPHILS % (AUTO) 0.1 % (0-3); EOSINOPHILS % (AUTO) 0 % (0-5); MONOCYTES % (AUTO) 4.9 % (4-12); Mean Corpuscular Hemoglobin 32.4 pg (27.0-35.0); Mean Corpuscular Volume 95.2 fL (81-100); Platelet Count 304 bil/L (150-400)
[2017-01-02 14:40] VITALS: BP 144/81; PULSE 102; RESP 16; O2SAT 96
--- NOTE | 2017-01-02 14:44 | DRSVH ---
PROCEDURE: X-RAY ABDOMEN, ONE VIEW ([id number]) INDICATIONS: Emesis TECHNIQUE: One view of the abdomen acquired. COMPARISON: [facility], CR, XR ABD AP 1VW, 12/11/2016, 9:09. FINDINGS: Surgical changes and devices: Stable positioning of right ureteral stent. Bowel: Bowel gas pattern is normal. Soft tissues: 2 calcifications projected over the right kidney largest measuring 1.1 cm and the small er 6 mm. Bones: No suspicious bony lesions. IMPRESSION: 1. Stable position of right ureteral stent and 2 right renal calcifications. Dictated by: Cooper Nuñez [facility] Interpreted: Sotero Ott MD on 01/02/2017 at 14:28 Approved by: Sotero Ott M.D. on 01/02/2017 at 14:42
[2017-01-02] MEDS ORDERED: ProchlorPERazine 5 mg/mL 2 mL Inj IVPUSH PRN (16:15)
--- NOTE | 2017-01-02 16:25 | NUR ---
NUTRITION FOLLOW-UP: ASSESS: 66 YO Female admitted with altered mental status, agitation related to advanced dementia with possible underlying psychiatric disease, status post suicide attempt. Pt continues to refuse meals trays. RN reports pt with nausea and vomiting overnight. Remeron was trialed; however, it had no effect on her PO intake, and it increased her lethargy. Megace also has been trialed. PMHX: Alzheimer's Dementia, dysphagia, nephrolithiasis with recent stent placement. DIET: Soft. Ensure all trays. Magic cup at Breakfast, pudding at dinner. Gelatien plus . PO intake remains minimal with exception of Ensure. LABS: Reviewed. K+ 3.4, Glu 132, ALT 67, Alb 4.3 MEDS: Reviewed. GI: BM x 4 (01/01) WEIGHT: 55.1 kg, BMI 22.0 kg/m2. Admit wt: 54.1 kg (standing) EST.NEEDS: 3106-4525 kcal (25-30 kcal/kg BW) 55-65 g pro (1.0-1.2 g/kg pro BW) NUTRITION DIAGNOSIS: (1) Inadequate oral intake related to AMS as evidenced by PO intake 0-25% x 29 days - PERSISTS. INTERVENTION: (1) Continue Ensure supplements + variety of high kcal / protein supplements on meals trays. (2) Gelatein Plus added TID between meals to encourage po intake. MONITOR/EVALUATE: PO intake, labs, nutritional status. Follow per high nutritional risk guidelines.
--- NOTE | 2017-01-02 17:09 | NUR ---
Social Work-continued d/c planning: Data:EMR reviewed. Pt is on day 29 of hospitalization for delirum per H&P. Pt is medically stable pending placement. BHUPENDRA spoke with INDUSTRIAL SAFETY AND HEALTH MANAGER travel information center supervisor who informed SW that SW will need to speak with family to work on family pursuing guardianship of pt. BHUPENDRA placed a call to daughter Heather to discuss. SW explained that she and her uncle will need to discuss who will pursue guardianship for pt. SW explained that the family will need to work on this. daughter is agreeable and states that she can work on hiring a archeology faculty member. Daughter states she is sure that pt's brother has access to her bank account, but brother told SW something different last week. SW attempted to reach brother Kush with no answer, message left. BHUPENDRA will continue to follow. Assessment:Pt who will need placement. Plan:Family will need to pursue guardianship of pt for SW to be able to move forward with placement. No family member is able to access pt's bank account at this time. BHUPENDRA has left message with brotherBHUPENDRA to follow up tomorrow. BHUPENDRA will continue to follow. STEWART Contreras
--- NOTE | 2017-01-02 17:53 | PCM.PNMED ---
Subjective Date of Service Jan 02, 2017 Subjective PT has been nauseous since starting Marinol. Exam Vital Signs Vital Sign - Last Date Time Temp Pulse Resp B/P Pulse Ox O2 Delivery O2 Flow Rate FiO2 01/02/17 14:40 37.1 102 16 144/81 96 Room Air Intake and Output 01/01/17 01/01/17 01/02/17 Cumulative From/Thru 15:00 23:00 07:00 12/04/16 13:11 - 01/02/17 06:30 Intake Total 120 ml 305 ml 0 ml 60272 ml Output Total 30 ml 630 ml Balance 120 ml 305 ml -30 ml 87968 ml Intake Oral 0 ml 305 ml 0 ml 15325 ml IV Total 120 ml 4329 ml Output Urine Total 600 ml Emesis 30 ml 30 ml # Voids 1 3 1 198 # Bowel Movements 4 32 Exam Constitutional: Middle-aged female in no acute distress, agitated, impulsive. AOX1. Appears cachectic. Head: Normocephalic atraumatic, poor dentition Chest: Clear to auscultation CVS: Regular rate and rhythm S1-S2 Abdomen: Soft nontender Extremities: No pedal edema Psych: Blunted affect IVs and Medications Medications Reviewed: Medications were reviewed in detail Lab and Diagnostics Result Diagram: 01/02/17 14201/02/17 142 X-Rays, CTs and MRIs Date of Service: 12/05/16 1013 PROCEDURE: MRI STROKE PROTOCOL ([id number]) Pre- and post-contrast brain MRI, non-contrast brain MR angiogram, pre- and postcontrast neck MR angiogram INDICATIONS: psychosis dementia TECHNIQUE: Brain: Noncontrast axial T1 spin echo, axial T2 fast spin echo, sagittal and axial FLAIR, coronal T2 fast spin echo, axial gradient echo, axial diffusion and ADC through the brain. After the administration of contrast, axial 3D VIBE of the cranial vasculature and brain. Brain MRA: Non-contrast 3-D time of flight MR angiogram, with multiple maximum- intensity-projection (MIP) reformats performed. Neck MRA: Axial and sagittal TruFISP through the neck. Coronal dynamic MR angiogram during administration of contrast in the arterial and venous phases, with 3-dimenstional sexfpvy-smjmqxgld-auispwrlpu (MIP) reformats constructed from subtraction images. COMPARISON: None. FINDINGS: Image quality: Excellent. BRAIN: CSF spaces: There is ex vacuo dilatation of the lateral ventricles, greatest in degree involving the temporal horns. Basal cisterns are patent. No extra- axial fluid collections. Brain: No intracranial bleeds or mass effects. Mild degree of patchy high FLAIR signal intensity within the periventricular and subcortical white matter. There is moderate diffuse cerebral volume loss, greatest in degree involving the frontal and anterior temporal lobes. Jasmine-white matter interface is normal. Diffusion weighted images show no acute ischemic insults. Brainstem appears normal. Normal intravascular flow voids are present. No abnormal intracranial enhancement. Skull and face: Calvarial marrow signal is normal. Orbits appear normal. Sinuses: Sinuses and mastoids are clear. BRAIN MR ANGIOGRAM: Anterior circulation: Intracranial internal carotid arteries are normal in size and enhancement. The flow within the paired anterior cerebral arteries is normal and symmetric. The flow within the middle cerebral arteries is normal and symmetric. The anterior communicating artery is seen. No stenoses, occlusions, or aneurysms. Posterior circulation: The visualized portions of the vertebral arteries demonstrate normal caliber, and join to form a normal appearing basilar artery. The flow within the posterior cerebral arteries is normal and symmetric. No stenoses, occlusions, or aneurysms. NECK MR ANGIOGRAM: Carotids: Great vessels demonstrate a conventional anatomy as they arise from the aortic arch. The origins of the common carotid arteries appear patent. The calibers and courses of both common carotid arteries are normal. The bifurcation regions appear normal bilaterally. The internal carotid arteries demonstrate normal course and caliber. Posterior circulation: The origins of the vertebral arteries appear patent. More superior portions of both vertebral arteries demonstrate normal course and caliber, and join to form a normal appearing basilar artery. Miscellaneous: Subclavian arteries appear patent. Pre-contrast images through the neck show no soft tissue abnormalities. IMPRESSION: BRAIN MRI: 1. No acute process. No recent infarct. 2. Small vessel ischemic disease. 3. Cerebral volume loss, greatest in degree within the frontal and temporal lobes bilaterally. BRAIN MR ANGIOGRAM: Negative cervical MR angiography. NECK MR ANGIOGRAM: 1. No internal coronary stenosis bilaterally. 2. Patent bilateral vertebral arteries. The estimate of stenosis included in the report of the imaging study was calculated using the NASCET method Dictated by: Jing Kate M.D. on 12/05/2016 at 16:29 Transcribed by: RAULITO on 12/05/2016 at 16:34 Approved by: Jing Kate M.D. on 12/05/2016 at 16:40 Assessment & Plan 66-year-old female with severe early onset dementia with attempted suicide attempt was found to have YESENIA, UTI, and AMS. Currently pending placement. Major neurocognitive disorder, NOS, poa, active. Irregular behaviors, agitation, likely due to advanced dementia with possible psychosis features or underlying psychiatric dz, dementia was presumably due to Alzheimer's dementia, pt was diagnosed dxed dementia already 7yrs ago per brother. no previous dx of psychiatric dz. Medical w/u including MRA, MRI of brain, vitB12, TSH, RPR, UCX, all negative. New regimen started on 12/09. -as per / recommendation below Risperidone 0.25mg po bid and 0.25mg po q6hr prn agitation ->increase to 0.5m bid Continue memantine 5mg po bid for 1 week then 5mg daily and 10mg nightly for 1 weeks then 10mg po bid. Consider adding SSRI e.g. escitalopram 5mg po daily for depression ->increase to 10mg daily Consider prazosin for possible PTSD>Started prazosin 1 mg qhs Patient would benefit from hearing aid to improve environmental cues Patient would benefit from picture board to identify items as has difficulty with naming object. Malnutrition- poa, active - Slightly improved and likes to drink ensure supplements, Labs showed slight increase in liver function tests AST and ALT on 12/26. - Trial of Remeron which did not seem to help her appetite and made her more lethargic. Remeron is discontinued" - 12/30- Per discussion with Director Of Brand Marketing, will add high calorie nutritional supplements. - Tried Megace on 12/30 without improvement. - 01/01- Added Dronabinol 2.5mg BID w/ meals, pt did not tolerate at all due to nausea. Stopped. Back pain, active -- Patient complains of pain in the lumbar sacral area -- Increased tramadol to every 4 hrs 50 mg when necessary Elevated ALT, calcium, and bilirubin; present on admission; ongoing, LFT shows mild hepatic dysfunction with mild elevations of bilirubin and large elevation of ALT; question if this is due to medication. She has no abd tenderness. Consider RUQ US if there is concern. Hepatitis panel is negative. -clinically stable, AST/ALP wnl, ALT trending down YESENIA, POA, resolved. was likely prerenal due to decreased Po intake, Patient received 2 L normal saline in the ED, started on 100cc/hr NS which are no d/cd. Hx of nephrolithiasis, recent stent placement, POA, Abd US on 12/04 showed Interval resolution of right hydronephrosis status post ureteral stent placement. 1.7 cm nonobstructing right renal stone. - pt was scheduled for elective Rt renal Laser lithotripsy 12/12, informed that pt is in the hospital. f/u with urology after discharge. UTI, POA, resolved. positive for leukocyte esterase, nitrites, few bacteria. pt was empirically start Rocephin but final UCX negative. Repeat UCX also contaminated, stopped abx 12/11. Post menopausal symptoms chronic -- discontinued Estrace. Disposition: pending placement. Patient is medically cleared waiting for placement. VTE Prophylaxis: Sub-Q Enoxaparin VTE Mechanical Devices: Venous Foot Pump Resuscitation Status: DNR/DNI:Do Not Resuscitate/Intubate Timothy Bee MD Jan 02, 2017 17:53
[2017-01-02 20:02] VITALS: BP 148/80; PULSE 97; RESP 16; O2SAT 97
[2017-01-03 06:13] VITALS: BP 148/82; PULSE 94; RESP 16; O2SAT 97
--- NOTE | 2017-01-03 06:40 | NUR ---
Emesis/Void Pt had emesis(saliva)/dry heave throughout the shift with little output. Pt refused Zofran 4mg SL and then took it later in the shift on which appeared to be helpful. Pt did not void this shift and did not drink much. Care continues.
[2017-01-03] MEDS: RISPERIDONE 1 MG/ML PO SCH ×2 (09:23→19:54)
[2017-01-03 11:02] LABS: APPEARANCE,URINE CLOUDY (CLEAR,HAZY); COLOR,URINE DARK YELLOW (YELLOW); OCCULT BLOOD,URINE LARGE (NEGATIVE)
[2017-01-03 11:06] LABS: UROBILINOGEN,URINE NORMAL (NORMAL)
[2017-01-03 13:47] VITALS: BP 152/96; PULSE 96; RESP 18; O2SAT 97
--- NOTE | 2017-01-03 14:31 | PCM.PNMED ---
Subjective Date of Service Jan 03, 2017 Subjective pt cannot answer questions, remained alert, had dry heaves multiple times, but looked comfortable. Exam Vital Signs Vital Sign - Last Date Time Temp Pulse Resp B/P Pulse Ox O2 Delivery O2 Flow Rate FiO2 01/03/17 13:47 37.2 96 18 152/96 97 Room Air Intake and Output 01/02/17 01/02/17 01/03/17 Cumulative From/Thru 15:00 23:00 07:00 12/04/16 13:11 - 01/02/17 21:05 Intake Total 50 ml 91390 ml Output Total 100 ml 100 ml 830 ml Balance -100 ml -50 ml 66828 ml Intake Oral 50 ml 16060 ml IV Total 4329 ml Output Urine Total 600 ml Emesis 100 ml 100 ml 230 ml # Voids 3 201 # Bowel Movements 32 Exam cachectic, awake, calm, NAD, comfortably laying down on the bed no JVD, MMM, no LAD RRR, nl s1, s2 no mrg CTAB, no w,c S,ND,NT,BS+ warm, no edema, pulses 2/2 IVs and Medications Medications Reviewed: Medications were reviewed in detail Lab and Diagnostics Result Diagram: 01/02/17141901/02/17 1420 X-Rays, CTs and MRIs Date of Service: 12/05/16 1013 PROCEDURE: MRI STROKE PROTOCOL ([id number]) Pre- and post-contrast brain MRI, non-contrast brain MR angiogram, pre- and postcontrast neck MR angiogram INDICATIONS: psychosis dementia TECHNIQUE: Brain: Noncontrast axial T1 spin echo, axial T2 fast spin echo, sagittal and axial FLAIR, coronal T2 fast spin echo, axial gradient echo, axial diffusion and ADC through the brain. After the administration of contrast, axial 3D VIBE of the cranial vasculature and brain. Brain MRA: Non-contrast 3-D time of flight MR angiogram, with multiple maximum- intensity-projection (MIP) reformats performed. Neck MRA: Axial and sagittal TruFISP through the neck. Coronal dynamic MR angiogram during administration of contrast in the arterial and venous phases, with 3-dimenstional mrkmzjq-ngyxefrox-zpxvyofnon (MIP) reformats constructed from subtraction images. COMPARISON: None. FINDINGS: Image quality: Excellent. BRAIN: CSF spaces: There is ex vacuo dilatation of the lateral ventricles, greatest in degree involving the temporal horns. Basal cisterns are patent. No extra- axial fluid collections. Brain: No intracranial bleeds or mass effects. Mild degree of patchy high FLAIR signal intensity within the periventricular and subcortical white matter. There is moderate diffuse cerebral volume loss, greatest in degree involving the frontal and anterior temporal lobes. Jasmine-white matter interface is normal. Diffusion weighted images show no acute ischemic insults. Brainstem appears normal. Normal intravascular flow voids are present. No abnormal intracranial enhancement. Skull and face: Calvarial marrow signal is normal. Orbits appear normal. Sinuses: Sinuses and mastoids are clear. BRAIN MR ANGIOGRAM: Anterior circulation: Intracranial internal carotid arteries are normal in size and enhancement. The flow within the paired anterior cerebral arteries is normal and symmetric. The flow within the middle cerebral arteries is normal and symmetric. The anterior communicating artery is seen. No stenoses, occlusions, or aneurysms. Posterior circulation: The visualized portions of the vertebral arteries demonstrate normal caliber, and join to form a normal appearing basilar artery. The flow within the posterior cerebral arteries is normal and symmetric. No stenoses, occlusions, or aneurysms. NECK MR ANGIOGRAM: Carotids: Great vessels demonstrate a conventional anatomy as they arise from the aortic arch. The origins of the common carotid arteries appear patent. The calibers and courses of both common carotid arteries are normal. The bifurcation regions appear normal bilaterally. The internal carotid arteries demonstrate normal course and caliber. Posterior circulation: The origins of the vertebral arteries appear patent. More superior portions of both vertebral arteries demonstrate normal course and caliber, and join to form a normal appearing basilar artery. Miscellaneous: Subclavian arteries appear patent. Pre-contrast images through the neck show no soft tissue abnormalities. IMPRESSION: BRAIN MRI: 1. No acute process. No recent infarct. 2. Small vessel ischemic disease. 3. Cerebral volume loss, greatest in degree within the frontal and temporal lobes bilaterally. BRAIN MR ANGIOGRAM: Negative cervical MR angiography. NECK MR ANGIOGRAM: 1. No internal coronary stenosis bilaterally. 2. Patent bilateral vertebral arteries. The estimate of stenosis included in the report of the imaging study was calculated using the NASCET method Dictated by: Jing Kate M.D. on 12/05/2016 at 16:29 Transcribed by: RAULITO on 12/05/2016 at 16:34 Approved by: Jing Kate M.D. on 12/05/2016 at 16:40 Assessment & Plan 66-year-old female with severe early onset dementia with attempted suicide attempt was found to have YESENIA, UTI, and AMS. Currently pending placement. Major neurocognitive disorder, NOS, poa, active. Irregular behaviors, agitation, likely due to advanced dementia with possible psychosis features or underlying psychiatric dz, dementia was presumably due to Alzheimer's dementia, pt was diagnosed dxed dementia already 7yrs ago per brother. no previous dx of psychiatric dz. Medical w/u including MRA, MRI of brain, vitB12, TSH, RPR, UCX, all negative. New regimen started on 12/09. -as per / recommendation below Risperidone 0.25mg po bid and 0.25mg po q6hr prn agitation ->increase to 0.5m bid Continue memantine 5mg po bid for 1 week then 5mg daily and 10mg nightly for 1 weeks then 10mg po bid. Consider adding SSRI e.g. escitalopram 5mg po daily for depression ->increase to 10mg daily Consider prazosin for possible PTSD>Started prazosin 1 mg qhs Patient would benefit from hearing aid to improve environmental cues Patient would benefit from picture board to identify items as has difficulty with naming object. Malnutrition- poa, active - Slightly improved and likes to drink ensure supplements, Labs showed slight increase in liver function tests AST and ALT on 12/26. - Trial of Remeron which did not seem to help her appetite and made her more lethargic. Remeron is discontinued" - 12/30- Per discussion with Maintenance Machinist, will add high calorie nutritional supplements. - Tried Megace on 12/30 without improvement. - 01/01- Added Dronabinol 2.5mg BID w/ meals, pt did not tolerate at all due to nausea. Stopped. Back pain, active -- Patient complains of pain in the lumbar sacral area -- Increased tramadol to every 4 hrs 50 mg when necessary Elevated ALT, calcium, and bilirubin; present on admission; ongoing, LFT shows mild hepatic dysfunction with mild elevations of bilirubin and large elevation of ALT; question if this is due to medication. She has no abd tenderness. Consider RUQ US if there is concern. Hepatitis panel is negative. -clinically stable, AST/ALP wnl, ALT trending down YESENIA, POA, resolved. was likely prerenal due to decreased Po intake, Patient received 2 L normal saline in the ED, started on 100cc/hr NS which are no d/cd. Hx of nephrolithiasis, recent stent placement, POA, Abd US on 12/04 showed Interval resolution of right hydronephrosis status post ureteral stent placement. 1.7 cm nonobstructing right renal stone. - pt was scheduled for elective Rt renal Laser lithotripsy 12/12, informed that pt is in the hospital. f/u with urology after discharge. UTI, POA, resolved. positive for leukocyte esterase, nitrites, few bacteria. pt was empirically start Rocephin but final UCX negative. Repeat UCX also contaminated, stopped abx 12/11. Post menopausal symptoms chronic -- discontinued Estrace. Disposition: pending placement. Patient is medically cleared waiting for placement. VTE Prophylaxis: Sub-Q Enoxaparin VTE Mechanical Devices: Venous Foot Pump Resuscitation Status: DNR/DNI:Do Not Resuscitate/Intubate Time spent 35min Mariana Dunn MD Jan 03, 2017 14:31
--- NOTE | 2017-01-03 15:43 | NUR ---
Poor PO Intake patient continues to have very poor PO intake; refusing both breakfast and lunch. attempts to encourage PO intake either solid or liquid have been unsuccessful. So far, patient has only had a few bite of pudding with medications and sips of ensure. licensed staff mft has offered a variety of foods and snacks. patient refusing all. continue to offer sips of ensure and other snacks with each interaction. this afternoon patient reported some low back pain/soreness and nausea. Tylenol and Zofran PO appears to be effective. exact pain level and effectiveness of interventions are difficult to assess due to patient's cognitive delay; dementia. continue to monitor and continue to encourage PO intake.
[2017-01-03 19:29] VITALS: BP 144/74; PULSE 90; RESP 18; O2SAT 96
--- NOTE | 2017-01-03 20:13 | NUR ---
Nausea/HS medications Patient requested a "pain pill" at about 1950. Administered HS meds and PRN Tylenol, crushed in pudding. Patient swallowed first spoonful of medications, then started dry-heaving with second spoonful and had emesis. Unknown amount of how much of the medication was swallowed, approximately half. Then administered PRN Zofran. Patient is resting in bed quietly now. Patient family coach in place for patient safety.
--- NOTE | 2017-01-04 02:29 | NUR ---
NOC behavior Patient was mostly awake until about midnight. Patient up and down between bed and chair, kept busy by rearranging linens on bed. Patient does not respond to many questions asked, but able to report "arthritis" back pain and requested pain medication- administered PRN Tylenol and Tramadol. 1:1 patient second ride fare collector in place for wandering behavior. Patient reported that she wanted to "go to my other house", easily redirectable. Nausea has slowed down. Frequent rounding on patient and second ride fare collector in place for safety.
[2017-01-04 04:59] VITALS: BP 146/80; PULSE 100; RESP 18; O2SAT 97
[2017-01-04 07:51] LABS: BASOPHILS % (AUTO) 0.1 % (0-3); EOSINOPHILS % (AUTO) 0 % (0-5); MONOCYTES % (AUTO) 7.9 % (4-12); Mean Corpuscular Hemoglobin 33.4 pg (27.0-35.0); NEUTROPHILS % (AUTO) 84.9 % (40-74); Platelet Count 345 bil/L (150-400)
[2017-01-04 08:12] LABS: Magnesium 2.2 mg/dL (1.6-2.6)
[2017-01-04] MEDS: RISPERIDONE 1 MG/ML PO SCH ×2 (09:54→20:34)
--- NOTE | 2017-01-04 10:17 | NUR ---
Social Work-continued d/c planning: Data& assessment:EMR reviewed. Pt is on day 31 of hospitalization for delirium per H&P. Pt is medically stable pending placement. BHUPENDRA followed up with daughter Heather today regarding filing for guardianship. Daughter states she has not had a chance yet to work on this, but is planning on it. BHUPENDRA explained that someone in the family will need to go to the courthouse and file and then work with an cheese specialist. SW explained that the family would need to decide who can do this. Heather states she will work on it. BHUPENDRA explained that this needs to be a priority for her and the family to work on. BHUPENDRA called pt's brother Kush and confirmed that Kush does not have access to pt's bank accounts. BHUPENDRA provided Kush with the same information as Heather regarding Guardianship and explained someone in the family needs to file for this and work with an cheese specialist. Kush states an understanding. BHUPENDRA will continue to follow. Plan:Pt's family to work on filing for guardianship for pt. BHUPENDRA has spoken with both family members today and explained that this is a priority that needs to worked on. BHUPENDRA will continue to follow. STEWART Contreras
[2017-01-04] MEDS ORDERED: 0.9% Sodium Chloride 1,000 ML IV ONE (11:20)
--- NOTE | 2017-01-04 12:06 | NUR ---
ADIEL: Patient is unable to sign ADIEL and RN CONCURRENT REVIEW has been attempting with the daughter every 48 hours. We will be watching and when we become closer to discharge and finding accepting placement to continue with the calls every 48 hours. RN CONCURRENT REVIEW is in agreement with this and we will be following closely for additional signatures. Updated RN CONCURRENT REVIEW Geoscience Technician
--- NOTE | 2017-01-04 12:15 | PCM.PNMED ---
Subjective Date of Service Jan 04, 2017 Subjective pt still having persistent dry heaving, decreased appetite, not cooperating, labs showed marked increased of WBC, sCr, mild transaminitis. UA yesterday showed persistent hematuria Exam Vital Signs Vital Sign - Last Date Time Temp Pulse Resp B/P Pulse Ox O2 Delivery O2 Flow Rate FiO2 01/04/17 04:59 36.8 100 18 146/80 97 Room Air Intake and Output 01/03/17 01/03/17 01/04/17 Cumulative From/Thru 15:00 23:00 07:00 12/04/16 13:11 - 01/04/17 05:10 Intake Total 200 ml 180 ml 79678 ml Output Total 830 ml Balance 200 ml 180 ml 88431 ml Intake Oral 200 ml 180 ml 90641 ml IV Total 4329 ml Output Urine Total 600 ml Emesis 230 ml # Voids 8 4 213 # Bowel Movements 1 0 33 Exam cachectic, awake, calm, NAD, comfortably laying down on the bed no JVD, MMM, no LAD RRR, nl s1, s2 no mrg CTAB, no w,c S,ND,NT,BS+ warm, no edema, pulses 2/2 IVs and Medications Medications Reviewed: Medications were reviewed in detail Lab and Diagnostics Result Diagram: 01/04/1774101/04/1742 X-Rays, CTs and MRIs Date of Service: 12/05/16 1013 PROCEDURE: MRI STROKE PROTOCOL ([id number]) Pre- and post-contrast brain MRI, non-contrast brain MR angiogram, pre- and postcontrast neck MR angiogram INDICATIONS: psychosis dementia TECHNIQUE: Brain: Noncontrast axial T1 spin echo, axial T2 fast spin echo, sagittal and axial FLAIR, coronal T2 fast spin echo, axial gradient echo, axial diffusion and ADC through the brain. After the administration of contrast, axial 3D VIBE of the cranial vasculature and brain. Brain MRA: Non-contrast 3-D time of flight MR angiogram, with multiple maximum- intensity-projection (MIP) reformats performed. Neck MRA: Axial and sagittal TruFISP through the neck. Coronal dynamic MR angiogram during administration of contrast in the arterial and venous phases, with 3-dimenstional tskrpgu-ypbjoecsy-qcbhbudhic (MIP) reformats constructed from subtraction images. COMPARISON: None. FINDINGS: Image quality: Excellent. BRAIN: CSF spaces: There is ex vacuo dilatation of the lateral ventricles, greatest in degree involving the temporal horns. Basal cisterns are patent. No extra- axial fluid collections. Brain: No intracranial bleeds or mass effects. Mild degree of patchy high FLAIR signal intensity within the periventricular and subcortical white matter. There is moderate diffuse cerebral volume loss, greatest in degree involving the frontal and anterior temporal lobes. Jasmine-white matter interface is normal. Diffusion weighted images show no acute ischemic insults. Brainstem appears normal. Normal intravascular flow voids are present. No abnormal intracranial enhancement. Skull and face: Calvarial marrow signal is normal. Orbits appear normal. Sinuses: Sinuses and mastoids are clear. BRAIN MR ANGIOGRAM: Anterior circulation: Intracranial internal carotid arteries are normal in size and enhancement. The flow within the paired anterior cerebral arteries is normal and symmetric. The flow within the middle cerebral arteries is normal and symmetric. The anterior communicating artery is seen. No stenoses, occlusions, or aneurysms. Posterior circulation: The visualized portions of the vertebral arteries demonstrate normal caliber, and join to form a normal appearing basilar artery. The flow within the posterior cerebral arteries is normal and symmetric. No stenoses, occlusions, or aneurysms. NECK MR ANGIOGRAM: Carotids: Great vessels demonstrate a conventional anatomy as they arise from the aortic arch. The origins of the common carotid arteries appear patent. The calibers and courses of both common carotid arteries are normal. The bifurcation regions appear normal bilaterally. The internal carotid arteries demonstrate normal course and caliber. Posterior circulation: The origins of the vertebral arteries appear patent. More superior portions of both vertebral arteries demonstrate normal course and caliber, and join to form a normal appearing basilar artery. Miscellaneous: Subclavian arteries appear patent. Pre-contrast images through the neck show no soft tissue abnormalities. IMPRESSION: BRAIN MRI: 1. No acute process. No recent infarct. 2. Small vessel ischemic disease. 3. Cerebral volume loss, greatest in degree within the frontal and temporal lobes bilaterally. BRAIN MR ANGIOGRAM: Negative cervical MR angiography. NECK MR ANGIOGRAM: 1. No internal coronary stenosis bilaterally. 2. Patent bilateral vertebral arteries. The estimate of stenosis included in the report of the imaging study was calculated using the NASCET method Dictated by: Jing Kate M.D. on 12/05/2016 at 16:29 Transcribed by: RAULITO on 12/05/2016 at 16:34 Approved by: Jing Kate M.D. on 12/05/2016 at 16:40 Assessment & Plan 66-year-old female with severe early onset dementia with attempted suicide attempt was found to have YESENIA, UTI, and AMS. Currently pending placement. acute, active YESENIA, initially presented on admission, which was likely prerenal due to decreased Po intake, Patient received 2 L normal saline in the ED, started on 100cc/hr NS, YESENIA resolved, pt developed again YESENIA on 01/04, possibly with obstructive uropathy and/or prerenal -starte hydration 1liter bolus followed by 100cc/hr NS UTI, POA, resolved. positive for leukocyte esterase, nitrites, few bacteria. pt was empirically start Rocephin but final UCX negative. Repeat UCX also contaminated, stopped abx 12/11. -restarted CFX today given marked elevation of wbc -awaits UCX from 01/03 Elevated ALT, calcium, and bilirubin; present on admission; ongoing, LFT shows mild hepatic dysfunction with mild elevations of bilirubin and large elevation of ALT; question if this is due to medication. She has no abd tenderness. Hepatitis panel is negative. -clinically stable, Consider RUQ US if there is concern. chronic, stable Major neurocognitive disorder, NOS, poa, active. Irregular behaviors, agitation, likely due to advanced dementia with possible psychosis features or underlying psychiatric dz, dementia was presumably due to Alzheimer's dementia, pt was diagnosed dxed dementia already 7yrs ago per brother. no previous dx of psychiatric dz. Medical w/u including MRA, MRI of brain, vitB12, TSH, RPR, UCX, all negative. New regimen started on 12/09. -as per / recommendation below Risperidone 0.25mg po bid and 0.25mg po q6hr prn agitation ->increase to 0.5m bid Continue memantine 5mg po bid for 1 week then 5mg daily and 10mg nightly for 1 weeks then 10mg po bid. Consider adding SSRI e.g. escitalopram 5mg po daily for depression ->increase to 10mg daily Consider prazosin for possible PTSD>Started prazosin 1 mg qhs Patient would benefit from hearing aid to improve environmental cues Patient would benefit from picture board to identify items as has difficulty with naming object. Malnutrition- poa, active - Slightly improved and likes to drink ensure supplements, Labs showed slight increase in liver function tests AST and ALT on 12/26. - Trial of Remeron which did not seem to help her appetite and made her more lethargic. Remeron is discontinued" - 12/30- Per discussion with Tassel Clipper, will add high calorie nutritional supplements. - Tried Megace on 12/30 without improvement. - 01/01- Added Dronabinol 2.5mg BID w/ meals, pt did not tolerate at all due to nausea. Stopped. Back pain, active -- Patient complains of pain in the lumbar sacral area -- Increased tramadol to every 4 hrs 50 mg when necessary Hx of nephrolithiasis, recent stent placement, POA, Abd US on 12/04 showed Interval resolution of right hydronephrosis status post ureteral stent placement. 1.7 cm nonobstructing right renal stone. - pt was scheduled for elective Rt renal Laser lithotripsy 12/12, informed that pt is in the hospital. f/u with urology after discharge. Post menopausal symptoms chronic -- discontinued Estrace. Disposition: pending placement VTE Prophylaxis: Sub-Q Enoxaparin VTE Mechanical Devices: Venous Foot Pump Resuscitation Status: DNR/DNI:Do Not Resuscitate/Intubate Time spent 35min Mariana Dunn MD Jan 04, 2017 12:15
[2017-01-04] MEDS: cefTRIAXone Inj 1,000 MG in Dextrose 5% Minibag Plus 50 ML IV SCH (12:38)
[2017-01-04 13:16] VITALS: BP 168/98; PULSE 99; RESP 18; O2SAT 98
[2017-01-04] MEDS: 0.9% Sodium Chloride 1,000 ML IV SCH ×2 (14:19→21:20)
--- NOTE | 2017-01-04 17:15 | NUR ---
Behavior / IV Patient has signs of urinary tract infection per lab reports and MD. Patient compliant with RN inserting IV and cooperative with fluid bolus and IV antibiotics. Agrees to leave IV alone and allow RN to assess. Bed low and locked, call light in reach, sitter at bedside for safety. Frequent rounding in place.
[2017-01-04 20:40] VITALS: BP 161/83; PULSE 102; RESP 22; O2SAT 96
--- NOTE | 2017-01-04 22:00 | NUR ---
Behavior/IV Patient pulled IV out. MD on floor at time, gave verbal order to leave it out overnight. Patient's radio maintainer dc'd at beginning of shift, but then restarted around 2200 for patient wandering. Patient came out of room twice and tried to go into other patients' rooms. Patient has been sleeping since about 2230.
[2017-01-05 05:48] VITALS: BP 147/81; PULSE 107; RESP 20; O2SAT 94
[2017-01-05 06:59] LABS: BASOPHILS % (AUTO) 0.1 % (0-3); EOSINOPHILS % (AUTO) 0.1 % (0-5); MONOCYTES % (AUTO) 8.3 % (4-12); Mean Corpuscular Hemoglobin 32.6 pg (27.0-35.0); Mean Corpuscular Volume 96.6 fL (81-100); Platelet Count 292 bil/L (150-400)
[2017-01-05] MEDS: 0.9% Sodium Chloride 1,000 ML IV SCH ×2 (07:20→18:12)
[2017-01-05] MEDS: RISPERIDONE 1 MG/ML PO SCH ×2 (09:28→20:52)
[2017-01-05] MEDS ORDERED: 0.9% Sodium Chloride 1,000 ML IV SCH (10:20)
--- NOTE | 2017-01-05 11:43 | PCM.PNMED ---
Subjective Date of Service Jan 05, 2017 Subjective pt pulled out iv overnight, restless this AM, drank water okay, no dryheaving observed wbc is trending down. reported that pt is refusing diet, is not capable of following commands, encouraged sitter for feeding food, water Exam Vital Signs Vital Sign - Last Date Time Temp Pulse Resp B/P Pulse Ox O2 Delivery O2 Flow Rate FiO2 01/05/17 05:48 37.2 107 20 147/81 94 Room Air Intake and Output 01/04/17 01/04/17 01/05/17 Cumulative From/Thru 15:00 23:00 07:00 12/04/16 13:11 - 01/05/17 05:48 Intake Total 1395 ml 50 ml 88370 ml Output Total 830 ml Balance 1395 ml 50 ml 52047 ml Intake Oral 150 ml 50 ml 10868 ml IV Total 1245 ml 5574 ml Output Urine Total 600 ml Emesis 230 ml # Voids 3 2 218 # Bowel Movements 0 33 Exam cachectic, awake, calm, NAD, comfortably laying down on the bed no JVD, MMM, no LAD RRR, nl s1, s2 no mrg CTAB, no w,c S,ND,NT,BS+ warm, no edema, pulses 2/2 IVs and Medications Medications Reviewed: Medications were reviewed in detail Lab and Diagnostics Result Diagram: 01/05/1743 01/05/17 0643 X-Rays, CTs and MRIs Date of Service: 12/05/16 1013 PROCEDURE: MRI STROKE PROTOCOL ([id number]) Pre- and post-contrast brain MRI, non-contrast brain MR angiogram, pre- and postcontrast neck MR angiogram INDICATIONS: psychosis dementia TECHNIQUE: Brain: Noncontrast axial T1 spin echo, axial T2 fast spin echo, sagittal and axial FLAIR, coronal T2 fast spin echo, axial gradient echo, axial diffusion and ADC through the brain. After the administration of contrast, axial 3D VIBE of the cranial vasculature and brain. Brain MRA: Non-contrast 3-D time of flight MR angiogram, with multiple maximum- intensity-projection (MIP) reformats performed. Neck MRA: Axial and sagittal TruFISP through the neck. Coronal dynamic MR angiogram during administration of contrast in the arterial and venous phases, with 3-dimenstional fupbtaf-syajwfkwx-rayynflzqa (MIP) reformats constructed from subtraction images. COMPARISON: None. FINDINGS: Image quality: Excellent. BRAIN: CSF spaces: There is ex vacuo dilatation of the lateral ventricles, greatest in degree involving the temporal horns. Basal cisterns are patent. No extra- axial fluid collections. Brain: No intracranial bleeds or mass effects. Mild degree of patchy high FLAIR signal intensity within the periventricular and subcortical white matter. There is moderate diffuse cerebral volume loss, greatest in degree involving the frontal and anterior temporal lobes. Jasmine-white matter interface is normal. Diffusion weighted images show no acute ischemic insults. Brainstem appears normal. Normal intravascular flow voids are present. No abnormal intracranial enhancement. Skull and face: Calvarial marrow signal is normal. Orbits appear normal. Sinuses: Sinuses and mastoids are clear. BRAIN MR ANGIOGRAM: Anterior circulation: Intracranial internal carotid arteries are normal in size and enhancement. The flow within the paired anterior cerebral arteries is normal and symmetric. The flow within the middle cerebral arteries is normal and symmetric. The anterior communicating artery is seen. No stenoses, occlusions, or aneurysms. Posterior circulation: The visualized portions of the vertebral arteries demonstrate normal caliber, and join to form a normal appearing basilar artery. The flow within the posterior cerebral arteries is normal and symmetric. No stenoses, occlusions, or aneurysms. NECK MR ANGIOGRAM: Carotids: Great vessels demonstrate a conventional anatomy as they arise from the aortic arch. The origins of the common carotid arteries appear patent. The calibers and courses of both common carotid arteries are normal. The bifurcation regions appear normal bilaterally. The internal carotid arteries demonstrate normal course and caliber. Posterior circulation: The origins of the vertebral arteries appear patent. More superior portions of both vertebral arteries demonstrate normal course and caliber, and join to form a normal appearing basilar artery. Miscellaneous: Subclavian arteries appear patent. Pre-contrast images through the neck show no soft tissue abnormalities. IMPRESSION: BRAIN MRI: 1. No acute process. No recent infarct. 2. Small vessel ischemic disease. 3. Cerebral volume loss, greatest in degree within the frontal and temporal lobes bilaterally. BRAIN MR ANGIOGRAM: Negative cervical MR angiography. NECK MR ANGIOGRAM: 1. No internal coronary stenosis bilaterally. 2. Patent bilateral vertebral arteries. The estimate of stenosis included in the report of the imaging study was calculated using the NASCET method Dictated by: Jing Kate M.D. on 12/05/2016 at 16:29 Transcribed by: RAULITO on 12/05/2016 at 16:34 Approved by: Jing Kate M.D. on 12/05/2016 at 16:40 Assessment & Plan 66-year-old female with severe early onset dementia with attempted suicide attempt was found to have YESENIA, UTI, and AMS. Currently pending placement. acute, active YESENIA, initially presented on admission, which was likely prerenal due to decreased Po intake, Patient received 2 L normal saline in the ED, started on 100cc/hr NS, YESENIA resolved, pt developed again YESENIA on 01/04, possibly with obstructive uropathy and/or prerenal -s/p hydration 1liter bolus yesterday, will continue 100cc/hr NS UTI, POA, resolved. positive for leukocyte esterase, nitrites, few bacteria. pt was empirically start Rocephin but final UCX negative. Repeat UCX also contaminated, stopped abx 12/11. -restarted CFX01/04, given marked elevation of wbc, trending down -awaits UCX from 01/03 Elevated ALT, calcium, and bilirubin; present on admission; ongoing, LFT shows mild hepatic dysfunction with mild elevations of bilirubin and large elevation of ALT; question if this is due to medication. She has no abd tenderness. Hepatitis panel is negative. -clinically stable, trending down, will consider RUQ US if there is concern. chronic, stable Major neurocognitive disorder, NOS, poa, active. Irregular behaviors, agitation, likely due to advanced dementia with possible psychosis features or underlying psychiatric dz, dementia was presumably due to Alzheimer's dementia, pt was diagnosed dxed dementia already 7yrs ago per brother. no previous dx of psychiatric dz. Medical w/u including MRA, MRI of brain, vitB12, TSH, RPR, UCX, all negative. New regimen started on 12/09. -as per / recommendation below Risperidone 0.25mg po bid and 0.25mg po q6hr prn agitation ->increase to 0.5m bid Continue memantine 5mg po bid for 1 week then 5mg daily and 10mg nightly for 1 weeks then 10mg po bid. Consider adding SSRI e.g. escitalopram 5mg po daily for depression ->increase to 10mg daily Consider prazosin for possible PTSD>Started prazosin 1 mg qhs Patient would benefit from hearing aid to improve environmental cues Patient would benefit from picture board to identify items as has difficulty with naming object. Malnutrition- poa, active - Slightly improved and likes to drink ensure supplements, Labs showed slight increase in liver function tests AST and ALT on 12/26. - Trial of Remeron which did not seem to help her appetite and made her more lethargic. Remeron is discontinued" - 12/30- Per discussion with Commercial Front Load Driver, will add high calorie nutritional supplements. - Tried Megace on 12/30 without improvement. - 01/01- Added Dronabinol 2.5mg BID w/ meals, pt did not tolerate at all due to nausea. Stopped. Back pain, active -- Patient complains of pain in the lumbar sacral area -- Increased tramadol to every 4 hrs 50 mg when necessary Hx of nephrolithiasis, recent stent placement, POA, Abd US on 12/04 showed Interval resolution of right hydronephrosis status post ureteral stent placement. 1.7 cm nonobstructing right renal stone. - pt was scheduled for elective Rt renal Laser lithotripsy 12/12, informed that pt is in the hospital. f/u with urology after discharge. Post menopausal symptoms chronic -- discontinued Estrace. Disposition: pending placement VTE Prophylaxis: Sub-Q Enoxaparin VTE Mechanical Devices: Venous Foot Pump Resuscitation Status: DNR/DNI:Do Not Resuscitate/Intubate Time spent 35min Mariana Dunn MD Jan 05, 2017 11:43
[2017-01-05] MEDS ORDERED: KCl 40 mEq/D5W 500 mL 40 MEQ in IV Premix 1 EACH IV ONE (12:05)
[2017-01-05] MEDS ORDERED: 0.9% Sodium Chloride 250 ML ONE (12:54)
[2017-01-05] MEDS: cefTRIAXone Inj 1,000 MG in Dextrose 5% Minibag Plus 50 ML IV SCH (13:01)
--- NOTE | 2017-01-05 14:22 | NUR ---
NUTRITION FOLLOW-UP: ASSESS: 66 YO Female admitted with altered mental status, agitation related to advanced dementia , ? neurocognitive disorder. Discussed pt at A.M. rounds, concerned re pt refusal of po x 32 days. RN reports pt taking Ensure okay, refuses most other foods, indicates pt likely to pull out NG tube if tube feeding trialed,will encourage sitter at each feeding; unclear if tube feeding is within pt wishes/goals of care. Standpipe Tender notes indicate daughter/family in guardianship process, potential family meeting to discuss with risk management per Case Management. PMHX: Alzheimer's Dementia, dysphagia, nephrolithiasis with recent stent placement. DIET: Soft. Ensure all trays. Magic cup at Breakfast, pudding at dinner. Gelatien plus . PO intake remains minimal with exception of Ensure. LABS: Reviewed. K+ 3.4, Glu 132, ALT 67, Alb 4.3 MEDS: Reviewed.Remeron was trialed; however, it had no effect on her PO intake, and it increased her lethargy. Megace also has been trialed. GI: BM x 1 (01/03) WEIGHT: (10/05):53.3 kg, BMI 22.0 kg/m2. Admit wt: 54.1 kg (standing) ; Wt loss 0.8kg EST.NEEDS: 0321-1264 kcal (25-30 kcal/kg BW) 55-65 g pro (1.0-1.2 g/kg pro BW) NUTRITION DIAGNOSIS: (1) Inadequate oral intake related to AMS as evidenced by PO intake 0-25% x 32 days - PERSISTS. INTERVENTION: (1) Continue Ensure supplements + variety of high kcal / protein supplements on meals trays. (2) Discontinue Gelatein Plus-- Pt refuses. (3) Recommend nutrition support with continued inadequate oral intake. See previous RD note for recommendations. MONITOR/EVALUATE: Await meeting for further discussion of pt goals/POC re nutrition concerns.F/U per high risk. Addendum: 01/05/17 at [address] TUBE FEEDING RECOMMENDATIONS: Jevity 1.5 @ 10ml/hr advancing 15ml q 8 hrs to goal rate of 40ml/hr to provide 1380kcal,58g prot.
[2017-01-05 14:29] VITALS: BP 166/65; PULSE 93; RESP 18; O2SAT 96
--- NOTE | 2017-01-05 18:37 | NUR ---
Mentation/Meals/ADL Pt. alert to self only. Does not remember location or why she is here in spite of frequent reorientation. Pt. also forgetful regarding IV and tubing and pulls at line. Pt. calm and cooperative with care but requires frequent instruction. Pt. cooperative with oral care, shower, bed linen change, and changing clothes. Pt. personal clothing washed and returned to pt. MULE PACKER/Sitter in room attempting to assist pt with meals and offering a variety of snacks and drinks throughout the day. Pt. taking small bites and sips then spitting into emesis bag. Sitter and RN encouraging pt. to ingest fluids often. Pt asking for her "W" when requesting pain medication for back pain. Took pills whole with water. Currently laying in bed. Sitter at bedside. Frequent rounding being performed.
[2017-01-05 20:11] VITALS: BP 159/91; PULSE 89; RESP 18; O2SAT 98
[2017-01-06 03:40] VITALS: BP 146/79; PULSE 88; RESP 17; O2SAT 94
[2017-01-06 06:08] LABS: BASOPHILS % (AUTO) 0.2 % (0-3); EOSINOPHILS % (AUTO) 0.2 % (0-5); MONOCYTES % (AUTO) 7.8 % (4-12); Mean Corpuscular Hemoglobin 32.8 pg (27.0-35.0); Mean Corpuscular Volume 98.9 fL (81-100); NEUTROPHILS % (AUTO) 73.8 % (40-74); Platelet Count 281 bil/L (150-400)
--- NOTE | 2017-01-06 08:46 | NUR ---
Social Work: Brief Note Patient's brother Kush Paredes ([phone]) came by to visit patient and asked to speak to BHUPENDRA. BHUPENDRA met with Kush in patient's room. Kush informed BHUPENDRA that he had spoken with Alexandrea earlier in the week and was informed that he and patient's daughter needed to come to an agreement on who was going to obtain guardianship on patient. Kush stated that he has been in room with patient and asked patient who she wanted to become her guardian. Kush states that patient said that she wanted him to become her guardian. BHUPENDRA informed Kush that unfortunately a verbal statement from patient will not work. BHUPENDRA informed Kush that he would need to obtain an staff attorney and file for guardianship with the court. Kush informed BHUPENDRA that he will start that process Sunday. Kush states that he will call BHUPENDRA to update along the way. BHUPENDRA will continue to follow. STEWART Maguire
[2017-01-06] MEDS: RISPERIDONE 1 MG/ML PO SCH ×2 (08:50→20:14)
[2017-01-06 10:47] VITALS: BP 134/82; PULSE 93; RESP 18; O2SAT 98
[2017-01-06] MEDS: cefTRIAXone Inj 1,000 MG in Dextrose 5% Minibag Plus 50 ML IV SCH (11:17)
[2017-01-06] MEDS: Dextrose 5% 0.9% NaCl 1,000 ML IV SCH ×2 (11:17→22:30)
[2017-01-06 16:50] VITALS: BP 127/85; PULSE 78; RESP 21; O2SAT 96
--- NOTE | 2017-01-06 18:03 | DRSVH ---
PROCEDURE: X-RAY ABDOMEN, ONE VIEW ([id number]) INDICATIONS: ileus TECHNIQUE: One view of the abdomen acquired. COMPARISON: [facility], CR, XR ABD AP 1VW, 01/02/2017, 12:51. FINDINGS: Surgical changes and devices: None. Bowel: Bowel gas pattern is normal. There is a large amount of stool in colon. Soft tissues: 2 large stones projecting to the right kidney, measuring 8 mm and 11 mm. There is a rig ht ureteral stent. Visualized solid organ contours appear normal in size. Bones: No suspicious bony lesions. IMPRESSION: 1. Large amount of stool in colon. 2. Right renal stones. Dictated by: Andrey Nice M.D. on 01/06/2017 at 18:00 Approved by: Andrey Nice M.D. on 01/06/2017 at 18:01
[2017-01-07 06:44] VITALS: BP 146/78; PULSE 89; RESP 18; O2SAT 97
[2017-01-07] MEDS: Dextrose 5% 0.9% NaCl 1,000 ML IV SCH ×2 (07:10→16:26)
[2017-01-07] MEDS ORDERED: PEG/Electrolytes 4,000 mL Solution PO ONE (07:20)
[2017-01-07 07:42] LABS: Magnesium 1.9 mg/dL (1.6-2.6)
[2017-01-07] MEDS: Potassium Chloride 20 mEq SR Tablet PO ONE ×2 (08:00→08:43)
[2017-01-07] MEDS: RISPERIDONE 1 MG/ML PO SCH ×2 (08:44→21:24)
--- NOTE | 2017-01-07 10:34 | PCM.PNMED ---
Subjective Date of Service Jan 06, 2017 Subjective pt looked calm, still not eating, intermittently vomited IVF switched to d5 NS 100cc/hr Exam Vital Signs Vital Sign - Last Date Time Temp Pulse Resp B/P Pulse Ox O2 Delivery O2 Flow Rate FiO2 01/06/17 10:47 36.7 93 18 134/82 98 Room Air Intake and Output 01/05/17 01/05/17 01/06/17 Cumulative From/Thru 15:00 23:00 07:00 12/04/16 13:11 - 01/06/17 05:10 Intake Total 306 ml 100 ml 11660 ml Output Total 20 ml 850 ml Balance 306 ml 80 ml 77593 ml Intake Oral 225 ml 100 ml 78054 ml IV Total 81 ml 5655 ml Output Urine Total 600 ml Emesis 20 ml 250 ml # Voids 5 3 226 # Bowel Movements 0 0 33 Exam cachectic, awake, calm, NAD, comfortably laying down on the bed no JVD, MMM, no LAD RRR, nl s1, s2 no mrg CTAB, no w,c S,ND,NT,BS+ warm, no edema, pulses 2/2 IVs and Medications Medications Reviewed: Medications were reviewed in detail Lab and Diagnostics Result Diagram: 01/06/17 0555 01/06/17 0555 X-Rays, CTs and MRIs Date of Service: 12/05/16 1013 PROCEDURE: MRI STROKE PROTOCOL ([id number]) Pre- and post-contrast brain MRI, non-contrast brain MR angiogram, pre- and postcontrast neck MR angiogram INDICATIONS: psychosis dementia TECHNIQUE: Brain: Noncontrast axial T1 spin echo, axial T2 fast spin echo, sagittal and axial FLAIR, coronal T2 fast spin echo, axial gradient echo, axial diffusion and ADC through the brain. After the administration of contrast, axial 3D VIBE of the cranial vasculature and brain. Brain MRA: Non-contrast 3-D time of flight MR angiogram, with multiple maximum- intensity-projection (MIP) reformats performed. Neck MRA: Axial and sagittal TruFISP through the neck. Coronal dynamic MR angiogram during administration of contrast in the arterial and venous phases, with 3-dimenstional cwlsomg-wpsyuadov-zntwzruyfl (MIP) reformats constructed from subtraction images. COMPARISON: None. FINDINGS: Image quality: Excellent. BRAIN: CSF spaces: There is ex vacuo dilatation of the lateral ventricles, greatest in degree involving the temporal horns. Basal cisterns are patent. No extra- axial fluid collections. Brain: No intracranial bleeds or mass effects. Mild degree of patchy high FLAIR signal intensity within the periventricular and subcortical white matter. There is moderate diffuse cerebral volume loss, greatest in degree involving the frontal and anterior temporal lobes. Jasmine-white matter interface is normal. Diffusion weighted images show no acute ischemic insults. Brainstem appears normal. Normal intravascular flow voids are present. No abnormal intracranial enhancement. Skull and face: Calvarial marrow signal is normal. Orbits appear normal. Sinuses: Sinuses and mastoids are clear. BRAIN MR ANGIOGRAM: Anterior circulation: Intracranial internal carotid arteries are normal in size and enhancement. The flow within the paired anterior cerebral arteries is normal and symmetric. The flow within the middle cerebral arteries is normal and symmetric. The anterior communicating artery is seen. No stenoses, occlusions, or aneurysms. Posterior circulation: The visualized portions of the vertebral arteries demonstrate normal caliber, and join to form a normal appearing basilar artery. The flow within the posterior cerebral arteries is normal and symmetric. No stenoses, occlusions, or aneurysms. NECK MR ANGIOGRAM: Carotids: Great vessels demonstrate a conventional anatomy as they arise from the aortic arch. The origins of the common carotid arteries appear patent. The calibers and courses of both common carotid arteries are normal. The bifurcation regions appear normal bilaterally. The internal carotid arteries demonstrate normal course and caliber. Posterior circulation: The origins of the vertebral arteries appear patent. More superior portions of both vertebral arteries demonstrate normal course and caliber, and join to form a normal appearing basilar artery. Miscellaneous: Subclavian arteries appear patent. Pre-contrast images through the neck show no soft tissue abnormalities. IMPRESSION: BRAIN MRI: 1. No acute process. No recent infarct. 2. Small vessel ischemic disease. 3. Cerebral volume loss, greatest in degree within the frontal and temporal lobes bilaterally. BRAIN MR ANGIOGRAM: Negative cervical MR angiography. NECK MR ANGIOGRAM: 1. No internal coronary stenosis bilaterally. 2. Patent bilateral vertebral arteries. The estimate of stenosis included in the report of the imaging study was calculated using the NASCET method Dictated by: Jing Kate M.D. on 12/05/2016 at 16:29 Transcribed by: RAULITO on 12/05/2016 at 16:34 Approved by: Jing Kate M.D. on 12/05/2016 at 16:40 Assessment & Plan 66-year-old female with severe early onset dementia with attempted suicide attempt was found to have YESENIA, UTI, and AMS. Currently pending placement. acute, active Intermittent n/v, decreased po intake, POA, ddx: related to urinary tract dz, UTI, ileus YESENIA, initially presented on admission, which was likely prerenal due to decreased Po intake, Patient received 2 L normal saline in the ED, started on 100cc/hr NS, YESENIA resolved, pt developed again YESENIA on 01/04, possibly with obstructive uropathy and/or prerenal -s/p hydration 1liter bolus 01/04, ns 100cc/hr, continue d5 ns 100cc/hr today UTI, POA, resolved. positive for leukocyte esterase, nitrites, few bacteria. pt was empirically start Rocephin but final UCX negative. Repeat UCX also contaminated, stopped abx 12/11. -restarted CFX01/04, given marked elevation of wbc, trending down -awaits UCX from 01/03 Elevated ALT, calcium, and bilirubin; present on admission; ongoing, LFT shows mild hepatic dysfunction with mild elevations of bilirubin and large elevation of ALT; question if this is due to medication. She has no abd tenderness. Hepatitis panel is negative. -clinically stable, trending down, will consider RUQ US if there is concern. chronic, stable Major neurocognitive disorder, NOS, poa, active. Irregular behaviors, agitation, likely due to advanced dementia with possible psychosis features or underlying psychiatric dz, dementia was presumably due to Alzheimer's dementia, pt was diagnosed dxed dementia already 7yrs ago per brother. no previous dx of psychiatric dz. Medical w/u including MRA, MRI of brain, vitB12, TSH, RPR, UCX, all negative. New regimen started on 12/09. -as per / recommendation below Risperidone 0.25mg po bid and 0.25mg po q6hr prn agitation ->increase to 0.5m bid Continue memantine 5mg po bid for 1 week then 5mg daily and 10mg nightly for 1 weeks then 10mg po bid. Consider adding SSRI e.g. escitalopram 5mg po daily for depression ->increase to 10mg daily Consider prazosin for possible PTSD>Started prazosin 1 mg qhs Patient would benefit from hearing aid to improve environmental cues Patient would benefit from picture board to identify items as has difficulty with naming object. Malnutrition- poa, active - Slightly improved and likes to drink ensure supplements, Labs showed slight increase in liver function tests AST and ALT on 12/26. - Trial of Remeron which did not seem to help her appetite and made her more lethargic. Remeron is discontinued" - 12/30- Per discussion with Apprentice Pattern Maker, will add high calorie nutritional supplements. - Tried Megace on 12/30 without improvement. - 01/01- Added Dronabinol 2.5mg BID w/ meals, pt did not tolerate at all due to nausea. Stopped. Back pain, active -- Patient complains of pain in the lumbar sacral area -- Increased tramadol to every 4 hrs 50 mg when necessary Hx of nephrolithiasis, recent stent placement, POA, Abd US on 12/04 showed Interval resolution of right hydronephrosis status post ureteral stent placement. 1.7 cm nonobstructing right renal stone. - pt was scheduled for elective Rt renal Laser lithotripsy 12/12, informed that pt is in the hospital. f/u with urology after discharge. Post menopausal symptoms chronic -- discontinued Estrace. Disposition: pending placement VTE Prophylaxis: Sub-Q Enoxaparin VTE Mechanical Devices: Venous Foot Pump Resuscitation Status: DNR/DNI:Do Not Resuscitate/Intubate Time spent 35min Mariana Dunn MD Jan 06, 2017 11:58
--- NOTE | 2017-01-07 10:37 | PCM.PNMED ---
Subjective Date of Service Jan 07, 2017 Subjective AXR showed large stool burden, pt appeared more weak still has intermittent n/v started PEG, aggressive bowel regimen tramadol stopped Exam Vital Signs Vital Sign - Last Date Time Temp Pulse Resp B/P Pulse Ox O2 Delivery O2 Flow Rate FiO2 01/07/17 06:44 36.8 89 18 146/78 97 Room Air Intake and Output 01/06/17 01/06/17 01/07/17 Cumulative From/Thru 15:00 23:00 07:00 12/04/16 13:11 - 01/07/17 06:44 Intake Total 2210 ml 250 ml 96181 ml Output Total 850 ml Balance 2210 ml 250 ml 36009 ml Intake Oral 0 ml 250 ml 54894 ml IV Total 2210 ml 7865 ml Output Urine Total 600 ml Emesis 250 ml # Voids 4 4 234 # Bowel Movements 2 0 35 Exam cachectic, awake, calm, NAD, comfortably laying down on the bed no JVD, MMM, no LAD RRR, nl s1, s2 no mrg CTAB, no w,c S,ND,NT,BS+ warm, no edema, pulses 2/2 IVs and Medications Medications Reviewed: Medications were reviewed in detail Lab and Diagnostics Result Diagram: 01/06/17 0555 01/07/17 0652 X-Rays, CTs and MRIs Date of Service: 12/05/16 1013 PROCEDURE: MRI STROKE PROTOCOL ([id number]) Pre- and post-contrast brain MRI, non-contrast brain MR angiogram, pre- and postcontrast neck MR angiogram INDICATIONS: psychosis dementia TECHNIQUE: Brain: Noncontrast axial T1 spin echo, axial T2 fast spin echo, sagittal and axial FLAIR, coronal T2 fast spin echo, axial gradient echo, axial diffusion and ADC through the brain. After the administration of contrast, axial 3D VIBE of the cranial vasculature and brain. Brain MRA: Non-contrast 3-D time of flight MR angiogram, with multiple maximum- intensity-projection (MIP) reformats performed. Neck MRA: Axial and sagittal TruFISP through the neck. Coronal dynamic MR angiogram during administration of contrast in the arterial and venous phases, with 3-dimenstional kbbxpoh-nqvxzisfs-ogbapylbcq (MIP) reformats constructed from subtraction images. COMPARISON: None. FINDINGS: Image quality: Excellent. BRAIN: CSF spaces: There is ex vacuo dilatation of the lateral ventricles, greatest in degree involving the temporal horns. Basal cisterns are patent. No extra- axial fluid collections. Brain: No intracranial bleeds or mass effects. Mild degree of patchy high FLAIR signal intensity within the periventricular and subcortical white matter. There is moderate diffuse cerebral volume loss, greatest in degree involving the frontal and anterior temporal lobes. Jasmine-white matter interface is normal. Diffusion weighted images show no acute ischemic insults. Brainstem appears normal. Normal intravascular flow voids are present. No abnormal intracranial enhancement. Skull and face: Calvarial marrow signal is normal. Orbits appear normal. Sinuses: Sinuses and mastoids are clear. BRAIN MR ANGIOGRAM: Anterior circulation: Intracranial internal carotid arteries are normal in size and enhancement. The flow within the paired anterior cerebral arteries is normal and symmetric. The flow within the middle cerebral arteries is normal and symmetric. The anterior communicating artery is seen. No stenoses, occlusions, or aneurysms. Posterior circulation: The visualized portions of the vertebral arteries demonstrate normal caliber, and join to form a normal appearing basilar artery. The flow within the posterior cerebral arteries is normal and symmetric. No stenoses, occlusions, or aneurysms. NECK MR ANGIOGRAM: Carotids: Great vessels demonstrate a conventional anatomy as they arise from the aortic arch. The origins of the common carotid arteries appear patent. The calibers and courses of both common carotid arteries are normal. The bifurcation regions appear normal bilaterally. The internal carotid arteries demonstrate normal course and caliber. Posterior circulation: The origins of the vertebral arteries appear patent. More superior portions of both vertebral arteries demonstrate normal course and caliber, and join to form a normal appearing basilar artery. Miscellaneous: Subclavian arteries appear patent. Pre-contrast images through the neck show no soft tissue abnormalities. IMPRESSION: BRAIN MRI: 1. No acute process. No recent infarct. 2. Small vessel ischemic disease. 3. Cerebral volume loss, greatest in degree within the frontal and temporal lobes bilaterally. BRAIN MR ANGIOGRAM: Negative cervical MR angiography. NECK MR ANGIOGRAM: 1. No internal coronary stenosis bilaterally. 2. Patent bilateral vertebral arteries. The estimate of stenosis included in the report of the imaging study was calculated using the NASCET method Dictated by: Jing Ktae M.D. on 12/05/2016 at 16:29 Transcribed by: RAULITO on 12/05/2016 at 16:34 Approved by: Jing Kate M.D. on 12/05/2016 at 16:40 Assessment & Plan 66-year-old female with severe early onset dementia with attempted suicide attempt was found to have YESENIA, UTI, and AMS. Currently pending placement. acute, active Intermittent n/v, decreased po intake, POA, ddx: likely from severe ileus -start PEG, aggressive bowel regimen, -zofran prn for n/v Elevated ALT, calcium, and bilirubin; present on admission; ongoing, LFT shows mild hepatic dysfunction with mild elevations of bilirubin and large elevation of ALT; question if this is due to medication. She has no abd tenderness. Hepatitis panel is negative. -clinically stable, trending down, will consider RUQ US if there is concern. chronic, stable YESENIA, initially presented on admission, which was likely prerenal due to decreased Po intake, Patient received 2 L normal saline in the ED, started on 100cc/hr NS, YESENIA resolved, pt developed again YESENIA on 01/04, possibly with obstructive uropathy and/or prerenal -s/p hydration 1liter bolus 01/04, ns 100cc/hr, then d5 ns 100cc/hr, YESENIA resolved , continue IVF for now UTI, POA, resolved. positive for leukocyte esterase, nitrites, few bacteria. pt was empirically start Rocephin but final UCX negative. Repeat UCX also contaminated, stopped abx 12/11. then pt was restarted CFX01/04-, given marked elevation of wbc, trending down, UCX from 01/03 showed mixed doron, abx stopped. Major neurocognitive disorder, NOS, poa, active. Irregular behaviors, agitation, likely due to advanced dementia with possible psychosis features or underlying psychiatric dz, dementia was presumably due to Alzheimer's dementia, pt was diagnosed dxed dementia already 7yrs ago per brother. no previous dx of psychiatric dz. Medical w/u including MRA, MRI of brain, vitB12, TSH, RPR, UCX, all negative. New regimen started on 12/09. -as per / recommendation below Risperidone 0.25mg po bid and 0.25mg po q6hr prn agitation ->increase to 0.5m bid Continue memantine 5mg po bid for 1 week then 5mg daily and 10mg nightly for 1 weeks then 10mg po bid. Consider adding SSRI e.g. escitalopram 5mg po daily for depression ->increase to 10mg daily Consider prazosin for possible PTSD>Started prazosin 1 mg qhs Patient would benefit from hearing aid to improve environmental cues Patient would benefit from picture board to identify items as has difficulty with naming object. Malnutrition- poa, active - Slightly improved and likes to drink ensure supplements, Labs showed slight increase in liver function tests AST and ALT on 12/26. - Trial of Remeron which did not seem to help her appetite and made her more lethargic. Remeron is discontinued" - 12/30- Per discussion with Manager Route, will add high calorie nutritional supplements. - Tried Megace on 12/30 without improvement. - 01/01- Added Dronabinol 2.5mg BID w/ meals, pt did not tolerate at all due to nausea. Stopped. Back pain, active -- Patient complains of pain in the lumbar sacral area -- Increased tramadol to every 4 hrs 50 mg when necessary Hx of nephrolithiasis, recent stent placement, POA, Abd US on 12/04 showed Interval resolution of right hydronephrosis status post ureteral stent placement. 1.7 cm nonobstructing right renal stone. - pt was scheduled for elective Rt renal Laser lithotripsy 12/12, informed that pt is in the hospital. f/u with urology after discharge. Post menopausal symptoms chronic -- discontinued Estrace. Disposition: pending placement VTE Prophylaxis: Sub-Q Enoxaparin VTE Mechanical Devices: Venous Foot Pump Resuscitation Status: DNR/DNI:Do Not Resuscitate/Intubate Time spent 35min Mariana Dunn MD Jan 07, 2017 10:37
--- NOTE | 2017-01-07 12:33 | NUR ---
Colyte/IV Pt given Colyte as ordered, took several sips, followed by small amounts of emesis. Declining offers of additional PO fluid. Pt is resting quietly on couch in room. This RN and 1:1 sitter at bedside, encouraging PO intake. Pt politely declines offers of food and drink. Continue to spit small amounts of clear saliva after any PO intake. IV re-started by IV therapy, fluids infusing. Frequent rounding in place.
[2017-01-07] MEDS: Polyethylene Glycol (PEG) 17 Gm Powder PO SCH ×2 (15:15→21:25)
[2017-01-07 16:01] VITALS: BP 156/77; PULSE 82; RESP 18; O2SAT 95
--- NOTE | 2017-01-07 17:42 | NUR ---
Behavior/constipation Pt has been resting quietly throughout shift, appears very subdued, has stayed the the couch in the bedroom for most of the day. No complains of increased pain. Pt is unwilling to accept oral and rectal medication to resolve significant constipation per imaging. Mineral oil enema administered, with assistance of additional staff. Pt tolerated well, clean brief in place. 1:1 sitter at bedside encouraging oral intake. Intentional rounding in place.
[2017-01-07 20:43] VITALS: BP 175/103; PULSE 86; RESP 17; O2SAT 95
[2017-01-07 22:03] VITALS: BP 186/101
[2017-01-07 23:45] VITALS: BP 162/99
[2017-01-08] MEDS: Dextrose 5% 0.9% NaCl 1,000 ML IV SCH ×3 (02:58→23:58)
[2017-01-08 04:02] VITALS: BP 119/69; PULSE 89; RESP 18; O2SAT 97
--- NOTE | 2017-01-08 06:05 | NUR ---
[id number] Received pt at 0300. PT did not respond verbally to any of my questions, but was cooperative with assessment. Asssessment benign. PT does not appear to be in any distress. Sitter is present to ensure IV preservation. PT is in a soma bed, but it is open and pt is free to get in and out at any time.
[2017-01-08 07:37] LABS: Platelet Count 282 bil/L (150-400)
[2017-01-08 07:38] LABS: BASOPHILS % (AUTO) 0.2 % (0-3); EOSINOPHILS % (AUTO) 0.4 % (0-5); MONOCYTES % (AUTO) 6.7 % (4-12); NEUTROPHILS % (AUTO) 79.8 % (40-74)
[2017-01-08 07:47] LABS: Magnesium 1.8 mg/dL (1.6-2.6)
[2017-01-08] MEDS: Polyethylene Glycol (PEG) 17 Gm Powder PO SCH ×2 (08:30→19:19)
--- NOTE | 2017-01-08 09:13 | PCM.PNMED ---
Subjective Date of Service Jan 08, 2017 Subjective no BM with miralax, ducolax, cannot tolerate PEG Exam Vital Signs Vital Sign - Last Date Time Temp Pulse Resp B/P Pulse Ox O2 Delivery O2 Flow Rate FiO2 01/08/17 04:02 36.9 89 18 119/69 97 Room Air Intake and Output 01/07/17 01/07/17 01/08/17 Cumulative From/Thru 15:00 23:00 07:00 12/04/16 13:11 - 01/08/17 05:13 Intake Total 1469 ml 1275 ml 16092 ml Output Total 200 ml 1050 ml Balance 1469 ml 1075 ml 24113 ml Intake Oral 50 ml 50 ml 31227 ml IV Total 1419 ml 1225 ml 10226 ml Output Urine Total 600 ml Emesis 200 ml 450 ml # Voids 3 5 242 # Bowel Movements 0 0 35 Exam cachectic, awake, calm, NAD, comfortably laying down on the bed no JVD, MMM, no LAD RRR, nl s1, s2 no mrg CTAB, no w,c S,ND,NT,BS+ warm, no edema, pulses 2/2 IVs and Medications Medications Reviewed: Medications were reviewed in detail Lab and Diagnostics Result Diagram: 01/08/17 0550 01/08/17 0550 X-Rays, CTs and MRIs Date of Service: 12/05/16 1013 PROCEDURE: MRI STROKE PROTOCOL ([id number]) Pre- and post-contrast brain MRI, non-contrast brain MR angiogram, pre- and postcontrast neck MR angiogram INDICATIONS: psychosis dementia TECHNIQUE: Brain: Noncontrast axial T1 spin echo, axial T2 fast spin echo, sagittal and axial FLAIR, coronal T2 fast spin echo, axial gradient echo, axial diffusion and ADC through the brain. After the administration of contrast, axial 3D VIBE of the cranial vasculature and brain. Brain MRA: Non-contrast 3-D time of flight MR angiogram, with multiple maximum- intensity-projection (MIP) reformats performed. Neck MRA: Axial and sagittal TruFISP through the neck. Coronal dynamic MR angiogram during administration of contrast in the arterial and venous phases, with 3-dimenstional mbwoodj-uqufpghjs-iiofrcwcvz (MIP) reformats constructed from subtraction images. COMPARISON: None. FINDINGS: Image quality: Excellent. BRAIN: CSF spaces: There is ex vacuo dilatation of the lateral ventricles, greatest in degree involving the temporal horns. Basal cisterns are patent. No extra- axial fluid collections. Brain: No intracranial bleeds or mass effects. Mild degree of patchy high FLAIR signal intensity within the periventricular and subcortical white matter. There is moderate diffuse cerebral volume loss, greatest in degree involving the frontal and anterior temporal lobes. Jasmine-white matter interface is normal. Diffusion weighted images show no acute ischemic insults. Brainstem appears normal. Normal intravascular flow voids are present. No abnormal intracranial enhancement. Skull and face: Calvarial marrow signal is normal. Orbits appear normal. Sinuses: Sinuses and mastoids are clear. BRAIN MR ANGIOGRAM: Anterior circulation: Intracranial internal carotid arteries are normal in size and enhancement. The flow within the paired anterior cerebral arteries is normal and symmetric. The flow within the middle cerebral arteries is normal and symmetric. The anterior communicating artery is seen. No stenoses, occlusions, or aneurysms. Posterior circulation: The visualized portions of the vertebral arteries demonstrate normal caliber, and join to form a normal appearing basilar artery. The flow within the posterior cerebral arteries is normal and symmetric. No stenoses, occlusions, or aneurysms. NECK MR ANGIOGRAM: Carotids: Great vessels demonstrate a conventional anatomy as they arise from the aortic arch. The origins of the common carotid arteries appear patent. The calibers and courses of both common carotid arteries are normal. The bifurcation regions appear normal bilaterally. The internal carotid arteries demonstrate normal course and caliber. Posterior circulation: The origins of the vertebral arteries appear patent. More superior portions of both vertebral arteries demonstrate normal course and caliber, and join to form a normal appearing basilar artery. Miscellaneous: Subclavian arteries appear patent. Pre-contrast images through the neck show no soft tissue abnormalities. IMPRESSION: BRAIN MRI: 1. No acute process. No recent infarct. 2. Small vessel ischemic disease. 3. Cerebral volume loss, greatest in degree within the frontal and temporal lobes bilaterally. BRAIN MR ANGIOGRAM: Negative cervical MR angiography. NECK MR ANGIOGRAM: 1. No internal coronary stenosis bilaterally. 2. Patent bilateral vertebral arteries. The estimate of stenosis included in the report of the imaging study was calculated using the NASCET method Dictated by: Jing Kate M.D. on 12/05/2016 at 16:29 Transcribed by: RAULITO on 12/05/2016 at 16:34 Approved by: Jing Kate M.D. on 12/05/2016 at 16:40 Assessment & Plan 66-year-old female with severe early onset dementia with attempted suicide attempt was found to have YESENIA, UTI, and AMS. Currently pending placement. acute, active Intermittent n/v, decreased po intake, POA, ddx: likely from severe ileus -will consider NGT for PEG after discussion with daughter, -continue aggressive bowel regimen, -zofran prn for n/v Elevated ALT, calcium, and bilirubin; present on admission; ongoing, LFT shows mild hepatic dysfunction with mild elevations of bilirubin and large elevation of ALT; question if this is due to medication. She has no abd tenderness. Hepatitis panel is negative. -clinically stable, trending down, will consider RUQ US if there is concern. chronic, stable YESENIA, initially presented on admission, which was likely prerenal due to decreased Po intake, Patient received 2 L normal saline in the ED, started on 100cc/hr NS, YESENIA resolved, pt developed again YESENIA on 01/04, possibly with obstructive uropathy and/or prerenal -s/p hydration 1liter bolus 01/04, ns 100cc/hr, then d5 ns 100cc/hr, YESENIA resolved , continue IVF for now UTI, POA, resolved. positive for leukocyte esterase, nitrites, few bacteria. pt was empirically start Rocephin but final UCX negative. Repeat UCX also contaminated, stopped abx 12/11. then pt was restarted CFX01/04-, given marked elevation of wbc, trending down, UCX from 01/03 showed mixed doron, abx stopped. Major neurocognitive disorder, NOS, poa, active. Irregular behaviors, agitation, likely due to advanced dementia with possible psychosis features or underlying psychiatric dz, dementia was presumably due to Alzheimer's dementia, pt was diagnosed dxed dementia already 7yrs ago per brother. no previous dx of psychiatric dz. Medical w/u including MRA, MRI of brain, vitB12, TSH, RPR, UCX, all negative. New regimen started on 12/09. -as per / recommendation below Risperidone 0.25mg po bid and 0.25mg po q6hr prn agitation ->increase to 0.5m bid Continue memantine 5mg po bid for 1 week then 5mg daily and 10mg nightly for 1 weeks then 10mg po bid. Consider adding SSRI e.g. escitalopram 5mg po daily for depression ->increase to 10mg daily Consider prazosin for possible PTSD>Started prazosin 1 mg qhs Patient would benefit from hearing aid to improve environmental cues Patient would benefit from picture board to identify items as has difficulty with naming object. Malnutrition- poa, active - Slightly improved and likes to drink ensure supplements, Labs showed slight increase in liver function tests AST and ALT on 12/26. - Trial of Remeron which did not seem to help her appetite and made her more lethargic. Remeron is discontinued" - 12/30- Per discussion with Log Handler, will add high calorie nutritional supplements. - Tried Megace on 12/30 without improvement. - 01/01- Added Dronabinol 2.5mg BID w/ meals, pt did not tolerate at all due to nausea. Stopped. Back pain, active -- Patient complains of pain in the lumbar sacral area -- Increased tramadol to every 4 hrs 50 mg when necessary Hx of nephrolithiasis, recent stent placement, POA, Abd US on 12/04 showed Interval resolution of right hydronephrosis status post ureteral stent placement. 1.7 cm nonobstructing right renal stone. - pt was scheduled for elective Rt renal Laser lithotripsy 12/12, informed that pt is in the hospital. f/u with urology after discharge. Post menopausal symptoms chronic -- discontinued Estrace. Disposition: pending placement VTE Prophylaxis: Sub-Q Enoxaparin VTE Mechanical Devices: Venous Foot Pump Resuscitation Status: DNR/DNI:Do Not Resuscitate/Intubate Time spent 35min Mariana Dunn MD Jan 08, 2017 09:13
[2017-01-08] MEDS: RISPERIDONE 1 MG/ML PO SCH ×2 (10:29→19:20)
[2017-01-08] MEDS ORDERED: Sodium Biphos-Phos 133 mL Enema RECTAL ONE (13:10)
[2017-01-08] MEDS ORDERED: Senna Leaf Extract 528 mg/15 mL Syrup PO ONE (13:10)
[2017-01-08] MEDS ORDERED: Senna Leaf Extract 528 mg/15 mL Syrup PO PRN (13:10)
[2017-01-08] MEDS: RISPERIDONE 1 MG/ML PO PRN (14:24)
--- NOTE | 2017-01-08 15:06 | NUR ---
NUTRITION FOLLOW-UP: ASSESS: 66 YO Female admitted with altered mental status, agitation related to advanced dementia, possible neurocognitive disorder. Pt continues to have poor po intake now x 35 days. MD and RN feel appetite may improve if constipation can be resolved as they feel intermittent nausea and vomiting are likely due to constipation. Pt would likely be unable to tolerate NG tube per MD/RN so senna and Colace to be tried for constipation. Integration Solution Architect notes indicate daughter/family in guardianship process, potential family meeting to discuss with risk management per Case Management. PMHX: Alzheimer's Dementia, dysphagia, nephrolithiasis with recent stent placement. DIET: Soft. Ensure all trays. Magic cup at Breakfast, pudding at dinner. PO intake remains minimal with exception of Ensure. LABS: Reviewed. K+ 3.2, Glu 123, Alb 3.4. MEDS: Reviewed. Remeron and Megace have been trialed. GI: BM x 2 (01/06) WEIGHT: 53.6 kg, BMI 22.0 kg/m2. Admit wt: 54.1 kg (standing) ; Wt loss 0.8kg EST.NEEDS: 6887-0370 kcal (25-30 kcal/kg BW) 55-65 g pro (1.0-1.2 g/kg pro BW) NUTRITION DIAGNOSIS: (1) Inadequate oral intake related to AMS as evidenced by PO intake 0-25% x 35 days - PERSISTS. INTERVENTION: (1) Continue Ensure supplements + variety of high kcal / protein supplements on meals trays. (2) Recommend nutrition support with continued inadequate oral intake if consistent with pt plan of care of Jevity 1.5 at 10ml/hr advancing 10 ml every 8 hours as tolerated to goal rate of 40 ml/hr to provide 1380 kcal and 58 g protein. Fluids to be determined at time of TF initiation. MONITOR/EVALUATE: Await meeting for further discussion of pt goals/POC re nutrition concerns, labs, nutritional status. Follow per high nutritional risk guidelines.
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
--- NOTE | 2017-01-08 16:13 | NUR ---
Constipation patient has been non-compliant with care today refusing fundraiser this am. refused oral hygiene with RN this am, refusing to eat and drink, taking 2 bites of pudding with medications this am only. Discussed with Dr Dunn options r/t patient's constipation. Dr Dunn ordered Liquid Senna, which patient initial refused to take until placed into a syringe and given into cheek. patient eventually swallowed the medication. Fleets enema given using long red catheter inserted into rectum, approx 6-8inches, in an attempt to instill the enema above the level of stool in rectum. patient was able to get to bathroom and had a small watery stool. very little stool present, mostly fleets liquid. patient also refused several attempts at a shower. patient spent most of day laying on sofa. several attempts by RN to converse with patient and all patient said was, "I'm suppose to tonight". continue to encourage PO food and fluid intake. continue with bowel regime and PRN stool softeners.
[2017-01-08 17:26] VITALS: BP 133/78; PULSE 86; RESP 16; O2SAT 98
--- NOTE | 2017-01-08 18:13 | NUR ---
Constipation patient was able to have one small BM after Senna and Fleets enema this afternoon. patient again refused shower/hygiene, several additional attempts and offering food/fluids also refused. continue to monitor and encourage PO intake.
[2017-01-08 20:20] VITALS: BP 159/98; PULSE 89; RESP 17; O2SAT 97
[2017-01-09 03:08] VITALS: BP 168/94; PULSE 84; RESP 17; O2SAT 96
[2017-01-09 06:47] LABS: BASOPHILS % (AUTO) 0.2 % (0-3); EOSINOPHILS % (AUTO) 0.8 % (0-5); Mean Corpuscular Hemoglobin 33.1 pg (27.0-35.0); NEUTROPHILS % (AUTO) 76.6 % (40-74); Platelet Count 267 bil/L (150-400)
[2017-01-09] MEDS ORDERED: Potassium Chloride 20 mEq/15 mL 15mL Oral Soln PO ONE (07:30)
[2017-01-09] MEDS: Polyethylene Glycol (PEG) 17 Gm Powder PO SCH ×2 (07:57→22:31)
[2017-01-09] MEDS: RISPERIDONE 1 MG/ML PO SCH (08:07)
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
[2017-01-09] MEDS: Dextrose 5% 0.9% NaCl 1,000 ML IV SCH ×2 (09:46→23:23)
--- NOTE | 2017-01-09 11:59 | NUR ---
NG tube Placed a 16F dual lumen stomach tube this morning, pt tolerated well. Stat chest XR ordered to verify placement. aware. Addendum: 01/09/17 at 1239 by BREEZY XIE RN visually confirmed placement of NG.
[2017-01-09] MEDS ORDERED: PEG/Electrolytes 4,000 mL Solution PO ONE (12:25)
--- NOTE | 2017-01-09 12:39 | NUR ---
Soft wrist restraints Pt repetitively removing bilateral mittens despite education and sitter at bedside, attempting to pull out NG tube, pulling at IV tubing stating, "Let me go, it's time I left. I need to go!" Pt pushing at staff in attempt to leave. notified, order rec'd for soft wrist restraints. Restraints applied.
--- NOTE | 2017-01-09 12:41 | DRSVH ---
PROCEDURE: X-RAY ABDOMEN, ONE VIEW ([id number]) INDICATIONS: NG tube placement TECHNIQUE: One view of the abdomen acquired. COMPARISON: Merged With [facility], CR, XR ABD AP 1VW, 01/06/2017, 8:50. FINDINGS: Surgical changes and devices: Nasogastric tube is present with distal tip projecting below the left h emidiaphragm. Partially visualized right ureterovesicular stent is present. Bowel: Bowel gas pattern is normal. Moderate stool is noted. Soft tissues: No suspicious abdominal calcifications. Visualized solid organ contours appear normal in size. Bones: No suspicious bony lesions. IMPRESSION: Nasogastric tube as above. Dictated by: Keely Acosta M.D. on 01/09/2017 at 12:38 Approved by: Keely Acosta M.D. on 01/09/2017 at 12:39
--- NOTE | 2017-01-09 13:24 | PCM.PNMED ---
Subjective Date of Service Jan 09, 2017 Subjective pt still not eating with intermittent n/v NGT inserted with permission from daughter, PEG started. HD stable, no fever, Exam Vital Signs Vital Sign - Last Date Time Temp Pulse Resp B/P Pulse Ox O2 Delivery O2 Flow Rate FiO2 01/09/17 03:08 36.8 84 17 168/94 96 Room Air Intake and Output 01/08/17 01/08/17 01/09/17 Cumulative From/Thru 15:00 23:00 07:00 12/04/16 13:11 - 01/09/17 06:21 Intake Total 1245 ml 1005 ml 29324 ml Output Total 1050 ml Balance 1245 ml 1005 ml 05561 ml Intake Oral 0 ml 0 ml 02503 ml IV Total 1245 ml 1005 ml 70922 ml Output Urine Total 600 ml Emesis 450 ml # Voids 4 3 249 # Bowel Movements 1 0 36 Exam cachectic, awake, calm, NAD, comfortably laying down on the bed no JVD, MMM, no LAD RRR, nl s1, s2 no mrg CTAB, no w,c S,ND,NT,BS+ warm, no edema, pulses 2/2 IVs and Medications Medications Reviewed: Medications were reviewed in detail Lab and Diagnostics Result Diagram: 01/09/1761401/09/17614 X-Rays, CTs and MRIs Date of Service: 12/05/16 1013 PROCEDURE: MRI STROKE PROTOCOL ([id number]) Pre- and post-contrast brain MRI, non-contrast brain MR angiogram, pre- and postcontrast neck MR angiogram INDICATIONS: psychosis dementia TECHNIQUE: Brain: Noncontrast axial T1 spin echo, axial T2 fast spin echo, sagittal and axial FLAIR, coronal T2 fast spin echo, axial gradient echo, axial diffusion and ADC through the brain. After the administration of contrast, axial 3D VIBE of the cranial vasculature and brain. Brain MRA: Non-contrast 3-D time of flight MR angiogram, with multiple maximum- intensity-projection (MIP) reformats performed. Neck MRA: Axial and sagittal TruFISP through the neck. Coronal dynamic MR angiogram during administration of contrast in the arterial and venous phases, with 3-dimenstional ujpydir-zzvldighz-imxbeiwxbb (MIP) reformats constructed from subtraction images. COMPARISON: None. FINDINGS: Image quality: Excellent. BRAIN: CSF spaces: There is ex vacuo dilatation of the lateral ventricles, greatest in degree involving the temporal horns. Basal cisterns are patent. No extra- axial fluid collections. Brain: No intracranial bleeds or mass effects. Mild degree of patchy high FLAIR signal intensity within the periventricular and subcortical white matter. There is moderate diffuse cerebral volume loss, greatest in degree involving the frontal and anterior temporal lobes. Jasmine-white matter interface is normal. Diffusion weighted images show no acute ischemic insults. Brainstem appears normal. Normal intravascular flow voids are present. No abnormal intracranial enhancement. Skull and face: Calvarial marrow signal is normal. Orbits appear normal. Sinuses: Sinuses and mastoids are clear. BRAIN MR ANGIOGRAM: Anterior circulation: Intracranial internal carotid arteries are normal in size and enhancement. The flow within the paired anterior cerebral arteries is normal and symmetric. The flow within the middle cerebral arteries is normal and symmetric. The anterior communicating artery is seen. No stenoses, occlusions, or aneurysms. Posterior circulation: The visualized portions of the vertebral arteries demonstrate normal caliber, and join to form a normal appearing basilar artery. The flow within the posterior cerebral arteries is normal and symmetric. No stenoses, occlusions, or aneurysms. NECK MR ANGIOGRAM: Carotids: Great vessels demonstrate a conventional anatomy as they arise from the aortic arch. The origins of the common carotid arteries appear patent. The calibers and courses of both common carotid arteries are normal. The bifurcation regions appear normal bilaterally. The internal carotid arteries demonstrate normal course and caliber. Posterior circulation: The origins of the vertebral arteries appear patent. More superior portions of both vertebral arteries demonstrate normal course and caliber, and join to form a normal appearing basilar artery. Miscellaneous: Subclavian arteries appear patent. Pre-contrast images through the neck show no soft tissue abnormalities. IMPRESSION: BRAIN MRI: 1. No acute process. No recent infarct. 2. Small vessel ischemic disease. 3. Cerebral volume loss, greatest in degree within the frontal and temporal lobes bilaterally. BRAIN MR ANGIOGRAM: Negative cervical MR angiography. NECK MR ANGIOGRAM: 1. No internal coronary stenosis bilaterally. 2. Patent bilateral vertebral arteries. The estimate of stenosis included in the report of the imaging study was calculated using the NASCET method Dictated by: Jing Kate M.D. on 12/05/2016 at 16:29 Transcribed by: RAULITO on 12/05/2016 at 16:34 Approved by: Jing Kate M.D. on 12/05/2016 at 16:40 Assessment & Plan 66-year-old female with severe early onset dementia with attempted suicide attempt was found to have YESENIA, UTI, and AMS. Currently pending placement. acute, active Intermittent n/v, decreased po intake, POA, ddx: likely from severe ileus -NGT inserted for PEG after discussion with daughter, continue PEG until resolution of ileus -continue aggressive bowel regimen, -zofran prn for n/v -once ileus resolve, consider temporary NG feeding if she can tolerate, gradually transition into oral feed, other invasive artificial nutritions seem likely not beneficial Elevated ALT, calcium, and bilirubin; present on admission; ongoing, LFT shows mild hepatic dysfunction with mild elevations of bilirubin and large elevation of ALT; question if this is due to medication. She has no abd tenderness. Hepatitis panel is negative. -clinically stable, trending down, will consider RUQ US if there is concern. chronic, stable YESENIA, initially presented on admission, which was likely prerenal due to decreased Po intake, Patient received 2 L normal saline in the ED, started on 100cc/hr NS, YESENIA resolved, pt developed again YESENIA on 01/04, possibly with obstructive uropathy and/or prerenal -s/p hydration 1liter bolus 01/04, ns 100cc/hr, then d5 ns 100cc/hr, YESENIA resolved , continue IVF for now UTI, POA, resolved. positive for leukocyte esterase, nitrites, few bacteria. pt was empirically start Rocephin but final UCX negative. Repeat UCX also contaminated, stopped abx 12/11. then pt was restarted CFX01/04-, given marked elevation of wbc, trending down, UCX from 01/03 showed mixed doron, abx stopped. Major neurocognitive disorder, NOS, poa, active. Irregular behaviors, agitation, likely due to advanced dementia with possible psychosis features or underlying psychiatric dz, dementia was presumably due to Alzheimer's dementia, pt was diagnosed dxed dementia already 7yrs ago per brother. no previous dx of psychiatric dz. Medical w/u including MRA, MRI of brain, vitB12, TSH, RPR, UCX, all negative. New regimen started on 12/09. -as per /Dr.Nunes recommendation below Risperidone 0.25mg po bid and 0.25mg po q6hr prn agitation ->increase to 0.5m bid Continue memantine 5mg po bid for 1 week then 5mg daily and 10mg nightly for 1 weeks then 10mg po bid. Consider adding SSRI e.g. escitalopram 5mg po daily for depression ->increase to 10mg daily Consider prazosin for possible PTSD>Started prazosin 1 mg qhs Patient would benefit from hearing aid to improve environmental cues Patient would benefit from picture board to identify items as has difficulty with naming object. Malnutrition- poa, active - Slightly improved and likes to drink ensure supplements, Labs showed slight increase in liver function tests AST and ALT on 12/26. - Trial of Remeron which did not seem to help her appetite and made her more lethargic. Remeron is discontinued" - 12/30- Per discussion with Fork Lift Technician, will add high calorie nutritional supplements. - Tried Megace on 12/30 without improvement. - 01/01- Added Dronabinol 2.5mg BID w/ meals, pt did not tolerate at all due to nausea. Stopped. Back pain, active -- Patient complains of pain in the lumbar sacral area -- Increased tramadol to every 4 hrs 50 mg when necessary Hx of nephrolithiasis, recent stent placement, POA, Abd US on 12/04 showed Interval resolution of right hydronephrosis status post ureteral stent placement. 1.7 cm nonobstructing right renal stone. - pt was scheduled for elective Rt renal Laser lithotripsy 12/12, informed that pt is in the hospital. f/u with urology after discharge. Post menopausal symptoms chronic -- discontinued Estrace. Disposition: pending placement, pt is waiting for guardianship, given poor po intake, deconditioning, pt has no decisional capacity with advanced dementia, custodial prognosis seems poor. family meeting with daughter scheduled tomorrow. please follow up with SAVANAH HUIZAR VTE Prophylaxis: Sub-Q Enoxaparin VTE Mechanical Devices: Venous Foot Pump Resuscitation Status: DNR/DNI:Do Not Resuscitate/Intubate Time spent 35min Mariana Dunn MD Jan 09, 2017 13:24
[2017-01-09 13:51] VITALS: BP 162/75; PULSE 87; RESP 18; O2SAT 97
--- NOTE | 2017-01-09 14:57 | NUR ---
Social Work-team meeting: Data:EMR Reviewed. Pt is on day 35 of hospitalization for delirium per H&P. Meeting was help with care team today to discuss pt's care needs. MD went over medical piece and as of this point daughter has agreed to NG tube being placed. MD to order NG tube to be placed and see if this assists pt. SW went over barriers to placement and family dynamics. Also discussed about having palliative care consult, MD to place order. Care team decided it would be beneficial to have meeting tomorrow with daughter present to go over goals of care. SW called daughter Heather,who state she can be in the hospital tomorrow at 1130. SW updated all pt involved in care team meeting regarding time for tomorrows meeting. Heather driving [place] the pass today from [facility].UR bautista Hammond received phone call from pt's brother Kush Paredes questioning about guardianship. It was again explained to brother that he would need to go down to the courthouse to file for guardianship for pt. Kush states he received a call from [employer] today and that he was informed to pursue guardianship as well. BHUPENDRA has explained to family multiple times that guardianship process will need to be pursued and that someone in the family needs to go to the courthouse and start this process. SW will continue to follow. Assessment:Pt who will need placement. Plan:Care team to have meeting with daughter tomorrow at 1130 to discuss goals of care and process moving forward. SW continues to encouraged family to go to courthouse and file for guardianship. SW will continue to follow. STEWART Contreras
--- NOTE | 2017-01-09 15:00 | NUR ---
Restraints Pt calm, cooperative with cares. Will occasionally reach for NG tube, easily redirected by sitter. Restraints discontinued at this time.
--- NOTE | 2017-01-09 17:13 | NUR ---
BM Pt has had approx. 2000ml of GoLytely via NG tube. Pt had two small, hard bowel movements then a medium which was mixed with liquid/solids and then XL liquid BM. Spoke with who stated 2000ml may be enough at this time, will monitor BM's throughout the night and finish dose if BM's stop. NG tube is clamped, pt denies any nausea at this time. She has been inc of bowels, frequently up to BR.
[2017-01-09 21:41] VITALS: BP 171/90; PULSE 82; RESP 18; O2SAT 97
[2017-01-10 06:15] VITALS: BP 154/57; PULSE 80; RESP 18; O2SAT 97
--- NOTE | 2017-01-10 06:15 | NUR ---
NG tube Pt remains alert and oriented to self only, unable to answer most questions but was pleasant. Pt attempted to pull NG tube out, but was stopped with small tube pulled. Tube advanced and orders for KUB placed. Pt has a BM at 8pm but no other BM's, bowel tones positive and abdomen soft to palpation. She continues to be on 1 on 1 observation on a patricia bed. Pt was able to communicate when she needed to use the bathroom.
[2017-01-10 07:11] LABS: BASOPHILS % (AUTO) 0.1 % (0-3); EOSINOPHILS % (AUTO) 0.9 % (0-5); Mean Corpuscular Hemoglobin 32.5 pg (27.0-35.0); Mean Corpuscular Volume 94.3 fL (81-100); NEUTROPHILS % (AUTO) 76.3 % (40-74); Platelet Count 240 bil/L (150-400)
[2017-01-10 07:34] LABS: Magnesium 1.5 mg/dL (1.6-2.6)
[2017-01-10] MEDS: Dextrose 5% 0.9% NaCl 1,000 ML IV SCH (07:49)
[2017-01-10] MEDS ORDERED: Magnesium Sulf 2 Gm/50mL Water 2 GM in IV Premix 1 EACH IV ONE (08:10)
[2017-01-10] MEDS ORDERED: Potassium Chloride 20 mEq/15 mL 15mL Oral Soln PO ONE (08:10)
[2017-01-10] MEDS ORDERED: KCl 40 mEq/D5W 500 mL 40 MEQ in IV Premix 1 EACH IV ONE (08:10)
--- NOTE | 2017-01-10 09:36 | DRSVH ---
PROCEDURE: X-RAY ABDOMEN, ONE VIEW ([id number]) INDICATIONS: NG PLACEMENT FOR FEEDING TECHNIQUE: One view of the abdomen acquired. COMPARISON: [facility], CR, XR ABD AP 1VW, 01/06/2017, 8:50. [facility], CR, XR ABD AP 1VW, 01/09/2017, 12:02. FINDINGS: Surgical changes and devices: Nasogastric tube has been slightly retracted compared to prior examinat ion with the tube tip traversing the GE junction and the side port positioned within the distal esoph david near the GE junction. Proximal portion of right ureteral stent again noted. Bowel: Bowel gas pattern is normal. Soft tissues: No suspicious abdominal calcifications. Visualized solid organ contours appear normal in size. Bones: No suspicious bony lesions. IMPRESSION: Slight retraction of the nasogastric tube with tip traversing the GE junction and side po rt positioned within the distal esophagus. Dictated by: Cooper GUARDADO Interpreted: Keely Acosta MD on 01/10/2017 at 9:35 Transcribed by: COLE on 01/10/2017 at 9:36 Approved by: Keely Acosta M.D. on 01/11/2017 at 15:21
--- NOTE | 2017-01-10 09:48 | DRSVH ---
PROCEDURE: X-RAY CHEST ONE VIEW, PORTABLE ([id number]) INDICATIONS: NG repositioned TECHNIQUE: One view of the chest was acquired. COMPARISON: [facility], CR, XR ABD AP 1VW, 01/10/2017, 5:45. None. FINDINGS: Surgical changes and devices: Nasogastric tube is seen extending below the diaphragm. Lungs and pleura: No pleural effusions or pneumothorax. Lungs are clear. Mediastinum: Mediastinal contours appear normal. Heart size is normal. Bones and chest wall: No suspicious bony lesions. Overlying soft tissues appear unremarkable. IMPRESSION: Nasogastric tube extends below the diaphragm. Dictated by: Davide Morales M.D. on 01/10/2017 at 8:45 Approved by: Davide Morales M.D. on 01/10/2017 at 8:46
[2017-01-10] MEDS: Senna Leaf Extract 528 mg/15 mL Syrup PO SCH (10:57)
--- NOTE | 2017-01-10 11:30 | NUR ---
ADIEL signed with daughter. STEWART Contreras
--- NOTE | 2017-01-10 13:14 | PCM.PNMED ---
Subjective Date of Service Jan 10, 2017 Subjective NGT inserted, pt had good response to PEG, had loose stools, PEG stopped family meeting today with daughter, informed about her status, answered questions, wishes proceed with hospice. no report on vomiting Exam Vital Signs Vital Sign - Last Date Time Temp Pulse Resp B/P Pulse Ox O2 Delivery O2 Flow Rate FiO2 01/10/17 06:15 37.1 80 18 154/57 97 Room Air Intake and Output 01/09/17 01/09/17 01/10/17 Cumulative From/Thru 15:00 23:00 07:00 12/04/16 13:11 - 01/10/17 06:36 Intake Total 885 ml 237 ml 1217 ml 99679 ml Output Total 1050 ml Balance 885 ml 237 ml 1217 ml 49503 ml Intake Oral 237 ml 0 ml 04128 ml IV Total 885 ml 1217 ml 80013 ml Output Urine Total 600 ml Emesis 450 ml # Voids 3 1 253 # Bowel Movements 3 3 42 Exam cachectic, awake, calm, NAD, comfortably laying down on the bed no JVD, MMM, no LAD RRR, nl s1, s2 no mrg CTAB, no w,c S,ND,NT,BS+ warm, no edema, pulses 2/2 IVs and Medications Medications Reviewed: Medications were reviewed in detail Lab and Diagnostics Result Diagram: 01/10/1753 01/10/17 0653 X-Rays, CTs and MRIs Date of Service: 12/05/16 1013 PROCEDURE: MRI STROKE PROTOCOL ([id number]) Pre- and post-contrast brain MRI, non-contrast brain MR angiogram, pre- and postcontrast neck MR angiogram INDICATIONS: psychosis dementia TECHNIQUE: Brain: Noncontrast axial T1 spin echo, axial T2 fast spin echo, sagittal and axial FLAIR, coronal T2 fast spin echo, axial gradient echo, axial diffusion and ADC through the brain. After the administration of contrast, axial 3D VIBE of the cranial vasculature and brain. Brain MRA: Non-contrast 3-D time of flight MR angiogram, with multiple maximum- intensity-projection (MIP) reformats performed. Neck MRA: Axial and sagittal TruFISP through the neck. Coronal dynamic MR angiogram during administration of contrast in the arterial and venous phases, with 3-dimenstional syrsokk-yqylmqxwb-haafwlatpf (MIP) reformats constructed from subtraction images. COMPARISON: None. FINDINGS: Image quality: Excellent. BRAIN: CSF spaces: There is ex vacuo dilatation of the lateral ventricles, greatest in degree involving the temporal horns. Basal cisterns are patent. No extra- axial fluid collections. Brain: No intracranial bleeds or mass effects. Mild degree of patchy high FLAIR signal intensity within the periventricular and subcortical white matter. There is moderate diffuse cerebral volume loss, greatest in degree involving the frontal and anterior temporal lobes. Jasmine-white matter interface is normal. Diffusion weighted images show no acute ischemic insults. Brainstem appears normal. Normal intravascular flow voids are present. No abnormal intracranial enhancement. Skull and face: Calvarial marrow signal is normal. Orbits appear normal. Sinuses: Sinuses and mastoids are clear. BRAIN MR ANGIOGRAM: Anterior circulation: Intracranial internal carotid arteries are normal in size and enhancement. The flow within the paired anterior cerebral arteries is normal and symmetric. The flow within the middle cerebral arteries is normal and symmetric. The anterior communicating artery is seen. No stenoses, occlusions, or aneurysms. Posterior circulation: The visualized portions of the vertebral arteries demonstrate normal caliber, and join to form a normal appearing basilar artery. The flow within the posterior cerebral arteries is normal and symmetric. No stenoses, occlusions, or aneurysms. NECK MR ANGIOGRAM: Carotids: Great vessels demonstrate a conventional anatomy as they arise from the aortic arch. The origins of the common carotid arteries appear patent. The calibers and courses of both common carotid arteries are normal. The bifurcation regions appear normal bilaterally. The internal carotid arteries demonstrate normal course and caliber. Posterior circulation: The origins of the vertebral arteries appear patent. More superior portions of both vertebral arteries demonstrate normal course and caliber, and join to form a normal appearing basilar artery. Miscellaneous: Subclavian arteries appear patent. Pre-contrast images through the neck show no soft tissue abnormalities. IMPRESSION: BRAIN MRI: 1. No acute process. No recent infarct. 2. Small vessel ischemic disease. 3. Cerebral volume loss, greatest in degree within the frontal and temporal lobes bilaterally. BRAIN MR ANGIOGRAM: Negative cervical MR angiography. NECK MR ANGIOGRAM: 1. No internal coronary stenosis bilaterally. 2. Patent bilateral vertebral arteries. The estimate of stenosis included in the report of the imaging study was calculated using the NASCET method Dictated by: Jing Kate M.D. on 12/05/2016 at 16:29 Transcribed by: RAULITO on 12/05/2016 at 16:34 Approved by: Jing Kate M.D. on 12/05/2016 at 16:40 Assessment & Plan 66-year-old female with severe early onset dementia with attempted suicide attempt was found to have YESENIA, UTI, and AMS. Currently pending placement. acute, active Intermittent n/v, decreased po intake, POA, ddx: likely from severe ileus, -n/v seemed resolving with ileus is cleared up, will remain NG for now, consider discontinue it tomorrow, -continue aggressive bowel regimen, senna liquid, miralax. -zofran prn for n/v -no artificial nutrition, confirmed with daughter today. -hospice info visit likely tomorrow, was curbsided, reconsult if necessary Elevated ALT, calcium, and bilirubin; present on admission; ongoing, LFT shows mild hepatic dysfunction with mild elevations of bilirubin and large elevation of ALT; question if this is due to medication. She has no abd tenderness. Hepatitis panel is negative. -clinically stable, trending down, will consider RUQ US if there is concern. chronic, stable YESENIA, initially presented on admission, which was likely prerenal due to decreased Po intake, Patient received 2 L normal saline in the ED, started on 100cc/hr NS, YESENIA resolved, pt developed again YESENIA on 01/04, possibly with obstructive uropathy and/or prerenal -s/p hydration 1liter bolus 01/04, ns 100cc/hr, then d5 ns 100cc/hr, YESENIA resolved , continue IVF for now UTI, POA, resolved. positive for leukocyte esterase, nitrites, few bacteria. pt was empirically start Rocephin but final UCX negative. Repeat UCX also contaminated, stopped abx 12/11. then pt was restarted CFX01/04-, given marked elevation of wbc, trending down, UCX from 01/03 showed mixed doron, abx stopped. Major neurocognitive disorder, NOS, poa, active. Irregular behaviors, agitation, likely due to advanced dementia with possible psychosis features or underlying psychiatric dz, dementia was presumably due to Alzheimer's dementia, pt was diagnosed dxed dementia already 7yrs ago per brother. no previous dx of psychiatric dz. Medical w/u including MRA, MRI of brain, vitB12, TSH, RPR, UCX, all negative. New regimen started on 12/09. -as per / recommendation below Risperidone 0.25mg po bid and 0.25mg po q6hr prn agitation ->increase to 0.5m bid Continue memantine 5mg po bid for 1 week then 5mg daily and 10mg nightly for 1 weeks then 10mg po bid. Consider adding SSRI e.g. escitalopram 5mg po daily for depression ->increase to 10mg daily Consider prazosin for possible PTSD>Started prazosin 1 mg qhs Patient would benefit from hearing aid to improve environmental cues Patient would benefit from picture board to identify items as has difficulty with naming object. Malnutrition- poa, active - Slightly improved and likes to drink ensure supplements, Labs showed slight increase in liver function tests AST and ALT on 12/26. - Trial of Remeron which did not seem to help her appetite and made her more lethargic. Remeron is discontinued" - 12/30- Per discussion with Data Management Manager, will add high calorie nutritional supplements. - Tried Megace on 12/30 without improvement. - 01/01- Added Dronabinol 2.5mg BID w/ meals, pt did not tolerate at all due to nausea. Stopped. Back pain, active -- Patient complains of pain in the lumbar sacral area -- Increased tramadol to every 4 hrs 50 mg when necessary Hx of nephrolithiasis, recent stent placement, POA, Abd US on 12/04 showed Interval resolution of right hydronephrosis status post ureteral stent placement. 1.7 cm nonobstructing right renal stone. - pt was scheduled for elective Rt renal Laser lithotripsy 12/12, informed that pt is in the hospital. f/u with urology after discharge. Post menopausal symptoms chronic -- discontinued Estrace. Disposition: pending placement, pt is waiting for guardianship, hospice seems appropriate given deconditioning VTE Prophylaxis: Sub-Q Enoxaparin VTE Mechanical Devices: Venous Foot Pump Resuscitation Status: DNR/DNI:Do Not Resuscitate/Intubate Time spent 35min Mariana Dunn MD Jan 10, 2017 13:13
[2017-01-10 15:27] VITALS: BP 138/86; PULSE 83; RESP 18; O2SAT 97
--- NOTE | 2017-01-10 15:28 | NUR ---
Social Work-continued d/c planning: Data:EMR reviewed. Pt is on day 37 of hospitalization. BHUPENDRA had family team meeting today with , Admin, UR, BHUPENDRA and pt's daughter Heather. explained to daughter the prognosis of the pt. MD went through all options with daughter regarding PEG tube,NG tube for feeding or comfort. Daughter has decided that she would like to move her mother to comfort care because this is not what her mother would want. explained that Hospice could meet with daughter and explained what services they can provide. Daughter is agreeable to this. MD order received for pt. Choice list provided and daughter would like to use [facility]. BHUPENDRA called Reena from Hospice who is working on information visit time for tomorrow, she will call BHUPENDRA back. Daughter informed BHUPENDRA that she did go to [facility] and file for guardianship yesterday. BHUPENDRA will continue to follow. Assessment:pt who will likely move to comfort care. Plan:Pt is now comfort care. BHUPENDRA placed a call to Reean from hospice who will work on information visit for tomorrow. BHUPENDRA will continue to follow. STEWART Contreras
[2017-01-10 17:55] LABS: Magnesium 2.4 mg/dL (1.6-2.6)
--- NOTE | 2017-01-10 19:29 | NUR ---
GOC discussion, NGT and PIV NGT removed per MD order at 1445 this shift. Plan per discussion was not to feed pt via tube and let her eat what she will. PIV continues with D5NS at 100/hr. Pt somehow broke IV line, saline flushed IV and locked it, still good IV. Low K and Mg this AM, K replaced IV and PO, Mg replaced IV. Pt incontinent of stool and urine. Sitter at bedside for safety.
[2017-01-10 20:02] VITALS: BP 152/84; PULSE 78; RESP 17; O2SAT 97
[2017-01-11] MEDS: Dextrose 5% 0.9% NaCl 1,000 ML IV SCH ×4 (01:10→21:10)
[2017-01-11 04:17] VITALS: BP 128/77; PULSE 78; RESP 17; O2SAT 96
--- NOTE | 2017-01-11 05:37 | NUR ---
IV Pt bit IV tubing in half with teeth. No tubing found in patients mouth or in bed. Flushed with 10mls NS, IV still intact. Restarted fluids. Pt is resting in bed with eyes closed. IV fluids running at 100ms/hr. Sitter at bedside. Care continues.
[2017-01-11] MEDS: Senna Leaf Extract 528 mg/15 mL Syrup PO SCH (08:30)
[2017-01-11] MEDS ORDERED: Potassium Chloride Inj 30 MEQ in Dextrose 5% 500 ML IV ONE (08:50)
--- NOTE | 2017-01-11 11:26 | NUR ---
Social Work-continued d/c planning: Data:EMR reviewed. Pt is on day 38 of hospitalization. Pt is now on comfort care. SW spoke with daughter this morning and she is agreeable to Hospice information visit today. SW called Reanna at Hospice who confirms they are able to do this at 1400. SW updated daughter and she is agreeable. SW will continue to follow. Assessment:pt who is on comfort care. Plan:Daughter to have Hospice information visit today at 1400.SW will continue to follow. STEWART Contreras
[2017-01-11 12:58] VITALS: BP 130/83; PULSE 80; RESP 16; O2SAT 99
--- NOTE | 2017-01-11 13:57 | NUR ---
spiritual care: family support/request conversational visit and prayer with dtr as she harpal with tasks, emotions and struggles associated with pt's needs, prognosis and legal concerns. available to attend hospice info visit as advocate.
--- NOTE | 2017-01-11 14:09 | PCM.PNMED ---
Subjective Date of Service Jan 11, 2017 Subjective No new complaints or events. Awaiting hospice eval/informational visit with daughter Exam Vital Signs Vital Sign - Last Date Time Temp Pulse Resp B/P Pulse Ox O2 Delivery O2 Flow Rate FiO2 01/11/17 12:58 37.3 80 16 130/83 99 Room Air Intake and Output 01/10/17 01/10/17 01/11/17 Cumulative From/Thru 15:00 23:00 07:00 12/04/16 13:11 - 01/11/17 05:23 Intake Total 512 ml 1059 ml 200 ml 90843 ml Output Total 1050 ml Balance 512 ml 1059 ml 200 ml 11254 ml Intake Oral 0 ml 200 ml 98345 ml IV Total 512 ml 1059 ml 60610 ml Output Urine Total 600 ml Emesis 450 ml # Voids 3 3 259 # Bowel Movements 5 3 50 Exam cachectic, awake, calm, NAD, comfortably laying down on the bed no JVD, MMM, no LAD RRR, nl s1, s2 no mrg CTAB, no w,c S,ND,NT,BS+ warm, no edema, pulses 2/2 IVs and Medications Medications Reviewed: Medications were reviewed in detail Lab and Diagnostics Result Diagram: 01/10/17 0653 01/11/17 0525 X-Rays, CTs and MRIs Date of Service: 12/05/16 1013 PROCEDURE: MRI STROKE PROTOCOL ([id number]) Pre- and post-contrast brain MRI, non-contrast brain MR angiogram, pre- and postcontrast neck MR angiogram INDICATIONS: psychosis dementia TECHNIQUE: Brain: Noncontrast axial T1 spin echo, axial T2 fast spin echo, sagittal and axial FLAIR, coronal T2 fast spin echo, axial gradient echo, axial diffusion and ADC through the brain. After the administration of contrast, axial 3D VIBE of the cranial vasculature and brain. Brain MRA: Non-contrast 3-D time of flight MR angiogram, with multiple maximum- intensity-projection (MIP) reformats performed. Neck MRA: Axial and sagittal TruFISP through the neck. Coronal dynamic MR angiogram during administration of contrast in the arterial and venous phases, with 3-dimenstional ipeavmv-tlmejincj-oabjaoqqnc (MIP) reformats constructed from subtraction images. COMPARISON: None. FINDINGS: Image quality: Excellent. BRAIN: CSF spaces: There is ex vacuo dilatation of the lateral ventricles, greatest in degree involving the temporal horns. Basal cisterns are patent. No extra- axial fluid collections. Brain: No intracranial bleeds or mass effects. Mild degree of patchy high FLAIR signal intensity within the periventricular and subcortical white matter. There is moderate diffuse cerebral volume loss, greatest in degree involving the frontal and anterior temporal lobes. Jasmine-white matter interface is normal. Diffusion weighted images show no acute ischemic insults. Brainstem appears normal. Normal intravascular flow voids are present. No abnormal intracranial enhancement. Skull and face: Calvarial marrow signal is normal. Orbits appear normal. Sinuses: Sinuses and mastoids are clear. BRAIN MR ANGIOGRAM: Anterior circulation: Intracranial internal carotid arteries are normal in size and enhancement. The flow within the paired anterior cerebral arteries is normal and symmetric. The flow within the middle cerebral arteries is normal and symmetric. The anterior communicating artery is seen. No stenoses, occlusions, or aneurysms. Posterior circulation: The visualized portions of the vertebral arteries demonstrate normal caliber, and join to form a normal appearing basilar artery. The flow within the posterior cerebral arteries is normal and symmetric. No stenoses, occlusions, or aneurysms. NECK MR ANGIOGRAM: Carotids: Great vessels demonstrate a conventional anatomy as they arise from the aortic arch. The origins of the common carotid arteries appear patent. The calibers and courses of both common carotid arteries are normal. The bifurcation regions appear normal bilaterally. The internal carotid arteries demonstrate normal course and caliber. Posterior circulation: The origins of the vertebral arteries appear patent. More superior portions of both vertebral arteries demonstrate normal course and caliber, and join to form a normal appearing basilar artery. Miscellaneous: Subclavian arteries appear patent. Pre-contrast images through the neck show no soft tissue abnormalities. IMPRESSION: BRAIN MRI: 1. No acute process. No recent infarct. 2. Small vessel ischemic disease. 3. Cerebral volume loss, greatest in degree within the frontal and temporal lobes bilaterally. BRAIN MR ANGIOGRAM: Negative cervical MR angiography. NECK MR ANGIOGRAM: 1. No internal coronary stenosis bilaterally. 2. Patent bilateral vertebral arteries. The estimate of stenosis included in the report of the imaging study was calculated using the NASCET method Dictated by: Jing Kate M.D. on 12/05/2016 at 16:29 Transcribed by: RAULITO on 12/05/2016 at 16:34 Approved by: Jing Kate M.D. on 12/05/2016 at 16:40 Assessment & Plan 66-year-old female with severe early onset dementia with attempted suicide attempt was found to have YESENIA, UTI, and AMS. Currently pending placement. acute, active # Intermittent n/v, decreased po intake, POA, ddx: likely from severe ileus, -n/v seemed resolving with ileus is cleared up, will remain NG for now, consider discontinue it tomorrow, -continue aggressive bowel regimen, senna liquid, miralax. -zofran prn for n/v -no artificial nutrition, confirmed with daughter -hospice info visit likely tomorrow, was curbsided, reconsult if necessary # Elevated ALT, calcium, and bilirubin; present on admission; ongoing, LFT shows mild hepatic dysfunction with mild elevations of bilirubin and large elevation of ALT; question if this is due to medication. She has no abd tenderness. Hepatitis panel is negative. -clinically stable, trending down, will consider RUQ US if there is concern. chronic, stable # YESENIA, initially presented on admission, which was likely prerenal due to decreased Po intake, Patient received 2 L normal saline in the ED, started on 100cc/hr NS, YESENIA resolved, pt developed again YESENIA on 01/04, possibly with obstructive uropathy and/or prerenal -s/p hydration 1liter bolus 01/04, ns 100cc/hr, then d5 ns 100cc/hr, YESENIA resolved , continue IVF for now # UTI, POA, resolved. positive for leukocyte esterase, nitrites, few bacteria. pt was empirically start Rocephin but final UCX negative. Repeat UCX also contaminated, stopped abx 12/11. then pt was restarted CFX01/04-, given marked elevation of wbc, trending down, UCX from 01/03 showed mixed doron, abx stopped. # Major neurocognitive disorder, NOS, poa, active. Irregular behaviors, agitation, likely due to advanced dementia with possible psychosis features or underlying psychiatric dz, dementia was presumably due to Alzheimer's dementia, pt was diagnosed dxed dementia already 7yrs ago per brother. no previous dx of psychiatric dz. Medical w/u including MRA, MRI of brain, vitB12, TSH, RPR, UCX, all negative. New regimen started on 12/09. -as per / recommendation below Risperidone 0.25mg po bid and 0.25mg po q6hr prn agitation ->increase to 0.5m bid Continue memantine 5mg po bid for 1 week then 5mg daily and 10mg nightly for 1 weeks then 10mg po bid. Consider adding SSRI e.g. escitalopram 5mg po daily for depression ->increase to 10mg daily Consider prazosin for possible PTSD>Started prazosin 1 mg qhs Patient would benefit from hearing aid to improve environmental cues Patient would benefit from picture board to identify items as has difficulty with naming object. # Malnutrition- poa, active - Slightly improved and likes to drink ensure supplements, Labs showed slight increase in liver function tests AST and ALT on 12/26. - Trial of Remeron which did not seem to help her appetite and made her more lethargic. Remeron is discontinued" - 12/30- Per discussion with Ne[employer], will add high calorie nutritional supplements. - Tried Megace on 12/30 without improvement. - 01/01- Added Dronabinol 2.5mg BID w/ meals, pt did not tolerate at all due to nausea. Stopped. Back pain, active -- Patient complains of pain in the lumbar sacral area -- Increased tramadol to every 4 hrs 50 mg when necessary Hx of nephrolithiasis, recent stent placement, POA, Abd US on 12/04 showed Interval resolution of right hydronephrosis status post ureteral stent placement. 1.7 cm nonobstructing right renal stone. - pt was scheduled for elective Rt renal Laser lithotripsy 12/12, informed that pt is in the hospital. f/u with urology after discharge. Post menopausal symptoms chronic -- discontinued Estrace. Disposition: pending placement, pt is waiting for guardianship, hospice seems appropriate given deconditioning VTE Prophylaxis: Sub-Q Enoxaparin VTE Mechanical Devices: Venous Foot Pump Resuscitation Status: DNR/DNI:Do Not Resuscitate/Intubate Cresencio Velasco MD Jan 11, 2017 14:09
--- NOTE | 2017-01-11 14:15 | NUR ---
IV access Daughter requesting IV access not be restarted if pt removes IV. aware, okay IV to be left out if pt removes. Pt pulling at IV, very insistent about getting IV out. IV leaking, no longer patent. No signs of redness, pain, swelling or bleeding. IV D/Cd intact. Family at bedside visiting with pt. 1:1 sitter at bedside.
--- NOTE | 2017-01-11 15:36 | NUR ---
Social Work-continued d/c planning: Data:EMR reviewed. Pt is on day 38 for delirum per H&P. Pt is now comfort care. Hospice met with pt's family today. Family states they are unwilling and unable to take pt home because they work too much. Daughter has all guardianship paperwork and went to court today for this. Daughter has brought in paperwork and copy has been made. SW will continue to follow. Assessment:Pt who is now comfort care. Plan:Pt is on comfort care. Daughter has filed for guardianship and brought in paperwork today. SW will continue to follow. STEWART Contreras
--- NOTE | 2017-01-11 16:07 | NUR ---
spiritual care: follow/family attended hospice info visit; dtr Heather stated her overwhelm with emotional/legal/medical situation. Dtr in process with guardianship, awaiting more information about possible benefits/entitlements and anticipating pt's care needs as she faces probably end of life. Pt has removed iv many "countless" times, seems to have no ability to make meaningful care decisions; dtr sifting through implications of all this. Dtr welcoming of spiritual care and support.
--- NOTE | 2017-01-11 18:08 | NUR ---
PO intake Pt continues with very limited amounts of PO Intake. Took bites of pudding with medications, 3-4 bites of lunch and dinner, with approximately 50 mls of chocolate Ensure and 50 mls of water. Pt encouraged to continue to try and increase PO intake. Frequent rounding in place.
[2017-01-11 20:13] VITALS: BP 148/85; PULSE 75; RESP 18; O2SAT 97
--- NOTE | 2017-01-12 02:58 | NUR ---
Pain Pt given Tylenol 650mg for FELDT px scale of 2. Pt did c/o pain to CHAIN SALES REPRESENTATIVE, but medication was just given to her. No further complaints. VSS. Care continues.
[2017-01-12 06:23] VITALS: BP 113/67; PULSE 73; RESP 16; O2SAT 96
[2017-01-12] MEDS: Dextrose 5% 0.9% NaCl 1,000 ML IV SCH (07:10)
[2017-01-12] MEDS: Senna Leaf Extract 528 mg/15 mL Syrup PO SCH (08:07)
--- NOTE | 2017-01-12 13:51 | PCM.PNMED ---
Subjective Date of Service Jan 12, 2017 Subjective No new complaints or events. Awaiting placement. Exam Vital Signs Vital Sign - Last Date Time Temp Pulse Resp B/P Pulse Ox O2 Delivery O2 Flow Rate FiO2 01/12/17 06:23 36.9 73 16 113/67 96 Room Air Intake and Output 01/11/17 01/11/17 01/12/17 Cumulative From/Thru 15:00 23:00 07:00 12/04/16 13:11 - 01/12/17 06:21 Intake Total 800 ml 0 ml 71512 ml Output Total 1050 ml Balance 800 ml 0 ml 73507 ml Intake Oral 100 ml 0 ml 06547 ml IV Total 700 ml 86431 ml Output Urine Total 600 ml Emesis 450 ml # Voids 3 5 267 # Bowel Movements 6 2 58 Exam cachectic, awake, calm, NAD, comfortably laying down on the bed no JVD, MMM, no LAD RRR, nl s1, s2 no mrg CTAB, no w,c S,ND,NT,BS+ warm, no edema, pulses 2/2 IVs and Medications Medications Reviewed: Medications were reviewed in detail Lab and Diagnostics Result Diagram: 01/10/17 0653 01/11/17 0525 X-Rays, CTs and MRIs Date of Service: 12/05/16 1013 PROCEDURE: MRI STROKE PROTOCOL ([id number]) Pre- and post-contrast brain MRI, non-contrast brain MR angiogram, pre- and postcontrast neck MR angiogram INDICATIONS: psychosis dementia TECHNIQUE: Brain: Noncontrast axial T1 spin echo, axial T2 fast spin echo, sagittal and axial FLAIR, coronal T2 fast spin echo, axial gradient echo, axial diffusion and ADC through the brain. After the administration of contrast, axial 3D VIBE of the cranial vasculature and brain. Brain MRA: Non-contrast 3-D time of flight MR angiogram, with multiple maximum- intensity-projection (MIP) reformats performed. Neck MRA: Axial and sagittal TruFISP through the neck. Coronal dynamic MR angiogram during administration of contrast in the arterial and venous phases, with 3-dimenstional vqovieo-dknucbmub-oyaznyhcnp (MIP) reformats constructed from subtraction images. COMPARISON: None. FINDINGS: Image quality: Excellent. BRAIN: CSF spaces: There is ex vacuo dilatation of the lateral ventricles, greatest in degree involving the temporal horns. Basal cisterns are patent. No extra- axial fluid collections. Brain: No intracranial bleeds or mass effects. Mild degree of patchy high FLAIR signal intensity within the periventricular and subcortical white matter. There is moderate diffuse cerebral volume loss, greatest in degree involving the frontal and anterior temporal lobes. Jasmine-white matter interface is normal. Diffusion weighted images show no acute ischemic insults. Brainstem appears normal. Normal intravascular flow voids are present. No abnormal intracranial enhancement. Skull and face: Calvarial marrow signal is normal. Orbits appear normal. Sinuses: Sinuses and mastoids are clear. BRAIN MR ANGIOGRAM: Anterior circulation: Intracranial internal carotid arteries are normal in size and enhancement. The flow within the paired anterior cerebral arteries is normal and symmetric. The flow within the middle cerebral arteries is normal and symmetric. The anterior communicating artery is seen. No stenoses, occlusions, or aneurysms. Posterior circulation: The visualized portions of the vertebral arteries demonstrate normal caliber, and join to form a normal appearing basilar artery. The flow within the posterior cerebral arteries is normal and symmetric. No stenoses, occlusions, or aneurysms. NECK MR ANGIOGRAM: Carotids: Great vessels demonstrate a conventional anatomy as they arise from the aortic arch. The origins of the common carotid arteries appear patent. The calibers and courses of both common carotid arteries are normal. The bifurcation regions appear normal bilaterally. The internal carotid arteries demonstrate normal course and caliber. Posterior circulation: The origins of the vertebral arteries appear patent. More superior portions of both vertebral arteries demonstrate normal course and caliber, and join to form a normal appearing basilar artery. Miscellaneous: Subclavian arteries appear patent. Pre-contrast images through the neck show no soft tissue abnormalities. IMPRESSION: BRAIN MRI: 1. No acute process. No recent infarct. 2. Small vessel ischemic disease. 3. Cerebral volume loss, greatest in degree within the frontal and temporal lobes bilaterally. BRAIN MR ANGIOGRAM: Negative cervical MR angiography. NECK MR ANGIOGRAM: 1. No internal coronary stenosis bilaterally. 2. Patent bilateral vertebral arteries. The estimate of stenosis included in the report of the imaging study was calculated using the NASCET method Dictated by: Jing Kate M.D. on 12/05/2016 at 16:29 Transcribed by: RAULITO on 12/05/2016 at 16:34 Approved by: Jing Kate M.D. on 12/05/2016 at 16:40 Assessment & Plan 66-year-old female with severe early onset dementia with attempted suicide attempt was found to have YESENIA, UTI, and AMS. Currently pending placement. acute, active # Intermittent n/v, decreased po intake, POA, ddx: likely from severe ileus, -n/v seemed resolving with ileus is cleared up, will remain NG for now, consider discontinue it tomorrow, -continue aggressive bowel regimen, senna liquid, miralax. -zofran prn for n/v -no artificial nutrition, confirmed with daughter -hospice info visit likely tomorrow, was curbsided, reconsult if necessary # Elevated ALT, calcium, and bilirubin; present on admission; ongoing, LFT shows mild hepatic dysfunction with mild elevations of bilirubin and large elevation of ALT; question if this is due to medication. She has no abd tenderness. Hepatitis panel is negative. -clinically stable, trending down, will consider RUQ US if there is concern. chronic, stable # YESENIA, initially presented on admission, which was likely prerenal due to decreased Po intake, Patient received 2 L normal saline in the ED, started on 100cc/hr NS, YESENIA resolved, pt developed again YESENIA on 01/04, possibly with obstructive uropathy and/or prerenal -s/p hydration 1liter bolus 01/04, ns 100cc/hr, then d5 ns 100cc/hr, YESENIA resolved , continue IVF for now # UTI, POA, resolved. positive for leukocyte esterase, nitrites, few bacteria. pt was empirically start Rocephin but final UCX negative. Repeat UCX also contaminated, stopped abx 12/11. then pt was restarted CFX01/04-, given marked elevation of wbc, trending down, UCX from 01/03 showed mixed doron, abx stopped. # Major neurocognitive disorder, NOS, poa, active. Irregular behaviors, agitation, likely due to advanced dementia with possible psychosis features or underlying psychiatric dz, dementia was presumably due to Alzheimer's dementia, pt was diagnosed dxed dementia already 7yrs ago per brother. no previous dx of psychiatric dz. Medical w/u including MRA, MRI of brain, vitB12, TSH, RPR, UCX, all negative. New regimen started on 12/09. -as per /Dr.Nunes recommendation below Risperidone 0.25mg po bid and 0.25mg po q6hr prn agitation ->increase to 0.5m bid Continue memantine 5mg po bid for 1 week then 5mg daily and 10mg nightly for 1 weeks then 10mg po bid. Consider adding SSRI e.g. escitalopram 5mg po daily for depression ->increase to 10mg daily Consider prazosin for possible PTSD>Started prazosin 1 mg qhs Patient would benefit from hearing aid to improve environmental cues Patient would benefit from picture board to identify items as has difficulty with naming object. # Malnutrition- poa, active - Slightly improved and likes to drink ensure supplements, Labs showed slight increase in liver function tests AST and ALT on 12/26. - Trial of Remeron which did not seem to help her appetite and made her more lethargic. Remeron is discontinued" - 12/30- Per discussion with Skilled Laborer, will add high calorie nutritional supplements. - Tried Megace on 12/30 without improvement. - 01/01- Added Dronabinol 2.5mg BID w/ meals, pt did not tolerate at all due to nausea. Stopped. Back pain, active -- Patient complains of pain in the lumbar sacral area -- Increased tramadol to every 4 hrs 50 mg when necessary Hx of nephrolithiasis, recent stent placement, POA, Abd US on 12/04 showed Interval resolution of right hydronephrosis status post ureteral stent placement. 1.7 cm nonobstructing right renal stone. - pt was scheduled for elective Rt renal Laser lithotripsy 12/12, informed that pt is in the hospital. f/u with urology after discharge. Post menopausal symptoms chronic -- discontinued Estrace. Disposition: pending placement, pt is waiting for guardianship, hospice seems appropriate given deconditioning VTE Prophylaxis: Sub-Q Enoxaparin VTE Mechanical Devices: Venous Foot Pump Resuscitation Status: DNR/DNI:Do Not Resuscitate/Intubate Cresencio Velasco MD Jan 12, 2017 13:51
--- NOTE | 2017-01-12 14:30 | NUR ---
Agitation Notified by another RN on the unit, pt and sitter were in rm 17 and pt was refusing to leave the room. This RN went to the room 17, security and additional staff were standing by for possible behavior escalation. This RN explained to pt the room was needed for another pt, then calmly encouraged pt to return to her room. After some discussion, pt did reluctantly get up and walking back to her room with this RN back and her sitter. PRN anti agitation medication was given. 1:1 sitter continues to monitor.
[2017-01-12 15:02] VITALS: BP 123/62; PULSE 85; RESP 18; O2SAT 96
--- NOTE | 2017-01-12 15:59 | NUR ---
Social Work: Continued Discharge Planning Data: EMR reviewed. Patient is on day 39 of hospitalization for delirium & dehydration per H&P. Patient discussed in morning rounds. Plan is for patient to discharge to LTC once pay source is available. Daughter is in the process of obtaining guardianship. Patient received a visit from APS worker Olga Falcon. Olga checked in on patient and also met with SW. Olga requested updated progress notes on patient. SW provided Olga with progress notes from 12/20/16 - present. SW will continue to follow. Assessment: Patient remains in hospital awaiting placement. Plan: Patient remains in hospital awaiting placement. Guardianship has been filed by daughter and is pending. SW will continue to follow. STEWART Maguire
[2017-01-12 20:26] VITALS: BP 124/74; PULSE 80; RESP 18; O2SAT 96
--- NOTE | 2017-01-13 02:01 | NUR ---
behavior Pt alert and oriented to self only. Pt took her meds w/o difficulty. Voluntarily went back to unzipped [facility] bed @[facility] and slept there. Pt sleeping intermittently tonight. Sitter at bedside.
[2017-01-13 05:04] VITALS: BP 118/68; PULSE 72; RESP 16; O2SAT 97
--- NOTE | 2017-01-13 09:11 | PCM.PNMED ---
Subjective Date of Service Jan 13, 2017 Subjective No new complaints or events. Awaiting placement. Exam Vital Signs Vital Sign - Last Date Time Temp Pulse Resp B/P Pulse Ox O2 Delivery O2 Flow Rate FiO2 01/13/17 05:04 37.4 72 16 118/68 97 Room Air Intake and Output 01/12/17 01/12/17 01/13/17 Cumulative From/Thru 15:00 23:00 07:00 12/04/16 13:11 - 01/13/17 05:04 Intake Total 197 ml 90 ml 04417 ml Output Total 1050 ml Balance 197 ml 90 ml 74496 ml Intake Oral 197 ml 90 ml 93468 ml IV Total 16466 ml Output Urine Total 600 ml Emesis 450 ml # Voids 4 1 272 # Bowel Movements 0 0 58 Exam cachectic, awake, calm, NAD, comfortably laying down on the bed no JVD, MMM, no LAD RRR, nl s1, s2 no mrg CTAB, no w,c S,ND,NT,BS+ warm, no edema, pulses 2/2 IVs and Medications Medications Reviewed: Medications were reviewed in detail Lab and Diagnostics Result Diagram: 01/10/17 0653 01/11/17 0525 X-Rays, CTs and MRIs Date of Service: 12/05/16 1013 PROCEDURE: MRI STROKE PROTOCOL ([id number]) Pre- and post-contrast brain MRI, non-contrast brain MR angiogram, pre- and postcontrast neck MR angiogram INDICATIONS: psychosis dementia TECHNIQUE: Brain: Noncontrast axial T1 spin echo, axial T2 fast spin echo, sagittal and axial FLAIR, coronal T2 fast spin echo, axial gradient echo, axial diffusion and ADC through the brain. After the administration of contrast, axial 3D VIBE of the cranial vasculature and brain. Brain MRA: Non-contrast 3-D time of flight MR angiogram, with multiple maximum- intensity-projection (MIP) reformats performed. Neck MRA: Axial and sagittal TruFISP through the neck. Coronal dynamic MR angiogram during administration of contrast in the arterial and venous phases, with 3-dimenstional npkghox-lsraypdld-nlxlaapthd (MIP) reformats constructed from subtraction images. COMPARISON: None. FINDINGS: Image quality: Excellent. BRAIN: CSF spaces: There is ex vacuo dilatation of the lateral ventricles, greatest in degree involving the temporal horns. Basal cisterns are patent. No extra- axial fluid collections. Brain: No intracranial bleeds or mass effects. Mild degree of patchy high FLAIR signal intensity within the periventricular and subcortical white matter. There is moderate diffuse cerebral volume loss, greatest in degree involving the frontal and anterior temporal lobes. Jasmine-white matter interface is normal. Diffusion weighted images show no acute ischemic insults. Brainstem appears normal. Normal intravascular flow voids are present. No abnormal intracranial enhancement. Skull and face: Calvarial marrow signal is normal. Orbits appear normal. Sinuses: Sinuses and mastoids are clear. BRAIN MR ANGIOGRAM: Anterior circulation: Intracranial internal carotid arteries are normal in size and enhancement. The flow within the paired anterior cerebral arteries is normal and symmetric. The flow within the middle cerebral arteries is normal and symmetric. The anterior communicating artery is seen. No stenoses, occlusions, or aneurysms. Posterior circulation: The visualized portions of the vertebral arteries demonstrate normal caliber, and join to form a normal appearing basilar artery. The flow within the posterior cerebral arteries is normal and symmetric. No stenoses, occlusions, or aneurysms. NECK MR ANGIOGRAM: Carotids: Great vessels demonstrate a conventional anatomy as they arise from the aortic arch. The origins of the common carotid arteries appear patent. The calibers and courses of both common carotid arteries are normal. The bifurcation regions appear normal bilaterally. The internal carotid arteries demonstrate normal course and caliber. Posterior circulation: The origins of the vertebral arteries appear patent. More superior portions of both vertebral arteries demonstrate normal course and caliber, and join to form a normal appearing basilar artery. Miscellaneous: Subclavian arteries appear patent. Pre-contrast images through the neck show no soft tissue abnormalities. IMPRESSION: BRAIN MRI: 1. No acute process. No recent infarct. 2. Small vessel ischemic disease. 3. Cerebral volume loss, greatest in degree within the frontal and temporal lobes bilaterally. BRAIN MR ANGIOGRAM: Negative cervical MR angiography. NECK MR ANGIOGRAM: 1. No internal coronary stenosis bilaterally. 2. Patent bilateral vertebral arteries. The estimate of stenosis included in the report of the imaging study was calculated using the NASCET method Dictated by: Jing Kate M.D. on 12/05/2016 at 16:29 Transcribed by: RAULITO on 12/05/2016 at 16:34 Approved by: Jing Kate M.D. on 12/05/2016 at 16:40 Assessment & Plan 66-year-old female with severe early onset dementia with attempted suicide attempt was found to have YESENIA, UTI, and AMS. Currently pending placement. acute, active # Intermittent n/v, decreased po intake, POA, ddx: likely from severe ileus, -n/v resolved with ileus ,NGT removed -continue bowel regimen, senna liquid, miralax. -zofran prn for n/v -no artificial nutrition, confirmed with daughter -hospice info visit pending, was curbsided, reconsult if necessary # Elevated ALT, calcium, and bilirubin; present on admission; ongoing, LFT shows mild hepatic dysfunction with mild elevations of bilirubin and large elevation of ALT; question if this is due to medication. She has no abd tenderness. Hepatitis panel is negative. -clinically stable, trending down, will consider RUQ US if there is concern. chronic, stable # YESENIA, initially presented on admission, which was likely prerenal due to decreased Po intake, received normal saline , YESENIA resolved, pt developed again YESENIA on 01/04, possibly with obstructive uropathy and/or prerenal -s/p hydration, YESENIA resolved, # UTI, POA, resolved. positive for leukocyte esterase, nitrites, few bacteria. pt was empirically start Rocephin but final UCX negative. Repeat UCX also contaminated, stopped abx 12/11. then pt was restarted CFX01/04-, given marked elevation of wbc, trending down, UCX from 01/03 showed mixed doron, abx stopped. # Major neurocognitive disorder, NOS, poa, active. Irregular behaviors, agitation, likely due to advanced dementia with possible psychosis features or underlying psychiatric dz, dementia was presumably due to Alzheimer's dementia, pt was diagnosed dxed dementia already 7yrs ago per brother. no previous dx of psychiatric dz. Medical w/u including MRA, MRI of brain, vitB12, TSH, RPR, UCX, all negative. New regimen started on 12/09. -as per / recommendation below Risperidone 0.25mg po bid and 0.25mg po q6hr prn agitation ->increase to 0.5m bid Continue memantine 5mg po bid for 1 week then 5mg daily and 10mg nightly for 1 weeks then 10mg po bid. Consider adding SSRI e.g. escitalopram 5mg po daily for depression ->increase to 10mg daily Consider prazosin for possible PTSD>Started prazosin 1 mg qhs Patient would benefit from hearing aid to improve environmental cues Patient would benefit from picture board to identify items as has difficulty with naming object. # Malnutrition- poa, active - Slightly improved and likes to drink ensure supplements, Labs showed slight increase in liver function tests AST and ALT on 12/26. - Trial of Remeron which did not seem to help her appetite and made her more lethargic. Remeron is discontinued" - 12/30- Per discussion with Feeder Worker Power Unit Operator, will add high calorie nutritional supplements. - Tried Megace on 12/30 without improvement. - 01/01- Added Dronabinol 2.5mg BID w/ meals, pt did not tolerate at all due to nausea. Stopped. Back pain, active -- Patient complains of pain in the lumbar sacral area -- Increased tramadol to every 4 hrs 50 mg when necessary Hx of nephrolithiasis, recent stent placement, POA, Abd US on 12/04 showed Interval resolution of right hydronephrosis status post ureteral stent placement. 1.7 cm nonobstructing right renal stone. - pt was scheduled for elective Rt renal Laser lithotripsy 12/12, informed that pt is in the hospital. f/u with urology after discharge. Post menopausal symptoms chronic -- discontinued Estrace. Disposition: pending placement, pt is waiting for guardianship, hospice seems appropriate given deconditioning VTE Prophylaxis: Sub-Q Enoxaparin VTE Mechanical Devices: Venous Foot Pump Resuscitation Status: DNR/DNI:Do Not Resuscitate/Intubate Cresencio Velasco MD Jan 13, 2017 09:11
[2017-01-13] MEDS: Senna Leaf Extract 528 mg/15 mL Syrup PO SCH (09:24)
--- NOTE | 2017-01-13 10:15 | NUR ---
ADIEL signed/acknowledged via phone by pt's NOK Brother Kush Bellayle.
[2017-01-13 13:03] VITALS: BP 120/79; PULSE 87; RESP 16; O2SAT 98
--- NOTE | 2017-01-13 18:24 | NUR ---
Behavior Pt mostly cooperative during shift. Sitter at bedside assisting with needs. Encouraged PO intake + Ensure. Pt did become agitated in AM but able to be redirected by sitter. Pt ambulated around unit 2x with sitter, pt did attempt to enter other rooms, redirection provided with some difficulty but responded. Pt encouraged to shower but did not, changed clothes, plan to have washed during NOC shift.
[2017-01-13 20:52] VITALS: BP 125/75; PULSE 85; RESP 16; O2SAT 96
[2017-01-13] MEDS: RISPERIDONE 1 MG/ML PO PRN (21:16)
--- NOTE | 2017-01-14 04:02 | NUR ---
NOC Shift Note pt has been cooperative with most care during the shift, multiple attempts to shower pt all were declined. clothes were washed/dried during the shift, linens were changed. PO intake encouraged, tolerates Ensure and sips of water. pt is steady on her feet, amb x2 in hallway during the night. continue to monitor. Addendum: 01/14/17 at 0409 by JESSICA THOMPSON RN sitter at bedside
[2017-01-14 05:18] VITALS: BP 132/82; PULSE 72; RESP 15; O2SAT 99
--- NOTE | 2017-01-14 05:34 | NUR ---
Shower completed full shower at 05:15 with three person assist. pt tolerated shower well. hair was shampooed and conditioned. body washed with soap and water. pt was dried, clean brief placed, clean clothes on, new non-skid socks provided. pt smells fresh and clean after shower. pt did verbalize "no, not in here" when dirty clothes were being removed in the bathroom, pt did swing her arm at staff in a threatening manner prior to the beginning of the shower. no injuries were obtained by pt or staff during the showering process.
--- NOTE | 2017-01-14 09:30 | NUR ---
Behavior Pt is alert to self only. Pt would mainly make eye contact during assessment and med pass. Rarely answered questions. Refused to eat or drink breakfast. Sitter and this RN attempted to encourage her to eat. Pt denied any pain and was cooperative with care at this time. Addendum: 01/14/17 at 1344 by YARITZA BAGLEY RN Pt refused to eat lunch. She ate a little bit of pudding and a few sips of Ensure.
[2017-01-14] MEDS: Senna Leaf Extract 528 mg/15 mL Syrup PO SCH (10:03)
[2017-01-14] MEDS: RISPERIDONE 1 MG/ML PO PRN (12:28)
--- NOTE | 2017-01-14 12:58 | PCM.PNMED ---
Subjective Date of Service Jan 14, 2017 Subjective no new complaints or events,awaiting placement Exam Vital Signs Vital Sign - Last Date Time Temp Pulse Resp B/P Pulse Ox O2 Delivery O2 Flow Rate FiO2 01/14/17 05:18 36.8 72 15 132/82 99 Room Air Intake and Output 01/13/17 01/13/17 01/14/17 Cumulative From/Thru 15:00 23:00 07:00 12/04/16 13:11 - 01/13/17 22:05 Intake Total 236 ml 66761 ml Output Total 1050 ml Balance 236 ml 63037 ml Intake Oral 236 ml 66977 ml IV Total 13490 ml Output Urine Total 600 ml Emesis 450 ml # Voids 3 275 # Bowel Movements 1 59 Exam cachectic, awake, calm, NAD, comfortably laying down on the bed RRR, nl s1, s2 no mrg CTAB, no w,c IVs and Medications Medications Reviewed: Medications were reviewed in detail Lab and Diagnostics Result Diagram: 01/10/17 0653 01/11/17 0525 X-Rays, CTs and MRIs Date of Service: 12/05/16 1013 PROCEDURE: MRI STROKE PROTOCOL ([id number]) Pre- and post-contrast brain MRI, non-contrast brain MR angiogram, pre- and postcontrast neck MR angiogram INDICATIONS: psychosis dementia TECHNIQUE: Brain: Noncontrast axial T1 spin echo, axial T2 fast spin echo, sagittal and axial FLAIR, coronal T2 fast spin echo, axial gradient echo, axial diffusion and ADC through the brain. After the administration of contrast, axial 3D VIBE of the cranial vasculature and brain. Brain MRA: Non-contrast 3-D time of flight MR angiogram, with multiple maximum- intensity-projection (MIP) reformats performed. Neck MRA: Axial and sagittal TruFISP through the neck. Coronal dynamic MR angiogram during administration of contrast in the arterial and venous phases, with 3-dimenstional ucsjlki-wwekqfepr-fwelnhtvug (MIP) reformats constructed from subtraction images. COMPARISON: None. FINDINGS: Image quality: Excellent. BRAIN: CSF spaces: There is ex vacuo dilatation of the lateral ventricles, greatest in degree involving the temporal horns. Basal cisterns are patent. No extra- axial fluid collections. Brain: No intracranial bleeds or mass effects. Mild degree of patchy high FLAIR signal intensity within the periventricular and subcortical white matter. There is moderate diffuse cerebral volume loss, greatest in degree involving the frontal and anterior temporal lobes. Jasmine-white matter interface is normal. Diffusion weighted images show no acute ischemic insults. Brainstem appears normal. Normal intravascular flow voids are present. No abnormal intracranial enhancement. Skull and face: Calvarial marrow signal is normal. Orbits appear normal. Sinuses: Sinuses and mastoids are clear. BRAIN MR ANGIOGRAM: Anterior circulation: Intracranial internal carotid arteries are normal in size and enhancement. The flow within the paired anterior cerebral arteries is normal and symmetric. The flow within the middle cerebral arteries is normal and symmetric. The anterior communicating artery is seen. No stenoses, occlusions, or aneurysms. Posterior circulation: The visualized portions of the vertebral arteries demonstrate normal caliber, and join to form a normal appearing basilar artery. The flow within the posterior cerebral arteries is normal and symmetric. No stenoses, occlusions, or aneurysms. NECK MR ANGIOGRAM: Carotids: Great vessels demonstrate a conventional anatomy as they arise from the aortic arch. The origins of the common carotid arteries appear patent. The calibers and courses of both common carotid arteries are normal. The bifurcation regions appear normal bilaterally. The internal carotid arteries demonstrate normal course and caliber. Posterior circulation: The origins of the vertebral arteries appear patent. More superior portions of both vertebral arteries demonstrate normal course and caliber, and join to form a normal appearing basilar artery. Miscellaneous: Subclavian arteries appear patent. Pre-contrast images through the neck show no soft tissue abnormalities. IMPRESSION: BRAIN MRI: 1. No acute process. No recent infarct. 2. Small vessel ischemic disease. 3. Cerebral volume loss, greatest in degree within the frontal and temporal lobes bilaterally. BRAIN MR ANGIOGRAM: Negative cervical MR angiography. NECK MR ANGIOGRAM: 1. No internal coronary stenosis bilaterally. 2. Patent bilateral vertebral arteries. The estimate of stenosis included in the report of the imaging study was calculated using the NASCET method Dictated by: Jing Kate M.D. on 12/05/2016 at 16:29 Transcribed by: RAULITO on 12/05/2016 at 16:34 Approved by: Jing Kate M.D. on 12/05/2016 at 16:40 Assessment & Plan 66-year-old female with severe early onset dementia with attempted suicide attempt was found to have YESENIA, UTI, and AMS. Currently pending placement. acute, active # Major neurocognitive disorder, NOS, poa, active. Irregular behaviors, agitation, likely due to advanced dementia with possible psychosis features or underlying psychiatric dz, dementia was presumably due to Alzheimer's dementia, pt was diagnosed dxed dementia already 7yrs ago per brother. no previous dx of psychiatric dz. Medical w/u including MRA, MRI of brain, vitB12, TSH, RPR, UCX, all negative. New regimen started on 12/09. -as per / recommendation below Risperidone 0.25mg po bid and 0.25mg po q6hr prn agitation ->increased to 0.5m bid Continue memantine 5mg po bid for 1 week then 5mg daily and 10mg nightly for 1 weeks then 10mg po bid.increased to 10mg bid 01/14 Consider adding SSRI e.g. escitalopram 5mg po daily for depression ->increased to 10mg daily Consider prazosin for possible PTSD>Started prazosin 1 mg qhs Patient would benefit from hearing aid to improve environmental cues Patient would benefit from picture board to identify items as has difficulty with naming object. # Intermittent n/v, decreased po intake, POA, ddx: likely from severe ileus, Resolved -n/v resolved with ileus ,NGT removed -continue bowel regimen, senna liquid, miralax. -zofran prn for n/v -no artificial nutrition, confirmed with daughter - was curbsided, reconsult if necessary # Elevated ALT, calcium, and bilirubin; present on admission; improved , LFT shows mild hepatic dysfunction with mild elevations of bilirubin and large elevation of ALT; Hepatitis panel is negative. -clinically stable, trending down, # YESENIA, resolved -initially presented on admission, which was likely prerenal due to decreased Po intake, received normal saline , YESENIA resolved, pt developed again YESENIA on , possibly prerenal -s/p hydration, YESENIA resolved, # UTI, POA, resolved. -positive for leukocyte esterase, nitrites, few bacteria. pt was empirically start Rocephin but final UCX negative. Repeat UCX also contaminated, stopped abx 12/11. then pt was restarted CFX01/04-, given marked elevation of wbc, trending down, UCX from 01/03 showed mixed doron, abx stopped. # Malnutrition- poa, active - Slightly improved and likes to drink ensure supplements, Labs showed slight increase in liver function tests AST and ALT on 12/26. - Trial of Remeron which did not seem to help her appetite and made her more lethargic. Remeron is discontinued" - 12/30- Per discussion with Wire Frame Lamp Shade Maker, will add high calorie nutritional supplements. - Tried Megace on 12/30 without improvement. - 01/01- Added Dronabinol 2.5mg BID w/ meals, pt did not tolerate at all due to nausea. Stopped. Back pain, active -- Patient complains of pain in the lumbar sacral area -- Increased tramadol to every 4 hrs 50 mg when necessary # Hx of nephrolithiasis, recent stent placement, POA, Abd US on 12/04 showed Interval resolution of right hydronephrosis status post ureteral stent placement. 1.7 cm nonobstructing right renal stone. - pt was scheduled for elective Rt renal Laser lithotripsy 12/12, informed that pt is in the hospital. f/u with urology after discharge. Post menopausal symptoms chronic -- discontinued Estrace. dvt ppx lovenox dcd 01/14 as daughters wish is comfort measures mainly Disposition: pending placement once source of payment is established, hospice seems appropriate given deconditioning.daughter working to get guardianship VTE Prophylaxis: Sub-Q Enoxaparin VTE Mechanical Devices: Venous Foot Pump Resuscitation Status: DNR/DNI:Do Not Resuscitate/Intubate Cresencio Velasco MD Jan 14, 2017 12:58
[2017-01-14 13:27] VITALS: BP 120/79; PULSE 83; RESP 16; O2SAT 96
[2017-01-14] MEDS: risperiDONE 1 mg Tablet PO SCH (19:31)
[2017-01-14 20:23] VITALS: BP 123/79; PULSE 95; RESP 20; O2SAT 96
--- NOTE | 2017-01-15 05:29 | NUR ---
Behavior PT had a sitter until 1900hrs at shift change when one wasn't available, we trial her without one but she wandered the halls and was too fast getting out the front door to use a HUGS tag, PT was placed back into a JULIANNA bed. She was let out to toilet and returned with only minimal protest. She slept most of the night.
[2017-01-15 07:46] VITALS: BP 107/67; PULSE 82; RESP 16; O2SAT 94
[2017-01-15] MEDS: risperiDONE 1 mg Tablet PO SCH ×2 (07:55→22:38)
[2017-01-15] MEDS: Senna Leaf Extract 528 mg/15 mL Syrup PO SCH (07:55)
--- NOTE | 2017-01-15 11:53 | NUR ---
Social Work-continued d/c planning: Data:EMR reviewed. Pt is on day 42 of hospitalization for delirum per H&P. Pt is now comfort care. Daughter has completed paperwork and has filed for guardianship for pt. Family unwilling to take pt home on Hospice services. SW to continue work on placement once guardianship in place. SW will continue to follow. Assessment:Pt who is now comfort care. Plan:SW to continue work on placement once guardianship in place, daughter has filed paperwork. Pt is on comfort care. SW will continue to follow [facility]EW[facility] Contreras
--- NOTE | 2017-01-15 13:07 | PCM.PNMED ---
Subjective Date of Service Jan 15, 2017 Subjective no new complaints or events,awaiting placement Exam Vital Signs Vital Sign - Last Date Time Temp Pulse Resp B/P Pulse Ox O2 Delivery O2 Flow Rate FiO2 01/15/17 07:46 36.9 82 16 107/67 94 Room Air Intake and Output 01/14/17 01/14/17 01/15/17 Cumulative From/Thru 15:00 23:00 07:00 12/04/16 13:11 - 01/15/17 06:51 Intake Total 200 ml 350 ml 100 ml 71646 ml Output Total 1050 ml Balance 200 ml 350 ml 100 ml 74895 ml Intake Oral 200 ml 350 ml 100 ml 91303 ml IV Total 40468 ml Output Urine Total 600 ml Emesis 450 ml # Voids 2 2 1 280 # Bowel Movements 0 0 0 59 Exam cachectic, awake, calm, NAD, comfortably laying down on the bed RRR, nl s1, s2 no mrg CTAB, no w,c IVs and Medications Medications Reviewed: Medications were reviewed in detail Lab and Diagnostics Result Diagram: 01/10/17 0653 01/11/17 0525 X-Rays, CTs and MRIs Date of Service: 12/05/16 1013 PROCEDURE: MRI STROKE PROTOCOL ([id number]) Pre- and post-contrast brain MRI, non-contrast brain MR angiogram, pre- and postcontrast neck MR angiogram INDICATIONS: psychosis dementia TECHNIQUE: Brain: Noncontrast axial T1 spin echo, axial T2 fast spin echo, sagittal and axial FLAIR, coronal T2 fast spin echo, axial gradient echo, axial diffusion and ADC through the brain. After the administration of contrast, axial 3D VIBE of the cranial vasculature and brain. Brain MRA: Non-contrast 3-D time of flight MR angiogram, with multiple maximum- intensity-projection (MIP) reformats performed. Neck MRA: Axial and sagittal TruFISP through the neck. Coronal dynamic MR angiogram during administration of contrast in the arterial and venous phases, with 3-dimenstional bgadudj-qvrasmnkf-uvbgndrorw (MIP) reformats constructed from subtraction images. COMPARISON: None. FINDINGS: Image quality: Excellent. BRAIN: CSF spaces: There is ex vacuo dilatation of the lateral ventricles, greatest in degree involving the temporal horns. Basal cisterns are patent. No extra- axial fluid collections. Brain: No intracranial bleeds or mass effects. Mild degree of patchy high FLAIR signal intensity within the periventricular and subcortical white matter. There is moderate diffuse cerebral volume loss, greatest in degree involving the frontal and anterior temporal lobes. Jasmine-white matter interface is normal. Diffusion weighted images show no acute ischemic insults. Brainstem appears normal. Normal intravascular flow voids are present. No abnormal intracranial enhancement. Skull and face: Calvarial marrow signal is normal. Orbits appear normal. Sinuses: Sinuses and mastoids are clear. BRAIN MR ANGIOGRAM: Anterior circulation: Intracranial internal carotid arteries are normal in size and enhancement. The flow within the paired anterior cerebral arteries is normal and symmetric. The flow within the middle cerebral arteries is normal and symmetric. The anterior communicating artery is seen. No stenoses, occlusions, or aneurysms. Posterior circulation: The visualized portions of the vertebral arteries demonstrate normal caliber, and join to form a normal appearing basilar artery. The flow within the posterior cerebral arteries is normal and symmetric. No stenoses, occlusions, or aneurysms. NECK MR ANGIOGRAM: Carotids: Great vessels demonstrate a conventional anatomy as they arise from the aortic arch. The origins of the common carotid arteries appear patent. The calibers and courses of both common carotid arteries are normal. The bifurcation regions appear normal bilaterally. The internal carotid arteries demonstrate normal course and caliber. Posterior circulation: The origins of the vertebral arteries appear patent. More superior portions of both vertebral arteries demonstrate normal course and caliber, and join to form a normal appearing basilar artery. Miscellaneous: Subclavian arteries appear patent. Pre-contrast images through the neck show no soft tissue abnormalities. IMPRESSION: BRAIN MRI: 1. No acute process. No recent infarct. 2. Small vessel ischemic disease. 3. Cerebral volume loss, greatest in degree within the frontal and temporal lobes bilaterally. BRAIN MR ANGIOGRAM: Negative cervical MR angiography. NECK MR ANGIOGRAM: 1. No internal coronary stenosis bilaterally. 2. Patent bilateral vertebral arteries. The estimate of stenosis included in the report of the imaging study was calculated using the NASCET method Dictated by: Jing Kate M.D. on 12/05/2016 at 16:29 Transcribed by: RAULITO on 12/05/2016 at 16:34 Approved by: Jing Kate M.D. on 12/05/2016 at 16:40 Assessment & Plan 66-year-old female with severe early onset dementia with attempted suicide attempt was found to have YESENIA, UTI, and AMS. Currently pending placement. acute, active # Major neurocognitive disorder, NOS, poa, active. Irregular behaviors, agitation, likely due to advanced dementia with possible psychosis features or underlying psychiatric dz, dementia was presumably due to Alzheimer's dementia, pt was diagnosed dxed dementia already 7yrs ago per brother. no previous dx of psychiatric dz. Medical w/u including MRA, MRI of brain, vitB12, TSH, RPR, UCX, all negative. New regimen started on 12/09. -as per / recommendation below Risperidone 0.25mg po bid and 0.25mg po q6hr prn agitation ->increased to 0.5m bid Continue memantine 5mg po bid for 1 week then 5mg daily and 10mg nightly for 1 weeks then 10mg po bid.increased to 10mg bid 01/14 Consider adding SSRI e.g. escitalopram 5mg po daily for depression ->increased to 10mg daily Consider prazosin for possible PTSD>Started prazosin 1 mg qhs Patient would benefit from hearing aid to improve environmental cues Patient would benefit from picture board to identify items as has difficulty with naming object. # Intermittent n/v, decreased po intake, POA, ddx: likely from severe ileus, Resolved -n/v resolved with ileus ,NGT removed -continue bowel regimen, senna liquid, miralax. -zofran prn for n/v -no artificial nutrition, confirmed with daughter - was curbsided, reconsult if necessary # Elevated ALT, calcium, and bilirubin; present on admission; improved , LFT shows mild hepatic dysfunction with mild elevations of bilirubin and large elevation of ALT; Hepatitis panel is negative. -clinically stable, trending down, # YESENIA, resolved -initially presented on admission, which was likely prerenal due to decreased Po intake, received normal saline , YESENIA resolved, pt developed again YESENIA on , possibly prerenal -s/p hydration, YESENIA resolved, # UTI, POA, resolved. -positive for leukocyte esterase, nitrites, few bacteria. pt was empirically start Rocephin but final UCX negative. Repeat UCX also contaminated, stopped abx 12/11. then pt was restarted CFX01/04-, given marked elevation of wbc, trending down, UCX from 01/03 showed mixed doron, abx stopped. # Malnutrition- poa, active - Slightly improved and likes to drink ensure supplements, Labs showed slight increase in liver function tests AST and ALT on 12/26. - Trial of Remeron which did not seem to help her appetite and made her more lethargic. Remeron is discontinued" - 12/30- Per discussion with [employer] L[employer] Operator, will add high calorie nutritional supplements. - Tried Megace on 12/30 without improvement. - 01/01- Added Dronabinol 2.5mg BID w/ meals, pt did not tolerate at all due to nausea. Stopped. Back pain, active -- Patient complains of pain in the lumbar sacral area -- Increased tramadol to every 4 hrs 50 mg when necessary # Hx of nephrolithiasis, recent stent placement, POA, Abd US on 12/04 showed Interval resolution of right hydronephrosis status post ureteral stent placement. 1.7 cm nonobstructing right renal stone. - pt was scheduled for elective Rt renal Laser lithotripsy 12/12, informed that pt is in the hospital. f/u with urology after discharge. Post menopausal symptoms chronic -- discontinued Estrace. dvt ppx lovenox dcd 01/14 as daughters wish is comfort measures mainly Disposition: pending placement once source of payment is established, hospice seems appropriate given deconditioning.daughter working to get guardianship VTE Prophylaxis: Sub-Q Enoxaparin VTE Mechanical Devices: Venous Foot Pump Resuscitation Status: DNR/DNI:Do Not Resuscitate/Intubate Cresencio Velasco MD Jan 15, 2017 13:07
[2017-01-15 16:13] VITALS: BP 93/60; PULSE 87; RESP 16; O2SAT 99
--- NOTE | 2017-01-15 17:22 | NUR ---
Activity/behavior/diet Pt amb throughout halls frequently, attempting to exit unit and enter other pt's rooms. Required repeated attempts from sitter and staff to redirect pt back to room. No aggressive behaviors this shift thus far. Pt sat up in couch for every meal and took a few bites of each item. Continuing to encourage intake. Currently resting comfortable, sitter at bedside for safety.
[2017-01-15 20:00] VITALS: BP 110/69; PULSE 79; RESP 16; O2SAT 95
--- NOTE | 2017-01-16 06:31 | NUR ---
Uneventful Night: Pt had an uneventful night, no c/o pain, chest pain or SOB. Sitter at bedside, slept most of the night, pleasant and cooperative with care.
[2017-01-16] MEDS: Senna Leaf Extract 528 mg/15 mL Syrup PO SCH (10:22)
[2017-01-16] MEDS: risperiDONE 1 mg Tablet PO SCH ×2 (10:22→22:56)
--- NOTE | 2017-01-16 11:45 | NUR ---
Fall Patient had returned from walking the unit with sitter and tripped while walking to couch. Pt hit her face on the arm rail of a chair by the couch and split the right side of her face. Sitter was walking behind her and was unable to divert fall. MD notified. Pt denied any pain. Ice pack applied to mouth. Pt was unable to explain what happened d/t communication deficits r/t dementia. Pt has been ambulating the unit and around room with no incidence prior to this fall. VS WNL.
[2017-01-16 12:24] VITALS: BP 112/74; PULSE 100; RESP 18; O2SAT 94
--- NOTE | 2017-01-16 15:34 | PCM.PNMED ---
Subjective Date of Service Jan 16, 2017 Subjective Patient had a witnessed mechanical fall today. She sustained 1.5 centimeter laceration on upper lip right side. Surgery consulted for stitching Exam Vital Signs Vital Sign - Last Date Time Temp Pulse Resp B/P Pulse Ox O2 Delivery O2 Flow Rate FiO2 01/16/17 12:24 36.8 100 18 112/74 94 Room Air Intake and Output 01/15/17 01/15/17 01/16/17 Cumulative From/Thru 15:00 23:00 07:00 12/04/16 13:11 - 01/16/17 05:45 Intake Total 839 ml 450 ml 36128 ml Output Total 1050 ml Balance 839 ml 450 ml 94339 ml Intake Oral 839 ml 450 ml 00215 ml IV Total 26242 ml Output Urine Total 600 ml Emesis 450 ml # Voids 4 3 287 # Bowel Movements 0 59 Exam cachectic, awake, calm, 1.5cm laceration on right upper lip . Neuro exam remains nonfocal NAD, comfortably laying down on the bed RRR, nl s1, s2 no mrg CTAB, no w,c IVs and Medications Medications Reviewed: Medications were reviewed in detail Lab and Diagnostics Result Diagram: 01/10/17 0653 01/11/17 0525 X-Rays, CTs and MRIs Date of Service: 12/05/16 1013 PROCEDURE: MRI STROKE PROTOCOL ([id number]) Pre- and post-contrast brain MRI, non-contrast brain MR angiogram, pre- and postcontrast neck MR angiogram INDICATIONS: psychosis dementia TECHNIQUE: Brain: Noncontrast axial T1 spin echo, axial T2 fast spin echo, sagittal and axial FLAIR, coronal T2 fast spin echo, axial gradient echo, axial diffusion and ADC through the brain. After the administration of contrast, axial 3D VIBE of the cranial vasculature and brain. Brain MRA: Non-contrast 3-D time of flight MR angiogram, with multiple maximum- intensity-projection (MIP) reformats performed. Neck MRA: Axial and sagittal TruFISP through the neck. Coronal dynamic MR angiogram during administration of contrast in the arterial and venous phases, with 3-dimenstional hxgsbee-swypsvkhb-poqjyhtoaf (MIP) reformats constructed from subtraction images. COMPARISON: None. FINDINGS: Image quality: Excellent. BRAIN: CSF spaces: There is ex vacuo dilatation of the lateral ventricles, greatest in degree involving the temporal horns. Basal cisterns are patent. No extra- axial fluid collections. Brain: No intracranial bleeds or mass effects. Mild degree of patchy high FLAIR signal intensity within the periventricular and subcortical white matter. There is moderate diffuse cerebral volume loss, greatest in degree involving the frontal and anterior temporal lobes. Jasmine-white matter interface is normal. Diffusion weighted images show no acute ischemic insults. Brainstem appears normal. Normal intravascular flow voids are present. No abnormal intracranial enhancement. Skull and face: Calvarial marrow signal is normal. Orbits appear normal. Sinuses: Sinuses and mastoids are clear. BRAIN MR ANGIOGRAM: Anterior circulation: Intracranial internal carotid arteries are normal in size and enhancement. The flow within the paired anterior cerebral arteries is normal and symmetric. The flow within the middle cerebral arteries is normal and symmetric. The anterior communicating artery is seen. No stenoses, occlusions, or aneurysms. Posterior circulation: The visualized portions of the vertebral arteries demonstrate normal caliber, and join to form a normal appearing basilar artery. The flow within the posterior cerebral arteries is normal and symmetric. No stenoses, occlusions, or aneurysms. NECK MR ANGIOGRAM: Carotids: Great vessels demonstrate a conventional anatomy as they arise from the aortic arch. The origins of the common carotid arteries appear patent. The calibers and courses of both common carotid arteries are normal. The bifurcation regions appear normal bilaterally. The internal carotid arteries demonstrate normal course and caliber. Posterior circulation: The origins of the vertebral arteries appear patent. More superior portions of both vertebral arteries demonstrate normal course and caliber, and join to form a normal appearing basilar artery. Miscellaneous: Subclavian arteries appear patent. Pre-contrast images through the neck show no soft tissue abnormalities. IMPRESSION: BRAIN MRI: 1. No acute process. No recent infarct. 2. Small vessel ischemic disease. 3. Cerebral volume loss, greatest in degree within the frontal and temporal lobes bilaterally. BRAIN MR ANGIOGRAM: Negative cervical MR angiography. NECK MR ANGIOGRAM: 1. No internal coronary stenosis bilaterally. 2. Patent bilateral vertebral arteries. The estimate of stenosis included in the report of the imaging study was calculated using the NASCET method Dictated by: Jing Kate M.D. on 12/05/2016 at 16:29 Transcribed by: RAULITO on 12/05/2016 at 16:34 Approved by: Jing Kate M.D. on 12/05/2016 at 16:40 Assessment & Plan 66-year-old female with severe early onset dementia with attempted suicide attempt was found to have YESENIA, UTI, and AMS. Currently pending placement. acute, active # Major neurocognitive disorder, NOS, poa, active. Irregular behaviors, agitation, likely due to advanced dementia with possible psychosis features or underlying psychiatric dz, dementia was presumably due to Alzheimer's dementia, pt was diagnosed dxed dementia already 7yrs ago per brother. no previous dx of psychiatric dz. Medical w/u including MRA, MRI of brain, vitB12, TSH, RPR, UCX, all negative. New regimen started on 12/09. -as per / recommendation below Risperidone 0.25mg po bid and 0.25mg po q6hr prn agitation ->increased to 0.5m bid Continue memantine 5mg po bid for 1 week then 5mg daily and 10mg nightly for 1 weeks then 10mg po bid.increased to 10mg bid 01/14 Consider adding SSRI e.g. escitalopram 5mg po daily for depression ->increased to 10mg daily Consider prazosin for possible PTSD>Started prazosin 1 mg qhs Patient would benefit from hearing aid to improve environmental cues Patient would benefit from picture board to identify items as has difficulty with naming object. # Intermittent n/v, decreased po intake, POA, ddx: likely from severe ileus, Resolved -n/v resolved with ileus ,NGT removed -continue bowel regimen, senna liquid, miralax. -zofran prn for n/v -no artificial nutrition, confirmed with daughter - was curbsided, reconsult if necessary # Mechanical fall with right upper lip laceration on 01/16/17 -Neuro exam is nonfocal and unchanged from earlier today. No need for imaging for now -Surgery consulted to stitch laceration # Elevated ALT, calcium, and bilirubin; present on admission; improved , LFT shows mild hepatic dysfunction with mild elevations of bilirubin and large elevation of ALT; Hepatitis panel is negative. -clinically stable, trending down, # YESENIA, resolved -initially presented on admission, which was likely prerenal due to decreased Po intake, received normal saline , YESENIA resolved, pt developed again YESENIA on , possibly prerenal -s/p hydration, YESENIA resolved, # UTI, POA, resolved. -positive for leukocyte esterase, nitrites, few bacteria. pt was empirically start Rocephin but final UCX negative. Repeat UCX also contaminated, stopped abx 12/11. then pt was restarted CFX01/04-, given marked elevation of wbc, trending down, UCX from 01/03 showed mixed doron, abx stopped. # Malnutrition- poa, active - Slightly improved and likes to drink ensure supplements, Labs showed slight increase in liver function tests AST and ALT on 12/26. - Trial of Remeron which did not seem to help her appetite and made her more lethargic. Remeron is discontinued" - 12/30- Per discussion with Patient Sitter, will add high calorie nutritional supplements. - Tried Megace on 12/30 without improvement. - 01/01- Added Dronabinol 2.5mg BID w/ meals, pt did not tolerate at all due to nausea. Stopped. Back pain, active -- Patient complains of pain in the lumbar sacral area -- Increased tramadol to every 4 hrs 50 mg when necessary # Hx of nephrolithiasis, recent stent placement, POA, Abd US on 12/04 showed Interval resolution of right hydronephrosis status post ureteral stent placement. 1.7 cm nonobstructing right renal stone. - pt was scheduled for elective Rt renal Laser lithotripsy 12/12, informed that pt is in the hospital. f/u with urology after discharge. Post menopausal symptoms chronic -- discontinued Estrace. dvt ppx lovenox dcd 01/14 as daughters wish is comfort measures mainly Disposition: pending placement once source of payment is established, hospice seems appropriate given deconditioning.daughter working to get guardianship VTE Prophylaxis: Sub-Q Enoxaparin VTE Mechanical Devices: Venous Foot Pump Resuscitation Status: DNR/DNI:Do Not Resuscitate/Intubate Cresencio Velasco MD Jan 16, 2017 15:33
[2017-01-16] MEDS ORDERED: Lidocaine 2% 20 mg/mL 5 mL Cardiac Syringe ONE (16:29)
[2017-01-16] MEDS ORDERED: Lidocaine 1%-Epi 1:100,000 50 mL Inj SUBQ ONE (16:45)
--- NOTE | 2017-01-16 19:48 | PCM.CONSUR ---
Subjective Date of Service: Jan 16, 2017 History of Present Illness Rain Rodriguez is a 66 year old female with progressively worsening, severe Alzheimer's admitted with recent suicidal and homicidal ideation, suicide attempt, and kidney stones s/p ureteral stent with acute kidney injury and malnutrition. She was admitted on 12/05/2016. Today she sustained a witnessed mechanical fall after tripping and falling forward, hitting her right upper lip. She sustained a right upper lip laceration, no broken or chipped teeth or associated tongue laceration. She had no loss of consciousness. Her neurological exam and orientation is unchanged per the family and medical primary team. No imaging was ordered based on the witnessed fall and stable condition. The surgical service was contacted to assist with lip laceration repair. She has been comfortable and only reports pain when the lip is examined or touched. Reason for Consultation Lip laceration Allergy Allergies: Coded Allergies: No Known Allergies (Unverified , 12/04/16) Medications Doxylamine Succinate (Unisom) 25 Mg Tablet 25 MG PO HS PRN PRN Insomnia ( Reported) Last Taken: 25 MG on Unknown Date & Time Estradiol (Estradiol) 0.5 Mg Tablet 0.5 MG PO QAM (Reported) Last Taken: 0.5 MG on 12/04/16 0900 Meloxicam (Meloxicam) 7.5 Mg Tablet 7.5 MG PO DAILYWM (Reported) Last Taken: 7.5 MG on 12/04/16 0900 Memantine (Namenda) 10 Mg Tablet 5 MG PO BID (Reported) Last Taken: 5 MG on 12/04/16 0900 Ondansetron (Zofran) 4 Mg Tablet 4 MG PO Q8H PRN PRN For Nausea (Reported) Last Taken: 4 MG on Unknown Date & Time Tramadol (Tramadol) 50 Mg Tablet 50 MG PO Q8H PRN PRN For Pain (Reported) Last Taken: 50 MG on Unknown Date & Time Past Surgical History Surgeries: Yes (Ureteral stent) Patient/Family Past Surgical: Denies:: Anesthesia Reactions Social History 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, 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, 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 Hx Alcohol Use: Yes (quit drinking about 4 months ago) Hx Substance Use: No PMH HEENT History History of ENT Problems?: No HEENT History: Denies:: Abnormal Airway Cataracts Difficult Intubation Dysphagia Hearing Problem Sinus Problem TMJ Cardiovascular History History of Heart Problems?: No Cardiovascular History: Denies:: AICD Abdominal Aortic Aneurism Atrial Fibrillation Cardiac Surgery Chest Pain Congestive Heart Failure Edema Heart Murmur Hypertension Irregular Heartbeat Pacemaker Rheumatic Fever Thrombophlebitis Valvular Heart Disease Respiratory History of Respiratory Problem: No Respiratory History: Denies:: Oxygen Administration Use of C-PAP Machine Neurological History Hx Neurologic Problems?: Yes Neurological History: Positive for:: Dementia (taking namenda, but was discontinued by [facility] [place] Gastrointestinal History HX of GI Problems?: No Genitourinary History Hx of Gu Problems?: Yes Genitourinary History: Positive for: Kidney Stones (right ureteral stone current admission problem) Musculoskeletal History Hx Musculoskeletal Problems?: Yes Psycho Social History Psycho Social History: Positive for:: Suicide Attempt (Present on admission ) Other History Hx Any Other Health Problems?: Yes Other History: Denies:: Cancer Diabetes: No Social History Hx Alcohol Use: Yes (quit drinking about 4 months ago)Hx Substance Use: No Smoking Status: Unknown if Ever Smoker Living Arrangement: with Family Objective Exam Vital Signs & I/O Vital Sign- Last 8 Hours Date Time Temp Pulse Resp B/P Pulse Ox O2 Delivery O2 Flow Rate FiO2 01/16/17 12:24 36.8 100 18 112/74 94 Room Air Intake and Output- Last 8 Hour 01/16/17 Cumulative From/Thru 07:00 12/04/16 13:11 - 01/16/17 05:45 Intake Total 450 ml 47208 ml Output Total 1050 ml Balance 450 ml 61563 ml Intake Oral 450 ml 45796 ml IV Total 65694 ml Output Urine Total 600 ml Emesis 450 ml # Voids 3 287 # Bowel Movements 0 59 Lab & Micro Results Microbiology 01/03/17 Urine Culture - Final, Complete Mixed Urogenital Concepcion Result Diagram: 01/10/17 0653 01/11/17 0525 Review of Systems: Constitutional: Negative, except as otherwise mentioned in the history above. Ophthalmologic: Negative, except as otherwise mentioned in the history above. Cardiovascular: Negative, except as otherwise mentioned in the history above. Respiratory: Negative, except as otherwise mentioned in the history above. Gastrointestinal: Negative, except as otherwise mentioned in the history above. Genitourinary: Negative, except as otherwise mentioned in the history above. Musculoskeletal: Negative, except as otherwise mentioned in the history above. Neurological: Negative, except as otherwise mentioned in the history above. Psychiatric: Negative, except as otherwise mentioned in the history above. Hematologic/Lymphatic: Negative, except as otherwise mentioned in the history above. Allergic/Immunologic: Negative, except as otherwise mentioned in the history above. H&P Surgical Exam Exam General: Alert, No Acute Distress, Other (Reports she fell at [employer], 5 minutes later says she fell because some guys were chasing her.) HEENT: PERRLA, EOMI, Mucous membranes moist and pink, Other (There is a 1.5cm vertical lip laceration 1cm lateral to the philtrum extending through the lip and 1cm within the oral mucosa. The underlying muscle is partially intact. Tender to palpation, some dried blood along the outer lip. Right perioral edema and swelling.) Respiratory: Clear to Auscultation Cardiac: Regular Rate/Rhythm, No Murmurs/Rubs/Gallops Assessment & Plan Assessment 66 F with right complex lip laceration involving the vermilion border. VTE Prophylaxis: Sub-Q Enoxaparin VTE Mechanical Devices: Venous Foot Pump Plan: Recommendations: Lip laceration repair in layers. The technical and convalescent aspects of the procedure were explained in detail to the patient's daughter who agreed to proceed and provided consent. The patient underwent a right lip laceration repair and tolerated the procedure without difficulty. We recommend permanent 5- 0 prolene suture (1 stitch) removal from the vermilion border in 5 days. Post procedural care should included three times daily chlorhexidine swish and spit oral rinses and application of ointment to the wound to keep it moist 1-2 times daily as needed for 1 week. All other sutures are absorbable. Please contact the General Surgery service with any questions or concerns. Please see procedure note for details. Resuscitation Status: DNR/DNI:Do Not Resuscitate/Intubate Attending Statement: I examined this patient and agree with the note as dictated above by Dr. Worley. I also considered whether it should be performed by our plastic surgeon. However, he is out of town until the end of the week and the repair should be performed before his return. Jael Orozco M.D. General Surgery Nik Worley MD Jan 16, 2017 19:48 Jael Orozco MD Jan 17, 2017 11:11
--- NOTE | 2017-01-16 20:01 | PCM.PROC ---
Procedure Note Date of Service: Jan 16, 2017 Pre Procedure Diagnosis: Right upper lip complex laceration involving the vermilion border Post Procedure Diagnosis: Right upper lip complex laceration involving the vermilion border Procedure: Right upper lip complex laceration repair 1.5cm Provider and Drapery Sewer Hand: Nik Worley MD Indication for Procedure: Lip laceration Procedural Analgesia: 1% lidocaine - 7cc infraorbital nerve block Procedure Details: The procedure was explained in detail and consent was obtained. The patient was positioned and amenable to proceeding. The skin was cleansed and draped. A right infraorbital block was performed with 7cc of 1% lidocaine. After analgesia was confirmed the wound was explored and irrigated with saline. No debris was identified and the wound was clean. The vermilion border was marked, there was significant edema and swelling of the right upper lip. A single 6-0 prolene simple suture was placed to approximate the vermilion border. Next 4-0 monocryl was used to place deep approximating simple interrupted sutures through the upper lip musculature and with the muscle on the oral mucosa side of the laceration. 5-0 chromic simple interrupted sutures were then placed along the length of the laceration on the right upper lip, lip and oral mucosal extension of the laceration until approximation of all skin and oral mucosa edges was obtained. The patient tolerated the procedure well. Good approximation of the vermilion border was obtained. Blood loss: 3cc Complications: None Specimen: None. Post Procedure Plan: Chlorhexidine swish and spit three times daily Antibiotic ointment to external wound/lip as needed to keep wound moist. Remove single simple interrupted 6-0 prolene suture in 5 days. Attending Statement I am Dr. Worley's wrecking supervisor for this procedure and I described how to complete it to her and assessed the results, which were excellent. Jael Orozco MD General Surgeon. Nik Worley MD Jan 16, 2017 20:01 Jael Orozco MD Jan 17, 2017 11:13
[2017-01-16] MEDS: Chlorhexidine 0.12% 15 mL Oral Solution MT SCH (20:30)
[2017-01-16 20:49] VITALS: BP 130/74; PULSE 87; RESP 16; O2SAT 96
[2017-01-17 04:27] VITALS: BP 116/66; PULSE 81; RESP 16; O2SAT 94
--- NOTE | 2017-01-17 06:04 | NUR ---
Uneventful Night: Pt had an uneventful night, no c/o pain or SOB. Pt offered michoacano pudding and something to drink by RN at HS; pt took 2 bites of pudding and a few small sips of fluid and refused anymore. Walked in the hallways with sitter during the night, minimal conversation with staff. Slept off/on with sitter at bedside. Pt unable to follow commands to take scheduled Chlorhexidine oral solution with instructions to swish and expectorate.
[2017-01-17] MEDS: Senna Leaf Extract 528 mg/15 mL Syrup PO SCH (08:30)
[2017-01-17] MEDS: Chlorhexidine 0.12% 15 mL Oral Solution MT SCH ×3 (08:30→20:30)
[2017-01-17] MEDS: risperiDONE 1 mg Tablet PO SCH ×2 (09:17→20:28)
--- NOTE | 2017-01-17 10:07 | NUR ---
faxed clinical update to Olga at [facility].
--- NOTE | 2017-01-17 11:15 | PCM.PNSURG ---
Subjective Visit Information: Reason for Visit Delerium, Dehydration Surgery/Surgery Date Post-Op Day # Date of Admission: Dec 04, 2016 at 17:58 Hospital Day # Subjective: Stable overnight. Lip repair is intact. Objective Vital Sign- Last 8 Hours Date Time Temp Pulse Resp B/P Pulse Ox O2 Delivery O2 Flow Rate FiO2 01/17/17 04:27 36.6 81 16 116/66 94 Room Air Intake and Output- Last 8 Hour 01/17/17 Cumulative From/Thru 07:00 12/04/16 13:11 - 01/17/17 05:01 Intake Total 31990 ml Output Total 1050 ml Balance 11673 ml Intake Oral 17823 ml IV Total 69713 ml Output Urine Total 600 ml Emesis 450 ml # Voids 290 # Bowel Movements 59 General: Alert, Oriented X3, Cooperative Result Diagram: 01/11/17 0525 Additional Information: R lip laceration is repaired with intact stitches Assessment & Plan Impression POD1 repair of traumatic lip laceration. Problems: Plan Antibiotic ointment to R lip. Stitches to be removed in 5 days. VTE Prophylaxis: Sub-Q Enoxaparin Resuscitation Status: DNR/DNI:Do Not Resuscitate/Intubate Jael Orozco MD Jan 17, 2017 11:15
--- NOTE | 2017-01-17 11:18 | NUR ---
Increased fall risk Pt was visiting with family in the room. Mile (1:1 plasma center technician) outside the room, observed patient getting up off the couch, and walking to bathroom. Mile went into room to assist pt. Mile observed pt fall back, was caught by brother and eased to the ground, no contact with floor occurred. Brother and sitter requested pt remain seated. Pt stood up and sat on the toilet to urinate. Sitter called this RN to bedside. No complains of pain or discomfort. die repairer trimmer dies, Concert Promoter and MD made aware. -Pt to have gait belt on at all times. -Non skid socks at all times. -Re-assessment to be completed by PT. Will continue to monitor.
--- NOTE | 2017-01-17 13:50 | NUR ---
Social Work-continued d/c planning: Data:EMR reviewed. Pt is on day 44 of hospitalization for delirum per H&P. Pt is now comfort care. Daughter has completed paperwork and has filed for guardianship for pt. Family unwilling to take pt home on Hospice services. SW to continue work on placement once guardianship in place. SW will continue to follow. Assessment:Pt who is now comfort care. Plan:SW to continue work on placement once guardianship in place, daughter has filed paperwork. Pt is on comfort care. SW will continue to follow. STEWART Contreras
--- NOTE | 2017-01-17 15:54 | PCM.PNMED ---
Subjective Date of Service Jan 17, 2017 Subjective She had a fall yesterday and lacerated her upper lip. Laceration stitched by surgery. Also had a near fall today Exam Vital Signs Vital Sign - Last Date Time Temp Pulse Resp B/P Pulse Ox O2 Delivery O2 Flow Rate FiO2 01/17/17 04:27 36.6 81 16 116/66 94 Room Air Intake and Output 01/16/17 01/16/17 01/17/17 Cumulative From/Thru 15:00 23:00 07:00 12/04/16 13:11 - 01/17/17 05:01 Intake Total 700 ml 76033 ml Output Total 1050 ml Balance 700 ml 24237 ml Intake Oral 700 ml 42510 ml IV Total 61036 ml Output Urine Total 600 ml Emesis 450 ml # Voids 3 290 # Bowel Movements 0 59 Exam cachectic, awake, calm, 1.5cm laceration on right upper lip stitched . Neuro exam remains nonfocal NAD, comfortably laying down on the bed RRR, nl s1, s2 no mrg CTAB, no w,c IVs and Medications Medications Reviewed: Medications were reviewed in detail Lab and Diagnostics Result Diagram: 01/11/17 0525 X-Rays, CTs and MRIs Date of Service: 12/05/16 1013 PROCEDURE: MRI STROKE PROTOCOL ([id number]) Pre- and post-contrast brain MRI, non-contrast brain MR angiogram, pre- and postcontrast neck MR angiogram INDICATIONS: psychosis dementia TECHNIQUE: Brain: Noncontrast axial T1 spin echo, axial T2 fast spin echo, sagittal and axial FLAIR, coronal T2 fast spin echo, axial gradient echo, axial diffusion and ADC through the brain. After the administration of contrast, axial 3D VIBE of the cranial vasculature and brain. Brain MRA: Non-contrast 3-D time of flight MR angiogram, with multiple maximum- intensity-projection (MIP) reformats performed. Neck MRA: Axial and sagittal TruFISP through the neck. Coronal dynamic MR angiogram during administration of contrast in the arterial and venous phases, with 3-dimenstional imsglvs-xiltinpvd-aoaexvgjei (MIP) reformats constructed from subtraction images. COMPARISON: None. FINDINGS: Image quality: Excellent. BRAIN: CSF spaces: There is ex vacuo dilatation of the lateral ventricles, greatest in degree involving the temporal horns. Basal cisterns are patent. No extra- axial fluid collections. Brain: No intracranial bleeds or mass effects. Mild degree of patchy high FLAIR signal intensity within the periventricular and subcortical white matter. There is moderate diffuse cerebral volume loss, greatest in degree involving the frontal and anterior temporal lobes. Jasmine-white matter interface is normal. Diffusion weighted images show no acute ischemic insults. Brainstem appears normal. Normal intravascular flow voids are present. No abnormal intracranial enhancement. Skull and face: Calvarial marrow signal is normal. Orbits appear normal. Sinuses: Sinuses and mastoids are clear. BRAIN MR ANGIOGRAM: Anterior circulation: Intracranial internal carotid arteries are normal in size and enhancement. The flow within the paired anterior cerebral arteries is normal and symmetric. The flow within the middle cerebral arteries is normal and symmetric. The anterior communicating artery is seen. No stenoses, occlusions, or aneurysms. Posterior circulation: The visualized portions of the vertebral arteries demonstrate normal caliber, and join to form a normal appearing basilar artery. The flow within the posterior cerebral arteries is normal and symmetric. No stenoses, occlusions, or aneurysms. NECK MR ANGIOGRAM: Carotids: Great vessels demonstrate a conventional anatomy as they arise from the aortic arch. The origins of the common carotid arteries appear patent. The calibers and courses of both common carotid arteries are normal. The bifurcation regions appear normal bilaterally. The internal carotid arteries demonstrate normal course and caliber. Posterior circulation: The origins of the vertebral arteries appear patent. More superior portions of both vertebral arteries demonstrate normal course and caliber, and join to form a normal appearing basilar artery. Miscellaneous: Subclavian arteries appear patent. Pre-contrast images through the neck show no soft tissue abnormalities. IMPRESSION: BRAIN MRI: 1. No acute process. No recent infarct. 2. Small vessel ischemic disease. 3. Cerebral volume loss, greatest in degree within the frontal and temporal lobes bilaterally. BRAIN MR ANGIOGRAM: Negative cervical MR angiography. NECK MR ANGIOGRAM: 1. No internal coronary stenosis bilaterally. 2. Patent bilateral vertebral arteries. The estimate of stenosis included in the report of the imaging study was calculated using the NASCET method Dictated by: Jing Kate M.D. on 12/05/2016 at 16:29 Transcribed by: RAULITO on 12/05/2016 at 16:34 Approved by: Jing Kate M.D. on 12/05/2016 at 16:40 Assessment & Plan 66-year-old female with severe early onset dementia with attempted suicide attempt was found to have YESENIA, UTI, and AMS. Currently pending placement. acute, active # Major neurocognitive disorder, NOS, poa, active. Irregular behaviors, agitation, likely due to advanced dementia with possible psychosis features or underlying psychiatric dz, dementia was presumably due to Alzheimer's dementia, pt was diagnosed dxed dementia already 7yrs ago per brother. no previous dx of psychiatric dz. Medical w/u including MRA, MRI of brain, vitB12, TSH, RPR, UCX, all negative. New regimen started on 12/09. -as per / recommendation below Risperidone 0.25mg po bid and 0.25mg po q6hr prn agitation ->increased to 0.5m bid Continue memantine 5mg po bid for 1 week then 5mg daily and 10mg nightly for 1 weeks then 10mg po bid.increased to 10mg bid 01/14 Consider adding SSRI e.g. escitalopram 5mg po daily for depression ->increased to 10mg daily Consider prazosin for possible PTSD>Started prazosin 1 mg qhs Patient would benefit from hearing aid to improve environmental cues Patient would benefit from picture board to identify items as has difficulty with naming object. # Intermittent n/v, decreased po intake, POA, ddx: likely from severe ileus, Resolved -n/v resolved with ileus ,NGT removed -continue bowel regimen, senna liquid, miralax. -zofran prn for n/v -no artificial nutrition, confirmed with daughter - was curbsided, reconsult if necessary # Mechanical fall with right upper lip laceration on 01/16/17 -Neuro exam is nonfocal and unchanged from earlier today. No need for imaging for now -Surgery stitched laceration 01/16. Remove stitch after 5 days. -she had near fall today,PT eval # Elevated ALT, calcium, and bilirubin; present on admission; improved , LFT shows mild hepatic dysfunction with mild elevations of bilirubin and large elevation of ALT; Hepatitis panel is negative. -clinically stable, trending down, # YESENIA, resolved -initially presented on admission, which was likely prerenal due to decreased Po intake, received normal saline , YESENIA resolved, pt developed again YESENIA on , possibly prerenal -s/p hydration, YESENIA resolved, # UTI, POA, resolved. -positive for leukocyte esterase, nitrites, few bacteria. pt was empirically start Rocephin but final UCX negative. Repeat UCX also contaminated, stopped abx 12/11. then pt was restarted CFX01/04-, given marked elevation of wbc, trending down, UCX from 01/03 showed mixed doron, abx stopped. # Malnutrition- poa, active - Slightly improved and likes to drink ensure supplements, Labs showed slight increase in liver function tests AST and ALT on 12/26. - Trial of Remeron which did not seem to help her appetite and made her more lethargic. Remeron is discontinued" - 12/30- Per discussion with Casino Attendant, will add high calorie nutritional supplements. - Tried Megace on 12/30 without improvement. - 01/01- Added Dronabinol 2.5mg BID w/ meals, pt did not tolerate at all due to nausea. Stopped. Back pain, active -- Patient complains of pain in the lumbar sacral area -- Increased tramadol to every 4 hrs 50 mg when necessary # Hx of nephrolithiasis, recent stent placement, POA, Abd US on 12/04 showed Interval resolution of right hydronephrosis status post ureteral stent placement. 1.7 cm nonobstructing right renal stone. - pt was scheduled for elective Rt renal Laser lithotripsy 12/12, informed that pt is in the hospital. f/u with urology after discharge. Post menopausal symptoms chronic -- discontinued Estrace. dvt ppx lovenox dcd 01/14 as daughters wish is comfort measures mainly Disposition: pending placement once source of payment is established, hospice seems appropriate given deconditioning.daughter working to get guardianship VTE Prophylaxis: Sub-Q Enoxaparin VTE Mechanical Devices: Venous Foot Pump Resuscitation Status: DNR/DNI:Do Not Resuscitate/Intubate Cresencio Velasco MD Jan 17, 2017 15:54
--- NOTE | 2017-01-17 17:05 | NUR ---
spiritual care; follow up visit attempt by caring tail ripper for supportive company. Pt sleeping
--- NOTE | 2017-01-17 17:55 | NUR ---
PO intake/weight Weight completed on standing scale, pt clothed in yoga pants and shirt. PO intake poor. Pt took 2-3 bites of her meals, snacks were offered mid morning and afternoon, however pt refused. 2 bites of chocolate pudding was eaten when meds were given however when this RN tried to encourage pt firmly declined. Family visited at bedside for most of the day. 1:1 sitter at bedside for safety and direction. Addendum: 01/17/17 at 1809 by DAVEY CHRISTIE RN PO fluid intake included 352 mls of Ensure.
--- NOTE | 2017-01-17 18:10 | NUR ---
Belongings Fishing lure with green colored beads, belonging to the pt was taken home by granddaughter in specimen cup.
[2017-01-17 20:39] VITALS: BP 135/82; PULSE 88; RESP 16; O2SAT 97
--- NOTE | 2017-01-18 04:58 | NUR ---
NOC/Activity Pt has been pleasant and cooperative with care. Alert to self. 1:1 sitter provided for safety. No obvious chest pain, sob, n/v observed. Noted pt have a very poor appetite. VSS and has been afebrile. Continuing to monitor.
[2017-01-18 06:36] VITALS: BP 120/71; PULSE 76; RESP 18; O2SAT 96
[2017-01-18] MEDS: Chlorhexidine 0.12% 15 mL Oral Solution MT SCH ×3 (08:30→20:12)
[2017-01-18] MEDS: risperiDONE 1 mg Tablet PO SCH ×2 (08:52→20:11)
--- NOTE | 2017-01-18 13:35 | PCM.PNMED ---
Subjective Date of Service Jan 18, 2017 Subjective No new complaints or events. Awaiting placement. Exam Vital Signs Vital Sign - Last Date Time Temp Pulse Resp B/P Pulse Ox O2 Delivery O2 Flow Rate FiO2 01/18/17 06:36 36.9 76 18 120/71 96 Room Air Intake and Output 01/17/17 01/17/17 01/18/17 Cumulative From/Thru 15:00 23:00 07:00 12/04/16 13:11 - 01/18/17 06:36 Intake Total 474 ml 822 ml 150 ml 04286 ml Output Total 0 ml 1050 ml Balance 474 ml 822 ml 150 ml 14702 ml Intake Oral 474 ml 822 ml 150 ml 14693 ml IV Total 67517 ml Output Urine Total 0 ml 600 ml Emesis 450 ml # Voids 3 3 1 297 # Bowel Movements 0 59 Exam cachectic, awake, calm, 1.5cm laceration on right upper lip stitched . Neuro exam remains nonfocal NAD, comfortably laying down on the bed RRR, nl s1, s2 no mrg CTAB, no w,c IVs and Medications Medications Reviewed: Medications were reviewed in detail Lab and Diagnostics X-Rays, CTs and MRIs Date of Service: 12/05/16 1013 PROCEDURE: MRI STROKE PROTOCOL ([id number]) Pre- and post-contrast brain MRI, non-contrast brain MR angiogram, pre- and postcontrast neck MR angiogram INDICATIONS: psychosis dementia TECHNIQUE: Brain: Noncontrast axial T1 spin echo, axial T2 fast spin echo, sagittal and axial FLAIR, coronal T2 fast spin echo, axial gradient echo, axial diffusion and ADC through the brain. After the administration of contrast, axial 3D VIBE of the cranial vasculature and brain. Brain MRA: Non-contrast 3-D time of flight MR angiogram, with multiple maximum- intensity-projection (MIP) reformats performed. Neck MRA: Axial and sagittal TruFISP through the neck. Coronal dynamic MR angiogram during administration of contrast in the arterial and venous phases, with 3-dimenstional izswrau-bbcvnsixq-jbipvcbqru (MIP) reformats constructed from subtraction images. COMPARISON: None. FINDINGS: Image quality: Excellent. BRAIN: CSF spaces: There is ex vacuo dilatation of the lateral ventricles, greatest in degree involving the temporal horns. Basal cisterns are patent. No extra- axial fluid collections. Brain: No intracranial bleeds or mass effects. Mild degree of patchy high FLAIR signal intensity within the periventricular and subcortical white matter. There is moderate diffuse cerebral volume loss, greatest in degree involving the frontal and anterior temporal lobes. Jasmine-white matter interface is normal. Diffusion weighted images show no acute ischemic insults. Brainstem appears normal. Normal intravascular flow voids are present. No abnormal intracranial enhancement. Skull and face: Calvarial marrow signal is normal. Orbits appear normal. Sinuses: Sinuses and mastoids are clear. BRAIN MR ANGIOGRAM: Anterior circulation: Intracranial internal carotid arteries are normal in size and enhancement. The flow within the paired anterior cerebral arteries is normal and symmetric. The flow within the middle cerebral arteries is normal and symmetric. The anterior communicating artery is seen. No stenoses, occlusions, or aneurysms. Posterior circulation: The visualized portions of the vertebral arteries demonstrate normal caliber, and join to form a normal appearing basilar artery. The flow within the posterior cerebral arteries is normal and symmetric. No stenoses, occlusions, or aneurysms. NECK MR ANGIOGRAM: Carotids: Great vessels demonstrate a conventional anatomy as they arise from the aortic arch. The origins of the common carotid arteries appear patent. The calibers and courses of both common carotid arteries are normal. The bifurcation regions appear normal bilaterally. The internal carotid arteries demonstrate normal course and caliber. Posterior circulation: The origins of the vertebral arteries appear patent. More superior portions of both vertebral arteries demonstrate normal course and caliber, and join to form a normal appearing basilar artery. Miscellaneous: Subclavian arteries appear patent. Pre-contrast images through the neck show no soft tissue abnormalities. IMPRESSION: BRAIN MRI: 1. No acute process. No recent infarct. 2. Small vessel ischemic disease. 3. Cerebral volume loss, greatest in degree within the frontal and temporal lobes bilaterally. BRAIN MR ANGIOGRAM: Negative cervical MR angiography. NECK MR ANGIOGRAM: 1. No internal coronary stenosis bilaterally. 2. Patent bilateral vertebral arteries. The estimate of stenosis included in the report of the imaging study was calculated using the NASCET method Dictated by: Jing Kate M.D. on 12/05/2016 at 16:29 Transcribed by: RAULITO on 12/05/2016 at 16:34 Approved by: Jing Kate M.D. on 12/05/2016 at 16:40 Assessment & Plan 66-year-old female with severe early onset dementia with attempted suicide attempt was found to have YESENIA, UTI, and AMS. Currently pending placement. acute, active # Major neurocognitive disorder, NOS, poa, active. Irregular behaviors, agitation, likely due to advanced dementia with possible psychosis features or underlying psychiatric dz, dementia was presumably due to Alzheimer's dementia, pt was diagnosed dxed dementia already 7yrs ago per brother. no previous dx of psychiatric dz. Medical w/u including MRA, MRI of brain, vitB12, TSH, RPR, UCX, all negative. New regimen started on 12/09. -as per / recommendation below Risperidone 0.25mg po bid and 0.25mg po q6hr prn agitation ->increased to 0.5m bid Continue memantine 5mg po bid for 1 week then 5mg daily and 10mg nightly for 1 weeks then 10mg po bid.increased to 10mg bid 01/14 Consider adding SSRI e.g. escitalopram 5mg po daily for depression ->increased to 10mg daily Consider prazosin for possible PTSD>Started prazosin 1 mg qhs Patient would benefit from hearing aid to improve environmental cues Patient would benefit from picture board to identify items as has difficulty with naming object. # Intermittent n/v, decreased po intake, POA, ddx: likely from severe ileus, Resolved -n/v resolved with ileus ,NGT removed -continue bowel regimen, senna liquid, miralax. -zofran prn for n/v -no artificial nutrition, confirmed with daughter - was curbsided, reconsult if necessary # Mechanical fall with right upper lip laceration on 01/16/17 -Neuro exam is nonfocal and unchanged from earlier today. No need for imaging for now -Surgery stitched laceration 01/16. Remove stitch after 5 days. -she had near fall today,PT eval # Elevated ALT, calcium, and bilirubin; present on admission; improved , LFT shows mild hepatic dysfunction with mild elevations of bilirubin and large elevation of ALT; Hepatitis panel is negative. -clinically stable, trending down, # YESENIA, resolved -initially presented on admission, which was likely prerenal due to decreased Po intake, received normal saline , YESENIA resolved, pt developed again YESENIA on , possibly prerenal -s/p hydration, YESENIA resolved, # UTI, POA, resolved. -positive for leukocyte esterase, nitrites, few bacteria. pt was empirically start Rocephin but final UCX negative. Repeat UCX also contaminated, stopped abx 12/11. then pt was restarted CFX01/04-, given marked elevation of wbc, trending down, UCX from 01/03 showed mixed doron, abx stopped. # Malnutrition- poa, active - Slightly improved and likes to drink ensure supplements, Labs showed slight increase in liver function tests AST and ALT on 12/26. - Trial of Remeron which did not seem to help her appetite and made her more lethargic. Remeron is discontinued" - 12/30- Per discussion with Order Entry, will add high calorie nutritional supplements. - Tried Megace on 12/30 without improvement. - 01/01- Added Dronabinol 2.5mg BID w/ meals, pt did not tolerate at all due to nausea. Stopped. Back pain, active -- Patient complains of pain in the lumbar sacral area -- Increased tramadol to every 4 hrs 50 mg when necessary # Hx of nephrolithiasis, recent stent placement, POA, Abd US on 12/04 showed Interval resolution of right hydronephrosis status post ureteral stent placement. 1.7 cm nonobstructing right renal stone. - pt was scheduled for elective Rt renal Laser lithotripsy 12/12, informed that pt is in the hospital. f/u with urology after discharge. Post menopausal symptoms chronic -- discontinued Estrace. dvt ppx lovenox dcd 01/14 as daughters wish is comfort measures mainly Disposition: pending placement once source of payment is established, hospice seems appropriate given deconditioning.daughter working to get guardianship VTE Prophylaxis: Sub-Q Enoxaparin VTE Mechanical Devices: Venous Foot Pump Resuscitation Status: DNR/DNI:Do Not Resuscitate/Intubate Cresencio Velasco MD Jan 18, 2017 13:35
[2017-01-18 15:50] VITALS: BP 124/79; PULSE 89; RESP 18; O2SAT 96
[2017-01-18] MEDS: Bacitracin Ointment Packet TOPICAL PRN (17:22)
--- NOTE | 2017-01-18 17:33 | NUR ---
spiritual care: follow up pt rec brief visit with caring senior scheduler Urvashi. she reported that pt had just showered and was tired.
--- NOTE | 2017-01-18 18:04 | NUR ---
PO intake/hygiene Pt has declined all offers of snacks by this RN through out the day. Pt has taken 1-2 bites of each meal. Pt will take 2 -3 bites of chocolate pudding with meds for this RN however will hold her hand up and say "no more" once she is done. Pt was showered with the assistance of family and 1:1 sitter. Clothing washed by family and brought into the room. Family made aware clothing can be washed on location. Additional clothing has been placed in room closet. 1:1 sitter at bedside monitoring pt.
[2017-01-18 19:40] VITALS: BP 114/78; PULSE 86; RESP 17; O2SAT 94
[2017-01-19 04:57] VITALS: BP 133/78; PULSE 79; RESP 16; O2SAT 94
--- NOTE | 2017-01-19 05:57 | NUR ---
Sitter/ Restraint Sitter removed from patient care during shift. Patient trying to wander out of room. [facility] bed restraint started at 2245 for patient safety. Patient offered a bath and refused. Patient up to the bathroom x 2. Patient would only take sips of water and juice. Patient denied any pain.
[2017-01-19] MEDS: Chlorhexidine 0.12% 15 mL Oral Solution MT SCH (08:30)
[2017-01-19] MEDS: Bacitracin Ointment Packet TOPICAL PRN (09:38)
[2017-01-19] MEDS: risperiDONE 1 mg Tablet PO SCH ×2 (09:38→09:43)
[2017-01-19 10:59] VITALS: BP 106/69; PULSE 82; RESP 17; O2SAT 93
--- NOTE | 2017-01-19 12:28 | PCM.PNMED ---
Subjective Date of Service Jan 19, 2017 Subjective No new complaints or events. Awaiting placement. Exam Vital Signs Vital Sign - Last Date Time Temp Pulse Resp B/P Pulse Ox O2 Delivery O2 Flow Rate FiO2 01/19/17 10:59 36.8 82 17 106/69 93 Room Air Intake and Output 01/18/17 01/18/17 01/19/17 Cumulative From/Thru 15:00 23:00 07:00 12/04/16 13:11 - 01/19/17 05:29 Intake Total 300 ml 300 ml 26820 ml Output Total 1050 ml Balance 300 ml 300 ml 74656 ml Intake Oral 300 ml 300 ml 17465 ml IV Total 00380 ml Output Urine Total 600 ml Emesis 450 ml # Voids 3 2 302 # Bowel Movements 0 0 59 Exam cachectic, awake, calm, 1.5cm laceration on right upper lip stitched . Neuro exam remains nonfocal NAD, comfortably laying down on the bed RRR, nl s1, s2 no mrg CTAB, no w,c IVs and Medications Medications Reviewed: Medications were reviewed in detail Lab and Diagnostics X-Rays, CTs and MRIs Date of Service: 12/05/16 1013 PROCEDURE: MRI STROKE PROTOCOL ([id number]) Pre- and post-contrast brain MRI, non-contrast brain MR angiogram, pre- and postcontrast neck MR angiogram INDICATIONS: psychosis dementia TECHNIQUE: Brain: Noncontrast axial T1 spin echo, axial T2 fast spin echo, sagittal and axial FLAIR, coronal T2 fast spin echo, axial gradient echo, axial diffusion and ADC through the brain. After the administration of contrast, axial 3D VIBE of the cranial vasculature and brain. Brain MRA: Non-contrast 3-D time of flight MR angiogram, with multiple maximum- intensity-projection (MIP) reformats performed. Neck MRA: Axial and sagittal TruFISP through the neck. Coronal dynamic MR angiogram during administration of contrast in the arterial and venous phases, with 3-dimenstional mmabiha-tkwksezxm-nvxmuzgkcr (MIP) reformats constructed from subtraction images. COMPARISON: None. FINDINGS: Image quality: Excellent. BRAIN: CSF spaces: There is ex vacuo dilatation of the lateral ventricles, greatest in degree involving the temporal horns. Basal cisterns are patent. No extra- axial fluid collections. Brain: No intracranial bleeds or mass effects. Mild degree of patchy high FLAIR signal intensity within the periventricular and subcortical white matter. There is moderate diffuse cerebral volume loss, greatest in degree involving the frontal and anterior temporal lobes. Jasmine-white matter interface is normal. Diffusion weighted images show no acute ischemic insults. Brainstem appears normal. Normal intravascular flow voids are present. No abnormal intracranial enhancement. Skull and face: Calvarial marrow signal is normal. Orbits appear normal. Sinuses: Sinuses and mastoids are clear. BRAIN MR ANGIOGRAM: Anterior circulation: Intracranial internal carotid arteries are normal in size and enhancement. The flow within the paired anterior cerebral arteries is normal and symmetric. The flow within the middle cerebral arteries is normal and symmetric. The anterior communicating artery is seen. No stenoses, occlusions, or aneurysms. Posterior circulation: The visualized portions of the vertebral arteries demonstrate normal caliber, and join to form a normal appearing basilar artery. The flow within the posterior cerebral arteries is normal and symmetric. No stenoses, occlusions, or aneurysms. NECK MR ANGIOGRAM: Carotids: Great vessels demonstrate a conventional anatomy as they arise from the aortic arch. The origins of the common carotid arteries appear patent. The calibers and courses of both common carotid arteries are normal. The bifurcation regions appear normal bilaterally. The internal carotid arteries demonstrate normal course and caliber. Posterior circulation: The origins of the vertebral arteries appear patent. More superior portions of both vertebral arteries demonstrate normal course and caliber, and join to form a normal appearing basilar artery. Miscellaneous: Subclavian arteries appear patent. Pre-contrast images through the neck show no soft tissue abnormalities. IMPRESSION: BRAIN MRI: 1. No acute process. No recent infarct. 2. Small vessel ischemic disease. 3. Cerebral volume loss, greatest in degree within the frontal and temporal lobes bilaterally. BRAIN MR ANGIOGRAM: Negative cervical MR angiography. NECK MR ANGIOGRAM: 1. No internal coronary stenosis bilaterally. 2. Patent bilateral vertebral arteries. The estimate of stenosis included in the report of the imaging study was calculated using the NASCET method Dictated by: Jing Kate M.D. on 12/05/2016 at 16:29 Transcribed by: RAULITO on 12/05/2016 at 16:34 Approved by: Jing Kate M.D. on 12/05/2016 at 16:40 Assessment & Plan 66-year-old female with severe early onset dementia with attempted suicide attempt was found to have YESENIA, UTI, and AMS. Currently pending placement. acute, active # Major neurocognitive disorder, NOS, poa, active. Irregular behaviors, agitation, likely due to advanced dementia with possible psychosis features or underlying psychiatric dz, dementia was presumably due to Alzheimer's dementia, pt was diagnosed dxed dementia already 7yrs ago per brother. no previous dx of psychiatric dz. Medical w/u including MRA, MRI of brain, vitB12, TSH, RPR, UCX, all negative. New regimen started on 12/09. -as per / recommendation below Risperidone 0.25mg po bid and 0.25mg po q6hr prn agitation ->increased to 0.5m bid Continue memantine 5mg po bid for 1 week then 5mg daily and 10mg nightly for 1 weeks then 10mg po bid.increased to 10mg bid 01/14 Consider adding SSRI e.g. escitalopram 5mg po daily for depression ->increased to 10mg daily Consider prazosin for possible PTSD>Started prazosin 1 mg qhs Patient would benefit from hearing aid to improve environmental cues Patient would benefit from picture board to identify items as has difficulty with naming object. # Intermittent n/v, decreased po intake, POA, ddx: likely from severe ileus, Resolved -n/v resolved with ileus ,NGT removed -continue bowel regimen, senna liquid, miralax. -zofran prn for n/v -no artificial nutrition, confirmed with daughter - was curbsided, reconsult if necessary # Mechanical fall with right upper lip laceration on 01/16/17 -Neuro exam is nonfocal and unchanged from earlier today. No need for imaging for now -Surgery stitched laceration 01/16. Remove stitch after 5 days. -she had near fall today,PT eval # Elevated ALT, calcium, and bilirubin; present on admission; improved , LFT shows mild hepatic dysfunction with mild elevations of bilirubin and large elevation of ALT; Hepatitis panel is negative. -clinically stable, trending down, # YESENIA, resolved -initially presented on admission, which was likely prerenal due to decreased Po intake, received normal saline , YESENIA resolved, pt developed again YESENIA on , possibly prerenal -s/p hydration, YESENIA resolved, # UTI, POA, resolved. -positive for leukocyte esterase, nitrites, few bacteria. pt was empirically start Rocephin but final UCX negative. Repeat UCX also contaminated, stopped abx 12/11. then pt was restarted CFX01/04-, given marked elevation of wbc, trending down, UCX from 01/03 showed mixed doron, abx stopped. # Malnutrition- poa, active - Slightly improved and likes to drink ensure supplements, Labs showed slight increase in liver function tests AST and ALT on 12/26. - Trial of Remeron which did not seem to help her appetite and made her more lethargic. Remeron is discontinued" - 12/30- Per discussion with B[employer] Digger, will add high calorie nutritional supplements. - Tried Megace on 12/30 without improvement. - 01/01- Added Dronabinol 2.5mg BID w/ meals, pt did not tolerate at all due to nausea. Stopped. Back pain, active -- Patient complains of pain in the lumbar sacral area -- Increased tramadol to every 4 hrs 50 mg when necessary # Hx of nephrolithiasis, recent stent placement, POA, Abd US on 12/04 showed Interval resolution of right hydronephrosis status post ureteral stent placement. 1.7 cm nonobstructing right renal stone. - pt was scheduled for elective Rt renal Laser lithotripsy 12/12, informed that pt is in the hospital. f/u with urology after discharge. Post menopausal symptoms chronic -- discontinued Estrace. dvt ppx lovenox dcd 01/14 as daughters wish is comfort measures mainly Disposition: pending placement once source of payment is established, hospice seems appropriate given deconditioning.daughter working to get guardianship VTE Prophylaxis: Sub-Q Enoxaparin VTE Mechanical Devices: Venous Foot Pump Resuscitation Status: DNR/DNI:Do Not Resuscitate/Intubate Cresencio Velasco MD Jan 19, 2017 12:28
--- NOTE | 2017-01-19 14:09 | NUR ---
Behavior/Pain/Telephone Interviewer Patient refused a.m. medications & most of breakfast/lunch trays. Sitter at the bedside, in/out of soma bed, sba to the bathroom, refused to work w/ PT in later a.m. Mostly non-verbal, does not respond to most yes/no questions. When assessing pain, patient said "yes", pointed to her back, asked her if she wanted something for pain, agreeable. Tylenol x 2 & colace admin whole w/ water, tolerated well. Patient is less likely to take meds if crushed.
[2017-01-19 14:34] VITALS: BP 126/75; PULSE 79; RESP 18; O2SAT 96
--- NOTE | 2017-01-19 16:09 | NUR ---
Per case management meeting, pt is comfort measures, not comfort care as previously reported. Family does not desire any type of artificial nutrition support. Pt has continued to refuse most meals and supplements since admit. We will continue to send supplements to encourage increased po intake as per pt plan of care. Dietitian will be signing off at this time. If any additional interventions are needed, please reconsult dietitian.
[2017-01-19 20:51] VITALS: BP 136/81; PULSE 90; RESP 18; O2SAT 97
[2017-01-20 05:00] VITALS: BP 126/78; PULSE 84; RESP 18; O2SAT 98
--- NOTE | 2017-01-20 05:11 | NUR ---
Behavior/Meds PT was mostly cooperative last night with care; she did refuse to take her HS meds. PT only tried to leave the room once but was not aggressive at all, Sitter at bed side assisting PT with toileting and encouraging to eat and drink.
[2017-01-20 08:29] LABS: BASOPHILS % (AUTO) 0.2 % (0-3); EOSINOPHILS % (AUTO) 1.6 % (0-5); MONOCYTES % (AUTO) 8.6 % (4-12); Mean Corpuscular Hemoglobin 32.5 pg (27.0-35.0); Mean Corpuscular Volume 99.5 fL (81-100); NEUTROPHILS % (AUTO) 75.8 % (40-74); Platelet Count 263 bil/L (150-400)
--- NOTE | 2017-01-20 08:55 | NUR ---
Social Work-continued d/c planning: Data:EMR reviewed. Pt is on day 47 of hospitalization for delirum per H&P. Pt is now comfort care. Daughter has completed paperwork and has filed for guardianship for pt. Family unwilling to take pt home on Hospice services. SW to continue work on placement once guardianship in place. SW will continue to follow. Assessment:Pt who is now comfort care. Plan:SW to continue work on placement once guardianship in place, daughter has filed paperwork. Pt is on comfort care. SW will continue to follow. STEWART Contreras
[2017-01-20] MEDS: risperiDONE 1 mg Tablet PO SCH ×2 (09:52→19:49)
[2017-01-20 12:30] VITALS: BP 97/64; PULSE 99; RESP 16; O2SAT 95
--- NOTE | 2017-01-20 16:18 | PCM.PNMED ---
Subjective Date of Service Jan 20, 2017 Subjective pt is doing well, no overnight event, Exam Vital Signs Vital Sign - Last Date Time Temp Pulse Resp B/P Pulse Ox O2 Delivery O2 Flow Rate FiO2 01/20/17 12:30 37.2 99 16 97/64 95 Room Air Intake and Output 01/19/17 01/19/17 01/20/17 Cumulative From/Thru 15:00 23:00 07:00 12/04/16 13:11 - 01/20/17 06:54 Intake Total 200 ml 300 ml 91450 ml Output Total 1050 ml Balance 200 ml 300 ml 29353 ml Intake Oral 200 ml 300 ml 27503 ml IV Total 47985 ml Output Urine Total 600 ml Emesis 450 ml # Voids 5 2 309 # Bowel Movements 0 1 60 Exam NAD, comfortably laying down on the bed no JVD, MMM, no LAD RRR, nl s1, s2 no mrg CTAB, no w,c S,ND,NT,normoactive BS+ warm, no edema, pulses 2/2 IVs and Medications Medications Reviewed: Medications were reviewed in detail Lab and Diagnostics Result Diagram: 01/20/17 0801/20/17 0803 X-Rays, CTs and MRIs Date of Service: 12/05/16 1013 PROCEDURE: MRI STROKE PROTOCOL ([id number]) Pre- and post-contrast brain MRI, non-contrast brain MR angiogram, pre- and postcontrast neck MR angiogram INDICATIONS: psychosis dementia TECHNIQUE: Brain: Noncontrast axial T1 spin echo, axial T2 fast spin echo, sagittal and axial FLAIR, coronal T2 fast spin echo, axial gradient echo, axial diffusion and ADC through the brain. After the administration of contrast, axial 3D VIBE of the cranial vasculature and brain. Brain MRA: Non-contrast 3-D time of flight MR angiogram, with multiple maximum- intensity-projection (MIP) reformats performed. Neck MRA: Axial and sagittal TruFISP through the neck. Coronal dynamic MR angiogram during administration of contrast in the arterial and venous phases, with 3-dimenstional ecsqntj-cuhnvmdab-vuanhykdqn (MIP) reformats constructed from subtraction images. COMPARISON: None. FINDINGS: Image quality: Excellent. BRAIN: CSF spaces: There is ex vacuo dilatation of the lateral ventricles, greatest in degree involving the temporal horns. Basal cisterns are patent. No extra- axial fluid collections. Brain: No intracranial bleeds or mass effects. Mild degree of patchy high FLAIR signal intensity within the periventricular and subcortical white matter. There is moderate diffuse cerebral volume loss, greatest in degree involving the frontal and anterior temporal lobes. Jasmine-white matter interface is normal. Diffusion weighted images show no acute ischemic insults. Brainstem appears normal. Normal intravascular flow voids are present. No abnormal intracranial enhancement. Skull and face: Calvarial marrow signal is normal. Orbits appear normal. Sinuses: Sinuses and mastoids are clear. BRAIN MR ANGIOGRAM: Anterior circulation: Intracranial internal carotid arteries are normal in size and enhancement. The flow within the paired anterior cerebral arteries is normal and symmetric. The flow within the middle cerebral arteries is normal and symmetric. The anterior communicating artery is seen. No stenoses, occlusions, or aneurysms. Posterior circulation: The visualized portions of the vertebral arteries demonstrate normal caliber, and join to form a normal appearing basilar artery. The flow within the posterior cerebral arteries is normal and symmetric. No stenoses, occlusions, or aneurysms. NECK MR ANGIOGRAM: Carotids: Great vessels demonstrate a conventional anatomy as they arise from the aortic arch. The origins of the common carotid arteries appear patent. The calibers and courses of both common carotid arteries are normal. The bifurcation regions appear normal bilaterally. The internal carotid arteries demonstrate normal course and caliber. Posterior circulation: The origins of the vertebral arteries appear patent. More superior portions of both vertebral arteries demonstrate normal course and caliber, and join to form a normal appearing basilar artery. Miscellaneous: Subclavian arteries appear patent. Pre-contrast images through the neck show no soft tissue abnormalities. IMPRESSION: BRAIN MRI: 1. No acute process. No recent infarct. 2. Small vessel ischemic disease. 3. Cerebral volume loss, greatest in degree within the frontal and temporal lobes bilaterally. BRAIN MR ANGIOGRAM: Negative cervical MR angiography. NECK MR ANGIOGRAM: 1. No internal coronary stenosis bilaterally. 2. Patent bilateral vertebral arteries. The estimate of stenosis included in the report of the imaging study was calculated using the NASCET method Dictated by: Jing Kate M.D. on 12/05/2016 at 16:29 Transcribed by: RAULITO on 12/05/2016 at 16:34 Approved by: Jing Kate M.D. on 12/05/2016 at 16:40 Assessment & Plan 66-year-old female with severe early onset dementia with attempted suicide attempt was found to have YESENIA, UTI, and AMS. Currently pending placement. acute, active # Major neurocognitive disorder, NOS, poa, active. Irregular behaviors, agitation, likely due to advanced dementia with possible psychosis features or underlying psychiatric dz, dementia was presumably due to Alzheimer's dementia, pt was diagnosed dxed dementia already 7yrs ago per brother. no previous dx of psychiatric dz. Medical w/u including MRA, MRI of brain, vitB12, TSH, RPR, UCX, all negative. New regimen started on 12/09. -as per / recommendation below Risperidone 0.25mg po bid and 0.25mg po q6hr prn agitation ->increased to 0.5m bid Continue memantine 5mg po bid for 1 week then 5mg daily and 10mg nightly for 1 weeks then 10mg po bid.increased to 10mg bid 01/14 Consider adding SSRI e.g. escitalopram 5mg po daily for depression ->increased to 10mg daily Consider prazosin for possible PTSD>Started prazosin 1 mg qhs Patient would benefit from hearing aid to improve environmental cues Patient would benefit from picture board to identify items as has difficulty with naming object. # Intermittent n/v, decreased po intake, POA, ddx: likely from severe ileus, Resolved -n/v resolved with ileus ,NGT removed -continue bowel regimen, senna liquid, miralax. -zofran prn for n/v -no artificial nutrition, confirmed with daughter - was curbsided, reconsult if necessary # Mechanical fall with right upper lip laceration on 01/16/17 -Neuro exam is nonfocal and unchanged from earlier today. No need for imaging for now -Surgery stitched laceration 01/16. Remove stitch after 5 days. -she had near fall today,PT eval # Elevated ALT, calcium, and bilirubin; present on admission; improved , LFT shows mild hepatic dysfunction with mild elevations of bilirubin and large elevation of ALT; Hepatitis panel is negative. -clinically stable, trending down, # YESENIA, resolved -initially presented on admission, which was likely prerenal due to decreased Po intake, received normal saline , YESENIA resolved, pt developed again YESENIA on , possibly prerenal -s/p hydration, YESENIA resolved, # UTI, POA, resolved. -positive for leukocyte esterase, nitrites, few bacteria. pt was empirically start Rocephin but final UCX negative. Repeat UCX also contaminated, stopped abx 12/11. then pt was restarted CFX01/04-, given marked elevation of wbc, trending down, UCX from 01/03 showed mixed doron, abx stopped. # Malnutrition- poa, active - Slightly improved and likes to drink ensure supplements, Labs showed slight increase in liver function tests AST and ALT on 12/26. - Trial of Remeron which did not seem to help her appetite and made her more lethargic. Remeron is discontinued" - 12/30- Per discussion with Senior Ui Designer, will add high calorie nutritional supplements. - Tried Megace on 12/30 without improvement. - 01/01- Added Dronabinol 2.5mg BID w/ meals, pt did not tolerate at all due to nausea. Stopped. Back pain, active -- Patient complains of pain in the lumbar sacral area -- Increased tramadol to every 4 hrs 50 mg when necessary # Hx of nephrolithiasis, recent stent placement, POA, Abd US on 12/04 showed Interval resolution of right hydronephrosis status post ureteral stent placement. 1.7 cm nonobstructing right renal stone. - pt was scheduled for elective Rt renal Laser lithotripsy 12/12, informed that pt is in the hospital. f/u with urology after discharge. Post menopausal symptoms chronic -- discontinued Estrace. dvt ppx lovenox dcd 01/14 as daughters wish is comfort measures mainly Disposition: pending placement once source of payment is established, hospice seems appropriate given deconditioning.daughter working to get guardianship VTE Prophylaxis: Sub-Q Enoxaparin VTE Mechanical Devices: Venous Foot Pump Resuscitation Status: DNR/DNI:Do Not Resuscitate/Intubate Time spent 35min Mariana Dunn MD Jan 20, 2017 16:18
[2017-01-20 20:00] VITALS: BP 116/77; PULSE 80; RESP 16; O2SAT 96
--- NOTE | 2017-01-20 22:15 | NUR ---
Activity: Patient took all of her day and night time meds today. She has been mostly cooperative with care. Staying in her room with the sitter. She has a poor appetite. Ensure shake suppliments were provided which patient sipped on throughout the day.
--- NOTE | 2017-01-21 06:12 | NUR ---
ACTIVITY Pt. sleeping for first few hours of shift. Up independently to bathroom x3 with sitter in room to assist. Pt. finished her strawberry ensure. Another ensure placed at bedside. Pt. ambulated around hallway with sitter x2. Nursing care ongoing.
[2017-01-21] MEDS: risperiDONE 1 mg Tablet PO SCH ×2 (08:24→21:16)
--- NOTE | 2017-01-21 11:06 | PCM.PNMED ---
Subjective Date of Service Jan 21, 2017 Subjective pt is doing well no n/v, tolerating ensure Exam Vital Signs Vital Sign - Last Date Time Temp Pulse Resp B/P Pulse Ox O2 Delivery O2 Flow Rate FiO2 01/20/17 20:00 36.4 80 16 116/77 96 Room Air Intake and Output 01/20/17 01/20/17 01/21/17 Cumulative From/Thru 15:00 23:00 07:00 12/04/16 13:11 - 01/21/17 05:47 Intake Total 674 ml 400 ml 96221 ml Output Total 1050 ml Balance 674 ml 400 ml 61654 ml Intake Oral 674 ml 400 ml 54007 ml IV Total 77475 ml Output Urine Total 600 ml Emesis 450 ml # Voids 7 5 321 # Bowel Movements 0 1 61 Exam NAD, comfortably laying down on the bed no JVD, MMM, no LAD RRR, nl s1, s2 no mrg CTAB, no w,c S,ND,NT,normoactive BS+ warm, no edema, pulses 2/2 IVs and Medications Medications Reviewed: Medications were reviewed in detail Lab and Diagnostics Result Diagram: 01/20/17 0801/20/17 0803 X-Rays, CTs and MRIs Date of Service: 12/05/16 1013 PROCEDURE: MRI STROKE PROTOCOL ([id number]) Pre- and post-contrast brain MRI, non-contrast brain MR angiogram, pre- and postcontrast neck MR angiogram INDICATIONS: psychosis dementia TECHNIQUE: Brain: Noncontrast axial T1 spin echo, axial T2 fast spin echo, sagittal and axial FLAIR, coronal T2 fast spin echo, axial gradient echo, axial diffusion and ADC through the brain. After the administration of contrast, axial 3D VIBE of the cranial vasculature and brain. Brain MRA: Non-contrast 3-D time of flight MR angiogram, with multiple maximum- intensity-projection (MIP) reformats performed. Neck MRA: Axial and sagittal TruFISP through the neck. Coronal dynamic MR angiogram during administration of contrast in the arterial and venous phases, with 3-dimenstional xjpeqwk-qstropzgy-kiyagttnpk (MIP) reformats constructed from subtraction images. COMPARISON: None. FINDINGS: Image quality: Excellent. BRAIN: CSF spaces: There is ex vacuo dilatation of the lateral ventricles, greatest in degree involving the temporal horns. Basal cisterns are patent. No extra- axial fluid collections. Brain: No intracranial bleeds or mass effects. Mild degree of patchy high FLAIR signal intensity within the periventricular and subcortical white matter. There is moderate diffuse cerebral volume loss, greatest in degree involving the frontal and anterior temporal lobes. Jasmine-white matter interface is normal. Diffusion weighted images show no acute ischemic insults. Brainstem appears normal. Normal intravascular flow voids are present. No abnormal intracranial enhancement. Skull and face: Calvarial marrow signal is normal. Orbits appear normal. Sinuses: Sinuses and mastoids are clear. BRAIN MR ANGIOGRAM: Anterior circulation: Intracranial internal carotid arteries are normal in size and enhancement. The flow within the paired anterior cerebral arteries is normal and symmetric. The flow within the middle cerebral arteries is normal and symmetric. The anterior communicating artery is seen. No stenoses, occlusions, or aneurysms. Posterior circulation: The visualized portions of the vertebral arteries demonstrate normal caliber, and join to form a normal appearing basilar artery. The flow within the posterior cerebral arteries is normal and symmetric. No stenoses, occlusions, or aneurysms. NECK MR ANGIOGRAM: Carotids: Great vessels demonstrate a conventional anatomy as they arise from the aortic arch. The origins of the common carotid arteries appear patent. The calibers and courses of both common carotid arteries are normal. The bifurcation regions appear normal bilaterally. The internal carotid arteries demonstrate normal course and caliber. Posterior circulation: The origins of the vertebral arteries appear patent. More superior portions of both vertebral arteries demonstrate normal course and caliber, and join to form a normal appearing basilar artery. Miscellaneous: Subclavian arteries appear patent. Pre-contrast images through the neck show no soft tissue abnormalities. IMPRESSION: BRAIN MRI: 1. No acute process. No recent infarct. 2. Small vessel ischemic disease. 3. Cerebral volume loss, greatest in degree within the frontal and temporal lobes bilaterally. BRAIN MR ANGIOGRAM: Negative cervical MR angiography. NECK MR ANGIOGRAM: 1. No internal coronary stenosis bilaterally. 2. Patent bilateral vertebral arteries. The estimate of stenosis included in the report of the imaging study was calculated using the NASCET method Dictated by: Jing Kate M.D. on 12/05/2016 at 16:29 Transcribed by: RAULITO on 12/05/2016 at 16:34 Approved by: Jing Kate M.D. on 12/05/2016 at 16:40 Assessment & Plan 66-year-old female with severe early onset dementia with attempted suicide attempt was found to have YESENIA, UTI, and AMS. Currently pending placement. acute, active # Major neurocognitive disorder, NOS, poa, active. Irregular behaviors, agitation, likely due to advanced dementia with possible psychosis features or underlying psychiatric dz, dementia was presumably due to Alzheimer's dementia, pt was diagnosed dxed dementia already 7yrs ago per brother. no previous dx of psychiatric dz. Medical w/u including MRA, MRI of brain, vitB12, TSH, RPR, UCX, all negative. New regimen started on 12/09. -as per / recommendation below Risperidone 0.25mg po bid and 0.25mg po q6hr prn agitation ->increased to 0.5m bid Continue memantine 5mg po bid for 1 week then 5mg daily and 10mg nightly for 1 weeks then 10mg po bid.increased to 10mg bid 01/14 Consider adding SSRI e.g. escitalopram 5mg po daily for depression ->increased to 10mg daily Consider prazosin for possible PTSD>Started prazosin 1 mg qhs Patient would benefit from hearing aid to improve environmental cues Patient would benefit from picture board to identify items as has difficulty with naming object. # Intermittent n/v, decreased po intake, POA, ddx: likely from severe ileus, Resolved -n/v resolved with ileus ,NGT removed -continue bowel regimen, senna liquid, miralax. -zofran prn for n/v -no artificial nutrition, confirmed with daughter - was curbsided, reconsult if necessary # Mechanical fall with right upper lip laceration on 01/16/17 -Neuro exam is nonfocal and unchanged from earlier today. No need for imaging for now -Surgery stitched laceration 01/16. Remove stitch after 5 days. -she had near fall today,PT eval # Elevated ALT, calcium, and bilirubin; present on admission; improved , LFT shows mild hepatic dysfunction with mild elevations of bilirubin and large elevation of ALT; Hepatitis panel is negative. -clinically stable, trending down, # YESENIA, resolved -initially presented on admission, which was likely prerenal due to decreased Po intake, received normal saline , YESENIA resolved, pt developed again YESENIA on , possibly prerenal -s/p hydration, YESENIA resolved, # UTI, POA, resolved. -positive for leukocyte esterase, nitrites, few bacteria. pt was empirically start Rocephin but final UCX negative. Repeat UCX also contaminated, stopped abx 12/11. then pt was restarted CFX01/04-, given marked elevation of wbc, trending down, UCX from 01/03 showed mixed doron, abx stopped. # Malnutrition- poa, active - Slightly improved and likes to drink ensure supplements, Labs showed slight increase in liver function tests AST and ALT on 12/26. - Trial of Remeron which did not seem to help her appetite and made her more lethargic. Remeron is discontinued" - 12/30- Per discussion with Painter Helper Sign, will add high calorie nutritional supplements. - Tried Megace on 12/30 without improvement. - 01/01- Added Dronabinol 2.5mg BID w/ meals, pt did not tolerate at all due to nausea. Stopped. Back pain, active -- Patient complains of pain in the lumbar sacral area -- Increased tramadol to every 4 hrs 50 mg when necessary # Hx of nephrolithiasis, recent stent placement, POA, Abd US on 12/04 showed Interval resolution of right hydronephrosis status post ureteral stent placement. 1.7 cm nonobstructing right renal stone. - pt was scheduled for elective Rt renal Laser lithotripsy 12/12, informed that pt is in the hospital. f/u with urology after discharge. Post menopausal symptoms chronic -- discontinued Estrace. dvt ppx lovenox dcd 01/14 as daughters wish is comfort measures mainly Disposition: pending placement once source of payment is established, hospice seems appropriate given deconditioning.daughter working to get guardianship VTE Prophylaxis: Sub-Q Enoxaparin VTE Mechanical Devices: Venous Foot Pump Resuscitation Status: DNR/DNI:Do Not Resuscitate/Intubate Time spent 35min Mariana Dunn MD Jan 21, 2017 11:06
[2017-01-21 13:21] VITALS: BP 98/61; PULSE 99; RESP 16; O2SAT 95
--- NOTE | 2017-01-21 16:34 | NUR ---
Social Work: [facility] SW met with patient to obtain signature for ADIEL. Patient is confused. No family at bedside. ADIEL was not able to be signed. SW will reattempt when family is present. STEWART Maguire
--- NOTE | 2017-01-21 18:41 | NUR ---
Activity: Patient has been calm and cooperative with care. She has had a sitter at her bedside the entire day. Patient took all of her meds as directed by .
[2017-01-21 19:59] VITALS: BP 115/76; PULSE 83; RESP 17; O2SAT 100
[2017-01-21] MEDS: Bacitracin Ointment Packet TOPICAL PRN (21:23)
[2017-01-22 04:49] VITALS: BP 129/79; PULSE 73; RESP 17; O2SAT 98
--- NOTE | 2017-01-22 08:39 | PCM.PNMED ---
Subjective Date of Service Jan 22, 2017 Subjective no overnight event Exam Vital Signs Vital Sign - Last Date Time Temp Pulse Resp B/P Pulse Ox O2 Delivery O2 Flow Rate FiO2 01/22/17 04:49 36.7 73 17 129/79 98 Room Air Intake and Output 01/21/17 01/21/17 01/22/17 Cumulative From/Thru 15:00 23:00 07:00 12/04/16 13:11 - 01/22/17 04:51 Intake Total 897 ml 537 ml 55648 ml Output Total 1050 ml Balance 897 ml 537 ml 54299 ml Intake Oral 897 ml 537 ml 53011 ml IV Total 73366 ml Output Urine Total 600 ml Emesis 450 ml # Voids 5 3 329 # Bowel Movements 0 0 61 Exam NAD, comfortably laying down on the bed no JVD, MMM, no LAD RRR, nl s1, s2 no mrg CTAB, no w,c S,ND,NT,normoactive BS+ warm, no edema, pulses 2/2 IVs and Medications Medications Reviewed: Medications were reviewed in detail Lab and Diagnostics Result Diagram: 01/20/1780201/20/17 0803 X-Rays, CTs and MRIs Date of Service: 12/05/16 1013 PROCEDURE: MRI STROKE PROTOCOL ([id number]) Pre- and post-contrast brain MRI, non-contrast brain MR angiogram, pre- and postcontrast neck MR angiogram INDICATIONS: psychosis dementia TECHNIQUE: Brain: Noncontrast axial T1 spin echo, axial T2 fast spin echo, sagittal and axial FLAIR, coronal T2 fast spin echo, axial gradient echo, axial diffusion and ADC through the brain. After the administration of contrast, axial 3D VIBE of the cranial vasculature and brain. Brain MRA: Non-contrast 3-D time of flight MR angiogram, with multiple maximum- intensity-projection (MIP) reformats performed. Neck MRA: Axial and sagittal TruFISP through the neck. Coronal dynamic MR angiogram during administration of contrast in the arterial and venous phases, with 3-dimenstional opectxe-htstjrrrz-qyagviaqky (MIP) reformats constructed from subtraction images. COMPARISON: None. FINDINGS: Image quality: Excellent. BRAIN: CSF spaces: There is ex vacuo dilatation of the lateral ventricles, greatest in degree involving the temporal horns. Basal cisterns are patent. No extra- axial fluid collections. Brain: No intracranial bleeds or mass effects. Mild degree of patchy high FLAIR signal intensity within the periventricular and subcortical white matter. There is moderate diffuse cerebral volume loss, greatest in degree involving the frontal and anterior temporal lobes. Jasmine-white matter interface is normal. Diffusion weighted images show no acute ischemic insults. Brainstem appears normal. Normal intravascular flow voids are present. No abnormal intracranial enhancement. Skull and face: Calvarial marrow signal is normal. Orbits appear normal. Sinuses: Sinuses and mastoids are clear. BRAIN MR ANGIOGRAM: Anterior circulation: Intracranial internal carotid arteries are normal in size and enhancement. The flow within the paired anterior cerebral arteries is normal and symmetric. The flow within the middle cerebral arteries is normal and symmetric. The anterior communicating artery is seen. No stenoses, occlusions, or aneurysms. Posterior circulation: The visualized portions of the vertebral arteries demonstrate normal caliber, and join to form a normal appearing basilar artery. The flow within the posterior cerebral arteries is normal and symmetric. No stenoses, occlusions, or aneurysms. NECK MR ANGIOGRAM: Carotids: Great vessels demonstrate a conventional anatomy as they arise from the aortic arch. The origins of the common carotid arteries appear patent. The calibers and courses of both common carotid arteries are normal. The bifurcation regions appear normal bilaterally. The internal carotid arteries demonstrate normal course and caliber. Posterior circulation: The origins of the vertebral arteries appear patent. More superior portions of both vertebral arteries demonstrate normal course and caliber, and join to form a normal appearing basilar artery. Miscellaneous: Subclavian arteries appear patent. Pre-contrast images through the neck show no soft tissue abnormalities. IMPRESSION: BRAIN MRI: 1. No acute process. No recent infarct. 2. Small vessel ischemic disease. 3. Cerebral volume loss, greatest in degree within the frontal and temporal lobes bilaterally. BRAIN MR ANGIOGRAM: Negative cervical MR angiography. NECK MR ANGIOGRAM: 1. No internal coronary stenosis bilaterally. 2. Patent bilateral vertebral arteries. The estimate of stenosis included in the report of the imaging study was calculated using the NASCET method Dictated by: Jing Kate M.D. on 12/05/2016 at 16:29 Transcribed by: RAULITO on 12/05/2016 at 16:34 Approved by: Jing Kate M.D. on 12/05/2016 at 16:40 Assessment & Plan 66-year-old female with severe early onset dementia with attempted suicide attempt was found to have YESENIA, UTI, and AMS. Currently pending placement. acute, active # Major neurocognitive disorder, NOS, poa, active. Irregular behaviors, agitation, likely due to advanced dementia with possible psychosis features or underlying psychiatric dz, dementia was presumably due to Alzheimer's dementia, pt was diagnosed dxed dementia already 7yrs ago per brother. no previous dx of psychiatric dz. Medical w/u including MRA, MRI of brain, vitB12, TSH, RPR, UCX, all negative. New regimen started on 12/09. -as per / recommendation below Risperidone 0.25mg po bid and 0.25mg po q6hr prn agitation ->increased to 0.5m bid Continue memantine 5mg po bid for 1 week then 5mg daily and 10mg nightly for 1 weeks then 10mg po bid.increased to 10mg bid 01/14 Consider adding SSRI e.g. escitalopram 5mg po daily for depression ->increased to 10mg daily Consider prazosin for possible PTSD>Started prazosin 1 mg qhs Patient would benefit from hearing aid to improve environmental cues Patient would benefit from picture board to identify items as has difficulty with naming object. # Intermittent n/v, decreased po intake, POA, ddx: likely from severe ileus, Resolved -n/v resolved with ileus ,NGT removed -continue bowel regimen, senna liquid, miralax. -zofran prn for n/v -no artificial nutrition, confirmed with daughter - was curbsided, reconsult if necessary # Mechanical fall with right upper lip laceration on 01/16/17 -Neuro exam is nonfocal and unchanged from earlier today. No need for imaging for now -Surgery stitched laceration 01/16. Remove stitch after 5 days. -she had near fall today,PT eval # Elevated ALT, calcium, and bilirubin; present on admission; improved , LFT shows mild hepatic dysfunction with mild elevations of bilirubin and large elevation of ALT; Hepatitis panel is negative. -clinically stable, trending down, # YESENIA, resolved -initially presented on admission, which was likely prerenal due to decreased Po intake, received normal saline , YESENIA resolved, pt developed again YESENIA on , possibly prerenal -s/p hydration, YESENIA resolved, # UTI, POA, resolved. -positive for leukocyte esterase, nitrites, few bacteria. pt was empirically start Rocephin but final UCX negative. Repeat UCX also contaminated, stopped abx 12/11. then pt was restarted CFX01/04-, given marked elevation of wbc, trending down, UCX from 01/03 showed mixed doron, abx stopped. # Malnutrition- poa, active - Slightly improved and likes to drink ensure supplements, Labs showed slight increase in liver function tests AST and ALT on 12/26. - Trial of Remeron which did not seem to help her appetite and made her more lethargic. Remeron is discontinued" - 12/30- Per discussion with Sales And Marketing Director, will add high calorie nutritional supplements. - Tried Megace on 12/30 without improvement. - 01/01- Added Dronabinol 2.5mg BID w/ meals, pt did not tolerate at all due to nausea. Stopped. Back pain, active -- Patient complains of pain in the lumbar sacral area -- Increased tramadol to every 4 hrs 50 mg when necessary # Hx of nephrolithiasis, recent stent placement, POA, Abd US on 12/04 showed Interval resolution of right hydronephrosis status post ureteral stent placement. 1.7 cm nonobstructing right renal stone. - pt was scheduled for elective Rt renal Laser lithotripsy 12/12, informed that pt is in the hospital. f/u with urology after discharge. Post menopausal symptoms chronic -- discontinued Estrace. dvt ppx lovenox dcd 01/14 as daughters wish is comfort measures mainly Disposition: pending placement once source of payment is established, hospice seems appropriate given deconditioning.daughter working to get guardianship VTE Prophylaxis: Sub-Q Enoxaparin VTE Mechanical Devices: Venous Foot Pump Resuscitation Status: DNR/DNI:Do Not Resuscitate/Intubate Time spent 35min Mariana Dunn MD Jan 22, 2017 08:39
[2017-01-22] MEDS: risperiDONE 1 mg Tablet PO SCH ×2 (10:29→21:37)
--- NOTE | 2017-01-22 12:18 | NUR ---
Behavior/SOMA/Activity: Patient allows for assessment and administration of scheduled medications this am. Does not consistently follow instruction or answer questions. In [facility], restraint checks q2hrs, allowing for toileting and offer of fluids and meals. Patient declined lunch at this time, but is taking sips of water and Ensure. Assisted back to [facility] without incident. Addendum: 01/22/17 at 1605 by DEMARCUS SENA RN Sitter @ bedside, patient laying on couch, visitor present. [facility] bed discontinued.
[2017-01-22 13:02] VITALS: BP 114/76; PULSE 77; RESP 16; O2SAT 96
[2017-01-22] MEDS: Bacitracin Ointment Packet TOPICAL PRN (21:37)
--- NOTE | 2017-01-23 01:08 | NUR ---
DIET/FAMILY Daughter Heather in for a visit along with her 2 kids. Asked daughter what Rain Bose liked to eat at home. Heather said Rain Bose likes macaroni and cheese and grits with maple syrup/butter. Message was left for kitchen for cream of wheat for breakfast and macaroni and cheese for lunch if possible. Ensure at bedside table. She has taken sips of both Ensure and water. Sitter remains at bedside for safety. Daughter will be in again tomorrow at 200pm.
[2017-01-23 03:49] VITALS: BP 116/68; PULSE 101; RESP 17; O2SAT 95
[2017-01-23 04:03] VITALS: PULSE 94
--- NOTE | 2017-01-23 08:32 | NUR ---
Social Work-continued d/c planning: Data:EMR reviewed. Pt is on day 50 of hospitalization for delirium per H&P. Pt is now comfort care. Daughter has completed paperwork and has filed for guardianship for pt. Pt still continues to have limited food and water intake. SW to continue work on placement once guardianship in place. SW will continue to follow. Assessment:Pt who is now comfort care. Plan:SW to continue work on placement once guardianship in place, daughter has filed paperwork. Pt is on comfort care, family continues to refuse to take pt home on hospice services. SW will continue to follow. STEWART Contreras
[2017-01-23] MEDS: risperiDONE 1 mg Tablet PO SCH ×2 (09:07→21:31)
[2017-01-23 12:00] VITALS: BP 108/67; PULSE 82; RESP 18; O2SAT 96
--- NOTE | 2017-01-23 14:45 | NUR ---
Medications Pt took medications crushed in apple sauce this AM. Denies pain. Slept most of shift. Remains in [facility] bed, unzipped, 1:1 sitter provided.
--- NOTE | 2017-01-23 15:37 | PCM.PNMED ---
Subjective Date of Service Jan 23, 2017 Subjective no overnight event Exam Vital Signs Vital Sign - Last Date Time Temp Pulse Resp B/P Pulse Ox O2 Delivery O2 Flow Rate FiO2 01/23/17 12:00 82 18 108/67 96 Room Air 01/23/17 03:49 36.1 Intake and Output 01/22/17 01/22/17 01/23/17 Cumulative From/Thru 15:00 23:00 07:00 12/04/16 13:11 - 01/23/17 06:23 Intake Total 436 ml 680 ml 63306 ml Output Total 1050 ml Balance 436 ml 680 ml 14689 ml Intake Oral 436 ml 680 ml 65729 ml IV Total 00149 ml Output Urine Total 600 ml Emesis 450 ml # Voids 5 3 337 # Bowel Movements 0 0 61 Exam NAD, comfortably laying down on the bed no JVD, MMM, no LAD RRR, nl s1, s2 no mrg CTAB, no w,c S,ND,NT,normoactive BS+ warm, no edema, pulses 2/2 IVs and Medications Medications Reviewed: Medications were reviewed in detail Lab and Diagnostics Result Diagram: 01/20/1780201/20/17 0803 X-Rays, CTs and MRIs Date of Service: 12/05/16 1013 PROCEDURE: MRI STROKE PROTOCOL ([id number]) Pre- and post-contrast brain MRI, non-contrast brain MR angiogram, pre- and postcontrast neck MR angiogram INDICATIONS: psychosis dementia TECHNIQUE: Brain: Noncontrast axial T1 spin echo, axial T2 fast spin echo, sagittal and axial FLAIR, coronal T2 fast spin echo, axial gradient echo, axial diffusion and ADC through the brain. After the administration of contrast, axial 3D VIBE of the cranial vasculature and brain. Brain MRA: Non-contrast 3-D time of flight MR angiogram, with multiple maximum- intensity-projection (MIP) reformats performed. Neck MRA: Axial and sagittal TruFISP through the neck. Coronal dynamic MR angiogram during administration of contrast in the arterial and venous phases, with 3-dimenstional nvoghhj-nodyhenbz-fvgmmdvexz (MIP) reformats constructed from subtraction images. COMPARISON: None. FINDINGS: Image quality: Excellent. BRAIN: CSF spaces: There is ex vacuo dilatation of the lateral ventricles, greatest in degree involving the temporal horns. Basal cisterns are patent. No extra- axial fluid collections. Brain: No intracranial bleeds or mass effects. Mild degree of patchy high FLAIR signal intensity within the periventricular and subcortical white matter. There is moderate diffuse cerebral volume loss, greatest in degree involving the frontal and anterior temporal lobes. Jasmine-white matter interface is normal. Diffusion weighted images show no acute ischemic insults. Brainstem appears normal. Normal intravascular flow voids are present. No abnormal intracranial enhancement. Skull and face: Calvarial marrow signal is normal. Orbits appear normal. Sinuses: Sinuses and mastoids are clear. BRAIN MR ANGIOGRAM: Anterior circulation: Intracranial internal carotid arteries are normal in size and enhancement. The flow within the paired anterior cerebral arteries is normal and symmetric. The flow within the middle cerebral arteries is normal and symmetric. The anterior communicating artery is seen. No stenoses, occlusions, or aneurysms. Posterior circulation: The visualized portions of the vertebral arteries demonstrate normal caliber, and join to form a normal appearing basilar artery. The flow within the posterior cerebral arteries is normal and symmetric. No stenoses, occlusions, or aneurysms. NECK MR ANGIOGRAM: Carotids: Great vessels demonstrate a conventional anatomy as they arise from the aortic arch. The origins of the common carotid arteries appear patent. The calibers and courses of both common carotid arteries are normal. The bifurcation regions appear normal bilaterally. The internal carotid arteries demonstrate normal course and caliber. Posterior circulation: The origins of the vertebral arteries appear patent. More superior portions of both vertebral arteries demonstrate normal course and caliber, and join to form a normal appearing basilar artery. Miscellaneous: Subclavian arteries appear patent. Pre-contrast images through the neck show no soft tissue abnormalities. IMPRESSION: BRAIN MRI: 1. No acute process. No recent infarct. 2. Small vessel ischemic disease. 3. Cerebral volume loss, greatest in degree within the frontal and temporal lobes bilaterally. BRAIN MR ANGIOGRAM: Negative cervical MR angiography. NECK MR ANGIOGRAM: 1. No internal coronary stenosis bilaterally. 2. Patent bilateral vertebral arteries. The estimate of stenosis included in the report of the imaging study was calculated using the NASCET method Dictated by: Jing Kate M.D. on 12/05/2016 at 16:29 Transcribed by: RAULITO on 12/05/2016 at 16:34 Approved by: Jing Kate M.D. on 12/05/2016 at 16:40 Assessment & Plan 66-year-old female with severe early onset dementia with attempted suicide attempt was found to have YESENIA, UTI, and AMS. Currently pending placement. acute, active # Major neurocognitive disorder, NOS, poa, active. Irregular behaviors, agitation, likely due to advanced dementia with possible psychosis features or underlying psychiatric dz, dementia was presumably due to Alzheimer's dementia, pt was diagnosed dxed dementia already 7yrs ago per brother. no previous dx of psychiatric dz. Medical w/u including MRA, MRI of brain, vitB12, TSH, RPR, UCX, all negative. New regimen started on 12/09. -as per / recommendation below Risperidone 0.25mg po bid and 0.25mg po q6hr prn agitation ->increased to 0.5m bid Continue memantine 5mg po bid for 1 week then 5mg daily and 10mg nightly for 1 weeks then 10mg po bid.increased to 10mg bid 01/14 Consider adding SSRI e.g. escitalopram 5mg po daily for depression ->increased to 10mg daily Consider prazosin for possible PTSD>Started prazosin 1 mg qhs Patient would benefit from hearing aid to improve environmental cues Patient would benefit from picture board to identify items as has difficulty with naming object. # Intermittent n/v, decreased po intake, POA, ddx: likely from severe ileus, Resolved -n/v resolved with ileus ,NGT removed -continue bowel regimen, senna liquid, miralax. -zofran prn for n/v -no artificial nutrition, confirmed with daughter - was curbsided, reconsult if necessary # Mechanical fall with right upper lip laceration on 01/16/17 -Neuro exam is nonfocal and unchanged from earlier today. No need for imaging for now -Surgery stitched laceration 01/16. Remove stitch after 5 days. -she had near fall today,PT eval # Elevated ALT, calcium, and bilirubin; present on admission; improved , LFT shows mild hepatic dysfunction with mild elevations of bilirubin and large elevation of ALT; Hepatitis panel is negative. -clinically stable, trending down, # YESENIA, resolved -initially presented on admission, which was likely prerenal due to decreased Po intake, received normal saline , YESENIA resolved, pt developed again YESENIA on , possibly prerenal -s/p hydration, YESENIA resolved, # UTI, POA, resolved. -positive for leukocyte esterase, nitrites, few bacteria. pt was empirically start Rocephin but final UCX negative. Repeat UCX also contaminated, stopped abx 12/11. then pt was restarted CFX01/04-, given marked elevation of wbc, trending down, UCX from 01/03 showed mixed doron, abx stopped. # Malnutrition- poa, active - Slightly improved and likes to drink ensure supplements, Labs showed slight increase in liver function tests AST and ALT on 12/26. - Trial of Remeron which did not seem to help her appetite and made her more lethargic. Remeron is discontinued" - 12/30- Per discussion with Gift Manager, will add high calorie nutritional supplements. - Tried Megace on 12/30 without improvement. - 01/01- Added Dronabinol 2.5mg BID w/ meals, pt did not tolerate at all due to nausea. Stopped. Back pain, active -- Patient complains of pain in the lumbar sacral area -- Increased tramadol to every 4 hrs 50 mg when necessary # Hx of nephrolithiasis, recent stent placement, POA, Abd US on 12/04 showed Interval resolution of right hydronephrosis status post ureteral stent placement. 1.7 cm nonobstructing right renal stone. - pt was scheduled for elective Rt renal Laser lithotripsy 12/12, informed that pt is in the hospital. f/u with urology after discharge. Post menopausal symptoms chronic -- discontinued Estrace. dvt ppx lovenox dcd 01/14 as daughters wish is comfort measures mainly Disposition: pending placement once source of payment is established, hospice seems appropriate given deconditioning.daughter working to get guardianship VTE Prophylaxis: Sub-Q Enoxaparin VTE Mechanical Devices: Venous Foot Pump Resuscitation Status: DNR/DNI:Do Not Resuscitate/Intubate Time spent 35min Mariana Dunn MD Jan 23, 2017 15:37
[2017-01-23 21:32] VITALS: BP 130/86; PULSE 96; RESP 18; O2SAT 96
--- NOTE | 2017-01-24 06:13 | NUR ---
behavior Pt refused her HS meds or care this shift. [facility] bed was utilized this shift. SBA to the BR. Intermittently sleeping. denies pain; no s/s of discomfort.
[2017-01-24] MEDS: risperiDONE 1 mg Tablet PO SCH ×2 (08:30→21:28)
[2017-01-24 09:01] VITALS: BP 116/80; PULSE 89; RESP 18; O2SAT 95
--- NOTE | 2017-01-24 09:28 | NUR ---
Refused medications Pt refused AM medications despite reapproach x3. Pt pushing this RN away, stating, "No, I won't take that, no, go away."
--- NOTE | 2017-01-24 12:24 | PCM.PNMED ---
Subjective Date of Service Jan 24, 2017 Subjective pt is doing well, no n/v, Exam Vital Signs Vital Sign - Last Date Time Temp Pulse Resp B/P Pulse Ox O2 Delivery O2 Flow Rate FiO2 01/24/17 09:01 36.8 89 18 116/80 95 Room Air Intake and Output 01/23/17 01/23/17 01/24/17 Cumulative From/Thru 15:00 23:00 07:00 12/04/16 13:11 - 01/24/17 06:38 Intake Total 350 ml 150 ml 01303 ml Output Total 1050 ml Balance 350 ml 150 ml 51429 ml Intake Oral 350 ml 150 ml 73716 ml IV Total 22642 ml Output Urine Total 600 ml Emesis 450 ml # Voids 5 1 343 # Bowel Movements 0 61 Exam NAD, comfortably laying down on the bed no JVD, MMM, no LAD RRR, nl s1, s2 no mrg CTAB, no w,c S,ND,NT,normoactive BS+ warm, no edema, pulses 2/2 IVs and Medications Medications Reviewed: Medications were reviewed in detail Lab and Diagnostics Result Diagram: 01/20/1780201/20/17 0803 X-Rays, CTs and MRIs Date of Service: 12/05/16 1013 PROCEDURE: MRI STROKE PROTOCOL ([id number]) Pre- and post-contrast brain MRI, non-contrast brain MR angiogram, pre- and postcontrast neck MR angiogram INDICATIONS: psychosis dementia TECHNIQUE: Brain: Noncontrast axial T1 spin echo, axial T2 fast spin echo, sagittal and axial FLAIR, coronal T2 fast spin echo, axial gradient echo, axial diffusion and ADC through the brain. After the administration of contrast, axial 3D VIBE of the cranial vasculature and brain. Brain MRA: Non-contrast 3-D time of flight MR angiogram, with multiple maximum- intensity-projection (MIP) reformats performed. Neck MRA: Axial and sagittal TruFISP through the neck. Coronal dynamic MR angiogram during administration of contrast in the arterial and venous phases, with 3-dimenstional dqjqtof-saoizpziu-dhcuhwoyvc (MIP) reformats constructed from subtraction images. COMPARISON: None. FINDINGS: Image quality: Excellent. BRAIN: CSF spaces: There is ex vacuo dilatation of the lateral ventricles, greatest in degree involving the temporal horns. Basal cisterns are patent. No extra- axial fluid collections. Brain: No intracranial bleeds or mass effects. Mild degree of patchy high FLAIR signal intensity within the periventricular and subcortical white matter. There is moderate diffuse cerebral volume loss, greatest in degree involving the frontal and anterior temporal lobes. Jasmine-white matter interface is normal. Diffusion weighted images show no acute ischemic insults. Brainstem appears normal. Normal intravascular flow voids are present. No abnormal intracranial enhancement. Skull and face: Calvarial marrow signal is normal. Orbits appear normal. Sinuses: Sinuses and mastoids are clear. BRAIN MR ANGIOGRAM: Anterior circulation: Intracranial internal carotid arteries are normal in size and enhancement. The flow within the paired anterior cerebral arteries is normal and symmetric. The flow within the middle cerebral arteries is normal and symmetric. The anterior communicating artery is seen. No stenoses, occlusions, or aneurysms. Posterior circulation: The visualized portions of the vertebral arteries demonstrate normal caliber, and join to form a normal appearing basilar artery. The flow within the posterior cerebral arteries is normal and symmetric. No stenoses, occlusions, or aneurysms. NECK MR ANGIOGRAM: Carotids: Great vessels demonstrate a conventional anatomy as they arise from the aortic arch. The origins of the common carotid arteries appear patent. The calibers and courses of both common carotid arteries are normal. The bifurcation regions appear normal bilaterally. The internal carotid arteries demonstrate normal course and caliber. Posterior circulation: The origins of the vertebral arteries appear patent. More superior portions of both vertebral arteries demonstrate normal course and caliber, and join to form a normal appearing basilar artery. Miscellaneous: Subclavian arteries appear patent. Pre-contrast images through the neck show no soft tissue abnormalities. IMPRESSION: BRAIN MRI: 1. No acute process. No recent infarct. 2. Small vessel ischemic disease. 3. Cerebral volume loss, greatest in degree within the frontal and temporal lobes bilaterally. BRAIN MR ANGIOGRAM: Negative cervical MR angiography. NECK MR ANGIOGRAM: 1. No internal coronary stenosis bilaterally. 2. Patent bilateral vertebral arteries. The estimate of stenosis included in the report of the imaging study was calculated using the NASCET method Dictated by: Jing Kate M.D. on 12/05/2016 at 16:29 Transcribed by: RAULITO on 12/05/2016 at 16:34 Approved by: Jing Kate M.D. on 12/05/2016 at 16:40 Assessment & Plan 66-year-old female with severe early onset dementia with attempted suicide attempt was found to have YESENIA, UTI, and AMS. Currently pending placement. acute, active # Major neurocognitive disorder, NOS, poa, active. Irregular behaviors, agitation, likely due to advanced dementia with possible psychosis features or underlying psychiatric dz, dementia was presumably due to Alzheimer's dementia, pt was diagnosed dxed dementia already 7yrs ago per brother. no previous dx of psychiatric dz. Medical w/u including MRA, MRI of brain, vitB12, TSH, RPR, UCX, all negative. New regimen started on 12/09. -as per / recommendation below Risperidone 0.25mg po bid and 0.25mg po q6hr prn agitation ->increased to 0.5m bid Continue memantine 5mg po bid for 1 week then 5mg daily and 10mg nightly for 1 weeks then 10mg po bid.increased to 10mg bid 01/14 Consider adding SSRI e.g. escitalopram 5mg po daily for depression ->increased to 10mg daily Consider prazosin for possible PTSD>Started prazosin 1 mg qhs Patient would benefit from hearing aid to improve environmental cues Patient would benefit from picture board to identify items as has difficulty with naming object. # Intermittent n/v, decreased po intake, POA, ddx: likely from severe ileus, Resolved -n/v resolved with ileus ,NGT removed -continue bowel regimen, senna liquid, miralax. -zofran prn for n/v -no artificial nutrition, confirmed with daughter - was curbsided, reconsult if necessary # Mechanical fall with right upper lip laceration on 01/16/17 -Neuro exam is nonfocal and unchanged from earlier today. No need for imaging for now -Surgery stitched laceration 01/16. Remove stitch after 5 days. -she had near fall today,PT eval # Elevated ALT, calcium, and bilirubin; present on admission; improved , LFT shows mild hepatic dysfunction with mild elevations of bilirubin and large elevation of ALT; Hepatitis panel is negative. -clinically stable, trending down, # YESENIA, resolved -initially presented on admission, which was likely prerenal due to decreased Po intake, received normal saline , YESENIA resolved, pt developed again YESENIA on , possibly prerenal -s/p hydration, YESENIA resolved, # UTI, POA, resolved. -positive for leukocyte esterase, nitrites, few bacteria. pt was empirically start Rocephin but final UCX negative. Repeat UCX also contaminated, stopped abx 12/11. then pt was restarted CFX01/04-, given marked elevation of wbc, trending down, UCX from 01/03 showed mixed doron, abx stopped. # Malnutrition- poa, active - Slightly improved and likes to drink ensure supplements, Labs showed slight increase in liver function tests AST and ALT on 12/26. - Trial of Remeron which did not seem to help her appetite and made her more lethargic. Remeron is discontinued" - 12/30- Per discussion with Grapple Skidder Operator, will add high calorie nutritional supplements. - Tried Megace on 12/30 without improvement. - 01/01- Added Dronabinol 2.5mg BID w/ meals, pt did not tolerate at all due to nausea. Stopped. Back pain, active -- Patient complains of pain in the lumbar sacral area -- Increased tramadol to every 4 hrs 50 mg when necessary # Hx of nephrolithiasis, recent stent placement, POA, Abd US on 12/04 showed Interval resolution of right hydronephrosis status post ureteral stent placement. 1.7 cm nonobstructing right renal stone. - pt was scheduled for elective Rt renal Laser lithotripsy 12/12, informed that pt is in the hospital. f/u with urology after discharge. Post menopausal symptoms chronic -- discontinued Estrace. dvt ppx lovenox dcd 01/14 as daughters wish is comfort measures mainly Disposition: pending placement once source of payment is established, hospice seems appropriate given deconditioning.daughter working to get guardianship VTE Prophylaxis: Sub-Q Enoxaparin VTE Mechanical Devices: Venous Foot Pump Resuscitation Status: DNR/DNI:Do Not Resuscitate/Intubate Time spent 35min Mariana Dunn MD Jan 24, 2017 12:24
--- NOTE | 2017-01-24 15:36 | NUR ---
Called and spoke with Guardianship front clerk at [facility] and the patient's daughter did file for guardianship on Dec. Tax Services Specialist confirmed that this is a 60 day process, a certified wellness program manager has been assigned and his name is Michael Lopez [phone]. Updated PRIZE COORDINATOR and PRIZE COORDINATOR Medical Information Officer
--- NOTE | 2017-01-24 15:41 | NUR ---
Shower/visitors Pt took a shower today, tolerated well. Dtr in this afternoon to visit, amb around unit with pt. Sitter remains in place.
[2017-01-24 20:04] VITALS: BP 103/70; PULSE 89; RESP 17; O2SAT 94
--- NOTE | 2017-01-25 03:25 | NUR ---
CARE Sitter at bedside until 2300. Per sitter, pt preferred soma bed to not be zipped up. Sitter left at 2300, zipped soma bed up while pt asleep. Later, pt put conditioning coach light to use BR. When pt finished, this RN went to zip up bed, pt shook head, requesting to leave open. Told pt would let pt have unzipped for awhile longer. Sat close by observing to ensure pt stayed in bed. Once asleep, closed soma bed. Later in shift, pt has appeared restless in bed, but has not put conditioning coach light. Pt has had no attempts to wander this night. Hourly rounding.
[2017-01-25 05:53] VITALS: BP 131/73; PULSE 111; RESP 18; O2SAT 98
[2017-01-25 08:41] VITALS: BP 113/65; PULSE 95; RESP 18; O2SAT 100
[2017-01-25] MEDS: risperiDONE 1 mg Tablet PO SCH ×2 (09:30→22:12)
--- NOTE | 2017-01-25 12:09 | PCM.PNMED ---
Subjective Date of Service Jan 25, 2017 Subjective no overnight event. Exam Vital Signs Vital Sign - Last Date Time Temp Pulse Resp B/P Pulse Ox O2 Delivery O2 Flow Rate FiO2 01/25/17 08:41 36.3 95 18 113/65 100 Room Air Intake and Output 01/24/17 01/24/17 01/25/17 Cumulative From/Thru 15:00 23:00 07:00 12/04/16 13:11 - 01/25/17 05:55 Intake Total 360 ml 400 ml 99380 ml Output Total 1050 ml Balance 360 ml 400 ml 10318 ml Intake Oral 360 ml 400 ml 93352 ml IV Total 56063 ml Output Urine Total 600 ml Emesis 450 ml # Voids 3 2 348 # Bowel Movements 0 61 Exam NAD, comfortably laying down on the bed no JVD, MMM, no LAD RRR, nl s1, s2 no mrg CTAB, no w,c S,ND,NT,normoactive BS+ warm, no edema, pulses 2/2 IVs and Medications Medications Reviewed: Medications were reviewed in detail Lab and Diagnostics Result Diagram: 01/20/1780201/20/17 08 X-Rays, CTs and MRIs Date of Service: 12/05/16 1013 PROCEDURE: MRI STROKE PROTOCOL ([id number]) Pre- and post-contrast brain MRI, non-contrast brain MR angiogram, pre- and postcontrast neck MR angiogram INDICATIONS: psychosis dementia TECHNIQUE: Brain: Noncontrast axial T1 spin echo, axial T2 fast spin echo, sagittal and axial FLAIR, coronal T2 fast spin echo, axial gradient echo, axial diffusion and ADC through the brain. After the administration of contrast, axial 3D VIBE of the cranial vasculature and brain. Brain MRA: Non-contrast 3-D time of flight MR angiogram, with multiple maximum- intensity-projection (MIP) reformats performed. Neck MRA: Axial and sagittal TruFISP through the neck. Coronal dynamic MR angiogram during administration of contrast in the arterial and venous phases, with 3-dimenstional mcuubkh-ashqysjta-oigkhpofwh (MIP) reformats constructed from subtraction images. COMPARISON: None. FINDINGS: Image quality: Excellent. BRAIN: CSF spaces: There is ex vacuo dilatation of the lateral ventricles, greatest in degree involving the temporal horns. Basal cisterns are patent. No extra- axial fluid collections. Brain: No intracranial bleeds or mass effects. Mild degree of patchy high FLAIR signal intensity within the periventricular and subcortical white matter. There is moderate diffuse cerebral volume loss, greatest in degree involving the frontal and anterior temporal lobes. Jasmine-white matter interface is normal. Diffusion weighted images show no acute ischemic insults. Brainstem appears normal. Normal intravascular flow voids are present. No abnormal intracranial enhancement. Skull and face: Calvarial marrow signal is normal. Orbits appear normal. Sinuses: Sinuses and mastoids are clear. BRAIN MR ANGIOGRAM: Anterior circulation: Intracranial internal carotid arteries are normal in size and enhancement. The flow within the paired anterior cerebral arteries is normal and symmetric. The flow within the middle cerebral arteries is normal and symmetric. The anterior communicating artery is seen. No stenoses, occlusions, or aneurysms. Posterior circulation: The visualized portions of the vertebral arteries demonstrate normal caliber, and join to form a normal appearing basilar artery. The flow within the posterior cerebral arteries is normal and symmetric. No stenoses, occlusions, or aneurysms. NECK MR ANGIOGRAM: Carotids: Great vessels demonstrate a conventional anatomy as they arise from the aortic arch. The origins of the common carotid arteries appear patent. The calibers and courses of both common carotid arteries are normal. The bifurcation regions appear normal bilaterally. The internal carotid arteries demonstrate normal course and caliber. Posterior circulation: The origins of the vertebral arteries appear patent. More superior portions of both vertebral arteries demonstrate normal course and caliber, and join to form a normal appearing basilar artery. Miscellaneous: Subclavian arteries appear patent. Pre-contrast images through the neck show no soft tissue abnormalities. IMPRESSION: BRAIN MRI: 1. No acute process. No recent infarct. 2. Small vessel ischemic disease. 3. Cerebral volume loss, greatest in degree within the frontal and temporal lobes bilaterally. BRAIN MR ANGIOGRAM: Negative cervical MR angiography. NECK MR ANGIOGRAM: 1. No internal coronary stenosis bilaterally. 2. Patent bilateral vertebral arteries. The estimate of stenosis included in the report of the imaging study was calculated using the NASCET method Dictated by: Jing Kate M.D. on 12/05/2016 at 16:29 Transcribed by: RAULITO on 12/05/2016 at 16:34 Approved by: Jing Kate M.D. on 12/05/2016 at 16:40 Assessment & Plan 66-year-old female with severe early onset dementia with attempted suicide attempt was found to have YESENIA, UTI, and AMS. Currently pending placement. acute, active # Major neurocognitive disorder, NOS, poa, active. Irregular behaviors, agitation, likely due to advanced dementia with possible psychosis features or underlying psychiatric dz, dementia was presumably due to Alzheimer's dementia, pt was diagnosed dxed dementia already 7yrs ago per brother. no previous dx of psychiatric dz. Medical w/u including MRA, MRI of brain, vitB12, TSH, RPR, UCX, all negative. New regimen started on 12/09. -as per / recommendation below Risperidone 0.25mg po bid and 0.25mg po q6hr prn agitation ->increased to 0.5m bid Continue memantine 5mg po bid for 1 week then 5mg daily and 10mg nightly for 1 weeks then 10mg po bid.increased to 10mg bid 01/14 Consider adding SSRI e.g. escitalopram 5mg po daily for depression ->increased to 10mg daily Consider prazosin for possible PTSD>Started prazosin 1 mg qhs Patient would benefit from hearing aid to improve environmental cues Patient would benefit from picture board to identify items as has difficulty with naming object. # Intermittent n/v, decreased po intake, POA, ddx: likely from severe ileus, Resolved -n/v resolved with ileus ,NGT removed -continue bowel regimen, senna liquid, miralax. -zofran prn for n/v -no artificial nutrition, confirmed with daughter - was curbsided, reconsult if necessary # Mechanical fall with right upper lip laceration on 01/16/17 -Neuro exam is nonfocal and unchanged from earlier today. No need for imaging for now -Surgery stitched laceration 01/16. Remove stitch after 5 days. -she had near fall today,PT eval # Elevated ALT, calcium, and bilirubin; present on admission; improved , LFT shows mild hepatic dysfunction with mild elevations of bilirubin and large elevation of ALT; Hepatitis panel is negative. -clinically stable, trending down, # YESENIA, resolved -initially presented on admission, which was likely prerenal due to decreased Po intake, received normal saline , YESENIA resolved, pt developed again YESENIA on , possibly prerenal -s/p hydration, YESENIA resolved, # UTI, POA, resolved. -positive for leukocyte esterase, nitrites, few bacteria. pt was empirically start Rocephin but final UCX negative. Repeat UCX also contaminated, stopped abx 12/11. then pt was restarted CFX01/04-, given marked elevation of wbc, trending down, UCX from 01/03 showed mixed doron, abx stopped. # Malnutrition- poa, active - Slightly improved and likes to drink ensure supplements, Labs showed slight increase in liver function tests AST and ALT on 12/26. - Trial of Remeron which did not seem to help her appetite and made her more lethargic. Remeron is discontinued" - 12/30- Per discussion with Impregnating Tank Operator, will add high calorie nutritional supplements. - Tried Megace on 12/30 without improvement. - 01/01- Added Dronabinol 2.5mg BID w/ meals, pt did not tolerate at all due to nausea. Stopped. Back pain, active -- Patient complains of pain in the lumbar sacral area -- Increased tramadol to every 4 hrs 50 mg when necessary # Hx of nephrolithiasis, recent stent placement, POA, Abd US on 12/04 showed Interval resolution of right hydronephrosis status post ureteral stent placement. 1.7 cm nonobstructing right renal stone. - pt was scheduled for elective Rt renal Laser lithotripsy 12/12, informed that pt is in the hospital. f/u with urology after discharge. Post menopausal symptoms chronic -- discontinued Estrace. dvt ppx lovenox dcd 01/14 as daughters wish is comfort measures mainly Disposition: pending placement once source of payment is established, hospice seems appropriate given deconditioning.daughter working to get guardianship VTE Prophylaxis: Sub-Q Enoxaparin VTE Mechanical Devices: Venous Foot Pump Resuscitation Status: DNR/DNI:Do Not Resuscitate/Intubate Time spent 35min Mariana Dunn MD Jan 25, 2017 12:09
--- NOTE | 2017-01-25 16:23 | NUR ---
Social Work-continued d/c planning: Data:EMR reviewed. Pt is on day 52 of hospitalization for delirium per H&P. Pt is currently on comfort care. BHUPENDRA received a call from Chinyere at [facility] office Michael Lopez [phone]. Chinyere state she would like to fax packet of information would need to be filled out by . BHUPENDRA provided Chinyere with fax number to send information to. Chinyere states she will call back with time they are going to visit the pt. BHUPENDRA will continue to follow. Assessment:pt who is on comfort care. Plan:[facility] Michael Lopez [phone] has been assigned, paperwork to be faxed. ADOL[facility] office to call back of time of visit. BHUPENDRA will continue to follow. STEWART Contreras
--- NOTE | 2017-01-25 16:47 | NUR ---
Activity/Medications Pt initially refused medications (crushed and in single bit of michoacano pudding). Retried a few minutes later by handing pt the bite on a spoon. Pt was willing to accept and tolerate medications. Per report, pt often will refuse care but when given a break and with re-attempt will accept. Pt exhibiting restless legs during most of shift, family reports pt appears more lethargic than usual. Family in during day for several hours, sitter otherwise at bedside providing redirection and safety. Pt had no near falls during shift.
--- NOTE | 2017-01-26 05:03 | NUR ---
activity ambulating in the room with SBA by the sitter; gait slightly unsteady. Sitter got pulled away. Pt woke up and walked to the BR w/o asking for assistance and had a smear of BM. gait still unsteady. woke up and kept walking in the room; unable to follow directions. Rec'd an order for Soma bed. pt sleeping at this time.
[2017-01-26 06:43] VITALS: BP 143/86; PULSE 99; RESP 18; O2SAT 94
[2017-01-26] MEDS: risperiDONE 1 mg Tablet PO SCH ×2 (10:20→20:43)
--- NOTE | 2017-01-26 11:54 | PCM.PNMED ---
Subjective Date of Service Jan 26, 2017 Subjective pt is doing well Exam Vital Signs Vital Sign - Last Date Time Temp Pulse Resp B/P Pulse Ox O2 Delivery O2 Flow Rate FiO2 01/26/17 06:43 36.7 99 18 143/86 94 Room Air Intake and Output 01/25/17 01/25/17 01/26/17 Cumulative From/Thru 15:00 23:00 07:00 12/04/16 13:11 - 01/25/17 18:01 Intake Total 420 ml 13166 ml Output Total 1050 ml Balance 420 ml 07609 ml Intake Oral 420 ml 28802 ml IV Total 97672 ml Output Urine Total 600 ml Emesis 450 ml # Voids 4 352 # Bowel Movements 0 61 Exam NAD, comfortably laying down on the bed no JVD, MMM, no LAD RRR, nl s1, s2 no mrg CTAB, no w,c S,ND,NT,normoactive BS+ warm, no edema, pulses 2/2 IVs and Medications Medications Reviewed: Medications were reviewed in detail Lab and Diagnostics Result Diagram: 01/20/1780201/20/17 0803 X-Rays, CTs and MRIs Date of Service: 12/05/16 1013 PROCEDURE: MRI STROKE PROTOCOL ([id number]) Pre- and post-contrast brain MRI, non-contrast brain MR angiogram, pre- and postcontrast neck MR angiogram INDICATIONS: psychosis dementia TECHNIQUE: Brain: Noncontrast axial T1 spin echo, axial T2 fast spin echo, sagittal and axial FLAIR, coronal T2 fast spin echo, axial gradient echo, axial diffusion and ADC through the brain. After the administration of contrast, axial 3D VIBE of the cranial vasculature and brain. Brain MRA: Non-contrast 3-D time of flight MR angiogram, with multiple maximum- intensity-projection (MIP) reformats performed. Neck MRA: Axial and sagittal TruFISP through the neck. Coronal dynamic MR angiogram during administration of contrast in the arterial and venous phases, with 3-dimenstional xkyrvzy-zoeinmtew-wnsmtzlwzw (MIP) reformats constructed from subtraction images. COMPARISON: None. FINDINGS: Image quality: Excellent. BRAIN: CSF spaces: There is ex vacuo dilatation of the lateral ventricles, greatest in degree involving the temporal horns. Basal cisterns are patent. No extra- axial fluid collections. Brain: No intracranial bleeds or mass effects. Mild degree of patchy high FLAIR signal intensity within the periventricular and subcortical white matter. There is moderate diffuse cerebral volume loss, greatest in degree involving the frontal and anterior temporal lobes. Jasmine-white matter interface is normal. Diffusion weighted images show no acute ischemic insults. Brainstem appears normal. Normal intravascular flow voids are present. No abnormal intracranial enhancement. Skull and face: Calvarial marrow signal is normal. Orbits appear normal. Sinuses: Sinuses and mastoids are clear. BRAIN MR ANGIOGRAM: Anterior circulation: Intracranial internal carotid arteries are normal in size and enhancement. The flow within the paired anterior cerebral arteries is normal and symmetric. The flow within the middle cerebral arteries is normal and symmetric. The anterior communicating artery is seen. No stenoses, occlusions, or aneurysms. Posterior circulation: The visualized portions of the vertebral arteries demonstrate normal caliber, and join to form a normal appearing basilar artery. The flow within the posterior cerebral arteries is normal and symmetric. No stenoses, occlusions, or aneurysms. NECK MR ANGIOGRAM: Carotids: Great vessels demonstrate a conventional anatomy as they arise from the aortic arch. The origins of the common carotid arteries appear patent. The calibers and courses of both common carotid arteries are normal. The bifurcation regions appear normal bilaterally. The internal carotid arteries demonstrate normal course and caliber. Posterior circulation: The origins of the vertebral arteries appear patent. More superior portions of both vertebral arteries demonstrate normal course and caliber, and join to form a normal appearing basilar artery. Miscellaneous: Subclavian arteries appear patent. Pre-contrast images through the neck show no soft tissue abnormalities. IMPRESSION: BRAIN MRI: 1. No acute process. No recent infarct. 2. Small vessel ischemic disease. 3. Cerebral volume loss, greatest in degree within the frontal and temporal lobes bilaterally. BRAIN MR ANGIOGRAM: Negative cervical MR angiography. NECK MR ANGIOGRAM: 1. No internal coronary stenosis bilaterally. 2. Patent bilateral vertebral arteries. The estimate of stenosis included in the report of the imaging study was calculated using the NASCET method Dictated by: Jing Kate M.D. on 12/05/2016 at 16:29 Transcribed by: RAULITO on 12/05/2016 at 16:34 Approved by: Jing Kate M.D. on 12/05/2016 at 16:40 Assessment & Plan 66-year-old female with severe early onset dementia with attempted suicide attempt was found to have YESENIA, UTI, and AMS. Currently pending placement. acute, active # Major neurocognitive disorder, NOS, poa, active. Irregular behaviors, agitation, likely due to advanced dementia with possible psychosis features or underlying psychiatric dz, dementia was presumably due to Alzheimer's dementia, pt was diagnosed dxed dementia already 7yrs ago per brother. no previous dx of psychiatric dz. Medical w/u including MRA, MRI of brain, vitB12, TSH, RPR, UCX, all negative. New regimen started on 12/09. -as per / recommendation below Risperidone 0.25mg po bid and 0.25mg po q6hr prn agitation ->increased to 0.5m bid Continue memantine 5mg po bid for 1 week then 5mg daily and 10mg nightly for 1 weeks then 10mg po bid.increased to 10mg bid 01/14 Consider adding SSRI e.g. escitalopram 5mg po daily for depression ->increased to 10mg daily Consider prazosin for possible PTSD>Started prazosin 1 mg qhs Patient would benefit from hearing aid to improve environmental cues Patient would benefit from picture board to identify items as has difficulty with naming object. # Intermittent n/v, decreased po intake, POA, ddx: likely from severe ileus, Resolved -n/v resolved with ileus ,NGT removed -continue bowel regimen, senna liquid, miralax. -zofran prn for n/v -no artificial nutrition, confirmed with daughter - was curbsided, reconsult if necessary # Mechanical fall with right upper lip laceration on 01/16/17 -Neuro exam is nonfocal and unchanged from earlier today. No need for imaging for now -Surgery stitched laceration 01/16. Remove stitch after 5 days. -she had near fall today,PT eval # Elevated ALT, calcium, and bilirubin; present on admission; improved , LFT shows mild hepatic dysfunction with mild elevations of bilirubin and large elevation of ALT; Hepatitis panel is negative. -clinically stable, trending down, # YESENIA, resolved -initially presented on admission, which was likely prerenal due to decreased Po intake, received normal saline , YESENIA resolved, pt developed again YESENIA on , possibly prerenal -s/p hydration, YESENIA resolved, # UTI, POA, resolved. -positive for leukocyte esterase, nitrites, few bacteria. pt was empirically start Rocephin but final UCX negative. Repeat UCX also contaminated, stopped abx 12/11. then pt was restarted CFX01/04-, given marked elevation of wbc, trending down, UCX from 01/03 showed mixed doron, abx stopped. # Malnutrition- poa, active - Slightly improved and likes to drink ensure supplements, Labs showed slight increase in liver function tests AST and ALT on 12/26. - Trial of Remeron which did not seem to help her appetite and made her more lethargic. Remeron is discontinued" - 12/30- Per discussion with Power Machine Operator, will add high calorie nutritional supplements. - Tried Megace on 12/30 without improvement. - 01/01- Added Dronabinol 2.5mg BID w/ meals, pt did not tolerate at all due to nausea. Stopped. Back pain, active -- Patient complains of pain in the lumbar sacral area -- Increased tramadol to every 4 hrs 50 mg when necessary # Hx of nephrolithiasis, recent stent placement, POA, Abd US on 12/04 showed Interval resolution of right hydronephrosis status post ureteral stent placement. 1.7 cm nonobstructing right renal stone. - pt was scheduled for elective Rt renal Laser lithotripsy 12/12, informed that pt is in the hospital. f/u with urology after discharge. Post menopausal symptoms chronic -- discontinued Estrace. dvt ppx lovenox dcd 01/14 as daughters wish is comfort measures mainly Disposition: pending placement once source of payment is established, hospice seems appropriate given deconditioning.daughter working to get guardianship VTE Prophylaxis: Sub-Q Enoxaparin VTE Mechanical Devices: Venous Foot Pump Resuscitation Status: DNR/DNI:Do Not Resuscitate/Intubate Time spent 35min Mariana Dunn MD Jan 26, 2017 11:54
--- NOTE | 2017-01-26 14:47 | NUR ---
Activity Pt in [facility] bed enclosure, able to freely move around, no s/sx of distress. Pt does is not verbally responsive, answers only few questions, is confused. Pt allowed/offered to use BR about every hour, followed when up as SBA for safety. [facility] bed DCd around 1400, sitter available. Pt walked around unit, occ tries to open doors but able to be redirected by sitter. No near falls during shift.
[2017-01-26 15:05] VITALS: BP 101/65; PULSE 98; RESP 18; O2SAT 95
--- NOTE | 2017-01-26 16:26 | NUR ---
spiritual care: follow up caring visit. pt minimally interactive, few words, few facial expressions, active in room (to bathroom) and independently repositioning on bed.
--- NOTE | 2017-01-26 17:23 | NUR ---
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 ENERGY ANALYST made copy and notified MD in AM rounds that portion of paperwork needed to completed by attending physician. MD requested copy be left on patient's hard copy of chart. MD notified that paperwork has to be completed no later than February 05, 2017. Preference is that paperwork get completed as soon as possible. P: ENERGY ANALYST team to continue to follow closely for commission sales associate and placement. [place]
[2017-01-26 20:36] VITALS: BP 107/79; PULSE 88; RESP 16; O2SAT 96
[2017-01-27 06:02] VITALS: BP 121/71; PULSE 94; RESP 16; O2SAT 94
[2017-01-27] MEDS: risperiDONE 1 mg Tablet PO SCH ×2 (10:08→20:46)
--- NOTE | 2017-01-27 11:46 | NUR ---
shift note Pt has been cooperative with care: took all medications, showered and allowed staff to wash clothes. Patient ambulated hallways multiple times with SEPTIC CLEANER. Alert to self only. Refused to eat most of meals and supplements.
--- NOTE | 2017-01-27 15:44 | NUR ---
pt slept majority of shift
--- NOTE | 2017-01-27 18:10 | PCM.PNMED ---
Subjective Date of Service Jan 27, 2017 Subjective No complaints Exam Vital Signs Vital Sign - Last Date Time Temp Pulse Resp B/P Pulse Ox O2 Delivery O2 Flow Rate FiO2 01/27/17 06:02 36.7 94 16 121/71 94 Room Air Intake and Output 01/26/17 01/26/17 01/27/17 Cumulative From/Thru 15:00 23:00 07:00 12/04/16 13:11 - 01/27/17 06:02 Intake Total 300 ml 500 ml 100 ml 35484 ml Output Total 1050 ml Balance 300 ml 500 ml 100 ml 02060 ml Intake Oral 300 ml 500 ml 100 ml 81494 ml IV Total 47397 ml Output Urine Total 600 ml Emesis 450 ml # Voids 1 3 3 359 # Bowel Movements 1 1 63 Exam General: Arouses easily to voice, no acute distress Heart: Regular Lungs: Clear IVs and Medications Medications Reviewed: Medications were reviewed in detail Lab and Diagnostics X-Rays, CTs and MRIs Date of Service: 12/05/16 1013 PROCEDURE: MRI STROKE PROTOCOL ([id number]) Pre- and post-contrast brain MRI, non-contrast brain MR angiogram, pre- and postcontrast neck MR angiogram INDICATIONS: psychosis dementia TECHNIQUE: Brain: Noncontrast axial T1 spin echo, axial T2 fast spin echo, sagittal and axial FLAIR, coronal T2 fast spin echo, axial gradient echo, axial diffusion and ADC through the brain. After the administration of contrast, axial 3D VIBE of the cranial vasculature and brain. Brain MRA: Non-contrast 3-D time of flight MR angiogram, with multiple maximum- intensity-projection (MIP) reformats performed. Neck MRA: Axial and sagittal TruFISP through the neck. Coronal dynamic MR angiogram during administration of contrast in the arterial and venous phases, with 3-dimenstional pqfvwxw-ydekeyfoo-vuaksrogii (MIP) reformats constructed from subtraction images. COMPARISON: None. FINDINGS: Image quality: Excellent. BRAIN: CSF spaces: There is ex vacuo dilatation of the lateral ventricles, greatest in degree involving the temporal horns. Basal cisterns are patent. No extra- axial fluid collections. Brain: No intracranial bleeds or mass effects. Mild degree of patchy high FLAIR signal intensity within the periventricular and subcortical white matter. There is moderate diffuse cerebral volume loss, greatest in degree involving the frontal and anterior temporal lobes. Jasmine-white matter interface is normal. Diffusion weighted images show no acute ischemic insults. Brainstem appears normal. Normal intravascular flow voids are present. No abnormal intracranial enhancement. Skull and face: Calvarial marrow signal is normal. Orbits appear normal. Sinuses: Sinuses and mastoids are clear. BRAIN MR ANGIOGRAM: Anterior circulation: Intracranial internal carotid arteries are normal in size and enhancement. The flow within the paired anterior cerebral arteries is normal and symmetric. The flow within the middle cerebral arteries is normal and symmetric. The anterior communicating artery is seen. No stenoses, occlusions, or aneurysms. Posterior circulation: The visualized portions of the vertebral arteries demonstrate normal caliber, and join to form a normal appearing basilar artery. The flow within the posterior cerebral arteries is normal and symmetric. No stenoses, occlusions, or aneurysms. NECK MR ANGIOGRAM: Carotids: Great vessels demonstrate a conventional anatomy as they arise from the aortic arch. The origins of the common carotid arteries appear patent. The calibers and courses of both common carotid arteries are normal. The bifurcation regions appear normal bilaterally. The internal carotid arteries demonstrate normal course and caliber. Posterior circulation: The origins of the vertebral arteries appear patent. More superior portions of both vertebral arteries demonstrate normal course and caliber, and join to form a normal appearing basilar artery. Miscellaneous: Subclavian arteries appear patent. Pre-contrast images through the neck show no soft tissue abnormalities. IMPRESSION: BRAIN MRI: 1. No acute process. No recent infarct. 2. Small vessel ischemic disease. 3. Cerebral volume loss, greatest in degree within the frontal and temporal lobes bilaterally. BRAIN MR ANGIOGRAM: Negative cervical MR angiography. NECK MR ANGIOGRAM: 1. No internal coronary stenosis bilaterally. 2. Patent bilateral vertebral arteries. The estimate of stenosis included in the report of the imaging study was calculated using the NASCET method Dictated by: Jing Kate M.D. on 12/05/2016 at 16:29 Transcribed by: RAULITO on 12/05/2016 at 16:34 Approved by: Jing Kate M.D. on 12/05/2016 at 16:40 Assessment & Plan 66-year-old female with severe early onset dementia with attempted suicide attempt was found to have YESENIA, UTI, and AMS. Currently pending placement and appointing of guardian ad litum acute, active # Major neurocognitive disorder, NOS, poa, active. Irregular behaviors, agitation, likely due to advanced dementia with possible psychosis features or underlying psychiatric dz, dementia was presumably due to Alzheimer's dementia, pt was diagnosed dxed dementia already 7yrs ago per brother. no previous dx of psychiatric dz. Medical w/u including MRA, MRI of brain, vitB12, TSH, RPR, UCX, all negative. New regimen started on 12/09. -as per / recommendation below Risperidone 0.25mg po bid and 0.25mg po q6hr prn agitation ->increased to 0.5m bid Continue memantine 5mg po bid for 1 week then 5mg daily and 10mg nightly for 1 weeks then 10mg po bid.increased to 10mg bid 01/14 Consider adding SSRI e.g. escitalopram 5mg po daily for depression ->increased to 10mg daily Consider prazosin for possible PTSD>Started prazosin 1 mg qhs Patient would benefit from hearing aid to improve environmental cues Patient would benefit from picture board to identify items as has difficulty with naming object. # Intermittent n/v, decreased po intake, POA, ddx: likely from severe ileus, Resolved -n/v resolved with ileus ,NGT removed -continue bowel regimen, senna liquid, miralax. -zofran prn for n/v -no artificial nutrition, confirmed with daughter - was curbsided, reconsult if necessary # Mechanical fall with right upper lip laceration on 01/16/17 -Neuro exam is nonfocal and unchanged from earlier today. No need for imaging for now -Surgery stitched laceration 01/16. Remove stitch after 5 days. # Elevated ALT, calcium, and bilirubin; present on admission; improved , LFT shows mild hepatic dysfunction with mild elevations of bilirubin and large elevation of ALT; Hepatitis panel is negative. -clinically stable, trending down, # YESENIA, resolved -initially presented on admission, which was likely prerenal due to decreased Po intake, received normal saline , YESENIA resolved, pt developed again YESENIA on , possibly prerenal -s/p hydration, YESENIA resolved, # UTI, POA, resolved. -positive for leukocyte esterase, nitrites, few bacteria. pt was empirically start Rocephin but final UCX negative. Repeat UCX also contaminated, stopped abx 12/11. then pt was restarted CFX01/04-, given marked elevation of wbc, trending down, UCX from 01/03 showed mixed doron, abx stopped. # Malnutrition- poa, active - Slightly improved and likes to drink ensure supplements, Labs showed slight increase in liver function tests AST and ALT on 12/26. - Trial of Remeron which did not seem to help her appetite and made her more lethargic. Remeron is discontinued" - 12/30- Per discussion with Director Of Orthopedics, will add high calorie nutritional supplements. - Tried Megace on 12/30 without improvement. - 01/01- Added Dronabinol 2.5mg BID w/ meals, pt did not tolerate at all due to nausea. Stopped. Back pain, active -- Patient complains of pain in the lumbar sacral area -- Increased tramadol to every 4 hrs 50 mg when necessary # Hx of nephrolithiasis, recent stent placement, POA, Abd US on 12/04 showed Interval resolution of right hydronephrosis status post ureteral stent placement. 1.7 cm nonobstructing right renal stone. - pt was scheduled for elective Rt renal Laser lithotripsy 12/12, informed that pt is in the hospital. f/u with urology after discharge. Post menopausal symptoms chronic -- discontinued Estrace. dvt ppx lovenox dcd 01/14 as daughters wish is comfort measures mainly Disposition: pending placement once source of payment is established, hospice seems appropriate given deconditioning.daughter working to get guardianship VTE Prophylaxis: Sub-Q Enoxaparin VTE Mechanical Devices: Venous Foot Pump Resuscitation Status: DNR/DNI:Do Not Resuscitate/Intubate Nia Amador MD Jan 27, 2017 18:10
[2017-01-27 18:19] VITALS: BP 99/64; PULSE 83; RESP 16; O2SAT 97
[2017-01-27 20:19] VITALS: BP 109/68; PULSE 81; RESP 16; O2SAT 95
--- NOTE | 2017-01-28 05:44 | NUR ---
Uneventful Night pt has been able to sleep during the night with minimal interruptions. pt does move from couch to bed to sleep intermittently. VSS, afebrile, on RA. pt has denied pain during the night. sitter at bedside, involved in care.
[2017-01-28 07:05] VITALS: BP 113/78; PULSE 92; RESP 18; O2SAT 94
[2017-01-28] MEDS: risperiDONE 1 mg Tablet PO SCH ×2 (08:49→20:30)
--- NOTE | 2017-01-28 11:12 | NUR ---
Behavior/Activity: Patient calm, allowed for physical assessment. Scheduled medications administered with much encouragement. Patient laying on couch this am then up and ambulating in hallways with sitter.
--- NOTE | 2017-01-28 14:39 | PCM.PNMED ---
Subjective Date of Service Jan 28, 2017 Subjective No complaints Exam Vital Signs Vital Sign - Last Date Time Temp Pulse Resp B/P Pulse Ox O2 Delivery O2 Flow Rate FiO2 01/28/17 07:05 36.2 92 18 113/78 94 Room Air Intake and Output 01/27/17 01/27/17 01/28/17 Cumulative From/Thru 15:00 23:00 07:00 12/04/16 13:11 - 01/28/17 06:50 Intake Total 357 ml 487 ml 34322 ml Output Total 1050 ml Balance 357 ml 487 ml 87967 ml Intake Oral 357 ml 487 ml 47017 ml IV Total 13493 ml Output Urine Total 600 ml Emesis 450 ml # Voids 4 4 367 # Bowel Movements 63 Exam Arouses easily to voice and is calm Heart regular, lungs clear Lab and Diagnostics X-Rays, CTs and MRIs Date of Service: 12/05/16 1013 PROCEDURE: MRI STROKE PROTOCOL ([id number]) Pre- and post-contrast brain MRI, non-contrast brain MR angiogram, pre- and postcontrast neck MR angiogram INDICATIONS: psychosis dementia TECHNIQUE: Brain: Noncontrast axial T1 spin echo, axial T2 fast spin echo, sagittal and axial FLAIR, coronal T2 fast spin echo, axial gradient echo, axial diffusion and ADC through the brain. After the administration of contrast, axial 3D VIBE of the cranial vasculature and brain. Brain MRA: Non-contrast 3-D time of flight MR angiogram, with multiple maximum- intensity-projection (MIP) reformats performed. Neck MRA: Axial and sagittal TruFISP through the neck. Coronal dynamic MR angiogram during administration of contrast in the arterial and venous phases, with 3-dimenstional xhjyqxg-rtbohhlqf-tskczogbyb (MIP) reformats constructed from subtraction images. COMPARISON: None. FINDINGS: Image quality: Excellent. BRAIN: CSF spaces: There is ex vacuo dilatation of the lateral ventricles, greatest in degree involving the temporal horns. Basal cisterns are patent. No extra- axial fluid collections. Brain: No intracranial bleeds or mass effects. Mild degree of patchy high FLAIR signal intensity within the periventricular and subcortical white matter. There is moderate diffuse cerebral volume loss, greatest in degree involving the frontal and anterior temporal lobes. Jasmine-white matter interface is normal. Diffusion weighted images show no acute ischemic insults. Brainstem appears normal. Normal intravascular flow voids are present. No abnormal intracranial enhancement. Skull and face: Calvarial marrow signal is normal. Orbits appear normal. Sinuses: Sinuses and mastoids are clear. BRAIN MR ANGIOGRAM: Anterior circulation: Intracranial internal carotid arteries are normal in size and enhancement. The flow within the paired anterior cerebral arteries is normal and symmetric. The flow within the middle cerebral arteries is normal and symmetric. The anterior communicating artery is seen. No stenoses, occlusions, or aneurysms. Posterior circulation: The visualized portions of the vertebral arteries demonstrate normal caliber, and join to form a normal appearing basilar artery. The flow within the posterior cerebral arteries is normal and symmetric. No stenoses, occlusions, or aneurysms. NECK MR ANGIOGRAM: Carotids: Great vessels demonstrate a conventional anatomy as they arise from the aortic arch. The origins of the common carotid arteries appear patent. The calibers and courses of both common carotid arteries are normal. The bifurcation regions appear normal bilaterally. The internal carotid arteries demonstrate normal course and caliber. Posterior circulation: The origins of the vertebral arteries appear patent. More superior portions of both vertebral arteries demonstrate normal course and caliber, and join to form a normal appearing basilar artery. Miscellaneous: Subclavian arteries appear patent. Pre-contrast images through the neck show no soft tissue abnormalities. IMPRESSION: BRAIN MRI: 1. No acute process. No recent infarct. 2. Small vessel ischemic disease. 3. Cerebral volume loss, greatest in degree within the frontal and temporal lobes bilaterally. BRAIN MR ANGIOGRAM: Negative cervical MR angiography. NECK MR ANGIOGRAM: 1. No internal coronary stenosis bilaterally. 2. Patent bilateral vertebral arteries. The estimate of stenosis included in the report of the imaging study was calculated using the NASCET method Dictated by: Jing Kate M.D. on 12/05/2016 at 16:29 Transcribed by: RAULITO on 12/05/2016 at 16:34 Approved by: Jing Kate M.D. on 12/05/2016 at 16:40 Assessment & Plan 66-year-old female with severe early onset dementia with attempted suicide attempt was found to have YESENIA, UTI, and AMS. Currently pending placement and appointing of guardian ad litum acute, active # Major neurocognitive disorder, NOS, poa, active. Irregular behaviors, agitation, likely due to advanced dementia with possible psychosis features or underlying psychiatric dz, dementia was presumably due to Alzheimer's dementia, pt was diagnosed dxed dementia already 7yrs ago per brother. no previous dx of psychiatric dz. Medical w/u including MRA, MRI of brain, vitB12, TSH, RPR, UCX, all negative. New regimen started on 12/09. -as per / recommendation below Risperidone 0.25mg po bid and 0.25mg po q6hr prn agitation ->increased to 0.5m bid Continue memantine 5mg po bid for 1 week then 5mg daily and 10mg nightly for 1 weeks then 10mg po bid.increased to 10mg bid 01/14 Consider adding SSRI e.g. escitalopram 5mg po daily for depression ->increased to 10mg daily Consider prazosin for possible PTSD>Started prazosin 1 mg qhs Patient would benefit from hearing aid to improve environmental cues Patient would benefit from picture board to identify items as has difficulty with naming object. # Intermittent n/v, decreased po intake, POA, ddx: likely from severe ileus, Resolved -n/v resolved with ileus ,NGT removed -continue bowel regimen, senna liquid, miralax. -zofran prn for n/v -no artificial nutrition, confirmed with daughter - was curbsided, reconsult if necessary # Mechanical fall with right upper lip laceration on 01/16/17 -Neuro exam is nonfocal and unchanged from earlier today. No need for imaging for now -Surgery stitched laceration 01/16. Removed stitches after 5 days. # Elevated ALT, calcium, and bilirubin; present on admission; improved , LFT shows mild hepatic dysfunction with mild elevations of bilirubin and large elevation of ALT; Hepatitis panel is negative. -clinically stable, trending down, # YESENIA, resolved -initially presented on admission, which was likely prerenal due to decreased Po intake, received normal saline , YESENIA resolved, pt developed again YESENIA on , possibly prerenal -s/p hydration, YESENIA resolved, # UTI, POA, resolved. -positive for leukocyte esterase, nitrites, few bacteria. pt was empirically start Rocephin but final UCX negative. Repeat UCX also contaminated, stopped abx 12/11. then pt was restarted CFX01/04-, given marked elevation of wbc, trending down, UCX from 01/03 showed mixed doron, abx stopped. # Malnutrition- poa, active - Slightly improved and likes to drink ensure supplements, Labs showed slight increase in liver function tests AST and ALT on 12/26. - Trial of Remeron which did not seem to help her appetite and made her more lethargic. Remeron is discontinued" - 12/30- Per discussion with [employer], will add high calorie nutritional supplements. - Tried Megace on 12/30 without improvement. - 01/01- Added Dronabinol 2.5mg BID w/ meals, pt did not tolerate at all due to nausea. Stopped. Back pain, active -- Patient complains of pain in the lumbar sacral area -- Increased tramadol to every 4 hrs 50 mg when necessary # Hx of nephrolithiasis, recent stent placement, POA, Abd US on 12/04 showed Interval resolution of right hydronephrosis status post ureteral stent placement. 1.7 cm nonobstructing right renal stone. - pt was scheduled for elective Rt renal Laser lithotripsy 12/12, informed that pt is in the hospital. f/u with urology after discharge. Post menopausal symptoms chronic -- discontinued Estrace. dvt ppx lovenox dcd 01/14 as daughters wish is comfort measures mainly Disposition: pending placement once source of payment is established, hospice seems appropriate given deconditioning.daughter working to get guardianship VTE Prophylaxis: Sub-Q Enoxaparin VTE Mechanical Devices: Venous Foot Pump Resuscitation Status: DNR/DNI:Do Not Resuscitate/Intubate Nia Amador MD Jan 28, 2017 14:39
[2017-01-28 17:25] VITALS: BP 128/84; PULSE 97; O2SAT 96
[2017-01-28 20:56] VITALS: BP 112/60; PULSE 92; RESP 16; O2SAT 95
--- NOTE | 2017-01-29 06:15 | NUR ---
Restraints/PO intake/Activity No sitter available last night at 2340, PT still very unsteady on feet so she was place in a LU bed, Dr. King aware and entered orders. Pt only taking minimal PO fluids and no solid food through the night. Pt toiled every 2 hrs with only verbal protest returning back to the Lu bed, she also refused her HS meds multiple times.
[2017-01-29] MEDS: risperiDONE 1 mg Tablet PO SCH ×2 (08:35→22:54)
--- NOTE | 2017-01-29 13:33 | PCM.PNMED ---
Subjective Date of Service Jan 29, 2017 Subjective no complaints Exam Vital Signs Vital Sign - Last Date Time Temp Pulse Resp B/P Pulse Ox O2 Delivery O2 Flow Rate FiO2 01/28/17 20:56 36.4 92 16 112/60 95 Room Air Intake and Output 01/28/17 01/28/17 01/29/17 Cumulative From/Thru 15:00 23:00 07:00 12/04/16 13:11 - 01/29/17 02:27 Intake Total 250 ml 37350 ml Output Total 1050 ml Balance 250 ml 59096 ml Intake Oral 250 ml 93298 ml IV Total 74044 ml Output Urine Total 600 ml Emesis 450 ml # Voids 3 370 # Bowel Movements 0 63 Exam Alert, answers simple questions, calm heart reg, lungs clear IVs and Medications Medications Reviewed: Medications were reviewed in detail Lab and Diagnostics X-Rays, CTs and MRIs Date of Service: 12/05/16 1013 PROCEDURE: MRI STROKE PROTOCOL ([id number]) Pre- and post-contrast brain MRI, non-contrast brain MR angiogram, pre- and postcontrast neck MR angiogram INDICATIONS: psychosis dementia TECHNIQUE: Brain: Noncontrast axial T1 spin echo, axial T2 fast spin echo, sagittal and axial FLAIR, coronal T2 fast spin echo, axial gradient echo, axial diffusion and ADC through the brain. After the administration of contrast, axial 3D VIBE of the cranial vasculature and brain. Brain MRA: Non-contrast 3-D time of flight MR angiogram, with multiple maximum- intensity-projection (MIP) reformats performed. Neck MRA: Axial and sagittal TruFISP through the neck. Coronal dynamic MR angiogram during administration of contrast in the arterial and venous phases, with 3-dimenstional nkcsvlf-lhufjeztx-pkhnxrtlrs (MIP) reformats constructed from subtraction images. COMPARISON: None. FINDINGS: Image quality: Excellent. BRAIN: CSF spaces: There is ex vacuo dilatation of the lateral ventricles, greatest in degree involving the temporal horns. Basal cisterns are patent. No extra- axial fluid collections. Brain: No intracranial bleeds or mass effects. Mild degree of patchy high FLAIR signal intensity within the periventricular and subcortical white matter. There is moderate diffuse cerebral volume loss, greatest in degree involving the frontal and anterior temporal lobes. Jasmine-white matter interface is normal. Diffusion weighted images show no acute ischemic insults. Brainstem appears normal. Normal intravascular flow voids are present. No abnormal intracranial enhancement. Skull and face: Calvarial marrow signal is normal. Orbits appear normal. Sinuses: Sinuses and mastoids are clear. BRAIN MR ANGIOGRAM: Anterior circulation: Intracranial internal carotid arteries are normal in size and enhancement. The flow within the paired anterior cerebral arteries is normal and symmetric. The flow within the middle cerebral arteries is normal and symmetric. The anterior communicating artery is seen. No stenoses, occlusions, or aneurysms. Posterior circulation: The visualized portions of the vertebral arteries demonstrate normal caliber, and join to form a normal appearing basilar artery. The flow within the posterior cerebral arteries is normal and symmetric. No stenoses, occlusions, or aneurysms. NECK MR ANGIOGRAM: Carotids: Great vessels demonstrate a conventional anatomy as they arise from the aortic arch. The origins of the common carotid arteries appear patent. The calibers and courses of both common carotid arteries are normal. The bifurcation regions appear normal bilaterally. The internal carotid arteries demonstrate normal course and caliber. Posterior circulation: The origins of the vertebral arteries appear patent. More superior portions of both vertebral arteries demonstrate normal course and caliber, and join to form a normal appearing basilar artery. Miscellaneous: Subclavian arteries appear patent. Pre-contrast images through the neck show no soft tissue abnormalities. IMPRESSION: BRAIN MRI: 1. No acute process. No recent infarct. 2. Small vessel ischemic disease. 3. Cerebral volume loss, greatest in degree within the frontal and temporal lobes bilaterally. BRAIN MR ANGIOGRAM: Negative cervical MR angiography. NECK MR ANGIOGRAM: 1. No internal coronary stenosis bilaterally. 2. Patent bilateral vertebral arteries. The estimate of stenosis included in the report of the imaging study was calculated using the NASCET method Dictated by: Jing Kate M.D. on 12/05/2016 at 16:29 Transcribed by: RAULITO on 12/05/2016 at 16:34 Approved by: Jing Kate M.D. on 12/05/2016 at 16:40 Assessment & Plan 66-year-old female with severe early onset dementia with attempted suicide attempt was found to have YESENIA, UTI, and AMS. Currently pending placement and appointing of guardian ad litum acute, active # Major neurocognitive disorder, NOS, poa, active. Irregular behaviors, agitation, likely due to advanced dementia with possible psychosis features or underlying psychiatric dz, dementia was presumably due to Alzheimer's dementia, pt was diagnosed dxed dementia already 7yrs ago per brother. no previous dx of psychiatric dz. Medical w/u including MRA, MRI of brain, vitB12, TSH, RPR, UCX, all negative. New regimen started on 12/09. -as per / recommendation below Risperidone 0.25mg po bid and 0.25mg po q6hr prn agitation ->increased to 0.5m bid Continue memantine 5mg po bid for 1 week then 5mg daily and 10mg nightly for 1 weeks then 10mg po bid.increased to 10mg bid 01/14 Consider adding SSRI e.g. escitalopram 5mg po daily for depression ->increased to 10mg daily Consider prazosin for possible PTSD>Started prazosin 1 mg qhs Patient would benefit from hearing aid to improve environmental cues Patient would benefit from picture board to identify items as has difficulty with naming object. # Intermittent n/v, decreased po intake, POA, ddx: likely from severe ileus, Resolved -n/v resolved with ileus ,NGT removed -continue bowel regimen, senna liquid, miralax. -zofran prn for n/v -no artificial nutrition, confirmed with daughter - was curbsided, reconsult if necessary # Mechanical fall with right upper lip laceration on 01/16/17 -Neuro exam is nonfocal and unchanged from earlier today. No need for imaging for now -Surgery stitched laceration 01/16. Removed stitches after 5 days. # Elevated ALT, calcium, and bilirubin; present on admission; improved , LFT shows mild hepatic dysfunction with mild elevations of bilirubin and large elevation of ALT; Hepatitis panel is negative. -clinically stable, trending down, # YESENIA, resolved -initially presented on admission, which was likely prerenal due to decreased Po intake, received normal saline , YESENIA resolved, pt developed again YESENIA on , possibly prerenal -s/p hydration, YESENIA resolved, # UTI, POA, resolved. -positive for leukocyte esterase, nitrites, few bacteria. pt was empirically start Rocephin but final UCX negative. Repeat UCX also contaminated, stopped abx 12/11. then pt was restarted CFX01/04-, given marked elevation of wbc, trending down, UCX from 01/03 showed mixed doron, abx stopped. # Malnutrition- poa, active - Slightly improved and likes to drink ensure supplements, Labs showed slight increase in liver function tests AST and ALT on 12/26. - Trial of Remeron which did not seem to help her appetite and made her more lethargic. Remeron is discontinued" - 12/30- Per discussion with [employer], will add high calorie nutritional supplements. - Tried Megace on 12/30 without improvement. - 01/01- Added Dronabinol 2.5mg BID w/ meals, pt did not tolerate at all due to nausea. Stopped. Back pain, active -- Patient complains of pain in the lumbar sacral area -- Increased tramadol to every 4 hrs 50 mg when necessary # Hx of nephrolithiasis, recent stent placement, POA, Abd US on 12/04 showed Interval resolution of right hydronephrosis status post ureteral stent placement. 1.7 cm nonobstructing right renal stone. - pt was scheduled for elective Rt renal Laser lithotripsy 12/12, informed that pt is in the hospital. f/u with urology after discharge. Post menopausal symptoms chronic -- discontinued Estrace. dvt ppx lovenox dcd 01/14 as daughters wish is comfort measures mainly Disposition: pending placement once source of payment is established, hospice seems appropriate given deconditioning.daughter working to get guardianship VTE Prophylaxis: Sub-Q Enoxaparin VTE Mechanical Devices: Venous Foot Pump Resuscitation Status: DNR/DNI:Do Not Resuscitate/Intubate Nia Amador MD Jan 29, 2017 13:33
--- NOTE | 2017-01-29 14:00 | NUR ---
Social Work-continued d.c planning: Data:EMR reviewed. Pt is on day 56 of hospitalization for delirum per H&P. Paperwork completed by for machine edge bander (ADOLFO). BHUPENDRA spoke with ADOLFO's office and was provided with fax number of [phone], which SW faxed paperwork down to for [facility] to have. SW will continue to work on placement when appropriate. SW will continue to follow. Assessment:Pt who will need a guardian. Plan:SW team to continue to work on placement, legal paperwork has been completed by and BHUPENDRA has faxed this down to [facility] office. SW will continue to follow. STEWART Contreras
--- NOTE | 2017-01-29 17:53 | NUR ---
PO Intake/constipation/behavior Pt had minimal PO intake throughout the shift, consumed small bites of meals, and 2 Ensures Pt has been up to the bathroom often, voiding at times, appears to be very constipated, appears to be trying to digitally remove stool from rectum, 1 hazelnut sized pellet of hard compact stool removed. Pt refused to wash hands, 1:1 sitter was able to convince pt to wash hands. Family at bedside visiting with pt, able to get pt to 10% of meal. Call light in reach, 1:1 sitter at bedside for direction and safety. Intentional rounding in place.
[2017-01-29 18:00] VITALS: BP 108/70; PULSE 107; RESP 17; O2SAT 93
[2017-01-29 21:15] VITALS: BP 104/70; PULSE 101; RESP 16; O2SAT 94
[2017-01-30 05:33] VITALS: BP 120/73; PULSE 86; RESP 16; O2SAT 95
--- NOTE | 2017-01-30 06:14 | NUR ---
mentation Pt slept in the couch most of the shift. ambulating to the BR with SBA. redirectable when refused meds before HS. Sitter at bedside.
[2017-01-30] MEDS: risperiDONE 1 mg Tablet PO SCH ×2 (09:19→20:30)
--- NOTE | 2017-01-30 12:11 | PCM.PNMED ---
Subjective Date of Service Jan 30, 2017 Subjective no complaints Exam Vital Signs Vital Sign - Last Date Time Temp Pulse Resp B/P Pulse Ox O2 Delivery O2 Flow Rate FiO2 01/30/17 05:33 36.6 86 16 120/73 95 Room Air Intake and Output 01/29/17 01/29/17 01/30/17 Cumulative From/Thru 15:00 23:00 07:00 12/04/16 13:11 - 01/30/17 05:34 Intake Total 0 ml 480 ml 300 ml 52718 ml Output Total 1050 ml Balance 0 ml 480 ml 300 ml 24991 ml Intake Oral 0 ml 480 ml 300 ml 59520 ml IV Total 40627 ml Output Urine Total 600 ml Emesis 450 ml # Voids 1 5 4 380 # Bowel Movements 0 0 0 63 Exam arouses to voice, calm, says a few words, no distress IVs and Medications Medications Reviewed: Medications were reviewed in detail Lab and Diagnostics X-Rays, CTs and MRIs Date of Service: 12/05/16 1013 PROCEDURE: MRI STROKE PROTOCOL ([id number]) Pre- and post-contrast brain MRI, non-contrast brain MR angiogram, pre- and postcontrast neck MR angiogram INDICATIONS: psychosis dementia TECHNIQUE: Brain: Noncontrast axial T1 spin echo, axial T2 fast spin echo, sagittal and axial FLAIR, coronal T2 fast spin echo, axial gradient echo, axial diffusion and ADC through the brain. After the administration of contrast, axial 3D VIBE of the cranial vasculature and brain. Brain MRA: Non-contrast 3-D time of flight MR angiogram, with multiple maximum- intensity-projection (MIP) reformats performed. Neck MRA: Axial and sagittal TruFISP through the neck. Coronal dynamic MR angiogram during administration of contrast in the arterial and venous phases, with 3-dimenstional cjsmsma-moueszvjc-zsfeghcird (MIP) reformats constructed from subtraction images. COMPARISON: None. FINDINGS: Image quality: Excellent. BRAIN: CSF spaces: There is ex vacuo dilatation of the lateral ventricles, greatest in degree involving the temporal horns. Basal cisterns are patent. No extra- axial fluid collections. Brain: No intracranial bleeds or mass effects. Mild degree of patchy high FLAIR signal intensity within the periventricular and subcortical white matter. There is moderate diffuse cerebral volume loss, greatest in degree involving the frontal and anterior temporal lobes. Jasmine-white matter interface is normal. Diffusion weighted images show no acute ischemic insults. Brainstem appears normal. Normal intravascular flow voids are present. No abnormal intracranial enhancement. Skull and face: Calvarial marrow signal is normal. Orbits appear normal. Sinuses: Sinuses and mastoids are clear. BRAIN MR ANGIOGRAM: Anterior circulation: Intracranial internal carotid arteries are normal in size and enhancement. The flow within the paired anterior cerebral arteries is normal and symmetric. The flow within the middle cerebral arteries is normal and symmetric. The anterior communicating artery is seen. No stenoses, occlusions, or aneurysms. Posterior circulation: The visualized portions of the vertebral arteries demonstrate normal caliber, and join to form a normal appearing basilar artery. The flow within the posterior cerebral arteries is normal and symmetric. No stenoses, occlusions, or aneurysms. NECK MR ANGIOGRAM: Carotids: Great vessels demonstrate a conventional anatomy as they arise from the aortic arch. The origins of the common carotid arteries appear patent. The calibers and courses of both common carotid arteries are normal. The bifurcation regions appear normal bilaterally. The internal carotid arteries demonstrate normal course and caliber. Posterior circulation: The origins of the vertebral arteries appear patent. More superior portions of both vertebral arteries demonstrate normal course and caliber, and join to form a normal appearing basilar artery. Miscellaneous: Subclavian arteries appear patent. Pre-contrast images through the neck show no soft tissue abnormalities. IMPRESSION: BRAIN MRI: 1. No acute process. No recent infarct. 2. Small vessel ischemic disease. 3. Cerebral volume loss, greatest in degree within the frontal and temporal lobes bilaterally. BRAIN MR ANGIOGRAM: Negative cervical MR angiography. NECK MR ANGIOGRAM: 1. No internal coronary stenosis bilaterally. 2. Patent bilateral vertebral arteries. The estimate of stenosis included in the report of the imaging study was calculated using the NASCET method Dictated by: Jing Kate M.D. on 12/05/2016 at 16:29 Transcribed by: RAULITO on 12/05/2016 at 16:34 Approved by: Jing Kate M.D. on 12/05/2016 at 16:40 Assessment & Plan 66-year-old female with severe early onset dementia with attempted suicide attempt was found to have YESENIA, UTI, and AMS. Currently pending placement and appointing of guardian ad litum acute, active # Major neurocognitive disorder, NOS, poa, active. Irregular behaviors, agitation, likely due to advanced dementia with possible psychosis features or underlying psychiatric dz, dementia was presumably due to Alzheimer's dementia, pt was diagnosed dxed dementia already 7yrs ago per brother. no previous dx of psychiatric dz. Medical w/u including MRA, MRI of brain, vitB12, TSH, RPR, UCX, all negative. New regimen started on 12/09. -as per / recommendation below Risperidone 0.25mg po bid and 0.25mg po q6hr prn agitation ->increased to 0.5m bid Continue memantine 5mg po bid for 1 week then 5mg daily and 10mg nightly for 1 weeks then 10mg po bid.increased to 10mg bid 01/14 Consider adding SSRI e.g. escitalopram 5mg po daily for depression ->increased to 10mg daily Consider prazosin for possible PTSD>Started prazosin 1 mg qhs Patient would benefit from hearing aid to improve environmental cues Patient would benefit from picture board to identify items as has difficulty with naming object. # Intermittent n/v, decreased po intake, POA, ddx: likely from severe ileus, Resolved -n/v resolved with ileus ,NGT removed -continue bowel regimen, senna liquid, miralax. -zofran prn for n/v -no artificial nutrition, confirmed with daughter - was curbsided, reconsult if necessary # Mechanical fall with right upper lip laceration on 01/16/17 -Neuro exam is nonfocal and unchanged from earlier today. No need for imaging for now -Surgery stitched laceration 01/16. Removed stitches after 5 days. # Elevated ALT, calcium, and bilirubin; present on admission; improved , LFT shows mild hepatic dysfunction with mild elevations of bilirubin and large elevation of ALT; Hepatitis panel is negative. -clinically stable, trending down, # YESENIA, resolved -initially presented on admission, which was likely prerenal due to decreased Po intake, received normal saline , YESENIA resolved, pt developed again YESENIA on , possibly prerenal -s/p hydration, YESENIA resolved, # UTI, POA, resolved. -positive for leukocyte esterase, nitrites, few bacteria. pt was empirically start Rocephin but final UCX negative. Repeat UCX also contaminated, stopped abx 12/11. then pt was restarted CFX01/04-, given marked elevation of wbc, trending down, UCX from 01/03 showed mixed doron, abx stopped. # Malnutrition- poa, active - Slightly improved and likes to drink ensure supplements, Labs showed slight increase in liver function tests AST and ALT on 12/26. - Trial of Remeron which did not seem to help her appetite and made her more lethargic. Remeron is discontinued" - 12/30- Per discussion with Cinder Worker, will add high calorie nutritional supplements. - Tried Megace on 12/30 without improvement. - 01/01- Added Dronabinol 2.5mg BID w/ meals, pt did not tolerate at all due to nausea. Stopped. Back pain, active -- Patient complains of pain in the lumbar sacral area -- Increased tramadol to every 4 hrs 50 mg when necessary # Hx of nephrolithiasis, recent stent placement, POA, Abd US on 12/04 showed Interval resolution of right hydronephrosis status post ureteral stent placement. 1.7 cm nonobstructing right renal stone. - pt was scheduled for elective Rt renal Laser lithotripsy 12/12, informed that pt is in the hospital. f/u with urology after discharge. Post menopausal symptoms chronic -- discontinued Estrace. dvt ppx lovenox dcd 01/14 as daughters wish is comfort measures mainly Disposition: pending placement once source of payment is established, hospice seems appropriate given deconditioning.daughter working to get guardianship VTE Prophylaxis: Sub-Q Enoxaparin VTE Mechanical Devices: Venous Foot Pump Resuscitation Status: DNR/DNI:Do Not Resuscitate/Intubate Nia Amador MD Jan 30, 2017 12:11
--- NOTE | 2017-01-30 13:29 | NUR ---
Behavior/Activity: Patient ambulating to BR, moves from laying on couch to bed. Somewhat cooperative with assessment this am and taking scheduled am medications with much encouragement. Taking sips of water and Ensure, but no solid foods.
[2017-01-30 16:44] VITALS: BP 114/69; PULSE 97; RESP 16; O2SAT 95
[2017-01-30 20:36] VITALS: BP 103/61; PULSE 101; RESP 16; O2SAT 94
[2017-01-30] MEDS: Polyethylene Glycol (PEG) 17 Gm Powder PO PRN (20:55)
--- NOTE | 2017-01-31 02:41 | NUR ---
CONSTIPATION/REFUSAL OF HS MEDS Per report pt. constipated and had small hard BM on 01/29/17. Dr. King notified. New order for Miralax received. Dose given in water and pt. has been sipping. Ensure x2 at bedside. Pt. taking small sips. Pt. refused HS medications that were crushed in a bite of pudding. Several attempts made and pt. refused. Pt. denies pain and appears to be comfortable. Nursing care ongoing.
--- NOTE | 2017-01-31 05:45 | NUR ---
LU Pt. in Lu bed at 0145 for safety, Dr. King ordered per protocol. Pt. went to bathroom prior to going in the [facility] bed. Pt. also had a few sips of Ensure. Country music turned on for patient and pt. has been able to sleep for several hours.
[2017-01-31 06:12] VITALS: BP 112/77; PULSE 81; RESP 16; O2SAT 95
[2017-01-31] MEDS: risperiDONE 1 mg Tablet PO SCH ×2 (09:11→21:39)
--- NOTE | 2017-01-31 14:43 | PCM.PNMED ---
Subjective Date of Service Jan 31, 2017 Subjective awake, calm, no complaints Exam Vital Signs Vital Sign - Last Date Time Temp Pulse Resp B/P Pulse Ox O2 Delivery O2 Flow Rate FiO2 01/31/17 06:12 36.8 81 16 112/77 95 Room Air Intake and Output 01/30/17 01/30/17 01/31/17 Cumulative From/Thru 15:00 23:00 07:00 12/04/16 13:11 - 01/30/17 17:55 Intake Total 1383 ml 93423 ml Output Total 1050 ml Balance 1383 ml 82642 ml Intake Oral 1383 ml 74797 ml IV Total 21528 ml Output Urine Total 600 ml Emesis 450 ml # Voids 4 384 # Bowel Movements 63 Exam General: Alert, no acute distress Heart: Regular Lungs: Clear Abdomen: Soft, non-tender Extremities: No pedal edema IVs and Medications Medications Reviewed: Medications were reviewed in detail Lab and Diagnostics X-Rays, CTs and MRIs Date of Service: 12/05/16 1013 PROCEDURE: MRI STROKE PROTOCOL ([id number]) Pre- and post-contrast brain MRI, non-contrast brain MR angiogram, pre- and postcontrast neck MR angiogram INDICATIONS: psychosis dementia TECHNIQUE: Brain: Noncontrast axial T1 spin echo, axial T2 fast spin echo, sagittal and axial FLAIR, coronal T2 fast spin echo, axial gradient echo, axial diffusion and ADC through the brain. After the administration of contrast, axial 3D VIBE of the cranial vasculature and brain. Brain MRA: Non-contrast 3-D time of flight MR angiogram, with multiple maximum- intensity-projection (MIP) reformats performed. Neck MRA: Axial and sagittal TruFISP through the neck. Coronal dynamic MR angiogram during administration of contrast in the arterial and venous phases, with 3-dimenstional bawhscg-aghoyajvj-uhxwnieyfv (MIP) reformats constructed from subtraction images. COMPARISON: None. FINDINGS: Image quality: Excellent. BRAIN: CSF spaces: There is ex vacuo dilatation of the lateral ventricles, greatest in degree involving the temporal horns. Basal cisterns are patent. No extra- axial fluid collections. Brain: No intracranial bleeds or mass effects. Mild degree of patchy high FLAIR signal intensity within the periventricular and subcortical white matter. There is moderate diffuse cerebral volume loss, greatest in degree involving the frontal and anterior temporal lobes. Jasmine-white matter interface is normal. Diffusion weighted images show no acute ischemic insults. Brainstem appears normal. Normal intravascular flow voids are present. No abnormal intracranial enhancement. Skull and face: Calvarial marrow signal is normal. Orbits appear normal. Sinuses: Sinuses and mastoids are clear. BRAIN MR ANGIOGRAM: Anterior circulation: Intracranial internal carotid arteries are normal in size and enhancement. The flow within the paired anterior cerebral arteries is normal and symmetric. The flow within the middle cerebral arteries is normal and symmetric. The anterior communicating artery is seen. No stenoses, occlusions, or aneurysms. Posterior circulation: The visualized portions of the vertebral arteries demonstrate normal caliber, and join to form a normal appearing basilar artery. The flow within the posterior cerebral arteries is normal and symmetric. No stenoses, occlusions, or aneurysms. NECK MR ANGIOGRAM: Carotids: Great vessels demonstrate a conventional anatomy as they arise from the aortic arch. The origins of the common carotid arteries appear patent. The calibers and courses of both common carotid arteries are normal. The bifurcation regions appear normal bilaterally. The internal carotid arteries demonstrate normal course and caliber. Posterior circulation: The origins of the vertebral arteries appear patent. More superior portions of both vertebral arteries demonstrate normal course and caliber, and join to form a normal appearing basilar artery. Miscellaneous: Subclavian arteries appear patent. Pre-contrast images through the neck show no soft tissue abnormalities. IMPRESSION: BRAIN MRI: 1. No acute process. No recent infarct. 2. Small vessel ischemic disease. 3. Cerebral volume loss, greatest in degree within the frontal and temporal lobes bilaterally. BRAIN MR ANGIOGRAM: Negative cervical MR angiography. NECK MR ANGIOGRAM: 1. No internal coronary stenosis bilaterally. 2. Patent bilateral vertebral arteries. The estimate of stenosis included in the report of the imaging study was calculated using the NASCET method Dictated by: Jing Kate M.D. on 12/05/2016 at 16:29 Transcribed by: RAULITO on 12/05/2016 at 16:34 Approved by: Jing Kate M.D. on 12/05/2016 at 16:40 Assessment & Plan 66-year-old female with severe early onset dementia with attempted suicide attempt was found to have YESENIA, UTI, and AMS. Currently pending placement and appointing of guardian ad litum acute, active # Major neurocognitive disorder, NOS, poa, active. Irregular behaviors, agitation, likely due to advanced dementia with possible psychosis features or underlying psychiatric dz, dementia was presumably due to Alzheimer's dementia, pt was diagnosed dxed dementia already 7yrs ago per brother. no previous dx of psychiatric dz. Medical w/u including MRA, MRI of brain, vitB12, TSH, RPR, UCX, all negative. New regimen started on 12/09. -as per / recommendation below Risperidone 0.25mg po bid and 0.25mg po q6hr prn agitation ->increased to 0.5m bid Continue memantine 5mg po bid for 1 week then 5mg daily and 10mg nightly for 1 weeks then 10mg po bid.increased to 10mg bid 01/14 Consider adding SSRI e.g. escitalopram 5mg po daily for depression ->increased to 10mg daily Consider prazosin for possible PTSD>Started prazosin 1 mg qhs Was asked by case management to review her meds and DC any that are not contributing much - patient reluctant to take pills and sometimes refuses so minimizing the total number might mean she gets the most important ones more of the time. So will DC Namenda. # Intermittent n/v, decreased po intake, POA, ddx: likely from severe ileus, Resolved -n/v resolved with ileus ,NGT removed -continue bowel regimen, senna liquid, miralax. -zofran prn for n/v -no artificial nutrition, confirmed with daughter - was curbsided, reconsult if necessary Was asked by case management to review her meds and DC any that are not contributing much - patient reluctant to take pills and sometimes refuses so minimizing the total number might mean she gets the most important ones more of the time. GARY probably not that effective so will DC it. # Mechanical fall with right upper lip laceration on 01/16/17 -Neuro exam is nonfocal and unchanged from earlier today. No need for imaging for now -Surgery stitched laceration 01/16. Removed stitches after 5 days. # Elevated ALT, calcium, and bilirubin; present on admission; improved , LFT shows mild hepatic dysfunction with mild elevations of bilirubin and large elevation of ALT; Hepatitis panel is negative. -clinically stable, trending down, # YESENIA, resolved -initially presented on admission, which was likely prerenal due to decreased Po intake, received normal saline , YESENIA resolved, pt developed again YESENIA on , possibly prerenal -s/p hydration, YESENIA resolved, # UTI, POA, resolved. -positive for leukocyte esterase, nitrites, few bacteria. pt was empirically start Rocephin but final UCX negative. Repeat UCX also contaminated, stopped abx 12/11. then pt was restarted CFX01/04-, given marked elevation of wbc, trending down, UCX from 01/03 showed mixed doron, abx stopped. # Severe Protein-Calorie Malnutrition- poa, active - Slightly improved and likes to drink ensure supplements, Labs showed slight increase in liver function tests AST and ALT on 12/26. - Trial of Remeron which did not seem to help her appetite and made her more lethargic. Remeron is discontinued" - 12/30- Per discussion with Superintendent Renting Managing, will add high calorie nutritional supplements. - Tried Megace on 12/30 without improvement. - 01/01- Added Dronabinol 2.5mg BID w/ meals, pt did not tolerate at all due to nausea. Stopped. Back pain, active -- Patient complains of pain in the lumbar sacral area -- Increased tramadol to every 4 hrs 50 mg when necessary # Hx of nephrolithiasis, recent stent placement, POA, Abd US on 12/04 showed Interval resolution of right hydronephrosis status post ureteral stent placement. 1.7 cm nonobstructing right renal stone. - pt was scheduled for elective Rt renal Laser lithotripsy 12/12, informed that pt is in the hospital. f/u with urology after discharge. Post menopausal symptoms chronic -- discontinued Estrace. dvt ppx lovenox dcd 01/14 as daughters wish is comfort measures mainly Disposition: pending placement once source of payment is established, hospice seems appropriate given deconditioning.daughter working to get guardianship VTE Prophylaxis: Sub-Q Enoxaparin VTE Mechanical Devices: Venous Foot Pump Resuscitation Status: DNR/DNI:Do Not Resuscitate/Intubate Nia Amador MD Jan 31, 2017 14:43
--- NOTE | 2017-01-31 14:46 | NUR ---
spiritual care: follow up caring lead generation marketing manager Hollie Devi had 10 minute supportive care visit. reports that pt was conversational/interactive for some minutes then was sleepy.
[2017-01-31 16:51] VITALS: BP 127/74; PULSE 91; RESP 16; O2SAT 96
--- NOTE | 2017-01-31 18:17 | NUR ---
Daily update Patient alert to self. Patient took all medications crushed in vanilla pudding this morning. Patient cooperative with care. Patient denied pain. Patient family came to visit in the afternoon. Patient ambulated hallway one lap around unit floor with family and then wanted to go back to room. Sitter at bedside for safety.
--- NOTE | 2017-02-01 04:40 | NUR ---
Sleep/intake/activity PT slept all shift, she was put back into the [facility] bed at 0200 when the sitter had to leave. PT is implosive and a little unsteady when up ambulating to use the rest room frequently. No sold food intake but did drink her boost and water every time she got up to use the restroom. Daughter was into visit last night and stated she would bring the PT clean clothing today.
[2017-02-01] MEDS: risperiDONE 1 mg Tablet PO SCH ×3 (08:30→22:15)
--- NOTE | 2017-02-01 13:53 | PCM.PNMED ---
Subjective Date of Service Feb 01, 2017 Subjective Patient had bowel movement yesterday Patient is ambulating hallway with normal gait Exam Vital Signs Vital Sign - Last Date Time Temp Pulse Resp B/P Pulse Ox O2 Delivery O2 Flow Rate FiO2 01/31/17 16:51 36.6 91 16 127/74 96 Room Air Intake and Output 01/31/17 01/31/17 02/01/17 Cumulative From/Thru 15:00 23:00 07:00 12/04/16 13:11 - 02/01/17 06:58 Intake Total 400 ml 400 ml 0 ml 66782 ml Output Total 1050 ml Balance 400 ml 400 ml 0 ml 67610 ml Intake Oral 400 ml 400 ml 0 ml 54508 ml IV Total 0 ml 76932 ml Output Urine Total 600 ml Emesis 450 ml # Voids 2 6 3 395 # Bowel Movements 1 0 0 64 Exam NAD, comfortably laying down on the bed no JVD, MMM, no LAD RRR, nl s1, s2 no mrg CTAB, no w,c S,ND,NT,normoactive BS+ warm, no edema, pulses 2/2 IVs and Medications Medications Reviewed: Medications were reviewed in detail Lab and Diagnostics X-Rays, CTs and MRIs Date of Service: 12/05/16 1013 PROCEDURE: MRI STROKE PROTOCOL ([id number]) Pre- and post-contrast brain MRI, non-contrast brain MR angiogram, pre- and postcontrast neck MR angiogram INDICATIONS: psychosis dementia TECHNIQUE: Brain: Noncontrast axial T1 spin echo, axial T2 fast spin echo, sagittal and axial FLAIR, coronal T2 fast spin echo, axial gradient echo, axial diffusion and ADC through the brain. After the administration of contrast, axial 3D VIBE of the cranial vasculature and brain. Brain MRA: Non-contrast 3-D time of flight MR angiogram, with multiple maximum- intensity-projection (MIP) reformats performed. Neck MRA: Axial and sagittal TruFISP through the neck. Coronal dynamic MR angiogram during administration of contrast in the arterial and venous phases, with 3-dimenstional behcquv-dujuxlowt-famalhikaz (MIP) reformats constructed from subtraction images. COMPARISON: None. FINDINGS: Image quality: Excellent. BRAIN: CSF spaces: There is ex vacuo dilatation of the lateral ventricles, greatest in degree involving the temporal horns. Basal cisterns are patent. No extra- axial fluid collections. Brain: No intracranial bleeds or mass effects. Mild degree of patchy high FLAIR signal intensity within the periventricular and subcortical white matter. There is moderate diffuse cerebral volume loss, greatest in degree involving the frontal and anterior temporal lobes. Jasmine-white matter interface is normal. Diffusion weighted images show no acute ischemic insults. Brainstem appears normal. Normal intravascular flow voids are present. No abnormal intracranial enhancement. Skull and face: Calvarial marrow signal is normal. Orbits appear normal. Sinuses: Sinuses and mastoids are clear. BRAIN MR ANGIOGRAM: Anterior circulation: Intracranial internal carotid arteries are normal in size and enhancement. The flow within the paired anterior cerebral arteries is normal and symmetric. The flow within the middle cerebral arteries is normal and symmetric. The anterior communicating artery is seen. No stenoses, occlusions, or aneurysms. Posterior circulation: The visualized portions of the vertebral arteries demonstrate normal caliber, and join to form a normal appearing basilar artery. The flow within the posterior cerebral arteries is normal and symmetric. No stenoses, occlusions, or aneurysms. NECK MR ANGIOGRAM: Carotids: Great vessels demonstrate a conventional anatomy as they arise from the aortic arch. The origins of the common carotid arteries appear patent. The calibers and courses of both common carotid arteries are normal. The bifurcation regions appear normal bilaterally. The internal carotid arteries demonstrate normal course and caliber. Posterior circulation: The origins of the vertebral arteries appear patent. More superior portions of both vertebral arteries demonstrate normal course and caliber, and join to form a normal appearing basilar artery. Miscellaneous: Subclavian arteries appear patent. Pre-contrast images through the neck show no soft tissue abnormalities. IMPRESSION: BRAIN MRI: 1. No acute process. No recent infarct. 2. Small vessel ischemic disease. 3. Cerebral volume loss, greatest in degree within the frontal and temporal lobes bilaterally. BRAIN MR ANGIOGRAM: Negative cervical MR angiography. NECK MR ANGIOGRAM: 1. No internal coronary stenosis bilaterally. 2. Patent bilateral vertebral arteries. The estimate of stenosis included in the report of the imaging study was calculated using the NASCET method Dictated by: Jing Kate M.D. on 12/05/2016 at 16:29 Transcribed by: RAULITO on 12/05/2016 at 16:34 Approved by: Jing Kate M.D. on 12/05/2016 at 16:40 Assessment & Plan 66-year-old female with severe early onset dementia with attempted suicide attempt was found to have YESENIA, UTI, and AMS. Currently pending placement and appointing of guardian ad [place] acute, active # Major neurocognitive disorder, NOS, poa, active. Irregular behaviors, agitation, likely due to advanced dementia with possible psychosis features or underlying psychiatric dz, dementia was presumably due to Alzheimer's dementia, pt was diagnosed dxed dementia already 7yrs ago per brother. no previous dx of psychiatric dz. Medical w/u including MRA, MRI of brain, vitB12, TSH, RPR, UCX, all negative. New regimen started on 12/09. -as per / recommendation below Risperidone 0.25mg po bid and 0.25mg po q6hr prn agitation ->increased to 0.5m bid Continue memantine 5mg po bid for 1 week then 5mg daily and 10mg nightly for 1 weeks then 10mg po bid.increased to 10mg bid 01/14 Consider adding SSRI e.g. escitalopram 5mg po daily for depression ->increased to 10mg daily Consider prazosin for possible PTSD>Started prazosin 1 mg qhs Was asked by case management to review her meds and DC any that are not contributing much - patient reluctant to take pills and sometimes refuses so minimizing the total number might mean she gets the most important ones more of the time. So will DC Namenda. # Intermittent n/v, decreased po intake, POA, ddx: likely from severe ileus, Resolved -n/v resolved with ileus ,NGT removed -continue bowel regimen, senna liquid, miralax. -zofran prn for n/v -no artificial nutrition, confirmed with daughter - was curbsided, reconsult if necessary Was asked by case management to review her meds and DC any that are not contributing much - patient reluctant to take pills and sometimes refuses so minimizing the total number might mean she gets the most important ones more of the time. GARY probably not that effective so will DC it. # Mechanical fall with right upper lip laceration on 01/16/17 -Neuro exam is nonfocal and unchanged from earlier today. No need for imaging for now -Surgery stitched laceration 01/16. Removed stitches after 5 days. # Elevated ALT, calcium, and bilirubin; present on admission; improved , LFT shows mild hepatic dysfunction with mild elevations of bilirubin and large elevation of ALT; Hepatitis panel is negative. -clinically stable, trending down, # YESENIA, resolved -initially presented on admission, which was likely prerenal due to decreased Po intake, received normal saline , YESENIA resolved, pt developed again YESENIA on , possibly prerenal -s/p hydration, YESENIA resolved, # UTI, POA, resolved. -positive for leukocyte esterase, nitrites, few bacteria. pt was empirically start Rocephin but final UCX negative. Repeat UCX also contaminated, stopped abx 12/11. then pt was restarted CFX01/04-, given marked elevation of wbc, trending down, UCX from 01/03 showed mixed doron, abx stopped. # Severe Protein-Calorie Malnutrition- poa, active - Slightly improved and likes to drink ensure supplements, Labs showed slight increase in liver function tests AST and ALT on 12/26. - Trial of Remeron which did not seem to help her appetite and made her more lethargic. Remeron is discontinued" - 12/30- Per discussion with Convenience Store Clerk, will add high calorie nutritional supplements. - Tried Megace on 12/30 without improvement. - 01/01- Added Dronabinol 2.5mg BID w/ meals, pt did not tolerate at all due to nausea. Stopped. Back pain, active -- Patient complains of pain in the lumbar sacral area -- Increased tramadol to every 4 hrs 50 mg when necessary # Hx of nephrolithiasis, recent stent placement, POA, Abd US on 12/04 showed Interval resolution of right hydronephrosis status post ureteral stent placement. 1.7 cm nonobstructing right renal stone. - pt was scheduled for elective Rt renal Laser lithotripsy 12/12, informed that pt is in the hospital. f/u with urology after discharge. Post menopausal symptoms chronic -- discontinued Estrace. dvt ppx lovenox dcd 01/14 as daughters wish is comfort measures mainly Disposition: Await guardianship VTE Prophylaxis: Sub-Q Enoxaparin VTE Mechanical Devices: Venous Foot Pump Resuscitation Status: DNR/DNI:Do Not Resuscitate/Intubate Time spent 35 minutes Mariana Dunn MD Feb 01, 2017 13:53
[2017-02-01 14:15] VITALS: BP 107/64; PULSE 77; RESP 18; O2SAT 97
--- NOTE | 2017-02-01 17:25 | NUR ---
Daily update Patient alert to self and remains confused. Patient continues to only take occasional bites of food and several sips of her drinks. Patient does drink more of the ensure shakes then other drinks when offered. Staff kept ensure shake at bedside throughout the day and encouraged sips for nourishment. Patient was offered shower and/or a bed bath, but patient refused. Staff was able to assist with changing patient shirt, but patient did not have any other pants to change into that were clean. Patient refused medication this morning. Patient up to bathroom periodically throughout the day. Staff encouraged ambulating with patient, but Patient prefers to sleep and lay down on couch in room. Patient has remained pleasant with staff today.
[2017-02-01 19:52] VITALS: BP 115/72; PULSE 85; RESP 16; O2SAT 96
[2017-02-02 06:00] VITALS: BP 105/62; PULSE 85; RESP 16; O2SAT 95
[2017-02-02] MEDS: risperiDONE 1 mg Tablet PO SCH ×3 (08:30→19:50)
[2017-02-02] MEDS: Polyethylene Glycol (PEG) 17 Gm Powder PO PRN (08:59)
--- NOTE | 2017-02-02 09:27 | PCM.PNMED ---
Subjective Date of Service Feb 02, 2017 Subjective pt is doing well Exam Vital Signs Vital Sign - Last Date Time Temp Pulse Resp B/P Pulse Ox O2 Delivery O2 Flow Rate FiO2 02/02/17 06:00 36.7 85 16 105/62 95 Room Air Intake and Output 02/01/17 02/01/17 02/02/17 Cumulative From/Thru 15:00 23:00 07:00 12/04/16 13:11 - 02/02/17 06:05 Intake Total 0 ml 250 ml 100 ml 96524 ml Output Total 1050 ml Balance 0 ml 250 ml 100 ml 38858 ml Intake Oral 250 ml 100 ml 20529 ml IV Total 0 ml 83481 ml Output Urine Total 600 ml Emesis 450 ml # Voids 4 3 402 # Bowel Movements 0 64 Exam NAD, comfortably laying down on the bed no JVD, MMM, no LAD RRR, nl s1, s2 no mrg CTAB, no w,c S,ND,NT,normoactive BS+ warm, no edema, pulses 2/2 IVs and Medications Medications Reviewed: Medications were reviewed in detail Lab and Diagnostics X-Rays, CTs and MRIs Date of Service: 12/05/16 1013 PROCEDURE: MRI STROKE PROTOCOL ([id number]) Pre- and post-contrast brain MRI, non-contrast brain MR angiogram, pre- and postcontrast neck MR angiogram INDICATIONS: psychosis dementia TECHNIQUE: Brain: Noncontrast axial T1 spin echo, axial T2 fast spin echo, sagittal and axial FLAIR, coronal T2 fast spin echo, axial gradient echo, axial diffusion and ADC through the brain. After the administration of contrast, axial 3D VIBE of the cranial vasculature and brain. Brain MRA: Non-contrast 3-D time of flight MR angiogram, with multiple maximum- intensity-projection (MIP) reformats performed. Neck MRA: Axial and sagittal TruFISP through the neck. Coronal dynamic MR angiogram during administration of contrast in the arterial and venous phases, with 3-dimenstional aaqkaxq-wvihzhdlv-iqtnblmfso (MIP) reformats constructed from subtraction images. COMPARISON: None. FINDINGS: Image quality: Excellent. BRAIN: CSF spaces: There is ex vacuo dilatation of the lateral ventricles, greatest in degree involving the temporal horns. Basal cisterns are patent. No extra- axial fluid collections. Brain: No intracranial bleeds or mass effects. Mild degree of patchy high FLAIR signal intensity within the periventricular and subcortical white matter. There is moderate diffuse cerebral volume loss, greatest in degree involving the frontal and anterior temporal lobes. Jasmine-white matter interface is normal. Diffusion weighted images show no acute ischemic insults. Brainstem appears normal. Normal intravascular flow voids are present. No abnormal intracranial enhancement. Skull and face: Calvarial marrow signal is normal. Orbits appear normal. Sinuses: Sinuses and mastoids are clear. BRAIN MR ANGIOGRAM: Anterior circulation: Intracranial internal carotid arteries are normal in size and enhancement. The flow within the paired anterior cerebral arteries is normal and symmetric. The flow within the middle cerebral arteries is normal and symmetric. The anterior communicating artery is seen. No stenoses, occlusions, or aneurysms. Posterior circulation: The visualized portions of the vertebral arteries demonstrate normal caliber, and join to form a normal appearing basilar artery. The flow within the posterior cerebral arteries is normal and symmetric. No stenoses, occlusions, or aneurysms. NECK MR ANGIOGRAM: Carotids: Great vessels demonstrate a conventional anatomy as they arise from the aortic arch. The origins of the common carotid arteries appear patent. The calibers and courses of both common carotid arteries are normal. The bifurcation regions appear normal bilaterally. The internal carotid arteries demonstrate normal course and caliber. Posterior circulation: The origins of the vertebral arteries appear patent. More superior portions of both vertebral arteries demonstrate normal course and caliber, and join to form a normal appearing basilar artery. Miscellaneous: Subclavian arteries appear patent. Pre-contrast images through the neck show no soft tissue abnormalities. IMPRESSION: BRAIN MRI: 1. No acute process. No recent infarct. 2. Small vessel ischemic disease. 3. Cerebral volume loss, greatest in degree within the frontal and temporal lobes bilaterally. BRAIN MR ANGIOGRAM: Negative cervical MR angiography. NECK MR ANGIOGRAM: 1. No internal coronary stenosis bilaterally. 2. Patent bilateral vertebral arteries. The estimate of stenosis included in the report of the imaging study was calculated using the NASCET method Dictated by: Jing Kate M.D. on 12/05/2016 at 16:29 Transcribed by: RAULITO on 12/05/2016 at 16:34 Approved by: Jing Kate M.D. on 12/05/2016 at 16:40 Assessment & Plan 66-year-old female with severe early onset dementia with attempted suicide attempt was found to have YESENIA, UTI, and AMS. Currently pending placement and appointing of guardian [place] acute, active # Major neurocognitive disorder, NOS, poa, active. Irregular behaviors, agitation, likely due to advanced dementia with possible psychosis features or underlying psychiatric dz, dementia was presumably due to Alzheimer's dementia, pt was diagnosed dxed dementia already 7yrs ago per brother. no previous dx of psychiatric dz. Medical w/u including MRA, MRI of brain, vitB12, TSH, RPR, UCX, all negative. New regimen started on 12/09. -as per / recommendation below Risperidone 0.25mg po bid and 0.25mg po q6hr prn agitation ->increased to 0.5m bid Continue memantine 5mg po bid for 1 week then 5mg daily and 10mg nightly for 1 weeks then 10mg po bid.increased to 10mg bid 01/14 Consider adding SSRI e.g. escitalopram 5mg po daily for depression ->increased to 10mg daily Consider prazosin for possible PTSD>Started prazosin 1 mg qhs Was asked by case management to review her meds and DC any that are not contributing much - patient reluctant to take pills and sometimes refuses so minimizing the total number might mean she gets the most important ones more of the time. So will DC Namenda. # Intermittent n/v, decreased po intake, POA, ddx: likely from severe ileus, Resolved -n/v resolved with ileus ,NGT removed -continue bowel regimen, senna liquid, miralax. -zofran prn for n/v -no artificial nutrition, confirmed with daughter - was curbsided, reconsult if necessary Was asked by case management to review her meds and DC any that are not contributing much - patient reluctant to take pills and sometimes refuses so minimizing the total number might mean she gets the most important ones more of the time. GARY probably not that effective so will DC it. # Mechanical fall with right upper lip laceration on 01/16/17 -Neuro exam is nonfocal and unchanged from earlier today. No need for imaging for now -Surgery stitched laceration 01/16. Removed stitches after 5 days. # Elevated ALT, calcium, and bilirubin; present on admission; improved , LFT shows mild hepatic dysfunction with mild elevations of bilirubin and large elevation of ALT; Hepatitis panel is negative. -clinically stable, trending down, # YESENIA, resolved -initially presented on admission, which was likely prerenal due to decreased Po intake, received normal saline , YESENIA resolved, pt developed again YESENIA on , possibly prerenal -s/p hydration, YESENIA resolved, # UTI, POA, resolved. -positive for leukocyte esterase, nitrites, few bacteria. pt was empirically start Rocephin but final UCX negative. Repeat UCX also contaminated, stopped abx 12/11. then pt was restarted CFX01/04-, given marked elevation of wbc, trending down, UCX from 01/03 showed mixed doron, abx stopped. # Severe Protein-Calorie Malnutrition- poa, active - Slightly improved and likes to drink ensure supplements, Labs showed slight increase in liver function tests AST and ALT on 12/26. - Trial of Remeron which did not seem to help her appetite and made her more lethargic. Remeron is discontinued" - 12/30- Per discussion with Drawer In, will add high calorie nutritional supplements. - Tried Megace on 12/30 without improvement. - 01/01- Added Dronabinol 2.5mg BID w/ meals, pt did not tolerate at all due to nausea. Stopped. Back pain, active -- Patient complains of pain in the lumbar sacral area -- Increased tramadol to every 4 hrs 50 mg when necessary # Hx of nephrolithiasis, recent stent placement, POA, Abd US on 12/04 showed Interval resolution of right hydronephrosis status post ureteral stent placement. 1.7 cm nonobstructing right renal stone. - pt was scheduled for elective Rt renal Laser lithotripsy 12/12, informed that pt is in the hospital. f/u with urology after discharge. Post menopausal symptoms chronic -- discontinued Estrace. dvt ppx lovenox dcd 01/14 as daughters wish is comfort measures mainly Disposition: Await guardianship VTE Prophylaxis: Sub-Q Enoxaparin VTE Mechanical Devices: Venous Foot Pump Resuscitation Status: DNR/DNI:Do Not Resuscitate/Intubate Time spent 35min Mariaan Dunn MD Feb 02, 2017 09:27
--- NOTE | 2017-02-02 13:26 | NUR ---
spiritual care: follow up Visited with pt who was mostly non-communicative. Sat with her for a while and then offered a blessing before leaving the room.
[2017-02-02 17:20] VITALS: BP 87/61; PULSE 89; RESP 16; O2SAT 95
--- NOTE | 2017-02-02 17:20 | NUR ---
Daily Care/Cooperation Pt refused morning medications. Prepared AM medications by crushing and placed in micho[place] pudding. Multiple attempts in getting pt to take meds but pt continues to refuse. Pt refused most foods but did drink some ensure and some miralax. Pt refused shower and hygiene care even with continual encouragement. Pt a little more agitated than normal, up in AM walking several times around unit with sitter, about 6x during dayshift. Pt made several attempts to enter other rooms and to leave the unit but redirected. Pt did swat arm a few times when redirected but with no harm made. Pt escorted down to courtyard with 2 CNAs, behaved appropriately - might be good suggestion for further activity as supervision allows. Continuing to encourage daily care (ADLs/Hygiene), medications and activity as tolerated.
[2017-02-02 17:24] VITALS: BP 102/65
[2017-02-02] MEDS: RISPERIDONE 1 MG/ML PO PRN (19:49)
[2017-02-02 20:09] VITALS: BP 96/68; PULSE 88; RESP 16; O2SAT 97
--- NOTE | 2017-02-03 01:27 | NUR ---
MEDICATIONS/CARE Pt. compliant with Risperdal solution but only willing to take one half bite of meds in applesauce. Attempted several times. When asked if patient was hurting or aching pt. stated "no I am not hurting now, surprise." Pt. offered a shower. Pt. stated "no, not right now." Encouraged pt. to drink Ensure. New strawberry and vanilla flavors given to and opened by patient. Pt. likes to have them on the bedside table. She tends to drink a sip or two of each before laying back down on couch. Sitter at bedside for safety. Nursing care ongoing.
[2017-02-03 05:16] VITALS: BP 102/63; PULSE 89; RESP 16; O2SAT 94
[2017-02-03] MEDS: risperiDONE 1 mg Tablet PO SCH ×2 (08:30→20:30)
[2017-02-03] MEDS: RISPERIDONE 1 MG/ML PO PRN ×2 (12:54→16:31)
[2017-02-03 13:55] VITALS: BP 93/55; PULSE 84; RESP 18; O2SAT 94
--- NOTE | 2017-02-03 14:40 | PCM.PNMED ---
Subjective Date of Service Feb 03, 2017 Subjective no overnight event, kept refusing Lexapro po, changed to Sertraline liquid Exam Vital Signs Vital Sign - Last Date Time Temp Pulse Resp B/P Pulse Ox O2 Delivery O2 Flow Rate FiO2 02/03/17 13:55 37.1 84 18 93/55 94 Room Air Intake and Output 02/02/17 02/02/17 02/03/17 Cumulative From/Thru 15:00 23:00 07:00 12/04/16 13:11 - 02/03/17 06:07 Intake Total 550 ml 400 ml 62457 ml Output Total 1050 ml Balance 550 ml 400 ml 33118 ml Intake Oral 550 ml 400 ml 66695 ml IV Total 29204 ml Output Urine Total 600 ml Emesis 450 ml # Voids 4 3 409 # Bowel Movements 64 Exam NAD, comfortably laying down on the bed no JVD, MMM, no LAD RRR, nl s1, s2 no mrg CTAB, no w,c S,ND,NT,normoactive BS+ warm, no edema, pulses 2/2 IVs and Medications Medications Reviewed: Medications were reviewed in detail Lab and Diagnostics X-Rays, CTs and MRIs Date of Service: 12/05/16 1013 PROCEDURE: MRI STROKE PROTOCOL ([id number]) Pre- and post-contrast brain MRI, non-contrast brain MR angiogram, pre- and postcontrast neck MR angiogram INDICATIONS: psychosis dementia TECHNIQUE: Brain: Noncontrast axial T1 spin echo, axial T2 fast spin echo, sagittal and axial FLAIR, coronal T2 fast spin echo, axial gradient echo, axial diffusion and ADC through the brain. After the administration of contrast, axial 3D VIBE of the cranial vasculature and brain. Brain MRA: Non-contrast 3-D time of flight MR angiogram, with multiple maximum- intensity-projection (MIP) reformats performed. Neck MRA: Axial and sagittal TruFISP through the neck. Coronal dynamic MR angiogram during administration of contrast in the arterial and venous phases, with 3-dimenstional mcebcuh-aktqgslho-affeivwbsk (MIP) reformats constructed from subtraction images. COMPARISON: None. FINDINGS: Image quality: Excellent. BRAIN: CSF spaces: There is ex vacuo dilatation of the lateral ventricles, greatest in degree involving the temporal horns. Basal cisterns are patent. No extra- axial fluid collections. Brain: No intracranial bleeds or mass effects. Mild degree of patchy high FLAIR signal intensity within the periventricular and subcortical white matter. There is moderate diffuse cerebral volume loss, greatest in degree involving the frontal and anterior temporal lobes. Jasmine-white matter interface is normal. Diffusion weighted images show no acute ischemic insults. Brainstem appears normal. Normal intravascular flow voids are present. No abnormal intracranial enhancement. Skull and face: Calvarial marrow signal is normal. Orbits appear normal. Sinuses: Sinuses and mastoids are clear. BRAIN MR ANGIOGRAM: Anterior circulation: Intracranial internal carotid arteries are normal in size and enhancement. The flow within the paired anterior cerebral arteries is normal and symmetric. The flow within the middle cerebral arteries is normal and symmetric. The anterior communicating artery is seen. No stenoses, occlusions, or aneurysms. Posterior circulation: The visualized portions of the vertebral arteries demonstrate normal caliber, and join to form a normal appearing basilar artery. The flow within the posterior cerebral arteries is normal and symmetric. No stenoses, occlusions, or aneurysms. NECK MR ANGIOGRAM: Carotids: Great vessels demonstrate a conventional anatomy as they arise from the aortic arch. The origins of the common carotid arteries appear patent. The calibers and courses of both common carotid arteries are normal. The bifurcation regions appear normal bilaterally. The internal carotid arteries demonstrate normal course and caliber. Posterior circulation: The origins of the vertebral arteries appear patent. More superior portions of both vertebral arteries demonstrate normal course and caliber, and join to form a normal appearing basilar artery. Miscellaneous: Subclavian arteries appear patent. Pre-contrast images through the neck show no soft tissue abnormalities. IMPRESSION: BRAIN MRI: 1. No acute process. No recent infarct. 2. Small vessel ischemic disease. 3. Cerebral volume loss, greatest in degree within the frontal and temporal lobes bilaterally. BRAIN MR ANGIOGRAM: Negative cervical MR angiography. NECK MR ANGIOGRAM: 1. No internal coronary stenosis bilaterally. 2. Patent bilateral vertebral arteries. The estimate of stenosis included in the report of the imaging study was calculated using the NASCET method Dictated by: Jing Kate M.D. on 12/05/2016 at 16:29 Transcribed by: RAULITO on 12/05/2016 at 16:34 Approved by: Jing Kate M.D. on 12/05/2016 at 16:40 Assessment & Plan 66-year-old female with severe early onset dementia with attempted suicide attempt was found to have YESENIA, UTI, and AMS. Currently pending placement and appointing of guardian [place] acute, active # Major neurocognitive disorder, NOS, poa, active. Irregular behaviors, agitation, likely due to advanced dementia with possible psychosis features or underlying psychiatric dz, dementia was presumably due to Alzheimer's dementia, pt was diagnosed dxed dementia already 7yrs ago per brother. no previous dx of psychiatric dz. Medical w/u including MRA, MRI of brain, vitB12, TSH, RPR, UCX, all negative. New regimen started on 12/09. -as per / recommendation below Risperidone 0.25mg po bid and 0.25mg po q6hr prn agitation ->increased to 0.5m bid Continue memantine 5mg po bid for 1 week then 5mg daily and 10mg nightly for 1 weeks then 10mg po bid.increased to 10mg bid 01/14 -Z-h-l-s-i-d-e-r- -l-j-w-i-n-g- -S-S-R-I- -e-.-g-.- -g-c-b-m-v-b-q-p-w-r-a-m- -5-m-g- -p-o- -d-a-i-l-y- -f-o-r- -a-e-i-j-d-z-s-i-o-n- ---->- -d-b-h-d-g-h-s-e-d- -t-o- -1-0-m-g- -d-a-i-l-y- ->switched to Sertraline 50mg liquid to increase compliance Consider prazosin for possible PTSD>Started prazosin 1 mg qhs Was asked by case management to review her meds and DC any that are not contributing much - patient reluctant to take pills and sometimes refuses so minimizing the total number might mean she gets the most important ones more of the time. So will DC Namenda. # Intermittent n/v, decreased po intake, POA, ddx: likely from severe ileus, Resolved -n/v resolved with ileus ,NGT removed -continue bowel regimen, senna liquid, miralax. -zofran prn for n/v -no artificial nutrition, confirmed with daughter - was curbsided, reconsult if necessary Was asked by case management to review her meds and DC any that are not contributing much - patient reluctant to take pills and sometimes refuses so minimizing the total number might mean she gets the most important ones more of the time. GARY probably not that effective so will DC it. # Mechanical fall with right upper lip laceration on 01/16/17 -Neuro exam is nonfocal and unchanged from earlier today. No need for imaging for now -Surgery stitched laceration 01/16. Removed stitches after 5 days. # Elevated ALT, calcium, and bilirubin; present on admission; improved , LFT shows mild hepatic dysfunction with mild elevations of bilirubin and large elevation of ALT; Hepatitis panel is negative. -clinically stable, trending down, # YESENIA, resolved -initially presented on admission, which was likely prerenal due to decreased Po intake, received normal saline , YESENIA resolved, pt developed again YESENIA on , possibly prerenal -s/p hydration, YESENIA resolved, # UTI, POA, resolved. -positive for leukocyte esterase, nitrites, few bacteria. pt was empirically start Rocephin but final UCX negative. Repeat UCX also contaminated, stopped abx 12/11. then pt was restarted CFX01/04-, given marked elevation of wbc, trending down, UCX from 01/03 showed mixed doron, abx stopped. # Severe Protein-Calorie Malnutrition- poa, active - Slightly improved and likes to drink ensure supplements, Labs showed slight increase in liver function tests AST and ALT on 12/26. - Trial of Remeron which did not seem to help her appetite and made her more lethargic. Remeron is discontinued" - 12/30- Per discussion with Guest Relations Agent, will add high calorie nutritional supplements. - Tried Megace on 12/30 without improvement. - 01/01- Added Dronabinol 2.5mg BID w/ meals, pt did not tolerate at all due to nausea. Stopped. Back pain, active -- Patient complains of pain in the lumbar sacral area -- Increased tramadol to every 4 hrs 50 mg when necessary # Hx of nephrolithiasis, recent stent placement, POA, Abd US on 12/04 showed Interval resolution of right hydronephrosis status post ureteral stent placement. 1.7 cm nonobstructing right renal stone. - pt was scheduled for elective Rt renal Laser lithotripsy 12/12, informed that pt is in the hospital. f/u with urology after discharge. Post menopausal symptoms chronic -- discontinued Estrace. dvt ppx lovenox dcd 01/14 as daughters wish is comfort measures mainly Disposition: Await guardianship VTE Prophylaxis: Sub-Q Enoxaparin VTE Mechanical Devices: Venous Foot Pump Resuscitation Status: DNR/DNI:Do Not Resuscitate/Intubate Time spent 35min Mariana Dunn MD Feb 03, 2017 14:40
[2017-02-03] MEDS: Polyethylene Glycol (PEG) 17 Gm Powder PO PRN (15:48)
[2017-02-03] MEDS: Sertraline 20 mg/mL Liq PO SCH (16:31)
--- NOTE | 2017-02-03 20:21 | NUR ---
Daily care/medications Pt not compliant with taking PO medications. Will refuse, not willing to attempt and swat away with hand gestures. Multiple attempts made, pt has continued to refuse medications. MD informed, pharmacy consulted, requested to have a oral solution as pt sometimes will tolerate. Escitalopram DCd from daily medications, new order for Sertaline Oral solution placed. Pt continued to refuse medications in oral solution. Reattempted when pt was sitting up and not resting. Pt was willing to comply after repeated encouragement. Pt also will tolerate some fluids -ensure and miralax provided. Pt walked around unit multiple times, redirected when entering other pt rooms. Mostly reasonably appropriate behavior - no violent outbursts. Family reported pt likes mashed potatoes. Placed food order to encourage intake but pt still refused to eat, occ may just take a bite. Continuing to provide care, encouragement and direction for safety.
[2017-02-03 21:21] VITALS: BP 105/63; PULSE 76; RESP 18; O2SAT 93
--- NOTE | 2017-02-04 04:09 | NUR ---
CARE/SAFETY Pt. refused any PO besides her Ensure shake and water. Per previous shift's sitter, pt. had a shower earlier in the day. Sent dirty clothes to different floor to be laundered. Now back in patient's closet. Pt. ambulated x3 during shift in [place] with sitter. Pt. resting/sleeping on couch. Appears comfortable and denies pain when asked. Nursing care ongoing.
[2017-02-04] MEDS: risperiDONE 1 mg Tablet PO SCH ×2 (08:30→20:30)
--- NOTE | 2017-02-04 08:57 | PCM.PNMED ---
Subjective Date of Service Feb 04, 2017 Subjective no overnight event Exam Vital Signs Vital Sign - Last Date Time Temp Pulse Resp B/P Pulse Ox O2 Delivery O2 Flow Rate FiO2 02/03/17 21:21 36.5 76 18 105/63 93 Room Air Intake and Output 02/03/17 02/03/17 02/04/17 Cumulative From/Thru 15:00 23:00 07:00 12/04/16 13:11 - 02/03/17 18:30 Intake Total 1100 ml 56792 ml Output Total 1050 ml Balance 1100 ml 66611 ml Intake Oral 1100 ml 73550 ml IV Total 83839 ml Output Urine Total 600 ml Emesis 450 ml # Voids 5 414 # Bowel Movements 0 64 Exam NAD, comfortably laying down on the bed no JVD, MMM, no LAD RRR, nl s1, s2 no mrg CTAB, no w,c S,ND,NT,normoactive BS+ warm, no edema, pulses 2/2 IVs and Medications Medications Reviewed: Medications were reviewed in detail Lab and Diagnostics X-Rays, CTs and MRIs Date of Service: 12/05/16 1013 PROCEDURE: MRI STROKE PROTOCOL ([id number]) Pre- and post-contrast brain MRI, non-contrast brain MR angiogram, pre- and postcontrast neck MR angiogram INDICATIONS: psychosis dementia TECHNIQUE: Brain: Noncontrast axial T1 spin echo, axial T2 fast spin echo, sagittal and axial FLAIR, coronal T2 fast spin echo, axial gradient echo, axial diffusion and ADC through the brain. After the administration of contrast, axial 3D VIBE of the cranial vasculature and brain. Brain MRA: Non-contrast 3-D time of flight MR angiogram, with multiple maximum- intensity-projection (MIP) reformats performed. Neck MRA: Axial and sagittal TruFISP through the neck. Coronal dynamic MR angiogram during administration of contrast in the arterial and venous phases, with 3-dimenstional imcvyjg-kwptsnycq-gtvatvlcjm (MIP) reformats constructed from subtraction images. COMPARISON: None. FINDINGS: Image quality: Excellent. BRAIN: CSF spaces: There is ex vacuo dilatation of the lateral ventricles, greatest in degree involving the temporal horns. Basal cisterns are patent. No extra- axial fluid collections. Brain: No intracranial bleeds or mass effects. Mild degree of patchy high FLAIR signal intensity within the periventricular and subcortical white matter. There is moderate diffuse cerebral volume loss, greatest in degree involving the frontal and anterior temporal lobes. Jasmine-white matter interface is normal. Diffusion weighted images show no acute ischemic insults. Brainstem appears normal. Normal intravascular flow voids are present. No abnormal intracranial enhancement. Skull and face: Calvarial marrow signal is normal. Orbits appear normal. Sinuses: Sinuses and mastoids are clear. BRAIN MR ANGIOGRAM: Anterior circulation: Intracranial internal carotid arteries are normal in size and enhancement. The flow within the paired anterior cerebral arteries is normal and symmetric. The flow within the middle cerebral arteries is normal and symmetric. The anterior communicating artery is seen. No stenoses, occlusions, or aneurysms. Posterior circulation: The visualized portions of the vertebral arteries demonstrate normal caliber, and join to form a normal appearing basilar artery. The flow within the posterior cerebral arteries is normal and symmetric. No stenoses, occlusions, or aneurysms. NECK MR ANGIOGRAM: Carotids: Great vessels demonstrate a conventional anatomy as they arise from the aortic arch. The origins of the common carotid arteries appear patent. The calibers and courses of both common carotid arteries are normal. The bifurcation regions appear normal bilaterally. The internal carotid arteries demonstrate normal course and caliber. Posterior circulation: The origins of the vertebral arteries appear patent. More superior portions of both vertebral arteries demonstrate normal course and caliber, and join to form a normal appearing basilar artery. Miscellaneous: Subclavian arteries appear patent. Pre-contrast images through the neck show no soft tissue abnormalities. IMPRESSION: BRAIN MRI: 1. No acute process. No recent infarct. 2. Small vessel ischemic disease. 3. Cerebral volume loss, greatest in degree within the frontal and temporal lobes bilaterally. BRAIN MR ANGIOGRAM: Negative cervical MR angiography. NECK MR ANGIOGRAM: 1. No internal coronary stenosis bilaterally. 2. Patent bilateral vertebral arteries. The estimate of stenosis included in the report of the imaging study was calculated using the NASCET method Dictated by: Jing Kate M.D. on 12/05/2016 at 16:29 Transcribed by: RAULITO on 12/05/2016 at 16:34 Approved by: Jing Kate M.D. on 12/05/2016 at 16:40 Assessment & Plan 66-year-old female with severe early onset dementia with attempted suicide attempt was found to have YESENIA, UTI, and AMS. Currently pending placement and appointing of guardian ad [place] acute, active # Major neurocognitive disorder, NOS, poa, active. Irregular behaviors, agitation, likely due to advanced dementia with possible psychosis features or underlying psychiatric dz, dementia was presumably due to Alzheimer's dementia, pt was diagnosed dxed dementia already 7yrs ago per brother. no previous dx of psychiatric dz. Medical w/u including MRA, MRI of brain, vitB12, TSH, RPR, UCX, all negative. New regimen started on 12/09. -as per / recommendation below Risperidone 0.25mg po bid and 0.25mg po q6hr prn agitation ->increased to 0.5m bid Continue memantine 5mg po bid for 1 week then 5mg daily and 10mg nightly for 1 weeks then 10mg po bid.increased to 10mg bid 01/14 -F-p-b-s-i-d-e-r- -u-z-h-i-n-g- -S-S-R-I- -e-.-g-.- -j-i-a-e-j-c-w-f-a-r-a-m- -5-m-g- -p-o- -d-a-i-l-y- -f-o-r- -a-j-j-d-k-z-s-i-o-n- ---->- -y-a-v-b-e-c-s-e-d- -t-o- -1-0-m-g- -d-a-i-l-y- ->switched to Sertraline 50mg liquid to increase compliance Consider prazosin for possible PTSD>Started prazosin 1 mg qhs Was asked by case management to review her meds and DC any that are not contributing much - patient reluctant to take pills and sometimes refuses so minimizing the total number might mean she gets the most important ones more of the time. So will DC Namenda. # Intermittent n/v, decreased po intake, POA, ddx: likely from severe ileus, Resolved -n/v resolved with ileus ,NGT removed -continue bowel regimen, senna liquid, miralax. -zofran prn for n/v -no artificial nutrition, confirmed with daughter - was curbsided, reconsult if necessary Was asked by case management to review her meds and DC any that are not contributing much - patient reluctant to take pills and sometimes refuses so minimizing the total number might mean she gets the most important ones more of the time. GARY probably not that effective so will DC it. # Mechanical fall with right upper lip laceration on 01/16/17 -Neuro exam is nonfocal and unchanged from earlier today. No need for imaging for now -Surgery stitched laceration 01/16. Removed stitches after 5 days. # Elevated ALT, calcium, and bilirubin; present on admission; improved , LFT shows mild hepatic dysfunction with mild elevations of bilirubin and large elevation of ALT; Hepatitis panel is negative. -clinically stable, trending down, # YESENIA, resolved -initially presented on admission, which was likely prerenal due to decreased Po intake, received normal saline , YESENIA resolved, pt developed again YESENIA on , possibly prerenal -s/p hydration, YESENIA resolved, # UTI, POA, resolved. -positive for leukocyte esterase, nitrites, few bacteria. pt was empirically start Rocephin but final UCX negative. Repeat UCX also contaminated, stopped abx 12/11. then pt was restarted CFX01/04-, given marked elevation of wbc, trending down, UCX from 01/03 showed mixed doron, abx stopped. # Severe Protein-Calorie Malnutrition- poa, active - Slightly improved and likes to drink ensure supplements, Labs showed slight increase in liver function tests AST and ALT on 12/26. - Trial of Remeron which did not seem to help her appetite and made her more lethargic. Remeron is discontinued" - 12/30- Per discussion with Container Packer Operator, will add high calorie nutritional supplements. - Tried Megace on 12/30 without improvement. - 01/01- Added Dronabinol 2.5mg BID w/ meals, pt did not tolerate at all due to nausea. Stopped. Back pain, active -- Patient complains of pain in the lumbar sacral area -- Increased tramadol to every 4 hrs 50 mg when necessary # Hx of nephrolithiasis, recent stent placement, POA, Abd US on 12/04 showed Interval resolution of right hydronephrosis status post ureteral stent placement. 1.7 cm nonobstructing right renal stone. - pt was scheduled for elective Rt renal Laser lithotripsy 12/12, informed that pt is in the hospital. f/u with urology after discharge. Post menopausal symptoms chronic -- discontinued Estrace. dvt ppx lovenox dcd 01/14 as daughters wish is comfort measures mainly Disposition: Await guardianship VTE Prophylaxis: Sub-Q Enoxaparin VTE Mechanical Devices: Venous Foot Pump Resuscitation Status: DNR/DNI:Do Not Resuscitate/Intubate Time spent 35min Mariana Dunn MD Feb 04, 2017 08:57
[2017-02-04] MEDS: Polyethylene Glycol (PEG) 17 Gm Powder PO PRN (09:18)
[2017-02-04] MEDS: Sertraline 20 mg/mL Liq PO SCH (09:18)
[2017-02-04] MEDS: RISPERIDONE 1 MG/ML PO PRN (09:18)
--- NOTE | 2017-02-04 12:09 | NUR ---
Social Work-continued d.c planning: Data: EMR reviewed. Pt is on day 62 of hospitalization for delirium per H&P. [facility] paperwork is completed and faxed. GAL is unavailable today as it is Sunday. SW will continue to follow, work on placement as appropriate. Assessment: Pt who will need a guardian. Plan: [facility] paperwork complete and faxed. SW will continue to follow, work on placement as appropriate. Sally Mesa MSW
--- NOTE | 2017-02-04 13:57 | NUR ---
Medications and nutrition Refusing PO meds including liquids, meds crushed and added to Ensure drink. No solid food intake, only Ensure and a little water.
[2017-02-04 14:23] VITALS: BP 98/65; PULSE 80; RESP 18
[2017-02-04 20:01] VITALS: BP 98/58; PULSE 71; RESP 18; O2SAT 95
--- NOTE | 2017-02-05 06:33 | NUR ---
meds/Restraints Pt refused all HS meds, but otherwise pleasant and smiling. Order for non-violent restraints (Soma bed) obtained due to sitter not availble and pt not following any commands and being at great risk for falls. Pt denies any pain.
[2017-02-05 06:35] VITALS: BP 119/71; PULSE 79; RESP 17; O2SAT 98
[2017-02-05] MEDS: Sertraline 20 mg/mL Liq PO SCH (08:29)
[2017-02-05] MEDS: risperiDONE 1 mg Tablet PO SCH ×2 (08:30→20:05)
[2017-02-05] MEDS: RISPERIDONE 1 MG/ML PO PRN ×2 (08:34→20:04)
--- NOTE | 2017-02-05 09:19 | NUR ---
Social Work-continued d/c planning: data:EMR reviewed. Pt is on day 63 of hospitalization for delirium per H&P. BHUPENDRA has placed a call to pt's ADOLFO Lopez to determine what the next step is and when he will be coming to see the pt. Message has been left for his bonsai culturist, awaiting a return call. SW will continue to follow. Assessment:Pt who has a GAL. Plan:Message has been left with pt's ami Aleman to determine determine what the next step is and when he will be coming to see the pt. SW will continue to follow. STEWART Contreras Addendum: 02/05/17 at 1148 by MORRIS VEGA BHUPENDRA received a call back from [place] ENGL[place]s bonsai culturist who states that pt will likely come on Wednesday 02/07 in the afternoon to see pt. STEWART Contreras
--- NOTE | 2017-02-05 09:19 | PCM.PNMED ---
Subjective Date of Service Feb 05, 2017 Subjective no overnight event Exam Vital Signs Vital Sign - Last Date Time Temp Pulse Resp B/P Pulse Ox O2 Delivery O2 Flow Rate FiO2 02/05/17 06:35 36.9 79 17 119/71 98 Room Air Intake and Output 02/04/17 02/04/17 02/05/17 Cumulative From/Thru 15:00 23:00 07:00 12/04/16 13:11 - 02/05/17 06:35 Intake Total 640 ml 400 ml 04008 ml Output Total 1050 ml Balance 640 ml 400 ml 94280 ml Intake Oral 640 ml 400 ml 73774 ml IV Total 45479 ml Output Urine Total 600 ml Emesis 450 ml # Voids 5 2 421 # Bowel Movements 64 Exam NAD, comfortably laying down on the bed no JVD, MMM, no LAD RRR, nl s1, s2 no mrg CTAB, no w,c S,ND,NT,normoactive BS+ warm, no edema, pulses 2/2 IVs and Medications Medications Reviewed: Medications were reviewed in detail Lab and Diagnostics X-Rays, CTs and MRIs Date of Service: 12/05/16 1013 PROCEDURE: MRI STROKE PROTOCOL ([id number]) Pre- and post-contrast brain MRI, non-contrast brain MR angiogram, pre- and postcontrast neck MR angiogram INDICATIONS: psychosis dementia TECHNIQUE: Brain: Noncontrast axial T1 spin echo, axial T2 fast spin echo, sagittal and axial FLAIR, coronal T2 fast spin echo, axial gradient echo, axial diffusion and ADC through the brain. After the administration of contrast, axial 3D VIBE of the cranial vasculature and brain. Brain MRA: Non-contrast 3-D time of flight MR angiogram, with multiple maximum- intensity-projection (MIP) reformats performed. Neck MRA: Axial and sagittal TruFISP through the neck. Coronal dynamic MR angiogram during administration of contrast in the arterial and venous phases, with 3-dimenstional havmegn-jbfgmewxi-ayljytdbvs (MIP) reformats constructed from subtraction images. COMPARISON: None. FINDINGS: Image quality: Excellent. BRAIN: CSF spaces: There is ex vacuo dilatation of the lateral ventricles, greatest in degree involving the temporal horns. Basal cisterns are patent. No extra- axial fluid collections. Brain: No intracranial bleeds or mass effects. Mild degree of patchy high FLAIR signal intensity within the periventricular and subcortical white matter. There is moderate diffuse cerebral volume loss, greatest in degree involving the frontal and anterior temporal lobes. Jasmine-white matter interface is normal. Diffusion weighted images show no acute ischemic insults. Brainstem appears normal. Normal intravascular flow voids are present. No abnormal intracranial enhancement. Skull and face: Calvarial marrow signal is normal. Orbits appear normal. Sinuses: Sinuses and mastoids are clear. BRAIN MR ANGIOGRAM: Anterior circulation: Intracranial internal carotid arteries are normal in size and enhancement. The flow within the paired anterior cerebral arteries is normal and symmetric. The flow within the middle cerebral arteries is normal and symmetric. The anterior communicating artery is seen. No stenoses, occlusions, or aneurysms. Posterior circulation: The visualized portions of the vertebral arteries demonstrate normal caliber, and join to form a normal appearing basilar artery. The flow within the posterior cerebral arteries is normal and symmetric. No stenoses, occlusions, or aneurysms. NECK MR ANGIOGRAM: Carotids: Great vessels demonstrate a conventional anatomy as they arise from the aortic arch. The origins of the common carotid arteries appear patent. The calibers and courses of both common carotid arteries are normal. The bifurcation regions appear normal bilaterally. The internal carotid arteries demonstrate normal course and caliber. Posterior circulation: The origins of the vertebral arteries appear patent. More superior portions of both vertebral arteries demonstrate normal course and caliber, and join to form a normal appearing basilar artery. Miscellaneous: Subclavian arteries appear patent. Pre-contrast images through the neck show no soft tissue abnormalities. IMPRESSION: BRAIN MRI: 1. No acute process. No recent infarct. 2. Small vessel ischemic disease. 3. Cerebral volume loss, greatest in degree within the frontal and temporal lobes bilaterally. BRAIN MR ANGIOGRAM: Negative cervical MR angiography. NECK MR ANGIOGRAM: 1. No internal coronary stenosis bilaterally. 2. Patent bilateral vertebral arteries. The estimate of stenosis included in the report of the imaging study was calculated using the NASCET method Dictated by: Jing Kate M.D. on 12/05/2016 at 16:29 Transcribed by: RAULITO on 12/05/2016 at 16:34 Approved by: Jing Kate M.D. on 12/05/2016 at 16:40 Assessment & Plan 66-year-old female with severe early onset dementia with attempted suicide attempt was found to have YESENIA, UTI, and AMS. Currently pending placement and appointing of guardian ad litum acute, active # Major neurocognitive disorder, NOS, poa, active. Irregular behaviors, agitation, likely due to advanced dementia with possible psychosis features or underlying psychiatric dz, dementia was presumably due to Alzheimer's dementia, pt was diagnosed dxed dementia already 7yrs ago per brother. no previous dx of psychiatric dz. Medical w/u including MRA, MRI of brain, vitB12, TSH, RPR, UCX, all negative. New regimen started on 12/09. -as per / recommendation below Risperidone 0.25mg po bid and 0.25mg po q6hr prn agitation ->increased to 0.5m bid Continue memantine 5mg po bid for 1 week then 5mg daily and 10mg nightly for 1 weeks then 10mg po bid.increased to 10mg bid 01/14 -V-c-p-s-i-d-e-r- -y-t-i-i-n-g- -S-S-R-I- -e-.-g-.- -l-y-j-n-z-p-p-b-w-r-a-m- -5-m-g- -p-o- -d-a-i-l-y- -f-o-r- -o-r-v-q-e-e-s-i-o-n- ---->- -x-u-c-z-s-u-s-e-d- -t-o- -1-0-m-g- -d-a-i-l-y- ->switched to Sertraline 50mg liquid to increase compliance Consider prazosin for possible PTSD>Started prazosin 1 mg qhs Was asked by case management to review her meds and DC any that are not contributing much - patient reluctant to take pills and sometimes refuses so minimizing the total number might mean she gets the most important ones more of the time. So will DC Namenda. # Intermittent n/v, decreased po intake, POA, ddx: likely from severe ileus, Resolved -n/v resolved with ileus ,NGT removed -continue bowel regimen, senna liquid, miralax. -zofran prn for n/v -no artificial nutrition, confirmed with daughter - was curbsided, reconsult if necessary Was asked by case management to review her meds and DC any that are not contributing much - patient reluctant to take pills and sometimes refuses so minimizing the total number might mean she gets the most important ones more of the time. GARY probably not that effective so will DC it. # Mechanical fall with right upper lip laceration on 01/16/17 -Neuro exam is nonfocal and unchanged from earlier today. No need for imaging for now -Surgery stitched laceration 01/16. Removed stitches after 5 days. # Elevated ALT, calcium, and bilirubin; present on admission; improved , LFT shows mild hepatic dysfunction with mild elevations of bilirubin and large elevation of ALT; Hepatitis panel is negative. -clinically stable, trending down, # YESENIA, resolved -initially presented on admission, which was likely prerenal due to decreased Po intake, received normal saline , YESENIA resolved, pt developed again YESENIA on , possibly prerenal -s/p hydration, YESENIA resolved, # UTI, POA, resolved. -positive for leukocyte esterase, nitrites, few bacteria. pt was empirically start Rocephin but final UCX negative. Repeat UCX also contaminated, stopped abx 12/11. then pt was restarted CFX01/04-, given marked elevation of wbc, trending down, UCX from 01/03 showed mixed doron, abx stopped. # Severe Protein-Calorie Malnutrition- poa, active - Slightly improved and likes to drink ensure supplements, Labs showed slight increase in liver function tests AST and ALT on 12/26. - Trial of Remeron which did not seem to help her appetite and made her more lethargic. Remeron is discontinued" - 12/30- Per discussion with Service Station Helper, will add high calorie nutritional supplements. - Tried Megace on 12/30 without improvement. - 01/01- Added Dronabinol 2.5mg BID w/ meals, pt did not tolerate at all due to nausea. Stopped. Back pain, active -- Patient complains of pain in the lumbar sacral area -- Increased tramadol to every 4 hrs 50 mg when necessary # Hx of nephrolithiasis, recent stent placement, POA, Abd US on 12/04 showed Interval resolution of right hydronephrosis status post ureteral stent placement. 1.7 cm nonobstructing right renal stone. - pt was scheduled for elective Rt renal Laser lithotripsy 12/12, informed that pt is in the hospital. f/u with urology after discharge. Post menopausal symptoms chronic -- discontinued Estrace. dvt ppx lovenox dcd 01/14 as daughters wish is comfort measures mainly Disposition: Await guardianship VTE Prophylaxis: Sub-Q Enoxaparin VTE Mechanical Devices: Venous Foot Pump Resuscitation Status: DNR/DNI:Do Not Resuscitate/Intubate Time spent 35min Mariana Dunn MD Feb 05, 2017 09:19
[2017-02-05] MEDS ORDERED: Docusate Sodium 10 mg/mL 10 mL Liquid PO SCH (09:20)
[2017-02-05] MEDS: Polyethylene Glycol (PEG) 17 Gm Powder PO SCH (10:12)
--- NOTE | 2017-02-05 14:08 | NUR ---
Daily update Patient alert to self, but remains confused. Patient up for meals, but refused to eat meals only drinking Ensure shake. Shakes are offered frequently throughout the day for nourishment. Patient up to bathroom with SBA for safety. Patient did ambulate [address] X2 with nurse. Nurse assisted patient with shower today and dressed in clean clothes. Patient continues to refuse medication in pill formed even if crushed. Patient did take liquid medication PO. Patient continues to be in enclosed bed for safety due to trying to leave while not being able to safely leave hospital. Daily wt taken.
[2017-02-05 19:34] VITALS: BP 98/63; PULSE 88; RESP 18; O2SAT 92
[2017-02-05 22:20] VITALS: BP 81/54; O2SAT 98
[2017-02-05 22:25] VITALS: BP 84/55; PULSE 123; O2SAT 97
[2017-02-05 22:28] VITALS: BP 84/55; PULSE 117; O2SAT 98
[2017-02-05] MEDS ORDERED: 0.9% Sodium Chloride 500 ML IV ONE (22:30)
[2017-02-05 22:57] LABS: BASOPHILS % (AUTO) 0.4 % (0-3); EOSINOPHILS % (AUTO) 2.2 % (0-5); MONOCYTES % (AUTO) 9.4 % (4-12); Mean Corpuscular Hemoglobin 32.2 pg (27.0-35.0); Mean Corpuscular Volume 100 fL (81-100); NEUTROPHILS % (AUTO) 63.4 % (40-74); Platelet Count 280 bil/L (150-400)
[2017-02-05 23:52] VITALS: BP 115/74; PULSE 94; RESP 18; O2SAT 97
--- NOTE | 2017-02-06 01:33 | NUR ---
FALL Pt. laying on couch with this RN in room during her assessment. Pt. said that she liked the couch better. Pt. had already been up ambulating at 1999 and at 2119 with no signs/symptoms of dizziness or unsteady gait. Added an egg crate mattress to [place] bed to try and make it more comfortable. This RN went over to the couch and pt. sat up and walked with a steady gait over to the [place] bed. Pt. looked at the new mattress and turned to go back to the couch. This RN turned around to have the pt. come back to the [place] bed. Pt. appeared to have a syncopal episode falling forward and hit her head on floor. This RN was behind patient and unable to stop pt. from falling. This RN called for help. Turned pt. over. Pt. had blank stare, go skin color, with eyes open. Responded to name. Pillow placed under pts. head. Started to say this hurts and rubbed her forehead. Right head above eye is swollen and small amount of blood. Vital signs as charted. MD notified and orders for a STAT head and cervical spine CT ordered. Lab in to draw stat labs. IV placed after 4 attempts. 500 NS bolus started per orders. When the IV was being placed, pt. was verbally stating "get this out of me. Stop this. That hurts me." Daughter Heather notified of pt. status. Pt. taken to CT accompanied by this RN and [employer] PUMP OPERATOR. After bolus BP improved, vitals charted. Pt. back in [place] bed. Daughter Heather notified of results of imaging at 0110.
[2017-02-06 04:33] VITALS: BP 122/71; PULSE 93; RESP 18; O2SAT 94
--- NOTE | 2017-02-06 05:21 | NUR ---
ACTIVITY Pt. sleeping intermittently in patricia bed, responds when name is called. 0400 pt. sitting up and wanting to use the bathroom. Contact guard assist with 2 person to bathroom. Pt. wants to be independent and stated to let go of her more than once. Pt. voided and was then escorted safely back to [place] bed. Pt. states "no I want to go over there" (pointing towards the couch). Pt. reminded that earlier she had fell and needed to be safe. Pt. discontinued own IV site. Pt. currently resting in bed with music on.
--- NOTE | 2017-02-06 07:45 | DRSVH ---
PROCEDURE: CT CERVICAL SPINE WITHOUT CONTRAST ([id number]) INDICATIONS: fall TECHNIQUE: Noncontrast 3 mm thick sections acquired from the skull base to the T4 level. Sagittal and coronal r eformats were then constructed. For radiation dose reduction, the following was used: automated exp osure control, adjustment of mA and/or kV according to patient size. COMPARISON: None. FINDINGS: Image quality: Motion artifacts at the skull base. Bones: No fractures or dislocations. Visualized superior ribs are intact. Degenerative disc diseas e is noted in cervical spine, severe C4-C5 and C5-C6, moderate at C6-C7. There is uncovertebral hyper trophy at C3-C4, C4-C5 and C6-C7. Bilateral facet arthropathy is present, most pronounced at C2-C3 an d C3-C4. Soft tissues: Prevertebral soft tissues are normal in thickness. No paravertebral hematomas. No ap ical pneumothoraces. IMPRESSION: 1. No fractures in cervical spine. 2. Degenerative changes noted. No significant discrepancy with the shiftman radiology preliminary report. Dictated by: Andrey Nice M.D. on 02/06/2017 at 7:44 Transcribed by: JUDI on 02/06/2017 at 7:46 Approved by: Andrey Nice M.D. on 02/06/2017 at 8:15
--- NOTE | 2017-02-06 07:46 | DRSVH ---
PROCEDURE: CT BRAIN WITHOUT CONTRAST ([id number]) INDICATIONS: fall TECHNIQUE: Noncontrast 4.5 mm thick angled axial sections acquired from the foramen magnum to the vertex, with c oronal reformats. COMPARISON: [facility], MR, MR STROKE PROTOCOL, 12/05/2016, 15:21. FINDINGS: Image quality: Motion artifacts are present, degrading images. CSF spaces: Basal cisterns are patent. No extra-axial fluid collections. The ventricles are symmet peng in size and shape. Brain: No intracranial bleeds or masses. There is cerebral volume loss for age, with resultant vent ricular and sulcal prominence. There are mild periventricular and deep white matter chronic small ve ssel ischemic changes. There is intracranial internal carotid artery atherosclerosis. Skull and face: Calvarium and visualized facial bones appear intact, without suspicious lesions. Sinuses: Visualized sinuses and mastoids are clear. IMPRESSION: 1. No acute intracranial abnormalities. 2. Cerebral volume loss and chronic microvascular ischemic changes. No significant discrepancy with the poacher operator radiology preliminary report. Dictated by: Andrey Nice M.D. on 02/06/2017 at 7:46 Transcribed by: JUDI on 02/06/2017 at 7:47 Approved by: Andrey Nice M.D. on 02/06/2017 at 8:16
--- NOTE | 2017-02-06 09:07 | PCM.PNMED ---
Subjective Date of Service Feb 06, 2017 Subjective pt had fall, CTH, cervical spine CT unremarkable, labs repeated unremarkable, Exam Vital Signs Vital Sign - Last Date Time Temp Pulse Resp B/P Pulse Ox O2 Delivery O2 Flow Rate FiO2 02/06/17 04:33 36.8 93 18 122/71 94 Room Air Intake and Output 02/05/17 02/05/17 02/06/17 Cumulative From/Thru 15:00 23:00 07:00 12/04/16 13:11 - 02/06/17 05:55 Intake Total 437 ml 800 ml 94095 ml Output Total 1050 ml Balance 437 ml 800 ml 84157 ml Intake Oral 437 ml 300 ml 22659 ml IV Total 0 ml 500 ml 21028 ml Output Urine Total 600 ml Emesis 450 ml # Voids 4 4 429 # Bowel Movements 1 0 65 IVs and Medications Medications Reviewed: Medications were reviewed in detail Lab and Diagnostics Result Diagram: 02/05/17223902/05/170 X-Rays, CTs and MRIs Date of Service: 12/05/16 1013 PROCEDURE: MRI STROKE PROTOCOL ([id number]) Pre- and post-contrast brain MRI, non-contrast brain MR angiogram, pre- and postcontrast neck MR angiogram INDICATIONS: psychosis dementia TECHNIQUE: Brain: Noncontrast axial T1 spin echo, axial T2 fast spin echo, sagittal and axial FLAIR, coronal T2 fast spin echo, axial gradient echo, axial diffusion and ADC through the brain. After the administration of contrast, axial 3D VIBE of the cranial vasculature and brain. Brain MRA: Non-contrast 3-D time of flight MR angiogram, with multiple maximum- intensity-projection (MIP) reformats performed. Neck MRA: Axial and sagittal TruFISP through the neck. Coronal dynamic MR angiogram during administration of contrast in the arterial and venous phases, with 3-dimenstional qnwqqyx-nraqovxlt-pyojmuplhg (MIP) reformats constructed from subtraction images. COMPARISON: None. FINDINGS: Image quality: Excellent. BRAIN: CSF spaces: There is ex vacuo dilatation of the lateral ventricles, greatest in degree involving the temporal horns. Basal cisterns are patent. No extra- axial fluid collections. Brain: No intracranial bleeds or mass effects. Mild degree of patchy high FLAIR signal intensity within the periventricular and subcortical white matter. There is moderate diffuse cerebral volume loss, greatest in degree involving the frontal and anterior temporal lobes. Jasmine-white matter interface is normal. Diffusion weighted images show no acute ischemic insults. Brainstem appears normal. Normal intravascular flow voids are present. No abnormal intracranial enhancement. Skull and face: Calvarial marrow signal is normal. Orbits appear normal. Sinuses: Sinuses and mastoids are clear. BRAIN MR ANGIOGRAM: Anterior circulation: Intracranial internal carotid arteries are normal in size and enhancement. The flow within the paired anterior cerebral arteries is normal and symmetric. The flow within the middle cerebral arteries is normal and symmetric. The anterior communicating artery is seen. No stenoses, occlusions, or aneurysms. Posterior circulation: The visualized portions of the vertebral arteries demonstrate normal caliber, and join to form a normal appearing basilar artery. The flow within the posterior cerebral arteries is normal and symmetric. No stenoses, occlusions, or aneurysms. NECK MR ANGIOGRAM: Carotids: Great vessels demonstrate a conventional anatomy as they arise from the aortic arch. The origins of the common carotid arteries appear patent. The calibers and courses of both common carotid arteries are normal. The bifurcation regions appear normal bilaterally. The internal carotid arteries demonstrate normal course and caliber. Posterior circulation: The origins of the vertebral arteries appear patent. More superior portions of both vertebral arteries demonstrate normal course and caliber, and join to form a normal appearing basilar artery. Miscellaneous: Subclavian arteries appear patent. Pre-contrast images through the neck show no soft tissue abnormalities. IMPRESSION: BRAIN MRI: 1. No acute process. No recent infarct. 2. Small vessel ischemic disease. 3. Cerebral volume loss, greatest in degree within the frontal and temporal lobes bilaterally. BRAIN MR ANGIOGRAM: Negative cervical MR angiography. NECK MR ANGIOGRAM: 1. No internal coronary stenosis bilaterally. 2. Patent bilateral vertebral arteries. The estimate of stenosis included in the report of the imaging study was calculated using the NASCET method Dictated by: Jing Kate M.D. on 12/05/2016 at 16:29 Transcribed by: RAULITO on 12/05/2016 at 16:34 Approved by: Jing Kate M.D. on 12/05/2016 at 16:40 Assessment & Plan 66-year-old female with severe early onset dementia with attempted suicide attempt was found to have YESENIA, UTI, and AMS. Currently pending placement and appointing of guardian ad davidum acute, active acute ground level fall, 02/06, trauma w/u negative. -continue 1:1, [place] bed, high risks of recurrent fall. chronic, stable, resolved # Major neurocognitive disorder, NOS, poa, active. Irregular behaviors, agitation, likely due to advanced dementia with possible psychosis features or underlying psychiatric dz, dementia was presumably due to Alzheimer's dementia, pt was diagnosed dxed dementia already 7yrs ago per brother. no previous dx of psychiatric dz. Medical w/u including MRA, MRI of brain, vitB12, TSH, RPR, UCX, all negative. New regimen started on 12/09. -as per / recommendation below Risperidone 0.25mg po bid and 0.25mg po q6hr prn agitation ->increased to 0.5m bid Continue memantine 5mg po bid for 1 week then 5mg daily and 10mg nightly for 1 weeks then 10mg po bid.increased to 10mg bid 01/14 -E-y-z-s-i-d-e-r- -n-c-f-i-n-g- -S-S-R-I- -e-.-g-.- -b-s-p-e-z-x-k-a-z-r-a-m- -5-m-g- -p-o- -d-a-i-l-y- -f-o-r- -j-h-g-h-l-o-s-i-o-n- ---->- -t-a-h-j-k-t-s-e-d- -t-o- -1-0-m-g- -d-a-i-l-y- ->switched to Sertraline 50mg liquid to increase compliance Consider prazosin for possible PTSD>Started prazosin 1 mg qhs Was asked by case management to review her meds and DC any that are not contributing much - patient reluctant to take pills and sometimes refuses so minimizing the total number might mean she gets the most important ones more of the time. So will DC Namenda. # Intermittent n/v, decreased po intake, POA, ddx: likely from severe ileus, Resolved -n/v resolved with ileus ,NGT removed -continue bowel regimen, senna liquid, miralax. -zofran prn for n/v -no artificial nutrition, confirmed with daughter - was curbsided, reconsult if necessary Was asked by case management to review her meds and DC any that are not contributing much - patient reluctant to take pills and sometimes refuses so minimizing the total number might mean she gets the most important ones more of the time. GARY probably not that effective so will DC it. # Mechanical fall with right upper lip laceration on 01/16/17 -Neuro exam is nonfocal and unchanged from earlier today. No need for imaging for now -Surgery stitched laceration 01/16. Removed stitches after 5 days. # Elevated ALT, calcium, and bilirubin; present on admission; improved , LFT shows mild hepatic dysfunction with mild elevations of bilirubin and large elevation of ALT; Hepatitis panel is negative. -clinically stable, trending down, # YESENIA, resolved -initially presented on admission, which was likely prerenal due to decreased Po intake, received normal saline , YESENIA resolved, pt developed again YESENIA on , possibly prerenal -s/p hydration, YESENIA resolved, # UTI, POA, resolved. -positive for leukocyte esterase, nitrites, few bacteria. pt was empirically start Rocephin but final UCX negative. Repeat UCX also contaminated, stopped abx 12/11. then pt was restarted CFX01/04-, given marked elevation of wbc, trending down, UCX from 01/03 showed mixed doron, abx stopped. # Severe Protein-Calorie Malnutrition- poa, active - Slightly improved and likes to drink ensure supplements, Labs showed slight increase in liver function tests AST and ALT on 12/26. - Trial of Remeron which did not seem to help her appetite and made her more lethargic. Remeron is discontinued" - 12/30- Per discussion with Herb Doctor, will add high calorie nutritional supplements. - Tried Megace on 12/30 without improvement. - 01/01- Added Dronabinol 2.5mg BID w/ meals, pt did not tolerate at all due to nausea. Stopped. Back pain, active -- Patient complains of pain in the lumbar sacral area -- Increased tramadol to every 4 hrs 50 mg when necessary # Hx of nephrolithiasis, recent stent placement, POA, Abd US on 12/04 showed Interval resolution of right hydronephrosis status post ureteral stent placement. 1.7 cm nonobstructing right renal stone. - pt was scheduled for elective Rt renal Laser lithotripsy 12/12, informed that pt is in the hospital. f/u with urology after discharge. Post menopausal symptoms chronic -- discontinued Estrace. dvt ppx lovenox dcd 01/14 as daughters wish is comfort measures mainly Disposition: Await guardianship VTE Prophylaxis: Sub-Q Enoxaparin VTE Mechanical Devices: Venous Foot Pump Resuscitation Status: DNR/DNI:Do Not Resuscitate/Intubate Time spent 35min Mariana Dunn MD Feb 06, 2017 09:05
[2017-02-06] MEDS: Polyethylene Glycol (PEG) 17 Gm Powder PO SCH (09:59)
[2017-02-06] MEDS: Sertraline 20 mg/mL Liq PO SCH (10:30)
[2017-02-06] MEDS: risperiDONE 1 mg Tablet PO SCH ×2 (10:30→20:30)
[2017-02-06 12:30] VITALS: BP 97/60; PULSE 80; RESP 18; O2SAT 100
--- NOTE | 2017-02-06 18:58 | NUR ---
Activity/pain Pt has been amb to BR with SBA, tolerating activity well. No verbal c/o pain noted this shift, some grimacing noted with movement. Attempted to give PRN acetaminophen x2 - pt took 1/2 bite first time and refused second time despite dtr at bedside and attempting to help. Neuros have been intact, pt has been interacting per baseline. Bed in lowest, locked position, call light in reach and sitter at bedside.
[2017-02-07 00:51] VITALS: BP 99/54; PULSE 70; RESP 16; O2SAT 99
--- NOTE | 2017-02-07 05:18 | NUR ---
Meds/intake/restraints PT slept all shift only getting up to go to the bathroom, refused he HS meds and only took sips of fluid. Lu bed in use as no sitter available and the PT is a major fall risk.
[2017-02-07] MEDS: Polyethylene Glycol (PEG) 17 Gm Powder PO SCH (08:30)
[2017-02-07] MEDS: risperiDONE 1 mg Tablet PO SCH ×3 (08:30→20:30)
--- NOTE | 2017-02-07 09:00 | NUR ---
PO intake/meds Pt adamantly refused to take AM meds. Waved her hand at this RN and stated firmly "no, take it away. I don't want it" Pt tried a bite of breakfast and spit it out on her plate. Sipping water and cranberry juice, 1:1 sitter at bedside encouraging PO intake and for safety. Pt is high falls risk
[2017-02-07] MEDS: Sertraline 20 mg/mL Liq PO SCH (09:52)
[2017-02-07 12:46] VITALS: BP 114/67; PULSE 77; RESP 16; O2SAT 98
--- NOTE | 2017-02-07 15:09 | NUR ---
Social Work-continued d/c planning: Data:EMR reviewed. Pt is on day 65 of hospitalization for dehydration per H&P. Pt's ADOLFO Michael John [phone] came to see pt today. SW spoke with Michael after he visited pt. Michael had questions for SW regarding nutrition, ADLs, SOMA bed,etc. SW answered all of his questions. SW also provided him with update regarding pt's family members and that pt is now on comfort care. Michael states that the next step is continuing to look into things about the pt and contacting the family. Then he will go to court and present his finding. Michael is unsure when pt's court date is. SW requested to be notified when he knows this information. SW will continue to follow. Assessment:pt who will need placement. Plan:Pt's ADOLFO Rodriguez working on case, he will notify SW when he is to go to court. SW will continue to follow. STEWART Contreras
[2017-02-07] MEDS: RISPERIDONE 1 MG/ML PO PRN (16:39)
--- NOTE | 2017-02-07 17:00 | NUR ---
Ambulation/agitation Pt was up and ambulating in the hallways with sitter, exit seeking behavior exhibited. Pt tried to enter other rooms, sitter tried to redirect, pt was non cooperative. This RN intervened and was able to re-direct the pt. PRN Risperidone given for increased agitation. Pt was reluctant to take medication, this RN was persistent and medication was administered, 1:1 sitter at bedside for safety and redirection
--- NOTE | 2017-02-07 17:18 | PCM.PNMED ---
Subjective Date of Service Feb 07, 2017 Subjective pt is regressing, not eating well, no activities. Exam Vital Signs Vital Sign - Last Date Time Temp Pulse Resp B/P Pulse Ox O2 Delivery O2 Flow Rate FiO2 02/07/17 12:46 36.8 77 16 114/67 98 Room Air Intake and Output 02/06/17 02/06/17 02/07/17 Cumulative From/Thru 15:00 23:00 07:00 12/04/16 13:11 - 02/07/17 05:54 Intake Total 237 ml 0 ml 01332 ml Output Total 1050 ml Balance 237 ml 0 ml 75907 ml Intake Oral 237 ml 0 ml 94337 ml IV Total 79248 ml Output Urine Total 600 ml Emesis 450 ml # Voids 3 1 433 # Bowel Movements 65 Exam NAD, comfortably laying down on the bed no JVD, MMM, no LAD RRR, nl s1, s2 no mrg CTAB, no w,c S,ND,NT,normoactive BS+ warm, no edema, pulses 2/2 IVs and Medications Medications Reviewed: Medications were reviewed in detail Lab and Diagnostics Result Diagram: 02/05/17223902/05/172239 X-Rays, CTs and MRIs Date of Service: 12/05/16 1013 PROCEDURE: MRI STROKE PROTOCOL ([id number]) Pre- and post-contrast brain MRI, non-contrast brain MR angiogram, pre- and postcontrast neck MR angiogram INDICATIONS: psychosis dementia TECHNIQUE: Brain: Noncontrast axial T1 spin echo, axial T2 fast spin echo, sagittal and axial FLAIR, coronal T2 fast spin echo, axial gradient echo, axial diffusion and ADC through the brain. After the administration of contrast, axial 3D VIBE of the cranial vasculature and brain. Brain MRA: Non-contrast 3-D time of flight MR angiogram, with multiple maximum- intensity-projection (MIP) reformats performed. Neck MRA: Axial and sagittal TruFISP through the neck. Coronal dynamic MR angiogram during administration of contrast in the arterial and venous phases, with 3-dimenstional vsgxlhb-ykkbbanfm-xjekbockrc (MIP) reformats constructed from subtraction images. COMPARISON: None. FINDINGS: Image quality: Excellent. BRAIN: CSF spaces: There is ex vacuo dilatation of the lateral ventricles, greatest in degree involving the temporal horns. Basal cisterns are patent. No extra- axial fluid collections. Brain: No intracranial bleeds or mass effects. Mild degree of patchy high FLAIR signal intensity within the periventricular and subcortical white matter. There is moderate diffuse cerebral volume loss, greatest in degree involving the frontal and anterior temporal lobes. Jasmine-white matter interface is normal. Diffusion weighted images show no acute ischemic insults. Brainstem appears normal. Normal intravascular flow voids are present. No abnormal intracranial enhancement. Skull and face: Calvarial marrow signal is normal. Orbits appear normal. Sinuses: Sinuses and mastoids are clear. BRAIN MR ANGIOGRAM: Anterior circulation: Intracranial internal carotid arteries are normal in size and enhancement. The flow within the paired anterior cerebral arteries is normal and symmetric. The flow within the middle cerebral arteries is normal and symmetric. The anterior communicating artery is seen. No stenoses, occlusions, or aneurysms. Posterior circulation: The visualized portions of the vertebral arteries demonstrate normal caliber, and join to form a normal appearing basilar artery. The flow within the posterior cerebral arteries is normal and symmetric. No stenoses, occlusions, or aneurysms. NECK MR ANGIOGRAM: Carotids: Great vessels demonstrate a conventional anatomy as they arise from the aortic arch. The origins of the common carotid arteries appear patent. The calibers and courses of both common carotid arteries are normal. The bifurcation regions appear normal bilaterally. The internal carotid arteries demonstrate normal course and caliber. Posterior circulation: The origins of the vertebral arteries appear patent. More superior portions of both vertebral arteries demonstrate normal course and caliber, and join to form a normal appearing basilar artery. Miscellaneous: Subclavian arteries appear patent. Pre-contrast images through the neck show no soft tissue abnormalities. IMPRESSION: BRAIN MRI: 1. No acute process. No recent infarct. 2. Small vessel ischemic disease. 3. Cerebral volume loss, greatest in degree within the frontal and temporal lobes bilaterally. BRAIN MR ANGIOGRAM: Negative cervical MR angiography. NECK MR ANGIOGRAM: 1. No internal coronary stenosis bilaterally. 2. Patent bilateral vertebral arteries. The estimate of stenosis included in the report of the imaging study was calculated using the NASCET method Dictated by: Jing Kate M.D. on 12/05/2016 at 16:29 Transcribed by: RAULITO on 12/05/2016 at 16:34 Approved by: Jing Kate M.D. on 12/05/2016 at 16:40 Assessment & Plan 66-year-old female with severe early onset dementia with attempted suicide attempt was found to have YESENIA, UTI, and AMS. Currently pending placement and appointing of guardian ad litum acute, active acute ground level fall, 02/06, trauma w/u negative. -continue 1:1, Soma bed, high risks of recurrent fall. poor oral intake, deconditioing, hypernatremia on labs 02/06, -consider start IVF based on labs tomorrow, chronic, stable, resolved # Major neurocognitive disorder, NOS, poa, active. Irregular behaviors, agitation, likely due to advanced dementia with possible psychosis features or underlying psychiatric dz, dementia was presumably due to Alzheimer's dementia, pt was diagnosed dxed dementia already 7yrs ago per brother. no previous dx of psychiatric dz. Medical w/u including MRA, MRI of brain, vitB12, TSH, RPR, UCX, all negative. New regimen started on 12/09. -as per / recommendation below Risperidone 0.25mg po bid and 0.25mg po q6hr prn agitation ->increased to 0.5m bid Continue memantine 5mg po bid for 1 week then 5mg daily and 10mg nightly for 1 weeks then 10mg po bid.increased to 10mg bid 01/14 -B-u-h-s-i-d-e-r- -a-p-p-i-n-g- -S-S-R-I- -e-.-g-.- -j-q-i-a-a-r-s-r-a-r-a-m- -5-m-g- -p-o- -d-a-i-l-y- -f-o-r- -d-r-a-g-z-k-s-i-o-n- ---->- -e-t-r-r-a-z-s-e-d- -t-o- -1-0-m-g- -d-a-i-l-y- ->switched to Sertraline 50mg liquid to increase compliance Consider prazosin for possible PTSD>Started prazosin 1 mg qhs Was asked by case management to review her meds and DC any that are not contributing much - patient reluctant to take pills and sometimes refuses so minimizing the total number might mean she gets the most important ones more of the time. So will DC Namenda. # Intermittent n/v, decreased po intake, POA, ddx: likely from severe ileus, Resolved -n/v resolved with ileus ,NGT removed -continue bowel regimen, senna liquid, miralax. -zofran prn for n/v -no artificial nutrition, confirmed with daughter - was curbsided, reconsult if necessary Was asked by case management to review her meds and DC any that are not contributing much - patient reluctant to take pills and sometimes refuses so minimizing the total number might mean she gets the most important ones more of the time. GARY probably not that effective so will DC it. # Mechanical fall with right upper lip laceration on 01/16/17 -Neuro exam is nonfocal and unchanged from earlier today. No need for imaging for now -Surgery stitched laceration 01/16. Removed stitches after 5 days. # Elevated ALT, calcium, and bilirubin; present on admission; improved , LFT shows mild hepatic dysfunction with mild elevations of bilirubin and large elevation of ALT; Hepatitis panel is negative. -clinically stable, trending down, # YESENIA, resolved -initially presented on admission, which was likely prerenal due to decreased Po intake, received normal saline , YESENIA resolved, pt developed again YESENIA on , possibly prerenal -s/p hydration, YESENIA resolved, # UTI, POA, resolved. -positive for leukocyte esterase, nitrites, few bacteria. pt was empirically start Rocephin but final UCX negative. Repeat UCX also contaminated, stopped abx 12/11. then pt was restarted CFX01/04-, given marked elevation of wbc, trending down, UCX from 01/03 showed mixed doron, abx stopped. # Severe Protein-Calorie Malnutrition- poa, active - Slightly improved and likes to drink ensure supplements, Labs showed slight increase in liver function tests AST and ALT on 12/26. - Trial of Remeron which did not seem to help her appetite and made her more lethargic. Remeron is discontinued" - 12/30- Per discussion with Designer, will add high calorie nutritional supplements. - Tried Megace on 12/30 without improvement. - 01/01- Added Dronabinol 2.5mg BID w/ meals, pt did not tolerate at all due to nausea. Stopped. Back pain, active -- Patient complains of pain in the lumbar sacral area -- Increased tramadol to every 4 hrs 50 mg when necessary # Hx of nephrolithiasis, recent stent placement, POA, Abd US on 12/04 showed Interval resolution of right hydronephrosis status post ureteral stent placement. 1.7 cm nonobstructing right renal stone. - pt was scheduled for elective Rt renal Laser lithotripsy 12/12, informed that pt is in the hospital. f/u with urology after discharge. Post menopausal symptoms chronic -- discontinued Estrace. dvt ppx lovenox dcd 01/14 as daughters wish is comfort measures mainly Disposition: Await guardianship VTE Prophylaxis: Sub-Q Enoxaparin VTE Mechanical Devices: Venous Foot Pump Resuscitation Status: DNR/DNI:Do Not Resuscitate/Intubate Time spent 35imMariana Blair MD Feb 07, 2017 17:18
[2017-02-07 21:50] VITALS: BP 102/60; PULSE 75; RESP 16; O2SAT 97
--- NOTE | 2017-02-08 04:23 | NUR ---
Meds/intake PT slept all shift only getting up to go to the bathroom, refused he HS meds and only took sips of fluid. sitter with PT as she is a Major falls risk.
[2017-02-08 04:53] VITALS: BP 115/69; PULSE 82; RESP 18; O2SAT 96
[2017-02-08] MEDS: Polyethylene Glycol (PEG) 17 Gm Powder PO SCH (08:30)
[2017-02-08] MEDS: risperiDONE 1 mg Tablet PO SCH (08:30)
[2017-02-08] MEDS: Sertraline 20 mg/mL Liq PO SCH (09:13)
--- NOTE | 2017-02-08 10:03 | NUR ---
Inpatient Wound Nurse Patient approached three consecutive days for BLE nail care. Today patient allowed [facility] RN to trim nails on toes 3, 4, 5 of L foot, and then stated that she was done. Although nails are long and thickened, patient will not allow nail care. Nails are difficult to trim when they are this thick; even with use of podiatry clippers, the nail is too thick to fit comfortably in clippers without causing painful torque on nail bed. Ideally, patient should be seen by [facility] or podiatry for nail sanding to reduce thickness. This cannot be completed in hospital setting due to aeration of irritant particles (fungal nail dust). Healing laceration noted to R forehead, Z shaped wound is <1 cm L & W. No periwound erythema, no drainage. Wound requires no dressing or wound care.
--- NOTE | 2017-02-08 12:53 | PCM.PNMED ---
Subjective Date of Service Feb 08, 2017 Subjective The patient has fairly severe dementia. She is unable to really participate in review of systems are subjective in any meaningful way. She is awake and does appear to be mostly comfortable. The proof technician notes that she has been walking today and her usual self in terms of behavior. She continues to be very difficult to feed. He notes her granddaughter has the most success with bathing her. No critical overnight events noted. Exam Vital Signs Vital Sign - Last Date Time Temp Pulse Resp B/P Pulse Ox O2 Delivery O2 Flow Rate FiO2 02/08/17 04:53 36.3 82 18 115/69 96 Room Air Intake and Output 02/07/17 02/07/17 02/08/17 Cumulative From/Thru 15:00 23:00 07:00 12/04/16 13:11 - 02/08/17 04:53 Intake Total 910 ml 100 ml 48054 ml Output Total 1050 ml Balance 910 ml 100 ml 33983 ml Intake Oral 910 ml 100 ml 83140 ml IV Total 71825 ml Output Urine Total 600 ml Emesis 450 ml # Voids 5 438 # Bowel Movements 1 0 66 Exam She is shireen in the Soma but opens her eyes occasionally. Her respiratory rate and effort are normal, lungs are clear. Heart is regular without murmur gallop or rub Abdomen is flat Extremities are free of edema. Good pedal pulses. IVs and Medications Medications Reviewed: Medications were reviewed in detail Lab and Diagnostics Result Diagram: 02/05/17 2240 02/08/17 0554 X-Rays, CTs and MRIs Date of Service: 12/05/16 1013 PROCEDURE: MRI STROKE PROTOCOL ([id number]) Pre- and post-contrast brain MRI, non-contrast brain MR angiogram, pre- and postcontrast neck MR angiogram INDICATIONS: psychosis dementia TECHNIQUE: Brain: Noncontrast axial T1 spin echo, axial T2 fast spin echo, sagittal and axial FLAIR, coronal T2 fast spin echo, axial gradient echo, axial diffusion and ADC through the brain. After the administration of contrast, axial 3D VIBE of the cranial vasculature and brain. Brain MRA: Non-contrast 3-D time of flight MR angiogram, with multiple maximum- intensity-projection (MIP) reformats performed. Neck MRA: Axial and sagittal TruFISP through the neck. Coronal dynamic MR angiogram during administration of contrast in the arterial and venous phases, with 3-dimenstional oozzwyl-bgwbxaxaq-rdwrfgmjmf (MIP) reformats constructed from subtraction images. COMPARISON: None. FINDINGS: Image quality: Excellent. BRAIN: CSF spaces: There is ex vacuo dilatation of the lateral ventricles, greatest in degree involving the temporal horns. Basal cisterns are patent. No extra- axial fluid collections. Brain: No intracranial bleeds or mass effects. Mild degree of patchy high FLAIR signal intensity within the periventricular and subcortical white matter. There is moderate diffuse cerebral volume loss, greatest in degree involving the frontal and anterior temporal lobes. Jasmine-white matter interface is normal. Diffusion weighted images show no acute ischemic insults. Brainstem appears normal. Normal intravascular flow voids are present. No abnormal intracranial enhancement. Skull and face: Calvarial marrow signal is normal. Orbits appear normal. Sinuses: Sinuses and mastoids are clear. BRAIN MR ANGIOGRAM: Anterior circulation: Intracranial internal carotid arteries are normal in size and enhancement. The flow within the paired anterior cerebral arteries is normal and symmetric. The flow within the middle cerebral arteries is normal and symmetric. The anterior communicating artery is seen. No stenoses, occlusions, or aneurysms. Posterior circulation: The visualized portions of the vertebral arteries demonstrate normal caliber, and join to form a normal appearing basilar artery. The flow within the posterior cerebral arteries is normal and symmetric. No stenoses, occlusions, or aneurysms. NECK MR ANGIOGRAM: Carotids: Great vessels demonstrate a conventional anatomy as they arise from the aortic arch. The origins of the common carotid arteries appear patent. The calibers and courses of both common carotid arteries are normal. The bifurcation regions appear normal bilaterally. The internal carotid arteries demonstrate normal course and caliber. Posterior circulation: The origins of the vertebral arteries appear patent. More superior portions of both vertebral arteries demonstrate normal course and caliber, and join to form a normal appearing basilar artery. Miscellaneous: Subclavian arteries appear patent. Pre-contrast images through the neck show no soft tissue abnormalities. IMPRESSION: BRAIN MRI: 1. No acute process. No recent infarct. 2. Small vessel ischemic disease. 3. Cerebral volume loss, greatest in degree within the frontal and temporal lobes bilaterally. BRAIN MR ANGIOGRAM: Negative cervical MR angiography. NECK MR ANGIOGRAM: 1. No internal coronary stenosis bilaterally. 2. Patent bilateral vertebral arteries. The estimate of stenosis included in the report of the imaging study was calculated using the NASCET method Dictated by: Jing Kate M.D. on 12/05/2016 at 16:29 Transcribed by: RAULITO on 12/05/2016 at 16:34 Approved by: Jing Kate M.D. on 12/05/2016 at 16:40 Assessment & Plan 66-year-old female with severe early onset dementia with attempted suicide attempt was found to have YESENIA, UTI, and AMS. Currently pending placement and appointing of guardian ad litum 1. Acute ground level fall, 02/06, new and resolved. No apparent injury. -continue 1:1, Soma bed, high risks of recurrent fall. 2. poor oral intake and deconditioing, active. 3. Major neurocognitive disorder, NOS, present on admission and active. Irregular behaviors, agitation, likely due to advanced dementia with possible psychosis features or underlying psychiatric dz, dementia was presumably due to Alzheimer's dementia, pt was diagnosed dxed dementia already 7yrs ago per brother. no previous dx of psychiatric dz. Medical w/u including MRA, MRI of brain, vitB12, TSH, RPR, UCX, all negative. New regimen started on 12/09. -as per / recommendation below Risperidone 0.25mg po bid and 0.25mg po q6hr prn agitation ->increased to 0.5m bid, will use elixir. Continue memantine 5mg po bid for 1 week then 5mg daily and 10mg nightly for 1 weeks then 10mg po bid.increased to 10mg bid 01/14 ->switched to Sertraline 50mg liquid to increase compliance Consider prazosin for possible PTSD>Started prazosin 1 mg qhs Was asked by case management to review her meds and DC any that are not contributing much - patient reluctant to take pills and sometimes refuses so minimizing the total number might mean she gets the most important ones more of the time. So will DC Namenda. 4. Intermittent nausea and vomiting with poor oral intake, present on admission and active. Likely from severe ileus, which has since resolved. -NGT removed -continue bowel regimen, senna liquid, miralax. -zofran prn for n/v -no artificial nutrition, confirmed with daughter - was curbsided, reconsult if necessary Was asked by case management to review her meds and DC any that are not contributing much - patient reluctant to take pills and sometimes refuses so minimizing the total number might mean she gets the most important ones more of the time. GARY probably not that effective so will DC it. 5. Mechanical fall with right upper lip laceration on 01/16/17, resolved. -Neuro exam is nonfocal and unchanged from earlier today. No need for imaging for now -Surgery stitched laceration 01/16. Removed stitches after 5 days. 6. Elevated ALT, calcium, and bilirubin; present on admission; all improved , LFT shows mild hepatic dysfunction with mild elevations of bilirubin and large elevation of ALT; Hepatitis panel is negative. -clinically stable, trending down, 7. Acute kidney injury, present on admission and resolved -initially presented on admission, which was likely prerenal due to decreased Po intake, received normal saline , YESENIA resolved, pt developed again YESENIA on , possibly prerenal -s/p hydration, YESENIA resolved, 8. Urinary tract infection, present on admission and resolved. -positive for leukocyte esterase, nitrites, few bacteria. pt was empirically start Rocephin but final UCX negative. Repeat UCX also contaminated, stopped abx 12/11. then pt was restarted CFX01/04-, given marked elevation of wbc, trending down, UCX from 01/03 showed mixed doron, abx stopped. 9. Severe Protein-Calorie Malnutrition-present on admission and active. - Slightly improved and likes to drink ensure supplements, Labs showed slight increase in liver function tests AST and ALT on 12/26. - Trial of Remeron which did not seem to help her appetite and made her more lethargic. Remeron is discontinued" - 12/30- Per discussion with Private Watchman, will add high calorie nutritional supplements. - Tried Megace on 12/30 without improvement. - 01/01- Added Dronabinol 2.5mg BID w/ meals, pt did not tolerate at all due to nausea. Stopped. 10. Back pain, present on admission and active -- Patient complains of pain in the lumbar sacral area -- Increased tramadol to every 4 hrs 50 mg when necessary 11. History of of nephrolithiasis, with recent stent placement, present on admission and stable Abd US on 12/04 showed Interval resolution of right hydronephrosis status post ureteral stent placement. 1.7 cm nonobstructing right renal stone. - pt was scheduled for elective Rt renal Laser lithotripsy 12/12, informed that pt is in the hospital. f/u with urology after discharge. . dvt ppx lovenox dcd 01/14 as daughters wish is comfort measures mainly Disposition: Await guardianship Patient is inpatient status. VTE Prophylaxis: Sub-Q Enoxaparin VTE Mechanical Devices: Venous Foot Pump Resuscitation Status: DNR/DNI:Do Not Resuscitate/Intubate Julio Diop MD Feb 08, 2017 12:53
[2017-02-08 14:12] VITALS: BP 101/64; PULSE 65; RESP 18; O2SAT 96
[2017-02-08] MEDS: RISPERIDONE 1 MG/ML PO SCH ×2 (14:15→23:24)
[2017-02-09 00:59] VITALS: BP 110/63; PULSE 71; RESP 16; O2SAT 96
[2017-02-09 06:25] VITALS: BP 105/65; PULSE 73; RESP 16; O2SAT 96
[2017-02-09] MEDS: RISPERIDONE 1 MG/ML PO SCH ×3 (07:59→19:44)
[2017-02-09] MEDS: Polyethylene Glycol (PEG) 17 Gm Powder PO SCH (08:00)
[2017-02-09] MEDS: Sertraline 20 mg/mL Liq PO SCH ×2 (08:00→08:30)
--- NOTE | 2017-02-09 11:41 | PCM.PNMED ---
Subjective Date of Service Feb 09, 2017 Subjective She denies pain but is not really able to engage in review of systems was subjective otherwise. No critical Overnight events noted. Exam Vital Signs Vital Sign - Last Date Time Temp Pulse Resp B/P Pulse Ox O2 Delivery O2 Flow Rate FiO2 02/09/17 06:25 36.7 73 16 105/65 96 Room Air Intake and Output 02/08/17 02/08/17 02/09/17 Cumulative From/Thru 15:00 23:00 07:00 12/04/16 13:11 - 02/09/17 06:25 Intake Total 300 ml 150 ml 13832 ml Output Total 1050 ml Balance 300 ml 150 ml 37722 ml Intake Oral 300 ml 150 ml 40444 ml IV Total 14279 ml Output Urine Total 600 ml Emesis 450 ml # Voids 4 4 446 # Bowel Movements 0 0 66 Exam Alert and comfortable. Lungs are clear with normal effort. Heart is regular without murmur. Abdomen is soft nontender Extremities are free of edema Skin free of rash or lesions Conjugate gaze Anicteric sclera IVs and Medications Medications Reviewed: Medications were reviewed in detail Lab and Diagnostics Result Diagram: 02/05/17 2240 02/08/17 0554 X-Rays, CTs and MRIs Date of Service: 12/05/16 1013 PROCEDURE: MRI STROKE PROTOCOL ([id number]) Pre- and post-contrast brain MRI, non-contrast brain MR angiogram, pre- and postcontrast neck MR angiogram INDICATIONS: psychosis dementia TECHNIQUE: Brain: Noncontrast axial T1 spin echo, axial T2 fast spin echo, sagittal and axial FLAIR, coronal T2 fast spin echo, axial gradient echo, axial diffusion and ADC through the brain. After the administration of contrast, axial 3D VIBE of the cranial vasculature and brain. Brain MRA: Non-contrast 3-D time of flight MR angiogram, with multiple maximum- intensity-projection (MIP) reformats performed. Neck MRA: Axial and sagittal TruFISP through the neck. Coronal dynamic MR angiogram during administration of contrast in the arterial and venous phases, with 3-dimenstional hrjutsp-bnnimfnuh-nnuytqupnm (MIP) reformats constructed from subtraction images. COMPARISON: None. FINDINGS: Image quality: Excellent. BRAIN: CSF spaces: There is ex vacuo dilatation of the lateral ventricles, greatest in degree involving the temporal horns. Basal cisterns are patent. No extra- axial fluid collections. Brain: No intracranial bleeds or mass effects. Mild degree of patchy high FLAIR signal intensity within the periventricular and subcortical white matter. There is moderate diffuse cerebral volume loss, greatest in degree involving the frontal and anterior temporal lobes. Jasmine-white matter interface is normal. Diffusion weighted images show no acute ischemic insults. Brainstem appears normal. Normal intravascular flow voids are present. No abnormal intracranial enhancement. Skull and face: Calvarial marrow signal is normal. Orbits appear normal. Sinuses: Sinuses and mastoids are clear. BRAIN MR ANGIOGRAM: Anterior circulation: Intracranial internal carotid arteries are normal in size and enhancement. The flow within the paired anterior cerebral arteries is normal and symmetric. The flow within the middle cerebral arteries is normal and symmetric. The anterior communicating artery is seen. No stenoses, occlusions, or aneurysms. Posterior circulation: The visualized portions of the vertebral arteries demonstrate normal caliber, and join to form a normal appearing basilar artery. The flow within the posterior cerebral arteries is normal and symmetric. No stenoses, occlusions, or aneurysms. NECK MR ANGIOGRAM: Carotids: Great vessels demonstrate a conventional anatomy as they arise from the aortic arch. The origins of the common carotid arteries appear patent. The calibers and courses of both common carotid arteries are normal. The bifurcation regions appear normal bilaterally. The internal carotid arteries demonstrate normal course and caliber. Posterior circulation: The origins of the vertebral arteries appear patent. More superior portions of both vertebral arteries demonstrate normal course and caliber, and join to form a normal appearing basilar artery. Miscellaneous: Subclavian arteries appear patent. Pre-contrast images through the neck show no soft tissue abnormalities. IMPRESSION: BRAIN MRI: 1. No acute process. No recent infarct. 2. Small vessel ischemic disease. 3. Cerebral volume loss, greatest in degree within the frontal and temporal lobes bilaterally. BRAIN MR ANGIOGRAM: Negative cervical MR angiography. NECK MR ANGIOGRAM: 1. No internal coronary stenosis bilaterally. 2. Patent bilateral vertebral arteries. The estimate of stenosis included in the report of the imaging study was calculated using the NASCET method Dictated by: Jing Kate M.D. on 12/05/2016 at 16:29 Transcribed by: RAULITO on 12/05/2016 at 16:34 Approved by: Jing Kate M.D. on 12/05/2016 at 16:40 Assessment & Plan 66-year-old female with severe early onset dementia with attempted suicide attempt was found to have YESENIA, UTI, and AMS. Currently pending placement and appointing of guardian ad litum 1. Acute ground level fall, 02/06, new and resolved. No apparent injury. -continue 1:1, Soma bed, high risks of recurrent fall. No further apparent problems. 2. Poor oral intake and severe protein caloric malnutrition, active. She continues to really declined any food at this point. 3. Major neurocognitive disorder, NOS, present on admission and active. Irregular behaviors, agitation, likely due to advanced dementia with possible psychosis features or underlying psychiatric dz, dementia was presumably due to Alzheimer's dementia, pt was diagnosed dxed dementia already 7yrs ago per brother. no previous dx of psychiatric dz. Medical w/u including MRA, MRI of brain, vitB12, TSH, RPR, UCX, all negative. New regimen started on 12/09. -as per / recommendation below Risperidone 0.25mg po bid and 0.25mg po q6hr prn agitation ->increased to 0.5m bid, will use elixir. Continue memantine 5mg po bid for 1 week then 5mg daily and 10mg nightly for 1 weeks then 10mg po bid.increased to 10mg bid 01/14 ->switched to Sertraline 50mg liquid to increase compliance Consider prazosin for possible PTSD>Started prazosin 1 mg qhs Converted medications to elixir one possible and she seems to be better with this. 4. Intermittent nausea and vomiting with poor oral intake, present on admission and improved. Likely from severe ileus, which has since resolved. -NGT removed -continue bowel regimen, senna liquid, miralax. -zofran prn for n/v -no artificial nutrition, confirmed with daughter This appears to be improved however she continues to have anorexia. 5. Mechanical fall with right upper lip laceration on 01/16/17, resolved. -Neuro exam is nonfocal and unchanged from earlier today. No need for imaging for now -Surgery stitched laceration 01/16. Removed stitches after 5 days. 6. Elevated ALT, calcium, and bilirubin; present on admission; all improved , LFT shows mild hepatic dysfunction with mild elevations of bilirubin and large elevation of ALT; Hepatitis panel is negative. -clinically stable, trending down. No further evaluation at this point. 7. Acute kidney injury, present on admission and resolved -initially presented on admission, which was likely prerenal due to decreased Po intake, received normal saline , YESENIA resolved, pt developed again YESENIA on , possibly prerenal -s/p hydration, YESENIA resolved, no further evaluation at this point. 8. Urinary tract infection, present on admission and resolved. -positive for leukocyte esterase, nitrites, few bacteria. pt was empirically start Rocephin but final UCX negative. Repeat UCX also contaminated, stopped abx 12/11. then pt was restarted CFX01/04-, given marked elevation of wbc, trending down, UCX from 01/03 showed mixed doron, abx stopped. 9. Severe Protein-Calorie Malnutrition-present on admission and active. - Slightly improved and likes to drink ensure supplements, Labs showed slight increase in liver function tests AST and ALT on 12/26. - Trial of Remeron which did not seem to help her appetite and made her more lethargic. Remeron is discontinued" - 12/30- Per discussion with [employer], will add high calorie nutritional supplements. - Tried Megace on 12/30 without improvement. - 01/01- Added Dronabinol 2.5mg BID w/ meals, pt did not tolerate at all due to nausea. Stopped. No change to these plans. 10. Back pain, present on admission and improved. -- Patient complains of pain in the lumbar sacral area -- Increased tramadol to every 4 hrs 50 mg when necessary. No change to this plan. 11. History of of nephrolithiasis, with recent stent placement, present on admission and stable Abd US on 12/04 showed Interval resolution of right hydronephrosis status post ureteral stent placement. 1.7 cm nonobstructing right renal stone. - pt was scheduled for elective Rt renal Laser lithotripsy 12/12, informed that pt is in the hospital. f/u with urology after discharge. . dvt ppx lovenox dcd 01/14 as daughters wish is comfort measures mainly Disposition: Await guardianship Patient is inpatient status. VTE Prophylaxis: Sub-Q Enoxaparin VTE Mechanical Devices: Venous Foot Pump Resuscitation Status: DNR/DNI:Do Not Resuscitate/Intubate Julio Diop MD Feb 09, 2017 11:41
--- NOTE | 2017-02-09 12:55 | NUR ---
AM meds Pt refusing AM medications despite repeated attempts stating, "No, you take it. I don't want it!" Pushing at staff on second attempt.
[2017-02-09 13:43] VITALS: BP 111/66; PULSE 70; RESP 17; O2SAT 97
--- NOTE | 2017-02-09 18:10 | NUR ---
Activity/appetite/shower Pt amb in hallway with sitter then family a few times this shift. Attempting to leave out front door, attempting to enter other pt's rooms. Easily redirected. Pt did push away at dtr, stating, "Don't touch me and go away." No indicators of pain/discomfort noted this shift, verbal or non-verbal. Pt with very minimal appetite this shift despite repeated encouragement from staff and family. Limited food/fluid intake. Granddtr was able to shower pt.
[2017-02-09 19:31] VITALS: BP 116/72; PULSE 78; RESP 18; O2SAT 98
--- NOTE | 2017-02-09 19:46 | NUR ---
Declined HS Medication pt has declined to take any medications at HS. this RN made multiple attempts at different occasions to give HS medications. pt verbally declined to take meds on each occasion. "I don't need those" and "I don't want them, go away". This RN explained the importance of taking medications, the pt repeated "No, I don't need them". the RN encouraged pt to increase PO intake, pt declined to eat dinner, declined to eat a snack. placed Ensure at bedside, pt has taken a few observed sips. continuing to monitor. pt wellness rn at bedside.
--- NOTE | 2017-02-10 08:13 | PCM.PNMED ---
Subjective Date of Service Feb 10, 2017 Subjective Patient is doing well. She denies any pain. She states she slept well last night. She denies any pain. No critical overnight events. Exam Vital Signs Vital Sign - Last Date Time Temp Pulse Resp B/P Pulse Ox O2 Delivery O2 Flow Rate FiO2 02/09/17 19:31 36.2 78 18 116/72 98 Room Air Intake and Output 02/09/17 02/09/17 02/10/17 Cumulative From/Thru 15:00 23:00 07:00 12/04/16 13:11 - 02/10/17 06:45 Intake Total 350 ml 27132 ml Output Total 1050 ml Balance 350 ml 89502 ml Intake Oral 350 ml 13240 ml IV Total 50181 ml Output Urine Total 600 ml Emesis 450 ml # Voids 4 450 # Bowel Movements 0 66 Exam She is alert and in no distress Neck is supple Lungs are clear with normal effort. Lungs were normal Abdomen is flat and soft Extremities are free of edema. IVs and Medications Medications Reviewed: Medications were reviewed in detail Lab and Diagnostics Result Diagram: 02/05/17 2240 02/08/17 0554 X-Rays, CTs and MRIs Date of Service: 12/05/16 1013 PROCEDURE: MRI STROKE PROTOCOL ([id number]) Pre- and post-contrast brain MRI, non-contrast brain MR angiogram, pre- and postcontrast neck MR angiogram INDICATIONS: psychosis dementia TECHNIQUE: Brain: Noncontrast axial T1 spin echo, axial T2 fast spin echo, sagittal and axial FLAIR, coronal T2 fast spin echo, axial gradient echo, axial diffusion and ADC through the brain. After the administration of contrast, axial 3D VIBE of the cranial vasculature and brain. Brain MRA: Non-contrast 3-D time of flight MR angiogram, with multiple maximum- intensity-projection (MIP) reformats performed. Neck MRA: Axial and sagittal TruFISP through the neck. Coronal dynamic MR angiogram during administration of contrast in the arterial and venous phases, with 3-dimenstional ffivqyf-pnnzmxjbq-njychcdukb (MIP) reformats constructed from subtraction images. COMPARISON: None. FINDINGS: Image quality: Excellent. BRAIN: CSF spaces: There is ex vacuo dilatation of the lateral ventricles, greatest in degree involving the temporal horns. Basal cisterns are patent. No extra- axial fluid collections. Brain: No intracranial bleeds or mass effects. Mild degree of patchy high FLAIR signal intensity within the periventricular and subcortical white matter. There is moderate diffuse cerebral volume loss, greatest in degree involving the frontal and anterior temporal lobes. Jasmine-white matter interface is normal. Diffusion weighted images show no acute ischemic insults. Brainstem appears normal. Normal intravascular flow voids are present. No abnormal intracranial enhancement. Skull and face: Calvarial marrow signal is normal. Orbits appear normal. Sinuses: Sinuses and mastoids are clear. BRAIN MR ANGIOGRAM: Anterior circulation: Intracranial internal carotid arteries are normal in size and enhancement. The flow within the paired anterior cerebral arteries is normal and symmetric. The flow within the middle cerebral arteries is normal and symmetric. The anterior communicating artery is seen. No stenoses, occlusions, or aneurysms. Posterior circulation: The visualized portions of the vertebral arteries demonstrate normal caliber, and join to form a normal appearing basilar artery. The flow within the posterior cerebral arteries is normal and symmetric. No stenoses, occlusions, or aneurysms. NECK MR ANGIOGRAM: Carotids: Great vessels demonstrate a conventional anatomy as they arise from the aortic arch. The origins of the common carotid arteries appear patent. The calibers and courses of both common carotid arteries are normal. The bifurcation regions appear normal bilaterally. The internal carotid arteries demonstrate normal course and caliber. Posterior circulation: The origins of the vertebral arteries appear patent. More superior portions of both vertebral arteries demonstrate normal course and caliber, and join to form a normal appearing basilar artery. Miscellaneous: Subclavian arteries appear patent. Pre-contrast images through the neck show no soft tissue abnormalities. IMPRESSION: BRAIN MRI: 1. No acute process. No recent infarct. 2. Small vessel ischemic disease. 3. Cerebral volume loss, greatest in degree within the frontal and temporal lobes bilaterally. BRAIN MR ANGIOGRAM: Negative cervical MR angiography. NECK MR ANGIOGRAM: 1. No internal coronary stenosis bilaterally. 2. Patent bilateral vertebral arteries. The estimate of stenosis included in the report of the imaging study was calculated using the NASCET method Dictated by: Jing Kate M.D. on 12/05/2016 at 16:29 Transcribed by: RAULITO on 12/05/2016 at 16:34 Approved by: Jing Kate M.D. on 12/05/2016 at 16:40 Assessment & Plan 66-year-old female with severe early onset dementia with attempted suicide attempt was found to have YESENIA, UTI, and AMS. Currently pending placement and appointing of guardian ad litum 1. Acute ground level fall, 02/06, new and resolved. No apparent injury. -continue 1:1, Soma bed, high risks of recurrent fall. No further apparent problems. 2. Poor oral intake and severe protein caloric malnutrition, active. She continues to really declined any food at this point. 3. Major neurocognitive disorder (probable Alzheimer's dementia), present on admission and active. Irregular behaviors, agitation, likely due to advanced dementia with possible psychosis features or underlying psychiatric dz, dementia was presumably due to Alzheimer's dementia, pt was diagnosed dxed dementia already 7yrs ago per brother. no previous dx of psychiatric dz. Medical w/u including MRA, MRI of brain, vitB12, TSH, RPR, UCX, all negative. New regimen started on 12/09. -as per / recommendation below Risperidone 0.25mg po bid and 0.25mg po q6hr prn agitation ->increased to 0.5m bid, will use elixir. Continue memantine 5mg po bid for 1 week then 5mg daily and 10mg nightly for 1 weeks then 10mg po bid.increased to 10mg bid 01/14 ->switched to Sertraline 50mg liquid to increase compliance No changes to her current medical regimen. 4. Intermittent nausea and vomiting with poor oral intake, present on admission and resolved. Likely from severe ileus, which has since resolved. -NGT removed -continue bowel regimen, senna liquid, miralax. -zofran prn for n/v -no artificial nutrition, confirmed with daughter This appears to be improved however she continues to have anorexia. 5. Mechanical fall with right upper lip laceration on 01/16/17, resolved. -Neuro exam is nonfocal and unchanged from earlier today. No need for imaging for now -Surgery stitched laceration 01/16. Removed stitches after 5 days. 6. Elevated ALT, calcium, and bilirubin; present on admission; resolved. 7. Acute kidney injury, present on admission and resolved. -initially presented on admission, which was likely prerenal due to decreased Po intake, received normal saline , YESENIA resolved, pt developed again YESENIA on , possibly prerenal -s/p hydration, YESENIA resolved, no further evaluation at this point. 8. Urinary tract infection, present on admission and resolved. 9. Severe Protein-Calorie Malnutrition-present on admission and active. - Slightly improved and likes to drink ensure supplements, Labs showed slight increase in liver function tests AST and ALT on 12/26. - Trial of Remeron which did not seem to help her appetite and made her more lethargic. Remeron is discontinued" - 12/30- Per discussion with [employer] Customer Service Representative, will add high calorie nutritional supplements. - Tried Megace on 12/30 without improvement. - 01/01- Added Dronabinol 2.5mg BID w/ meals, pt did not tolerate at all due to nausea. Stopped. No change to these plans. 10. Back pain, present on admission and improved. -- Patient complains of pain in the lumbar sacral area -- Increased tramadol to every 4 hrs 50 mg when necessary. No change to this plan. 11. History of of nephrolithiasis, with recent stent placement, present on admission and stable Abd US on 12/04 showed Interval resolution of right hydronephrosis status post ureteral stent placement. 1.7 cm nonobstructing right renal stone. - pt was scheduled for elective Rt renal Laser lithotripsy 12/12, informed that pt is in the hospital. f/u with urology after discharge. . DVT prophylaxis lovenox dcd 01/14 as daughters wish is comfort measures mainly Disposition: Await guardianship, further discharge planning remains very difficult. Patient is inpatient status. VTE Prophylaxis: Sub-Q Enoxaparin VTE Mechanical Devices: Venous Foot Pump Resuscitation Status: DNR/DNI:Do Not Resuscitate/Intubate Julio Diop MD Feb 10, 2017 08:13
[2017-02-10] MEDS: RISPERIDONE 1 MG/ML PO SCH ×2 (08:30→20:42)
[2017-02-10] MEDS: Sertraline 20 mg/mL Liq PO SCH (09:48)
[2017-02-10] MEDS: Polyethylene Glycol (PEG) 17 Gm Powder PO SCH (09:48)
--- NOTE | 2017-02-10 10:19 | NUR ---
Behavior: Patient in [facility], frequent checks allowing for toileting, offer drinks and meal and snack. Refusing meals, drinking nutritional shake and sips of water. Cooperative with physical assessment, refusing scheduled medication, pushed LOREE arm away. Addendum: 02/10/17 at 1145 by DEMARCUS SENA RN Encouraged patient to change clothes so that current clothing can be laundered. Patient refusing at this time to change clothes. Addendum: 02/10/17 at 1522 by DEMARCUS SENA RN Sitter at bedside. [facility] bed discontinued @ approx 1515.
[2017-02-10 16:04] VITALS: BP 90/59; PULSE 74; RESP 18; O2SAT 96
--- NOTE | 2017-02-10 16:04 | NUR ---
Social Work: Continued Discharge Planning/Multidisciplinary Rounds D: EMR reviewed. Pt is on day 68 of hospitalization. Pt discussed in multidisciplinary rounds and discharge plan remains the same, placement pending ADOL[facility] Lopez who is working on pt's case and will notify SW with updates regarding when he is scheduled to go to court. No changes indicated by medical team in multidisciplinary rounds. SW will continue to follow. A: Pt who is in need of placement pending [place] court date. P: Pt's discharge pending court date for [facility]. SW will continue to follow. Per previous SW notes, [facility] to follow-up with SW regarding court date. SW will continue to follow. STEWART Anderson
[2017-02-10] MEDS ORDERED: .Epic Conversion Completed XX PRN (16:10)
--- NOTE | 2017-02-10 20:10 | NUR ---
HS med refusal Pt refused Prazosin and Colace stating, " I don't need those." Pt waved hand several times, but agreed to take liquid Risperdal. Pt takes sips of nutritional shakes and water located at bedside. Pt was able to go to the bathroom with a steady gait. VSS. Care continues.
[2017-02-10 20:26] VITALS: BP 100/60; PULSE 82; RESP 18; O2SAT 97
[2017-02-10 23:49] VITALS: BP 98/62; PULSE 78; RESP 18; O2SAT 97
== END 2017-02-11 01:45 | disposition admitted as inpatient to this hospital (09) | DRG 884 ==
LOC: SED 13:11 → MPC 17:58 → OBSVTOIN 17:58 → MPC 18:22
PROVIDERS: ADMIT Internal Medicine Infectious Disease; ATTEND Hospitalist
DX: F01.51 Vascular dementia, unspecified severity, with behavioral disturbance (principal); N17.9 Acute kidney failure, unspecified; R45.851 Suicidal ideations; F02.81 Dementia in other diseases classified elsewhere, unspecified severity, with behavioral disturbance; F05 Delirium due to known physiological condition; E46 Unspecified protein-calorie malnutrition; G30.9 Alzheimer's disease, unspecified; Z91.83 Wandering in diseases classified elsewhere